=== PATIENT | female | born 1990 | race African-American/Black ===

== ENCOUNTER 2016-11-30 19:44 | Outpatient (CLI) | payer MEDICAID ==
[2016-11-30 20:19] LABS: APPEARANCE,URINE CLEAR; BILIRUBIN,URINE NEGATIVE (NEGATIVE); GLUCOSE, URINE NEGATIVE (NEGATIVE); KETONES,URINE NEGATIVE (NEGATIVE); LEUKOCYTE ESTERASE,URINE SMALL (NEGATIVE); NITRITE,URINE NEGATIVE (NEGATIVE); PROTEIN,URINE NEGATIVE (NEGATIVE); URINE SPECIFIC GRAVITY 1.013; UROBILINOGEN,URINE NEGATIVE mg/dL (<2.0)
[2016-11-30 20:33] LABS: URINE BARBITURATES SCREEN NEGATIVE; URINE METHADONE SCREEN NEGATIVE; URINE PHENCYCLIDINE SCREEN NEGATIVE
[2016-11-30 20:39] LABS: AMNISURE (ROM) NEGATIVE (NEGATIVE)
--- NOTE | 2016-11-30 21:13 | Non Stress Test Report ---
Non Stress Test Datetime Report Generated by CPN: 11/30/2016 21:13 DEMOGRAPHIC EGA NST: 33.6 INDICATION Indication for Study: Ordered by Provider Indication for Study (NST) Other: labor check URINE RESULTS Urine Protein, NST: Negative Urine Ketones - NST: Negative Urine Glucose - NST: Negative Urine Blood - NST: Negative MONITORING Monitor Explained: Monitor Explained; Test Explained; Patient Verbalized Understanding Time on Monitor: 11/30/2016 20:11 Time off Monitor: 11/30/2016 20:59 NST Duration: 48 NST INTERVENTIONS NST Interventions: PO Hydration Physician Notified NST: Dr. Neilsen BABY A: [id number] BABY A Movement : Present Contraction Frequency : irregular FHR Baseline : 135 Accelerations : 15X15 Decelerations : None Variability : Moderate 6-25bpm NST Review: Meets Criteria for Reactive NST NST Review and Verified By : Bessy Lopes RN NST Results: Reactive BABY B Movement: Present FHR Baseline: 145 Accelerations: 15X15 Decelerations: None Variability: Moderate 6-25bpm NST Review: Meets Criteria for Reactive NST NST Reviewed And Verified By: Bessy Lopes RN NST Results: Reactive NST REPORT Report Trigger: Send Report
--- NOTE | 2016-12-01 04:46 | L&D Admission Assessment ---
LD ADM ASMT Datetime Report Generated by CPN: 12/01/2016 04:45 PATIENT ASSESSMENT Assessment Type: Triage (11/30/2016 20:17:Kendra Hoover RN) PAIN Pain Scale: 3 (11/30/2016 20:17:Kendra Hoover RN) Pain Presence: Constant (11/30/2016 20:17:Kendra Hoover RN) Pain Type: Sharp (11/30/2016 20:17:Kendra Hoover RN) Pain Location: Abdomen; Perineum (Annotations: shooting pain in vagina) (11/30/2016 20:17:Kendra Hoover RN) Pain Related to Contraction: Unsure (11/30/2016 20:17:Kendra Hoover RN) CONTRACTIONS Frequency (min): x1 (11/30/2016 20:45:Kendra Hoover RN) Frequency (min): x1 (11/30/2016 20:30:Kendra Hoover RN) Frequency (min): constant (11/30/2016 20:17:Kendra Hoover RN) Duration (sec): 70 (11/30/2016 20:45:Kendra Hoover RN) Duration (sec): 90 (11/30/2016 20:30:Kendra Hoover RN) Quality: Mild (11/30/2016 20:45:Kendra Hoover RN) Quality: Mild (11/30/2016 20:30:Kendra Hoover RN) Pattern: Normal: <= 5 Contractions in 10 Minutes (11/30/2016 20:45:Kendra Hoover RN) Pattern: Normal: <= 5 Contractions in 10 Minutes (11/30/2016 20:30:Kendra Hoover RN) Resting Tone [place]: Relaxed (11/30/2016 20:45:Kendra Hoover RN) Resting Tone [place]: Relaxed (11/30/2016 20:30:Kendra Hoover RN) NEURO Level of Consciousness: Fully Conscious (11/30/2016 20:17:Kendra Hoover RN) DTR's/Clonus: DTRs 1+ (11/30/2016 20:17:Kendra Hoover RN) Headache: Denies (11/30/2016 20:17:Kendra Hoover RN) Dizziness: No (11/30/2016 20:17:Kendra Hoover RN) Blurred Vision: No (11/30/2016 20:17:Kendra Hoover RN) Extremity Numbness/Tingling : None (11/30/2016 20:17:Kendra Hoover RN) Extremity Movement: Full Range of Motion (11/30/2016 20:17:Kendra Hoover RN) CARDIOVASCULAR Heart Rhythm: Regular (11/30/2016 20:17:Kendra Hoover RN) Nailbeds: [place] (11/30/2016 20:17:Kendra Hoover RN) Capillary Refill: Less than 3 Seconds (11/30/2016 20:17:Kendra Hoover RN) Lower Extremities Edema: None (11/30/2016 20:17:Kendra Hoover RN) Lower Extremities Edema Degree: None (11/30/2016 20:17:Kendra Hoover RN) Upper Extremities Edema: None (11/30/2016 20:17:Kendra Hoover RN) Upper Extremities Edema Degree: None (11/30/2016 20:17:Kendra Hoover RN) Facial Edema: None (11/30/2016 20:17:Kendra Hoover RN) Hussain's Sign Left Leg: Negative (11/30/2016 20:17:Kendra Hoover RN) Hussain's Sign Right Leg: Negative (11/30/2016 20:17:Kendra Hoover RN) DVT RISK ASSESSMENT DVT Risk Age: Age less than 41 years (11/30/2016 20:17:Kendra Hoover RN) DVT Risk BMI: BMI<31 (11/30/2016 20:17:Kendra Hoover RN) DVT Risk Surgery: None Applicable (11/30/2016 20:17:Kendra Hoover RN) DVT Risk Other: None Applicable (11/30/2016 20:17:Kendra Hoover RN) DVT Risk Total: 0 (11/30/2016 20:17:QS system process) DVT Risk Text: Low Risk (<10%) No specific measures, early ambulation (11/30/2016 20:17:QS system process) RESPIRATORY Respiratory Effort: Unlabored (11/30/2016 20:17:Kendra Hoover RN) Breath Sounds, Left: Clear and Equal (11/30/2016 20:17:Kendra Chalman, RN) Breath Sounds, Right: Clear and Equal (11/30/2016 20:17:Kendra Hoover, RN) Cough Productivity: None (11/30/2016 20:17:Kendra Hoover, RN) GASTROINTESTINAL Nausea/Vomiting: Denies (11/30/2016 20:17:Kendra Hoover RN) RUQ Epigastric Pain: Denies (11/30/2016 20:17:Kendra Hoover RN) Bowel Patterns: Soft, Formed Stool (11/30/2016 20:17:Kendra Hoover RN) Hemorrhoids: None (11/30/2016 20:17:Kendra Hoover RN) Diet Type: Regular diet (11/30/2016 20:17:Kendra Hoover RN) Last Meal: 11/30/2016 19:00 (11/30/2016 20:17:Kendra Hoover RN) GENITOURINARY Bladder: Nondistended (11/30/2016 20:17:Kendra Hoover RN) Frequency of Urination: No (11/30/2016 20:17:Kendra Hoover RN) Urination Burning: No (11/30/2016 20:17:Kendra Hoover RN) CVA Tenderness: No (11/30/2016 20:17:Kendra Hoover RN) Vaginal Bleeding: None (11/30/2016 20:17:Kendra Hoover RN) Vaginal Discharge Amount: None (11/30/2016 20:17:Kendra Hoover RN) Vaginal Discharge Color: N/A (11/30/2016 20:17:Kendra Hoover RN) Vaginal Discharge Odor: Odorous (11/30/2016 20:17:Kendra Hoover RN) Vaginal Discharge Character: None (11/30/2016 20:17:Kendra Hoover RN) INTEGUMENTARY Skin Color: Normal for Race (11/30/2016 20:17:Kendra Hoover RN) Skin Temperature: Warm (11/30/2016 20:17:Kendra Hoover RN) Skin Moisture: Dry (11/30/2016 20:17:Kendra Hoover RN) ARTIS SKIN ASSESSMENT Artis Scale Sensory Perception: No Impairment- Responds to verbal commands. Has no sensory deficit which would limit ability to feel or voice pain or discomfort (11/30/2016 20:17:Kendra Hoover RN) Artis Scale Moisture: Rarely Moist- Skin is usually dry. Linen only requires changing at routine intervals (11/30/2016 20:17:Kendra Hoover RN) Artis Scale Activity: Walks Frequently- Walks outside the room at least twice a day and inside room at least every 2 hours during the day. (11/30/2016 20:17:Kendra Hoover RN) Artis Scale Mobility: No Limitations- Makes major and frequent changes in position without assistance (11/30/2016 20:17:Kendra Hoover RN) Artis Scale Nutrition: Excellent- Eats most of every meal. Never refuses a meal. Usually eats a total of 4 or more servings of meat and dairy products. Occasionally eats between meals. Does not require supplementation (11/30/2016 20:17:Kendra Hoover RN) Artis Scale Friction and Shear: No Apparent Problem- Moves in bed and in chair independently and has sufficient muscle strength to lift up completely during move. Maintains good position in bed or chair at all times (11/30/2016 20:17:Kendra Hoover RN) Artis Scale Total: 23 (11/30/2016 20:17:QS system process) Artis Scale Risk: No Risk of Pressure Ulcer Noted at this Time (11/30/2016 20:17:QS system process) SUPPORT Family Support: Significant Other supportive, at bedside frequently (11/30/2016 20:17:Kendra Hoover RN) Emotional State: Calm/Relaxed (11/30/2016 20:17:Kendra Hoover RN) SAFETY Call Choi Within Reach: Yes (11/30/2016 20:17:Kendra Hoover RN) Side Rails Up: Yes (11/30/2016 20:17:Kendra Hoover RN) Bed Wheels Locked: Yes (11/30/2016 20:17:Kendra Hoover RN) Arm Bands Present: Yes (11/30/2016 20:17:Kendra Hoover RN) Isolation: [place] (11/30/2016 20:17:Kendra Hoover RN) FALL SCREEN Fall Risk History of Falling: (0) No (11/30/2016 20:17:Kendra Hoover RN) Fall Risk Secondary Diagnosis: (0) No (11/30/2016 20:17:Kendra Hoover RN) Fall Risk Ambulatory Aid: (0) None/Bedrest/Wheelchair/Nurse Assist (11/30/2016 20:17:Kendra Hoover RN) Fall Risk IV Therapy: (0) No (11/30/2016 20:17:Kendra Hoover RN) Fall Risk Gait: (0) Normal/Bedrest/Immobile (11/30/2016 20:17:Kendra Hoover RN) Fall Risk Mental Status: (0) Oriented to Own Ability (11/30/2016 20:17:Kendra Hoover RN) Fall Risk Score: 0 (11/30/2016 20:17:QS system process) Fall Risk Score Definition: No Risk: No action required (11/30/2016 20:17:QS system process) RECENT TRAVEL/INFECTIOUS DISEASE Recent Exp Communicable Disease: No (11/30/2016 20:17:Kendra Hoover RN) Cough or Fever: No (11/30/2016 20:17:Kendra Hoover RN) Foreign Travel Past 10 Days: No (11/30/2016 20:17:Kendra Hoover RN) Open Wounds or Sores: No (11/30/2016 20:17:Kendra Hoover RN) Prior Antibiotic Resistance Tx: No (11/30/2016 20:17:Kendra Hoover RN) Cultures Obtained: Not Applicable (11/30/2016 20:17:Kendra Hoover RN) Isolation Initiated: No (11/30/2016 20:17:Kendra Hoover RN) Pt/Family Education: Not Applicable (11/30/2016 20:17:Kendra Hoover RN) BABY A FHR Baseline Rate (bpm) Baby A: 135 (11/30/2016 20:45:Kendra Hoover RN) FHR Baseline Rate (bpm) Baby A: 135 (11/30/2016 20:30:Kendra Hoover RN) Variability Baby A: Moderate 6-25 bpm (11/30/2016 20:45:Kendra Hoover RN) Variability Baby A: Moderate 6-25 bpm (11/30/2016 20:30:Kendra Hoover RN) Accelerations Baby A: 15X15 (11/30/2016 20:45:Kendra Hoover RN) Accelerations Baby A: 15X15 (11/30/2016 20:30:Kendra Hoover RN) Decelerations Baby A: None (11/30/2016 20:45:Kendra Hoover RN) Decelerations Baby A: None (11/30/2016 20:30:Kendra Chalman, RN) BABY B FHR Baseline Rate (bpm) Baby B: 145 (11/30/2016 20:45:Kendra Hoover RN) FHR Baseline Rate (bpm) Baby B: 145 (11/30/2016 20:30:Kendra Hoover RN) Variability Baby B: Moderate 6-25 bpm (11/30/2016 20:45:Kendra Hoover RN) Variability Baby B: Moderate 6-25 bpm (11/30/2016 20:30:Kendra Hoover RN) Accelerations Baby B: 15X15 (11/30/2016 20:45:Kendra Hoover RN) Accelerations Baby B: 15X15 (11/30/2016 20:30:Kendra Hoover RN) Decelerations Baby B: None (11/30/2016 20:45:Kendra Hoover RN) Decelerations Baby B: None (11/30/2016 20:30:Kendra Hoover RN)
--- NOTE | 2016-12-01 04:46 | L&D Current Admission ---
Current Admit Datetime Report Generated by CPN: 12/01/2016 04:45 ADMISSION INFORMATION Chief Complaint: Contractions (11/30/2016 20:17:MAE Hardwick
--- NOTE | 2016-12-01 04:46 | L&D General Admission ---
General Admit Datetime Report Generated by CPN: 12/01/2016 04:45 INFORMATION Para: 1 (11/30/2016 21:12:Kendra Hoover RN) Baby, Number in Womb: 2 (11/30/2016 21:12:Kendra Hoover RN)
--- NOTE | 2016-12-01 04:46 | Antepartum Discharge Summary ---
Antepartum DC Datetime Report Generated by CPN: 12/01/2016 04:45 DIET/ACTIVITY/RESTRICTIONS Diet: Regular (11/30/2016 21:12:Kendra Hoover RN) Activity: Normal Activity (11/30/2016 21:12:Kendra Hoover RN) Activity Restrictions: No Exercising; No Lifting; No Driving; Minimize Walking; Minimize Stair Climbing; No Sexual Activity; Nothing in Vagina - [place], Tampons, [place] (11/30/2016 21:12:Kendra Hoover RN) TEACHING/INSTRUCTIONS/REFERRALS Instructions Understood: Patient Verbalized Understanding; Support Person Verbalized Understanding (11/30/2016 21:12:Kendra Hoover RN) Referrals: None (11/30/2016 21:12:Kendra Hoover RN) DISCHARGE INFORMATION Discharged AMA: No (11/30/2016 21:12:Kendra Hoover RN) Discharge Date/Time: 11/30/2016 21:14 (11/30/2016 21:12:Kendra Hoover RN) Discharged To: Home (11/30/2016 21:12:Kendra Hoover RN) Discharge Provider Name: Neilsen (11/30/2016 21:12:Kendra Hoover RN) Accompanied By: (11/30/2016 21:12:Kendra Hoover RN) Discharge Method: Wheelchair (11/30/2016 21:12:Kendra Hoover RN) Condition: Stable (11/30/2016 21:12:Kendra Hoover RN) FOLLOW UP INFORMATION Follow Up With: [facility] (11/30/2016 21:12:Kendra Hoover RN) Follow Up On: As Scheduled (11/30/2016 21:12:Kendra Hoover RN) Comments: pt educated on kick counts and pre term labor precautions. pt instructed to return to hospital for SROM, decreased fm, bleeding like a period or regular contractions (11/30/2016 21:12:Kendra Hoover RN)
--- NOTE | 2016-12-01 04:46 | L&D Flow Sheet ---
LD Flowsheet Datetime Report Generated by CPN: 12/01/2016 04:45 Datetime: 11/30/2016 20:54 Vital Signs NBP Sys/Dorothea/Mean (mmHg): 123 (QS system process) : 77 (QS system process) : 95 (QS system process) Pulse: 102 (QS system process) Communication LaborFlag: Labor (QS system process) Datetime: 11/30/2016 20:45 Uterine Activity Monitor Mode: External; Palpation (Kendra Hoover, DAMIÁN) Frequency (min): x1 (Kendra Hoover, DAMIÁN) Quality: Mild (Kendra Hoover, DAMIÁN) Duration (sec): 70 (Kendra Hoover RN) Pattern: Normal: <= 5 Contractions in 10 Minutes (Kendra Hoover, RN) Resting Tone (Palpate): Relaxed (Kendra Hoover, DAMIÁN) Assessment A Monitor Mode: External US (Kendra Chalman, RN) FHR Baseline Rate : 135 (Kendra Chalman, RN) FHR Baseline Changes: No Baseline Change (Kendra Chalman, RN) Variability: Moderate 6-25 bpm (Kendra Chalman, RN) Accelerations: 15X15 (Kendra Chalman, RN) Decelerations: None (Kendra Chalman, RN) Assessment B Monitor Mode: External US (Kendra Chalman, RN) FHR Baseline Rate : 145 (Kendra Chalman, RN) FHR Baseline Changes: No Baseline Change (Kendra Chalman, RN) Variability: Moderate 6-25 bpm (Kendra Chalman, RN) Accelerations: 15X15 (Kendra Chalman, RN) Decelerations: None (Kendra Chalman, RN) Datetime: 11/30/2016 20:39 Vital Signs NBP Sys/Dorothea/Mean (mmHg): 128 (QS system process) : 81 (QS system process) : 100 (QS system process) Pulse: 108 (QS system process) Communication LaborFlag: Labor (QS system process) Datetime: 11/30/2016 20:30 Uterine Activity Monitor Mode: External; Palpation (Kendra Chalman, RN) Frequency (min): x1 (Kendra Chalman, RN) Quality: Mild (Kendra Chalman, RN) Duration (sec): 90 (Kendra Chalman, RN) Pattern: Normal: <= 5 Contractions in 10 Minutes (Kendra Chalman, RN) Resting Tone (Palpate): Relaxed (Kendra Chalman, RN) Assessment A Monitor Mode: External US (Kendra Chalman, RN) FHR Baseline Rate : 135 (Kendra Chalman, RN) FHR Baseline Changes: No Baseline Change (Kendra Chalman, RN) Variability: Moderate 6-25 bpm (Kendra Chalman, RN) Accelerations: 15X15 (Kendra Chalman, RN) Decelerations: None (Kendra Chalman, RN) Assessment B Monitor Mode: External US (Kendra Chalman, RN) FHR Baseline Rate : 145 (Kendra Chalman, RN) FHR Baseline Changes: No Baseline Change (Kendra Chalman, RN) Variability: Moderate 6-25 bpm (Kendra Chalman, RN) Accelerations: 15X15 (Kendra Chalman, RN) Decelerations: None (Kendra Chalman, RN) Datetime: 11/30/2016 20:27 Patient Care Patient Care Comments: report called to Dr. [place]. Provider aware of pt complaint, FHR and toco tracing, and BPs, per provider if u/a is normal and amnisure if negative pt ok to be d/c home (Kendra Kiko, DAMIÁN) Datetime: 11/30/2016 20:19 Vital Signs NBP Sys/Dorothea/Mean (mmHg): 130 (QS system process) : 81 (QS system process) : 100 (QS system process) Pulse: 96 (QS system process) Communication LaborFlag: Labor (QS system process) Datetime: 11/30/2016 20:17 Frequency (min): constant (Kendra Kiko, ) Pain Pain Scale: 3 (Kendra Hoover RN) Pain Presence: Constant (Kendra Hoover RN) Pain Type: Sharp (Kendra Hoover RN) Pain Location: Abdomen; Perineum (Annotations: shooting pain in vagina) (Kendra Hoover RN) Pain Relief Measures: Comfort Measures (Kendra Hoover RN) Pain Coping: Talking Through Contractions (Kendra Hoover RN) Vaginal Exam Vaginal Bleeding: None (Kendra Chalman, RN) Maternal Assessment Level of Consciousness: Fully Conscious (Kendra Chalman, RN) DTR's/Clonus: DTRs 1+ (Kendra Chalman, RN) Headache: Denies (Kendra Chalman, RN) Breath Sounds, Left: Clear and Equal (Kendra Chalman, RN) Breath Sounds, Right: Clear and Equal (Kendra Chalman, RN) Nausea/Vomiting: Denies (Kendra Chalman, RN) RUQ Epigastric Pain: Denies (Kendra Chalman, RN) Communication LaborFlag: Labor (QS system process) Datetime: 11/30/2016:09 Patient Care Patient Care Comments: amnisure collected (Kendra Hoover, DAMIÁN)
--- NOTE | 2016-12-01 04:46 | L&D Discharge Summary ---
OB Discharge Summary Datetime Report Generated by CPN: 12/01/2016 04:45 DISCHARGE DIAGNOSIS Diagnosis/Symptoms: False Labor Treatment/Procedures Other: Vistaril 50 mg Gestation: 33.6 Number of Babies in Womb: 2 Parity: 1 DIET/ACTIVITY/RESTRICTIONS Diet: Regular Diet Restrictions: wear abd binder Activity: Normal Activity Activity Restrictions: No Exercising; No Lifting; No Driving; Minimize Walking; Minimize Stair Climbing; No Sexual Activity; Nothing in Vagina - [place], Tampons, [place] TEACHING/INSTRUCTIONS/REFERRALS Instructions Given To: pt Instructions Understood: Patient Verbalized Understanding; Support Person Verbalized Understanding Referrals: None Educational Materials- Other: Kick Counts [place] and Dehydration DISCHARGE INFORMATION Discharged AMA: No Physician Notified of Disch AMA: Dr Rogers Discharge Date/Time: 11/30/2016 21:14 Discharged To: Home Discharge Provider Name: Shaniquailsen Accompanied By: Discharge Method: Wheelchair Condition: Stable FOLLOW UP INFORMATION Follow Up With: [facility] Follow Up On: As Scheduled Follow Up Phone Number: [facility] - Comments: pt educated on kick counts and pre term labor precautions. pt instructed to return to hospital for SROM, decreased fm, bleeding like a period or regular contractions
== END 2016-11-30 21:14 | disposition home or self-care (01) ==
LOC: LC 19:44
PROVIDERS: ATTEND Specialist
PROC: 4A1HXCZ Monitoring of Products of Conception, Cardiac Rate, External Approach (ICD-10-PCS; principal; 2016-11-30)
DX: O47.03 False labor before 37 completed weeks of gestation, third trimester (principal); Z3A.33 33 weeks gestation of pregnancy
CPT/HCPCS: 59025; 84112; 81001; G0479; 80307

== ENCOUNTER 2016-12-11 15:20 | Outpatient (CLI) | payer MEDICAID ==
--- NOTE | 2016-12-11 16:00 | L&D Flow Sheet ---
LD Flowsheet Datetime Report Generated by CPN: 12/11/2016 16:00 Datetime: 12/11/2016 15:51 Assessment A Monitor Interventions for FHR: Ultrasound Adjusted (Clara Vitrano, RN) Patient Care Patient Position/Activity: Right Lateral (Clara Vitrano, RN) Datetime: 12/11/2016 15:47 Patient Care Patient Position/Activity: Left Lateral (Clara Vitrano, RN) I/O Interventions: Clear Liquids Given (Clara Vitrano, RN) Datetime: 12/11/2016 15:41 Uterine Activity Frequency (min): Irregular (Clara Vitrano, RN) Pain Pain Scale: 2 (Clara Vitrano, RN) Pain Presence: Intermittent (Clara Vitrano, RN) Pain Type: Cramping (Clara Vitrano, RN) Pain Location: Abdomen (Clara Vitrano, RN) Pain Coping: Talking Through Contractions (Annotations: Pt resting in no apparent distress) (Clara Vitrano, RN) Vaginal Exam Membrane Status: Intact (Clara Vitrano, RN) Vaginal Bleeding: None (Clara Vitrano, RN) Maternal Assessment Level of Consciousness: Fully Conscious (Clara Vitrano, RN) DTR's/Clonus: DTRs 2+; No Clonus (Clara Vitrano, RN) Headache: Denies (Clara Vitrano, RN) Breath Sounds, Right: Clear and Equal (Clara Vitrano, RN) Nausea/Vomiting: Present (Annotations: Nausea, no vomiting) (Clara Vitrano, RN) RUQ Epigastric Pain: Denies (Clara Vitrano, RN) Communication LaborFlag: Labor (QS system process) Datetime: 12/11/2016 15:38 Patient Care Patient Position/Activity: Right Tilt; Semi-Fowlers (Clara Vitrano, RN) I/O Interventions: Clear Liquids Given (Clara Vitrano, RN) Teaching Instructional Method: Verbal; Patient Instructed; Family/Support Person Instructed; Verbalized Understanding (Clara Noni, RN) Plan of Care: Plan of Care Discussed (Clara DAMIÁN [place]) Unit Routine: [place] to Room; Call Choi; Bed; Unit Personnel; Monitoring; Safety/Fall Risk Prevention; Bathroom Privileges (Clara Vitrano, RN) Datetime: 12/11/2016 15:37 Vital Signs NBP Sys/Dorothea/Mean (mmHg): 130 (QS system process) : 74 (QS system process) : 94 (QS system process) Pulse: 99 (QS system process) Communication LaborFlag: Labor (QS system process)
[2016-12-11] MEDS ORDERED: ONDANSETRON HCL INJ/PF 4 MG/2 ML SDV ONE (16:06)
[2016-12-11] MEDS ORDERED: RINGERS SOLUTION,LACTATED 1,000 ML IV PRN (16:08)
[2016-12-11] MEDS ORDERED: ONDANSETRON HCL INJ/PF 4 MG/2 ML SDV IV ONE (16:08)
--- NOTE | 2016-12-11 16:48 | Non Stress Test Report ---
Non Stress Test Datetime Report Generated by CPN: 12/11/2016 16:47 DEMOGRAPHIC Test Number: 2 EGA NST: 36.3 INDICATION Indication for Study: Ordered by Provider MONITORING Monitor Explained: Monitor Explained; Test Explained; Patient Verbalized Understanding Time on Monitor: 12/11/2016 15:39 Time off Monitor: 12/11/2016 16:30 NST Duration: 51 NST INTERVENTIONS NST Interventions: IV Fluids; Reposition Patient Physician Notified NST: Dr. Marie BABY A: [id number] BABY A Movement : Present Contraction Frequency : Occasional irritability FHR Baseline : 140 Accelerations : 15X15 Decelerations : None Variability : Moderate 6-25bpm NST Review: Meets Criteria for Reactive NST NST Review and Verified By : Kevin Tabor RN NST Results: Reactive BABY B Movement: Present FHR Baseline: 135 Accelerations: 15X15 Decelerations: None Variability: Moderate 6-25bpm NST Review: Meets Criteria for Reactive NST NST Reviewed And Verified By: Kevin Tabor RN NST Results: Reactive NST REPORT Report Trigger: Send Report
--- NOTE | 2016-12-15 06:25 | L&D General Admission ---
General Admit Datetime Report Generated by CPN: 12/15/2016 06:00 INFORMATION Patient Age: 25 (09/09/2016 18:16:QS system process) EDC: 01/05/2017 00:00 (09/09/2016 18:17:Clara Cheney RN) : 4 (09/09/2016 18:17:TAIWO eLdbetter) Para: 1 (11/30/2016 21:12:Kendra Hoover RN) Term: 1 (09/09/2016 18:17:TAIWO Ledbetter) : 0 (09/09/2016 18:17:TAIWO Ledbetter) Spontaneous Abortions: 0 (09/09/2016 18:17:TAIWO Ledbetter) Induced Abortions: 2 (09/09/2016 18:17:TAIWO Ledbetter) Livin (09/09/2016 18:17:TAIWO Ledbetter) Cesareans: 0 (09/09/2016 18:17:TAIWO Ledbetter) VBACs: 0 (09/09/2016 18:17:TAIWO Ledbetter) Ectopic: 0 (09/09/2016 18:17:TAIWO Ledbetter) Multiple Births: 0 (09/09/2016 18:17:TAIWO Ledbetter) Baby, Number in Womb: 2 (11/30/2016 21:12:Kendra Hoover RN) CARE Primary Card Tape Converter Operator: [facility] (09/09/2016 18:17:Ann Pickens RN) Card Tape Converter Operator Other: Maternal (09/09/2016 18:17:Ann Pickens RN) Month of 1st Visit: May (09/09/2016 18:17:Ann Pickens RN) Adequate Care: Yes (09/09/2016 18:17:Ann Pickens RN) Height (in): 66 (12/11/2016 15:44:QS system process) ALLERGIES Medication Allergy: No (09/09/2016 18:17:Ann Pickens RN) Medication Allergies: No Known Allergies (12/11/2016) (12/11/2016 15:31:QS system process) Latex Allergy: No Latex Allergies (09/09/2016 18:17:Ann Pickens RN) COMMUNICATION Primary Language: Latvian (09/09/2016 18:17:Ann Pickens RN) Medical Tx Preferred Language: Latvian (09/09/2016 18:17:Ann Pickens RN) DEMOGRAPHICS Address: [address] [place] [address], [address] [address] (09/09/2016 18:16:QS system process) Zipcode: [id number] (09/09/2016 18:16:QS system process) Home (09/09/2016 18:16:QS system process) Work (09/09/2016 18:16:QS system process) SSN: [id number] (09/09/2016 18:16:QS system process) Next of Kin Name: NATHAN VELOZ (09/09/2016 18:16:QS system process) Next of Kin (09/09/2016 18:16:QS system process) Next of Kin Relationship: OR (12/11/2016 15:20:QS system process) Date of : 1990 (09/09/2016 18:16:QS system process) Marital Status: Single (09/09/2016 18:16:QS system process) Sex: Female (09/09/2016 18:16:QS system process) Race: (09/09/2016 18:16:QS system process) Ethnicity: Non- or (09/09/2016 18:16:QS system process) Sabianist: Gnosticist (09/09/2016 18:16:QS system process) DRUG AND ALCOHOL USE Alcohol: No (09/09/2016 18:17:Ann Pickens RN) Cigarettes: Never Smoker. [id number] (09/09/2016 18:17:Ann Pickens RN) Marijuana: No (09/09/2016 18:17:Ann Pickens RN) Cocaine: No (09/09/2016 18:17:Ann Pickens RN) Other Illicit Drugs: No (09/09/2016 18:17:Ann Pickens RN) VACCINE HISTORY Influenza Vaccine: Yes (09/09/2016 18:17:Ann Pickens RN) Influenza Date: 09/14 (09/09/2016 18:17:Ann Pickens RN) Senior Geologist: [facility] (09/09/2016 18:17:Ann Pickens RN) Circumcision: Yes (09/09/2016 18:17:Ann Pickens RN) Classes Attended: No (09/09/2016 18:17:Ann Pickens RN) Tubal Ligation: No (09/09/2016 18:17:Ann Pickens RN) Pain Management Plans: Epidural (09/09/2016 18:17:Ann Pickens RN) Plans for Labor and Delivery: None (09/09/2016 18:17:Ann Pickens RN) Support Person: Blayne (09/09/2016 18:17:Ann Pickens RN) Support Person Relationship: (09/09/2016 18:17:Ann Pickens RN) Cultural/Spritual Practice: No (09/09/2016 18:17:Ann Pickens RN) Spir/Cult Dietary Needs: No (09/09/2016 18:17:Ann Pickens RN) LIVING SITUATION/DISCHARGE PLAN Living Arrangements: Apartment (09/09/2016 18:17:Ann Pickens RN) Adequate Access to:: Electric; Heat; Refrigeration; Plumbing/Running water; Phone; Transportation (09/09/2016 18:17:Ann Pickens RN) WIC Program: Yes (09/09/2016 18:17:Ann Pickens RN) Discharge Mold Filling Operator Person: Blayne (09/09/2016 18:17:Ann Pickens RN) Person to Help after Discharge: Blayne (09/09/2016 18:17:Ann Pickens RN) Currently Using Commun Resources: Yes (09/09/2016 18:17:Ann Pickens RN) Specify Current Resource Used: WIC (09/09/2016 18:17:Ann Pickens RN) Outside Agency/Baked Goods Stock Clerk: No (09/09/2016 18:17:Ann Pickens RN) Car Seat for Discharge: Yes (09/09/2016 18:17:Ann Pickens RN) Adoption Requested: No (09/09/2016 18:17:Ann Pickens RN) Pt Contact w/ Post : N/A (09/09/2016 18:17:Ann Pickens RN) LABS Blood Type: B Positive (09/09/2016 18:17:Claudette Cedillo RN) Antibody Screen: Negative (09/09/2016 18:17:Claudette Cedillo RN) Rho(G) this : Not Applicable (09/09/2016 18:17:Claudette Cedillo RN) Group Beta Strep: Positive (09/09/2016 18:17:Clara Cheney RN) Gonorrhea: Negative (09/09/2016 18:17:Clara Cheney RN) Chlamydia: Negative (09/09/2016 18:17:Clara Cheney RN) RPR/VDRL: Nonreactive (09/09/2016 18:17:Claudette Cedillo RN) HIV Exposure Test: Negative (09/09/2016 18:17:Claudette Cedillo RN) Hepatitis B: Negative (09/09/2016 18:17:Claudette Cedillo RN) Rubella: Immune (09/09/2016 18:17:Claudette Cedillo RN) Varicella: Non Susceptible (09/09/2016 18:17:Claudette Cedillo RN) OB/PREVIOUS HISTORY Previous Procedures: Ultrasound (09/09/2016 18:17:Claudette Cedillo RN) Current Procedures: Ultrasound (09/09/2016 18:17:Claudette Cedillo RN) History of Previous : No (09/09/2016 18:17:Ann Pickens RN) History of Gestational Diabetes: No (09/09/2016 18:17:Ann Pickens RN) History of PIH: No (09/09/2016 18:17:Ann Pickens RN) History of Incompetent Cervix: No (09/09/2016 18:17:Ann Pickens RN) History of Placenta Previa/Abrup: No (09/09/2016 18:17:Ann Pickens RN) History of Macrosomia: No (09/09/2016 18:17:Ann Pickens RN) History of IUGR: No (09/09/2016 18:17:Ann Pickens RN) History of Hemorrhage: No (09/09/2016 18:17:Ann Pickens RN) History of Loss/Stillborn: No (09/09/2016 18:17:Ann Pickens RN) History of : No (09/09/2016 18:17:Ann Pickens RN) History of D (Rh) Sensitization: No (09/09/2016 18:17:Ann Pickens RN) History Recurrent Loss/Stillborn: No (09/09/2016 18:17:Ann Pickens RN) History Depression/PP Depression: No (09/09/2016 18:17:Ann Pickens RN) History of Uterine Anomaly/MICHELL: No (09/09/2016 18:17:Ann Pickens RN) History of Infertility: No (09/09/2016 18:17:Ann Pickens RN) History of ART Treatment: No (09/09/2016 18:17:Ann Pickens RN) History of MICHELL: No (09/09/2016 18:17:Ann Pickens RN) Comments Obstetrical History: G1 - 02/2010 EAB 5 week G2 - 05/2013 NVD 40 week baby boy - 6 lb 12 oz, preecclampsia G3 - 03/2015 EAB 6 week G4 - current , di/di twin boy _ girl GHTN (09/09/2016 18:17:Tiffany Lopes RN) MEDICAL HISTORY Med Hx Diabetes: No (09/09/2016 18:17:Ann Pickens RN) Med Hx Hypertension: No (09/09/2016 18:17:Ann Pickens RN) Med Hx Heart Disease: No (09/09/2016 18:17:Ann Pickens RN) Med Hx Autoimmune Disorder: No (09/09/2016 18:17:Ann Pickens RN) Med Hx Kidney Disease/UTI: No (09/09/2016 18:17:Ann Pickens RN) Med Hx Neurologic/Epilepsy: No (09/09/2016 18:17:Ann Pickens RN) Med Hx Psychiatric Disorders: No (09/09/2016 18:17:Ann Pickens RN) Med Hx Hepatitis/Liver Disease: No (09/09/2016 18:17:Ann Pickens RN) Med Hx Varicosities/Phlebitis: No (09/09/2016 18:17:Ann Pickens RN) Med Hx Thyroid Dysfunction: No (09/09/2016 18:17:Ann Pickens RN) Med Hx Trauma/Violence: No (09/09/2016 18:17:Ann Pickens RN) Med Hx Blood Transfusion: No (09/09/2016 18:17:Ann Pickens RN) Med Hx Pulmonary (Asthma,TB): Yes (09/09/2016 18:17:Claudette Cedillo RN) Med Hx Breast: No (09/09/2016 18:17:Ann Pickens RN) Med Hx LEARNING DISABILITIES TEACHER Surgery: No (09/09/2016 18:17:Ann Pickens RN) Med Hx Hospitalization/Surgery: No (09/09/2016 18:17:Ann Pickens RN) Med Hx Anesthetic Complications: No (09/09/2016 18:17:Ann Pickens RN) Med Hx Abnormal Pap Smear: No (09/09/2016 18:17:Ann Pickens RN) Other Medical Diseases: No (09/09/2016 18:17:Ann Pickens RN) Med Hx Significant Family Hx: No (09/09/2016 18:17:Ann Pickens RN) Details of Med/Surg Hx: asthma, anxiety with this (09/09/2016 18:17:Tiffany Lopes RN) INFECTIOUS HISTORY Inf Hx Gonorrhea: No (09/09/2016 18:17:Ann Pickens RN) Inf Hx Chlamydia: Yes (09/09/2016 18:17:Ann Pickens RN) Inf Hx Syphilis: No (09/09/2016 18:17:Ann Pickens RN) Inf Hx HIV/AIDS: No (09/09/2016 18:17:Ann Pickens RN) Inf Hx Human Papilloma Virus: No (09/09/2016 18:17:Ann Pickens RN) Inf Hx Pt/Partner Genital Herpes: No (09/09/2016 18:17:Ann Pickens RN) Inf Hx Tuberculosis/Exposure: No (09/09/2016 18:17:Ann Pickens RN) Inf Hx Hepatitis B,C: No (09/09/2016 18:17:Ann Pickens RN) Inf Hx Rash or Viral Illness: No (09/09/2016 18:17:Ann Pickens RN) Details of Infectious Hx: Chlamydia 2010 (09/09/2016 18:17:Ann Pickens RN) GENETIC HISTORY Gen Hx Age >=35 at LUIS ENRIQUE: No (09/09/2016 18:17:Ann Pickens RN) Gen Hx Thalassemia: No (09/09/2016 18:17:Ann Pickens RN) Gen Hx Congenital Heart Defect: No (09/09/2016 18:17:Ann Pickens RN) Gen Hx Neural Tube Defect: No (09/09/2016 18:17:Ann Pickens RN) Gen Hx Down's Syndrome: No (09/09/2016 18:17:Ann Pickens RN) Gen Hx Giacomo-Sachs: No (09/09/2016 18:17:Ann Pickens RN) Gen Hx Mónica: No (09/09/2016 18:17:Ann Pickens RN) Gen Hx Familial Dysautonomia: No (09/09/2016 18:17:Ann Pickens RN) Gen Hx Sickle Cell Disease/Trait: No (09/09/2016 18:17:Ann Pickens RN) Gen Hx Hemophilia/Blood Disorder: No (09/09/2016 18:17:Ann Pickens RN) Gen Hx Muscular Dystrophy: No (09/09/2016 18:17:Ann Pickens RN) Gen Hx Cystic Fibrosis: No (09/09/2016 18:17:Ann Pickens RN) Gen Hx Huntingtons Chorea: No (09/09/2016 18:17:Ann Pickens RN) Gen Hx Mental Retardation/Autism: No (09/09/2016 18:17:Ann Pickens RN) Gen Hx Tested for Fragile X: No (09/09/2016 18:17:Ann Pickens RN) Gen Hx Other Inher/Chromosomal: No (09/09/2016 18:17:Ann Pickens RN) Gen Hx Maternal Metabolic DO: No (09/09/2016 18:17:Ann Pickens RN) Gen Hx Pt Father or FOB Defect: No (09/09/2016 18:17:Ann Pickens RN) Gen Hx Other Genetic History: No (09/09/2016 18:17:Ann Pickens RN) Gen Hx Drugs/Meds since LMP: No (09/09/2016 18:17:Ann Pickens RN)
--- NOTE | 2016-12-15 06:25 | L&D Current Admission ---
Current Admit Datetime Report Generated by CPN: 12/15/2016 06:00 ADMISSION INFORMATION Chief Complaint: Uterine Cramping; Nausea; Other (12/11/2016 15:41:Clara DAMIÁN Cheney)
--- NOTE | 2016-12-16 08:00 | L&D Flow Sheet ---
LD Flowsheet Datetime Report Generated by CPN: 12/16/2016 08:00 Datetime: 12/16/2016 07:34 Pain Scale: 1 (Blanca Orozco RN) Pain Presence: Intermittent (Blanca Orozco RN) Pain Type: Cramping (Blanca Orozco RN) Pain Location: Abdomen (Blanca Orozco RN) Vaginal Bleeding: None (Blanca Orozco RN) Level of Consciousness: Fully Conscious (Blanca Orozco RN) DTR's/Clonus: DTRs 2+; No Clonus (Blanca Orozco RN) Headache: Denies (Blanca Orozco RN) Breath Sounds, Left: Clear and Equal (Blanca Orozco RN) Breath Sounds, Right: Clear and Equal (Blanca Orozco RN) Nausea/Vomiting: Denies (Blanca Orozco RN) RUQ Epigastric Pain: Denies (Blanca Orozco RN) Instructional Method: Verbal; Patient Instructed; Family/Support Person Instructed; Verbalized Understanding (Blanca Orozco RN) Plan of Care: Plan of Care Discussed; Vaginal Delivery; C/S Delivery; Labor; Induction (Blanca Orozco RN) Unit Routine: [place] to Room; Call Choi; Bed; Waiting Areas; Handwashing; Monitoring; IV Pumps; Bathroom Privileges (Blanca Orozco RN) LaborFlag: Labor (QS system process) Datetime: 12/16/2016 07:32 NBP Sys/Dorothea/Mean (mmHg): 134 (QS system process) : 83 (QS system process) : 104 (QS system process) Pulse: 107 (QS system process) LaborFlag: Labor (QS system process)
--- NOTE | 2016-12-16 10:06 | Antepartum Discharge Summary ---
Antepartum DC Datetime Report Generated by CPN: 12/16/2016 10:06 Diet: Regular (12/11/2016 16:47:Clara Cheney RN) Activity: Normal Activity (12/11/2016 16:47:Clara Cheney RN) Instructions Given To: Patient (12/11/2016 16:47:Clara Cheney RN) Instructions Understood: Patient Verbalized Understanding (12/11/2016 16:47:Clara Cheney RN) Referrals: None (12/11/2016 16:47:Clara Cheney RN) Educational Materials- Other: Pt declined (12/11/2016 16:47:Clara Cheney RN) Discharged AMA: No (12/11/2016 16:47:Clara Cheney RN) Discharge Date/Time: 12/11/2016 16:47 (12/11/2016 16:47:Clara Cheney RN) Discharged To: Home (12/11/2016 16:47:Clara Cheney RN) Discharge Provider Name: Dr. Marie (12/11/2016 16:47:Clara Cheney RN) Discharge Method: Ambulatory (12/11/2016 16:47:Clara Cheney RN) Condition: Stable (12/11/2016 16:47:Clara Cheney RN) Follow Up With: [facility] (12/11/2016 16:47:Clara Cheney RN) Follow Up On: Thursday12/15/16 (12/11/2016 16:47:Clara Cheney RN) Follow Up Phone Number: [facility] - (12/11/2016 16:47:Clara Cheney RN)
== END 2016-12-11 16:47 | disposition home or self-care (01) ==
LOC: LC 15:20
PROVIDERS: ATTEND Obstetrics & Gynecology
PROC: 4A1HXCZ Monitoring of Products of Conception, Cardiac Rate, External Approach (ICD-10-PCS; principal; 2016-12-11)
DX: Z34.93 Encounter for supervision of normal pregnancy, unspecified, third trimester (principal); Z3A.36 36 weeks gestation of pregnancy
CPT/HCPCS: 59025; J2405

== ENCOUNTER 2016-12-15 09:46 | Outpatient (CLI) | payer MEDICAID ==
[2016-12-15 09:07] LABS: APPEARANCE,URINE CLOUDY; BILIRUBIN,URINE NEGATIVE (NEGATIVE); GLUCOSE, URINE NEGATIVE (NEGATIVE); KETONES,URINE NEGATIVE (NEGATIVE); LEUKOCYTE ESTERASE,URINE MODERATE (NEGATIVE); NITRITE,URINE NEGATIVE (NEGATIVE); PROTEIN,URINE NEGATIVE (NEGATIVE); URINE SPECIFIC GRAVITY 1.015; UROBILINOGEN,URINE NEGATIVE mg/dL (<2.0)
[2016-12-15 09:25] LABS: ABSOLUTE LYMPHOCYTES (AUTO) 1.3 10^3/uL (0.5-4.7); ABSOLUTE MONOCYTES (AUTO) 0.6 10^3/uL (0.1-1.4); ABSOLUTE NEUT (AUTO) 6.3 10^3/uL (1.7-8.2); BASOPHILS % (AUTO) 0.2 % (0-2); EOSINOPHILS % (AUTO) 0.2 % (0-6); HEMATOCRIT 36.4 % (36.0-47.0); HEMOGLOBIN 11.5 g/dL (12.0-15.5); HGB HCT DIFFERENCE -1.9; LYMPHOCYTES % (AUTO) 15.8 % (13-45); MEAN CORPUSCULAR HEMOGLOBIN 28.1 pg (27.0-33.4); MEAN CORPUSCULAR HGB CONC 31.8 g/dL (32.0-36.0); MEAN CORPUSCULAR VOLUME 88 fl (80-97); MONOCYTES % (AUTO) 7.6 % (3-13); RED BLOOD COUNT 4.12 10^6/uL (3.72-5.28); RED CELL DISTRIBUTION WIDTH 13.1 % (11.5-14.0); SEGMENTED NEUTROPHILS % (AUTO) 76.2 % (42-78); WHITE BLOOD COUNT 8.3 10^3/uL (4.0-10.5)
[2016-12-15 09:37] LABS: URINE BARBITURATES SCREEN NEGATIVE; URINE METHADONE SCREEN NEGATIVE; URINE PHENCYCLIDINE SCREEN NEGATIVE
[2016-12-15 09:42] LABS: ALANINE AMINOTRANSFERASE 21 U/L (9-52); ALBUMIN 2.8 g/dL (3.5-5.0); ALKALINE PHOSPHATASE 136 U/L (38-126); ANION GAP 10 (5-19); ASPARTATE AMINO TRANSFERASE 20 U/L (14-36); BILIRUBIN,TOTAL 0.3 mg/dL (0.2-1.3); BLOOD UREA NITROGEN 4 mg/dL (7-20); CALCIUM 9.1 mg/dL (8.4-10.2); CARBON DIOXIDE 23 mmol/L (22-30); CHLORIDE 105 mmol/L (98-107); GLUCOSE 78 mg/dL (75-110); LDH 458 U/L (313-618); SODIUM 137.5 mmol/L (137-145); TOTAL PROTEIN 5.6 g/dL (6.3-8.2); URIC ACID 4.7 mg/dL (2.5-6.2)
[~2016-12-15 09:46] MED LIST: OXYTOCIN/NORMAL SALINE 0 UNIT/0 ML RTUINJ ONE; OXYTOCIN/NORMAL SALINE 1,000 ML IV PRN; PENICILLIN G POTASSIUM 5,000,000 UNIT in DEXTROSE 5%-WATER 100 ML IV ONE; PENICILLIN G-K 5 MILLION UNIT VIAL IV SCH; PENICILLIN G-K 5 MILLION UNIT VIAL ONE; RINGERS SOLUTION,LACTATED 1,000 ML IV PRN; RINGERS SOLUTION,LACTATED 300 ML IV ONE
--- NOTE | 2016-12-15 10:29 | Non Stress Test Report ---
Non Stress Test Datetime Report Generated by CPN: 12/15/2016 10:28 DEMOGRAPHIC EGA NST: 37.0 INDICATION Indication for Study: Other Indication for Study (NST) Other: IOL turned LC MONITORING Monitor Explained: Monitor Explained; Test Explained; Patient Verbalized Understanding Time on Monitor: 12/15/2016 09:30 Time off Monitor: 12/15/2016 09:59 NST Duration: 29 NST INTERVENTIONS NST Interventions: None Physician Notified NST: Dr. Marie BABY A Movement : Present Contraction Frequency : rare FHR Baseline : 130 Accelerations : 15X15 Decelerations : None Variability : Moderate 6-25bpm NST Review: Meets Criteria for Reactive NST NST Review and Verified By : S Domonique RN NST Results: Reactive BABY B Movement: Present FHR Baseline: 130 Accelerations: 15X15 Decelerations: None Variability: Moderate 6-25bpm NST Review: Meets Criteria for Reactive NST NST Reviewed And Verified By: S Domonique RN NST Results: Reactive NST REPORT Report Trigger: Send Report
[2016-12-15] MEDS ORDERED: PENICILLIN G POTASSIUM 2,500,000 UNIT in DEXTROSE 5%-WATER 50 ML IV SCH (12:20)
--- NOTE | 2016-12-16 10:07 | L&D Discharge Summary ---
OB Discharge Summary Datetime Report Generated by CPN: 12/16/2016 10:06 DISCHARGE DIAGNOSIS Diagnosis/Symptoms: Reassuring Surveillance - Annotate Details; Dehydration; Other Diagnoses/Symptoms Other: Di-Di Twins vertex-breech, rescheduled IOL for tomorrow 12/16/16 Treatment/Procedures Other: Vistaril 50 mg Gestation: 37.1 Number of Babies in Womb: 2 Parity: 1 DIET/ACTIVITY/RESTRICTIONS Diet: Regular Diet Restrictions: wear abd binder Activity: Normal Activity Activity Restrictions: No Exercising; No Lifting; No Driving; Minimize Walking; Minimize Stair Climbing; No Sexual Activity; Nothing in Vagina - [place], Tampons, Douche TEACHING/INSTRUCTIONS/REFERRALS Instructions Given To: patient Instructions Understood: Patient Verbalized Understanding Referrals: None Educational Materials- Other: none DISCHARGE INFORMATION Discharged AMA: No Physician Notified of Disch AMA: Dr Rogers Discharge Date/Time: 12/15/2016 10:11 Discharged To: Home Discharge Provider Name: Dr. Marie Accompanied By: FOB Discharge Method: Ambulatory Condition: Stable FOLLOW UP INFORMATION Follow Up With: [facility] Follow Up On: As Scheduled Follow Up Phone Number: [facility] - Comments: Reitterated Kick Counts that patient has received earlier in . Instructed patient to return to hospital for bleeding like a period, if her water breaks, or if she starts dai regularly. Instructed patient to call Labor and Delivery at 5:30 am tomorrow morning for her rescheduled induction.
--- NOTE | 2016-12-16 10:39 | L&D Discharge Summary ---
OB Discharge Summary Datetime Report Generated by CPN: 12/16/2016 10:39 DISCHARGE DIAGNOSIS Diagnosis/Symptoms: Reassuring Surveillance - Annotate Details; Dehydration; Other Diagnoses/Symptoms Other: Di-Di Twins vertex-breech, rescheduled IOL for tomorrow 12/16/16 Treatment/Procedures Other: Vistaril 50 mg Gestation: 37.1 Number of Babies in Womb: 2 Parity: 1 DIET/ACTIVITY/RESTRICTIONS Diet: Regular Diet Restrictions: wear abd binder Activity: Normal Activity Activity Restrictions: No Exercising; No Lifting; No Driving; Minimize Walking; Minimize Stair Climbing; No Sexual Activity; Nothing in Vagina - [place], Tampons, Douche TEACHING/INSTRUCTIONS/REFERRALS Instructions Given To: patient Instructions Understood: Patient Verbalized Understanding Referrals: None Educational Materials- Other: none DISCHARGE INFORMATION Discharged AMA: No Physician Notified of Disch AMA: Dr Rogers Discharge Date/Time: 12/15/2016 10:11 Discharged To: Home Discharge Provider Name: Dr. Marie Accompanied By: FOB Discharge Method: Ambulatory Condition: Stable FOLLOW UP INFORMATION Follow Up With: [facility] Follow Up On: As Scheduled Follow Up Phone Number: [facility] - Comments: Reitterated Kick Counts that patient has received earlier in . Instructed patient to return to hospital for bleeding like a period, if her water breaks, or if she starts dai regularly. Instructed patient to call Labor and Delivery at 5:30 am tomorrow morning for her rescheduled induction.
== END 2016-12-15 10:11 | disposition home or self-care (01) ==
LOC: LC 09:46 → EDSTATUS 09:46 → LC 10:11
PROVIDERS: ATTEND Obstetrics & Gynecology
PROC: 4A1HXCZ Monitoring of Products of Conception, Cardiac Rate, External Approach (ICD-10-PCS; principal; 2016-12-15)
DX: O30.043 Twin pregnancy, dichorionic/diamniotic, third trimester (principal); O32.1XX2 Maternal care for breech presentation, fetus 2; O13.3 Gestational [pregnancy-induced] hypertension without significant proteinuria, third trimester; O99.283 Endocrine, nutritional and metabolic diseases complicating pregnancy, third trimester; E86.0 Dehydration; Z3A.37 37 weeks gestation of pregnancy
CPT/HCPCS: 59025; 86900; 86901; 36415; 86850; 83615; 84550; 85025; 81005; 86592; 80053; 80307; 76815; J2540; J2590

== ENCOUNTER 2016-12-16 06:53 | Inpatient (IN) | payer MEDICAID ==
[2016-12-16 07:36] LABS: APPEARANCE,URINE SLIGHTLY-CLOUDY; BILIRUBIN,URINE NEGATIVE (NEGATIVE); GLUCOSE, URINE NEGATIVE (NEGATIVE); KETONES,URINE 20 mg/dL (NEGATIVE); LEUKOCYTE ESTERASE,URINE MODERATE (NEGATIVE); NITRITE,URINE NEGATIVE (NEGATIVE); PROTEIN,URINE NEGATIVE (NEGATIVE); URINE SPECIFIC GRAVITY 1.013; UROBILINOGEN,URINE NEGATIVE mg/dL (<2.0)
[2016-12-16 07:41] LABS: ABSOLUTE LYMPHOCYTES (AUTO) 1.7 10^3/uL (0.5-4.7); ABSOLUTE MONOCYTES (AUTO) 0.7 10^3/uL (0.1-1.4); ABSOLUTE NEUT (AUTO) 5.7 10^3/uL (1.7-8.2); BASOPHILS % (AUTO) 0.2 % (0-2); EOSINOPHILS % (AUTO) 0.6 % (0-6); HEMATOCRIT 37.9 % (36.0-47.0); HEMOGLOBIN 12.5 g/dL (12.0-15.5); HGB HCT DIFFERENCE -0.4; MEAN CORPUSCULAR HEMOGLOBIN 28.2 pg (27.0-33.4); MEAN CORPUSCULAR HGB CONC 32.8 g/dL (32.0-36.0); MEAN CORPUSCULAR VOLUME 86 fl (80-97); RED BLOOD COUNT 4.42 10^6/uL (3.72-5.28); RED CELL DISTRIBUTION WIDTH 12.8 % (11.5-14.0); SEGMENTED NEUTROPHILS % (AUTO) 69.2 % (42-78); WHITE BLOOD COUNT 8.2 10^3/uL (4.0-10.5)
[2016-12-16] MEDS ORDERED: OXYTOCIN/NORMAL SALINE 0 UNIT/0 ML RTUINJ ONE (07:55)
[2016-12-16] MEDS ORDERED: PENICILLIN G-K 5 MILLION UNIT VIAL ONE ×2 (07:55→11:57)
[2016-12-16] MEDS ORDERED: RINGERS SOLUTION,LACTATED 300 ML IV ONE (07:57)
[2016-12-16] MEDS ORDERED: OXYTOCIN/NORMAL SALINE 1,000 ML IV PRN ×3 (07:57→19:06)
[2016-12-16 08:08] LABS: URINE BARBITURATES SCREEN NEGATIVE; URINE METHADONE SCREEN NEGATIVE; URINE PHENCYCLIDINE SCREEN NEGATIVE
[2016-12-16] MEDS: RINGERS SOLUTION,LACTATED 1,000 ML IV PRN ×2 (08:16→12:56)
[2016-12-16 10:14] LABS: ALANINE AMINOTRANSFERASE 16 U/L (9-52); ALKALINE PHOSPHATASE 129 U/L (38-126); ANION GAP 8 (5-19); ASPARTATE AMINO TRANSFERASE 18 U/L (14-36); BILIRUBIN,TOTAL 0.3 mg/dL (0.2-1.3); BLOOD UREA NITROGEN 4 mg/dL (7-20); CALCIUM 8.8 mg/dL (8.4-10.2); CARBON DIOXIDE 24 mmol/L (22-30); CHLORIDE 105 mmol/L (98-107); CREATININE RESULT 0.57 mg/dL (0.52-1.25); LDH 459 U/L (313-618); SODIUM 137.3 mmol/L (137-145)
[2016-12-16 10:35] LABS: ALBUMIN 2.7 g/dL (3.5-5.0); GLUCOSE 79 mg/dL (75-110); TOTAL PROTEIN 5.5 g/dL (6.3-8.2); URIC ACID 4.6 mg/dL (2.5-6.2)
--- NOTE | 2016-12-16 10:41 | L&D Discharge Summary ---
OB Discharge Summary Datetime Report Generated by CPN: 12/16/2016 10:41 DISCHARGE DIAGNOSIS Diagnosis/Symptoms: Reassuring Surveillance - Annotate Details; Dehydration; Other Diagnoses/Symptoms Other: Di-Di Twins vertex-breech, rescheduled IOL for tomorrow 12/16/16 Treatment/Procedures Other: Vistaril 50 mg Gestation: 37.1 Number of Babies in Womb: 2 Parity: 1 DIET/ACTIVITY/RESTRICTIONS Diet: Regular Diet Restrictions: wear abd binder Activity: Normal Activity Activity Restrictions: No Exercising; No Lifting; No Driving; Minimize Walking; Minimize Stair Climbing; No Sexual Activity; Nothing in Vagina - [place], Tampons, Douche TEACHING/INSTRUCTIONS/REFERRALS Instructions Given To: patient Instructions Understood: Patient Verbalized Understanding Referrals: None Educational Materials- Other: none DISCHARGE INFORMATION Discharged AMA: No Physician Notified of Disch AMA: Dr Rogers Discharge Date/Time: 12/15/2016 10:11 Discharged To: Home Discharge Provider Name: Dr. Marie Accompanied By: FOB Discharge Method: Ambulatory Condition: Stable FOLLOW UP INFORMATION Follow Up With: [facility] Follow Up On: As Scheduled Follow Up Phone Number: [facility] - Comments: Reitterated Kick Counts that patient has received earlier in . Instructed patient to return to hospital for bleeding like a period, if her water breaks, or if she starts dai regularly. Instructed patient to call Labor and Delivery at 5:30 am tomorrow morning for her rescheduled induction.
--- NOTE | 2016-12-16 12:00 | L&D Flow Sheet ---
LD Flowsheet Datetime Report Generated by CPN: 12/16/2016 12:00 Datetime: 12/16/2016 11:33 NBP Sys/Dorothea/Mean (mmHg): 127 (QS system process) : 80 (QS system process) : 99 (QS system process) Pulse: 97 (QS system process) LaborFlag: Labor (QS system process) Datetime: 12/16/2016 11:02 NBP Sys/Dorothea/Mean (mmHg): 134 (QS system process) : 65 (QS system process) : 93 (QS system process) Pulse: 97 (QS system process) LaborFlag: Labor (QS system process) Datetime: 12/16/2016 11:01 Pitocin (milliunit): Pitocin Increased to (milliunits) @ 18 (Blanca Orozco RN) Datetime: 12/16/2016 11:00 Monitor Mode: External (Blanca Orozco RN) Frequency (min): 2-5 (Blanca Orozco RN) Quality: Mild (Blanca Orozco RN) Duration (sec): 50-90 (Blanca Orozco RN) Resting Tone (Palpate): Relaxed (Blanca Orozco RN) Monitor Mode: External US (Blanca Orozco RN) FHR Baseline Rate : 135 (Blanca Orozco RN) Variability: Moderate 6-25 bpm (Blanca Oorzco RN) Accelerations: 15X15 (Blanca Orozco RN) Decelerations: None (Blanca Orozco RN) Monitor Mode: External US (Blanca Orozco RN) FHR Baseline Rate : 140 (Blanca Orozco RN) Variability: Moderate 6-25 bpm (Blanca Orozco, RN) Accelerations: 15X15 (Blanca Orozco, RN) Decelerations: None (Blanca Orozco, RN) Datetime: 12/16/2016 10:45 Monitor Mode: External (Blanca Orozco RN) Frequency (min): 2-5 (Blanca Orozco RN) Quality: Mild (Blanca Orozco RN) Duration (sec): 70-90 (Blanca Orozco RN) Resting Tone (Palpate): Relaxed (Blanca Orozco RN) Monitor Mode: External US (Blanca Oroczo RN) FHR Baseline Rate : 135 (Blanca Orozco RN) Variability: Moderate 6-25 bpm (Blanca Orozco, RN) Accelerations: 10X10 (Blanca Orozco, RN) Decelerations: None (Blanca Orozco, RN) Monitor Mode: External US (Blanca Orozco RN) FHR Baseline Rate : 135 (Blanca Orozco, RN) Variability: Moderate 6-25 bpm (Blanca Orozco, RN) Accelerations: 10X10 (Blanca Orozco, RN) Decelerations: None (Blanca Orozco, RN) Pain Scale: 4 (Blanca Orozco RN) Pain Presence: Intermittent (Blanca Orozco RN) Pain Type: Contraction (Blanca Orozco RN) Pain Location: Abdomen (Blanca Orozco, RN) Pain Relief Measures: Comfort Measures (Blanca Orozco RN) Pain Coping: Talking Through Contractions (Blanca Orozco RN) Pitocin (milliunit): Pitocin Increased to (milliunits) @ 16 (Blanca Orozco RN) LaborFlag: Labor (QS system process) Datetime: 12/16/2016 10:32 NBP Sys/Dorothea/Mean (mmHg): 124 (QS system process) : 63 (QS system process) : 86 (QS system process) Pulse: 108 (QS system process) LaborFlag: Labor (QS system process) Datetime: 12/16/2016 10:30 Monitor Mode: External (Blanca Orozco RN) Frequency (min): 3-5 (Blanca Orozco RN) Quality: Mild (Blanca Orozco, RN) Duration (sec): 70-90 (Blanca Orozco RN) Resting Tone (Palpate): Relaxed (Blanca Orozco RN) Monitor Mode: External US (Blanca Orozco RN) FHR Baseline Rate : 125 (Blanca Orozco RN) Variability: Moderate 6-25 bpm (Blanca Orozco, RN) Accelerations: 15X15 (Blanca Orozco, RN) Decelerations: None (Blanca Orozco RN) Monitor Mode: External US (Blanca Orozco RN) FHR Baseline Rate : 135 (Blanca Orozco, RN) Variability: Moderate 6-25 bpm (Blanca Orozco, RN) Accelerations: 15X15 (Blanca Orozco, RN) Decelerations: None (Blanca Orozco, RN) Pitocin (milliunit): Pitocin Increased to (milliunits) @ 14 (Blanca Orozco, RN) Datetime: 12/16/2016 10:15 Monitor Mode: External (Blanca Orozco, RN) Frequency (min): 3-4 (Blanca Orozco, RN) Quality: Mild (Blanca Orozco, RN) Duration (sec): 60-90 (Blanca Orozco, RN) Resting Tone (Palpate): Relaxed (Blancakhushbu Orozco, RN) Monitor Mode: External US (Blancakhushbu Orozco, RN) FHR Baseline Rate : 125 (Blanca Orozco, RN) Variability: Moderate 6-25 bpm (Blanca Orozco, RN) Accelerations: 15X15 (Blanca Orozco, RN) Decelerations: None (Blanca Orozco, RN) Monitor Mode: External US (Blanca Orozco, RN) FHR Baseline Rate : 135 (Blanca Orozco, RN) Variability: Moderate 6-25 bpm (Blanca Orozco, RN) Accelerations: 15X15 (Blanca Orozco, RN) Decelerations: None (Blanca Orozco, RN) Pitocin (milliunit): Pitocin Increased to (milliunits) @ 12 (Blanca Orozco, RN) Datetime: 12/16/2016 10:00 Monitor Mode: External (Blanca Orozco, RN) Frequency (min): 3-5 (Blanca Orozco RN) Quality: Mild (Blanca Orozco, RN) Duration (sec): 70-90 (Blanca Orozco, RN) Duration Criteria: Less than Two 120 Second Contractions (Blanca Orozco, RN) Pattern: Normal: <= 5 Contractions in 10 Minutes (Blanca Orozco RN) Resting Tone (Palpate): Relaxed (Blanca Orozco, RN) Monitor Mode: External US (Blanca Orozco, RN) FHR Baseline Rate : 135 (Blanca Orozco, RN) Variability: Moderate 6-25 bpm (Blanca Orozco, RN) Accelerations: 15X15 (Blanca Orozco, RN) Decelerations: None (Blanca Orozco, RN) Monitor Mode: External US (Blanca Orozco, RN) FHR Baseline Rate : 140 (Blanca Orozco, RN) Variability: Moderate 6-25 bpm (Blanca Orozco, RN) Accelerations: 15X15 (Blanca Orozco, RN) Decelerations: None (Blanca Orozco, RN) Pitocin (milliunit): Pitocin Increased to (milliunits) @ 10 (Blanca Orozco, RN) Datetime: 12/16/2016 09:45 Monitor Mode: External (Blanca Orozco, RN) Frequency (min): 4-5 (Blanca Orozco, RN) Quality: Mild (Blanca Orozco, RN) Duration (sec): 60-90 (Blanca Orozco, RN) Resting Tone (Palpate): Relaxed (Blanca Orozco, RN) Monitor Mode: External US (Blanca Orozco, RN) FHR Baseline Rate : 135 (Blanca Orozco, RN) Variability: Moderate 6-25 bpm (Blanca Orozco, RN) Accelerations: 15X15 (Blanca Orozco, RN) Decelerations: None (Blanca Orozco, RN) Monitor Mode: External US (Blanca Orozco, RN) FHR Baseline Rate : 130 (Blanca Orozco, RN) Variability: Moderate 6-25 bpm (Blanca Orozco, RN) Accelerations: 15X15 (Blanca Orozco, RN) Decelerations: None (Blanca Orozco, RN) Pitocin (milliunit): Pitocin Remains (milliunits) @ 8 (Blanca Orozco, RN) Datetime: 12/16/2016 09:34 Monitor Interventions for FHR: Ultrasound Adjusted (Blanca Orozco, RN) Datetime: 12/16/2016 09:32 NBP Sys/Dorothea/Mean (mmHg): 141 (QS system process) : 78 (QS system process) : 100 (QS system process) Pulse: 105 (QS system process) LaborFlag: Labor (QS system process) Datetime: 12/16/2016 09:30 Monitor Mode: External (Blanca Orozco, RN) Frequency (min): 4-5 (Blanca Orozco, RN) Quality: Mild (Blanca Orozco, RN) Duration (sec): 60-200 (Blanca Orozco, RN) Duration Criteria: Less than Two 120 Second Contractions (Blanca Orozco, RN) Pattern: Normal: <= 5 Contractions in 10 Minutes (Blanca Orozco, RN) Resting Tone (Palpate): Relaxed (Blanca Orozco, RN) Monitor Mode: External US (Blanca Orozco, RN) FHR Baseline Rate : 135 (Blanca Orozco, RN) Variability: Moderate 6-25 bpm (Blanca Orozco, RN) Accelerations: 15X15 (Blanca Orozco, RN) Decelerations: None (Blanca Orozco, RN) Monitor Mode: External US (Blanca Orozco, RN) FHR Baseline Rate : 135 (Blanca Orozco, RN) Variability: Moderate 6-25 bpm (Blanca Orozco, RN) Accelerations: 15X15 (Blanca Orozco, RN) Decelerations: None (Blanca Orozco, RN) Pitocin (milliunit): Pitocin Increased to (milliunits) @ 8 (Blanca Orozco, RN) Datetime: 12/16/2016 09:16 Procedures: Labs Drawn (Blanca Orozco, RN) Datetime: 12/16/2016 09:15 Monitor Mode: External (Blanca Orozco RN) Frequency (min): 4-5 (Blanca Orozco RN) Quality: Mild (Blanca Orozco RN) Duration (sec): 70-90 (Blanca Orozco RN) Resting Tone (Palpate): Relaxed (Blanca Orozco RN) Monitor Mode: External US (Blanca Orozco RN) FHR Baseline Rate : 135 (Blanca Orozco RN) Variability: Moderate 6-25 bpm (Blanca Orozco, RN) Accelerations: 15X15 (Blanca Orozco, RN) Decelerations: None (Blanca Orozco, RN) Comments: UTD, tracing Baby A (Blanca Orozco RN) Pitocin (milliunit): Pitocin Increased to (milliunits) @ 6 (Blanca Orozco RN) Datetime: 12/16/2016 09:00 Monitor Mode: External (Blanca Orozco, RN) Frequency (min): x2 (Blanca Orozco, RN) Quality: Mild (Blanca Orozco, RN) Duration (sec): 60-70 (Blanca Orozco, RN) Resting Tone (Palpate): Relaxed (Blancakhushbu Orozco, RN) Monitor Mode: External US (Blanca Orozco, RN) FHR Baseline Rate : 120 (Blanca Orozco, RN) Variability: Moderate 6-25 bpm (Blanca Orozco, RN) Accelerations: 15X15 (Blanca Orozco, RN) Decelerations: None (Blanca Orozco, RN) Monitor Mode: External US (Blanca Orozco, RN) FHR Baseline Rate : 135 (Blanca Orozco, RN) Variability: Moderate 6-25 bpm (Blanca Orozco, RN) Accelerations: 15X15 (Blanca Orozco, RN) Decelerations: None (Blancakhushbu Orozco, RN) Pitocin (milliunit): Pitocin Remains (milliunits) @ 4 (Blancakhushbu Orozco, RN) Datetime: 12/16/2016 08:58 Patient Position/Activity: Left Lateral (Blanca Orozco, RN) Datetime: 12/16/2016 08:56 Monitor Interventions for UA: [place] Adjusted (Blanca Orozco, RN) Datetime: 12/16/2016 08:48 Monitor Interventions for FHR: Ultrasound Adjusted (Blanca Orozco, RN) Communication: RN at Bedside (Blanca Orozco, RN) Datetime: 12/16/2016 08:46 Monitor Interventions for UA: [place] Adjusted (Blanca Orozco, RN) Datetime: 12/16/2016 08:45 Monitor Mode: External; Palpation (Blanca Orozco, RN) Quality: Mild (Blanca Orozco RN) Resting Tone (Palpate): Relaxed (Blanca Orozco RN) Contraction Comments: contractions not tracing on monitor (Blanca Orozco RN) Monitor Mode: External US (Blanca Orozco RN) FHR Baseline Rate : 135 (Blanca Orozco RN) Variability: Moderate 6-25 bpm (Blanca Orozco RN) Accelerations: 15X15 (Blanca Orozco RN) Decelerations: None (Blanca Orozco RN) Pitocin (milliunit): Pitocin Increased to (milliunits) @ 4 (Blanca Orozco RN) Datetime: 12/16/2016 08:34 NBP Sys/Dorothea/Mean (mmHg): 142 (QS system process) : 93 (QS system process) : 113 (QS system process) Pulse: 108 (QS system process) LaborFlag: Labor (QS system process) Datetime: 12/16/2016 08:30 Monitor Mode: External (Blanca Orozco RN) Frequency (min): irreg (Blanca Orozco RN) Quality: Mild (Blanca Orozco RN) Resting Tone (Palpate): Relaxed (Blanca Orozco RN) Monitor Mode: External US (Blanca Orozco RN) FHR Baseline Rate : 120 (Blanca Orozco RN) Variability: Moderate 6-25 bpm (Blanca Orozco RN) Accelerations: 15X15 (Blanca Orozco RN) Decelerations: None (Blanca Orozco RN) Monitor Mode: External US (Blanca Orozco RN) FHR Baseline Rate : 140 (Blanca Orozco, RN) Variability: Moderate 6-25 bpm (Blanca Orozco RN) Decelerations: None (Blanca Orozco RN) Pitocin (milliunit): Pitocin Remains (milliunits) @ 2 (Blanca Orozco RN) Datetime: 12/16/2016 08:24 Monitor Interventions for FHR: Ultrasound Adjusted (Blanca Orozco RN) Datetime: 12/16/2016 08:15 Monitor Mode: External (Blanca Orozco RN) Frequency (min): 4-8 (Blanca Orozco RN) Quality: Mild (Blanca Orozco RN) Duration Criteria: Less than Two 120 Second Contractions (Blanca Orozco RN) Pattern: Normal: <= 5 Contractions in 10 Minutes (Blanca Orozco RN) Resting Tone (Palpate): Relaxed (Blanca Orozco RN) Monitor Mode: External US (Blanca Orozco RN) Monitor Interventions for FHR: Ultrasound Adjusted (Blanca Orozco RN) FHR Baseline Rate : 125 (Blanca Orozco RN) Variability: Moderate 6-25 bpm (Blanca Orozco RN) Accelerations: 15X15 (Blanca Orozco RN) Decelerations: None (Blanca Orozco RN) Comments: Baby B unable to determine at this time. FHTs noted in 130s (Blanca Orozco RN) Pitocin (milliunit): Pitocin Started (milliunits) @ 2; Pitocin 20 Units in 1000ml NS (Blanca Orozco RN) Datetime: 12/16/2016 08:09 Antibiotics: Penicillin IV (Units) @ [id number] (Blanca Orozco RN) Datetime: 12/16/2016 08:05 Dilatation (cm): 3.5 (Blanca Orozco RN) Effacement (%): 75 (Blanca Orozco RN) Station: -2 (Blanca Orozco RN) Exam by: Rajeev Orozco RN (Blanca Orozco RN) Datetime: 12/16/2016 08:02 NBP Sys/Dorothea/Mean (mmHg): 131 (QS system process) : 71 (QS system process) : 96 (QS system process) Pulse: 97 (QS system process) LaborFlag: Labor (QS system process) Datetime: 12/16/2016 08:00 Monitor Mode: External (Blanca Orozco RN) Frequency (min): 7-8 (Blanca Orozco RN) Quality: Mild (Blanca Orozco RN) Duration (sec): 60-90 (Blanca Orozco RN) Duration Criteria: Less than Two 120 Second Contractions (Blanca Orozco RN) Pattern: Normal: <= 5 Contractions in 10 Minutes (Blanca Orozco RN) Resting Tone (Palpate): Relaxed (Blanca Orozco RN) Monitor Mode: External US (Blanca Orozco RN) FHR Baseline Rate : 125 (Blanca Orozco RN) Variability: Moderate 6-25 bpm (Blanca Orozco, RN) Accelerations: 15X15 (Blanca Orozco, RN) Decelerations: None (Blanca Orozco, RN) Monitor Mode: External US (Blanca Orozco RN) FHR Baseline Rate : 135 (Blanca Orozco, RN) Variability: Moderate 6-25 bpm (Blanca Orozco, RN) Accelerations: 15X15 (Blanca Orozco, RN) Decelerations: None (Blanca Orozco, RN) Patient Care Comments: IV fluids reduced to 125ml/hr (Blanca Orozco, RN)
[2016-12-16] MEDS ORDERED: FENTANYL/BUPIVACAINE/NS/PF 200 MCG/100 ML RTUINJ EPI ONE (13:01)
[2016-12-16] MEDS ORDERED: EPHEDRINE SULFATE INJ 50 MG/1 ML AMPULE ONE (13:01)
[2016-12-16] MEDS ORDERED: BUPIVACAINE HCL 0.25 % INJ/PF (2.5 MG/1 ML) 30 ML VIAL ONE (13:02)
--- NOTE | 2016-12-16 14:34 | L&D Progress Notes ---
PROGRESS NOTES Datetime Report Generated by CPN: 12/16/2016 14:34 PROGRESS NOTE Impression: Reassuring Heart Rate Procedures: Artificial ROM; Sterile Vag Exam Plan: Continue Present Management; Induction Comment: SVE w AROM of membrane. Clear fluid noted. Epidural in place-patient comfortable. Will continue with IOL. VAGINAL EXAM Dilatation: 4 Dilatation: 4 Effacement: 80 Effacement: 75 Station: -1 Station: -2 MEMBRANES Membranes: Ruptured Membranes: Intact Amniotic Fluid Color: Clear FETUS A FHR - Baseline: 130 Monitoring: External US Decelerations: None : 37.1 Presentation: Vertex FETUS B FHR - Baseline: 130 Monitoring: External US Variability: Moderate 6-25bpm Decelerations: None Gestational Age by US: 37.1 Presentation: Breech Presentation: Breech SIGNATURE SIGNATURE: [id number] SIGNATURE: [id number] SIGNATURE: [id number] SIGNATURE: [id number] Assignment: Charlee Rogers MD Signature: with User ID: [email or web address] : with User ID: [email or web address] : I personally evaluated and examined the patient in conjunction with the MLP and agree with the assessment, treatment plan and disposition. : I personally evaluated and examined the patient in conjunction with the MLP and agree with the assessment, treatment plan and disposition.
--- NOTE | 2016-12-16 15:30 | L&D Progress Notes ---
PROGRESS NOTES Datetime Report Generated by CPN: 12/16/2016 15:30 PROGRESS NOTE Impression: Normal Progression of Labor Procedures: Sterile Vag Exam Plan: Continue Present Management; Induction Comment: SVE as patient feeling pressure with UCs. Both babies reassuring. Dr Rogers notifed of patient progress. VAGINAL EXAM Dilatation: 7 Effacement: 95 Station: 0 FETUS C SIGNATURE: [id number] Assignment: Charlee Rogers MD Signature: with User ID: [email or web address] : with User ID: [email or web address] : I personally evaluated and examined the patient in conjunction with the MLP and agree with the assessment, treatment plan and disposition.
[2016-12-16] MEDS ORDERED: MISOPROSTOL 0.2 MG TABLET ONE (15:38)
[2016-12-16] MEDS ORDERED: OXYTOCIN/NORMAL SALINE 20 UNIT/1,000 ML RTUINJ ONE (15:39)
[2016-12-16] MEDS ORDERED: LIDOCAINE 1% INJ-PF (10 MG/ML) 30 ML SDV ONE (15:39)
--- NOTE | 2016-12-16 16:01 | L&D Flow Sheet ---
LD Flowsheet Datetime Report Generated by CPN: 12/16/2016 16:00 Datetime: 12/16/2016 15:39 NBP Sys/Dorothea/Mean (mmHg): 106 (QS system process) : 59 (QS system process) : 79 (QS system process) Pulse: 89 (QS system process) LaborFlag: Labor (QS system process) Datetime: 12/16/2016 15:26 NBP Sys/Dorothea/Mean (mmHg): 99 (QS system process) : 54 (QS system process) : 67 (QS system process) Pulse: 113 (QS system process) LaborFlag: Labor (QS system process) Datetime: 12/16/2016 15:21 Dilatation (cm): 7.5 (Blanca Orozco RN) Effacement (%): 90 (Blanca Orozco RN) Station: 0 (Blanca Orozco RN) Exam by: Juanito Ortiz CNJeannine (Blanca Orozco RN) Datetime: 12/16/2016 15:15 Monitor Mode: External (Blanca Orozco RN) Frequency (min): 1-4 (Blanca Orozco RN) Quality: Mild/Moderate (Blanca Orozco RN) Duration (sec): 70-90 (Blanca Orozco RN) Resting Tone (Palpate): Relaxed (Blanca Orozco RN) Monitor Mode: External US (Blanca Orozco RN) FHR Baseline Rate : 135 (Blanca Orozco RN) Variability: Moderate 6-25 bpm (Blanca Orozco RN) Accelerations: None (Blanca Orozco RN) Decelerations: Early (Blanca Orozco RN) Monitor Mode: External US (Blanca Orozco, RN) FHR Baseline Rate : 140 (Blanca Orozco, RN) Variability: Moderate 6-25 bpm (Blanca Orozco, RN) Accelerations: 15X15 (Blanca Orozco, RN) Decelerations: None (Blanca Orozco, RN) Pitocin (milliunit): Pitocin Remains (milliunits) @ 20 (Blanca Orozco, RN) Datetime: 12/16/2016 15:12 NBP Sys/Dorothea/Mean (mmHg): 108 (QS system process) : 55 (QS system process) : 79 (QS system process) Pulse: 107 (QS system process) LaborFlag: Labor (QS system process) Datetime: 12/16/2016 15:03 Monitor Interventions for UA: [place] Adjusted (Blanca Orozco, RN) Datetime: 12/16/2016 15:00 Monitor Mode: External (Blanca Orozco, RN) Frequency (min): 1-4 (Blanca Orozco, RN) Quality: Mild/Moderate (Blanca Orozco, RN) Duration (sec): 60-90 (Blanca Orozoc, RN) Resting Tone (Palpate): Relaxed (Blanca Orozco, RN) Monitor Mode: External US (Blanca Orozco, RN) FHR Baseline Rate : 135 (Blanca Orozco, RN) Variability: Moderate 6-25 bpm (Blanca Orozco, RN) Accelerations: None (Blanca Orozco, RN) Decelerations: Early (Blanca Orozco, RN) Monitor Mode: External US (Blanca Orozco, RN) FHR Baseline Rate : 150 (Blanca Orozco, RN) Variability: Moderate 6-25 bpm (Blanca Orozco, RN) Accelerations: 15X15 (Blanca Orozco, RN) Decelerations: Variable (Blanca Orozco, RN) Pitocin (milliunit): Pitocin Remains (milliunits) @ 20 (Blanca Ernesto, RN) Datetime: 12/16/2016 14:56 Patient Position/Activity: Peanut Ball; Right Extreme (Blanca Orozco, RN) Datetime: 12/16/2016 14:45 Monitor Mode: External; Palpation (Blanca Orozco, RN) Frequency (min): 1-3 (Blanca Orozco, RN) Quality: Mild/Moderate (Blanca Orozco, RN) Duration (sec): 70-90 (Blanca Orozco, RN) Duration Criteria: Less than Two 120 Second Contractions (Blanca Orozco, RN) Pattern: Normal: <= 5 Contractions in 10 Minutes (Blanca Orozco, RN) Resting Tone (Palpate): Relaxed (Blanca Orozco, RN) Monitor Mode: External US (Blanca Orozco, RN) FHR Baseline Rate : 135 (Blanca Orozco, RN) Variability: Moderate 6-25 bpm (Blanca Orozco, RN) Accelerations: 15X15 (Blanca Orozco, RN) Decelerations: None (Blanca Orozco, RN) Monitor Mode: External US (Blanca Orozco, RN) FHR Baseline Rate : 140 (Blancakhushbu Orozco, RN) Variability: Moderate 6-25 bpm (Blanca Orozco, RN) Accelerations: 15X15 (Blancakhushbu Orozco, RN) Decelerations: Variable (Blanca Orozco, RN) Pitocin (milliunit): Pitocin Remains (milliunits) @ 20 (Blanca Orozco, RN) Datetime: 12/16/2016 14:40 NBP Sys/Dorothea/Mean (mmHg): 115 (QS system process) : 53 (QS system process) : 76 (QS system process) Pulse: 93 (QS system process) LaborFlag: Labor (QS system process) Datetime: 12/16/2016 14:30 Monitor Mode: External (Blancakhushbu Orozco, RN) Frequency (min): 2-3 (Blancakhushbu Orozco, RN) Quality: Mild/Moderate (Blanca Orzoco, RN) Duration (sec): 60-90 (Blanca Orozco, RN) Resting Tone (Palpate): Relaxed (Blanca Ernesto, RN) Monitor Mode: External US (Blanca Orozco, RN) FHR Baseline Rate : 135 (Blanca Orozco, RN) Variability: Moderate 6-25 bpm (Blanca Orozco, RN) Accelerations: 15X15 (Blanca Orozco, RN) Decelerations: None (Blanca Orozco, RN) Monitor Mode: External US (Blanca Orozco, RN) FHR Baseline Rate : 135 (Blanca Orozco, RN) Variability: Moderate 6-25 bpm (Blanca Orozco, RN) Accelerations: 15X15 (Blanca Orozco, RN) Decelerations: None (Blanca Orozco, RN) Datetime: 12/16/2016 14:26 Dilatation (cm): 4.0 (Blanca Orozco RN) Effacement (%): 80 (Blanca Orozco RN) Station: -1 (Blanca Orozco RN) Exam by: Juanito Ortiz CNM (Balnca Orozco RN) Membrane Status: Ruptured (Blanca Orozco RN) Membranes Rupture Method: Artificial (Blanca Orozco RN) Amniotic Fluid Color: Clear (Blanca Orozco RN) Amniotic Fluid Amount: Small (Blanca Orozco RN) Amniotic Fluid Odor: Normal (Blanca Orozco RN) Datetime: 12/16/2016 14:24 NBP Sys/Dorothea/Mean (mmHg): 130 (QS system process) : 63 (QS system process) : 90 (QS system process) Pulse: 99 (QS system process) LaborFlag: Labor (QS system process) Datetime: 12/16/2016 14:23 NBP Sys/Dorothea/Mean (mmHg): 126 (QS system process) : 58 (QS system process) : 83 (QS system process) Pulse: 104 (QS system process) I/O Interventions: Jaramillo Cath Inserted (Blanca Orozco, RN) LaborFlag: Labor (QS system process) Datetime: 12/16/2016 14:22 NBP Sys/Dorothea/Mean (mmHg): 132 (QS system process) : 61 (QS system process) : 88 (QS system process) Pulse: 112 (QS system process) LaborFlag: Labor (QS system process) Datetime: 12/16/2016 14:21 NBP Sys/Dorothea/Mean (mmHg): 133 (QS system process) : 59 (QS system process) : 85 (QS system process) Pulse: 100 (QS system process) LaborFlag: Labor (QS system process) Datetime: 12/16/2016 14:20 NBP Sys/Dorothea/Mean (mmHg): 119 (QS system process) : 56 (QS system process) : 81 (QS system process) Pulse: 88 (QS system process) LaborFlag: Labor (QS system process) Datetime: 12/16/2016 14:19 NBP Sys/Dorothea/Mean (mmHg): 114 (QS system process) : 56 (QS system process) : 77 (QS system process) Pulse: 99 (QS system process) LaborFlag: Labor (QS system process) Datetime: 12/16/2016 14:18 NBP Sys/Dorothea/Mean (mmHg): 114 (QS system process) : 57 (QS system process) : 82 (QS system process) Pulse: 100 (QS system process) LaborFlag: Labor (QS system process) Datetime: 12/16/2016 14:17 NBP Sys/Dorothea/Mean (mmHg): 123 (QS system process) : 58 (QS system process) : 84 (QS system process) Pulse: 99 (QS system process) LaborFlag: Labor (QS system process) Datetime: 12/16/2016 14:16 NBP Sys/Dorothea/Mean (mmHg): 133 (QS system process) : 65 (QS system process) : 93 (QS system process) Pulse: 100 (QS system process) LaborFlag: Labor (QS system process) Datetime: 12/16/2016 14:15 Comments: Pt sitting for epidural (Blanca Orozco, RN) Datetime: 12/16/2016 14:12 NBP Sys/Dorothea/Mean (mmHg): 141 (QS system process) : 89 (QS system process) : 106 (QS system process) Pulse: 99 (QS system process) SpO2 (%): 100 (QS system process) LaborFlag: Labor (QS system process) Datetime: 12/16/2016 14:11 NBP Sys/Dorothea/Mean (mmHg): 139 (QS system process) : 88 (QS system process) : 107 (QS system process) Pulse: 111 (QS system process) LaborFlag: Labor (QS system process) Datetime: 12/16/2016 14:09 NBP Sys/Dorothea/Mean (mmHg): 132 (QS system process) : 85 (QS system process) : 103 (QS system process) Pulse: 123 (QS system process) Epidural Procedure: Test Dose (Blanca Orozco RN) LaborFlag: Labor (QS system process) Datetime: 12/16/2016 14:07 Pulse: 104 (QS system process) SpO2 (%): 100 (QS system process) LaborFlag: Labor (QS system process) Datetime: 12/16/2016 14:02 NBP Sys/Dorothea/Mean (mmHg): 133 (QS system process) : 95 (QS system process) : 110 (QS system process) Pulse: 108 (QS system process) SpO2 (%): 100 (QS system process) LaborFlag: Labor (QS system process) Datetime: 12/16/2016 14:01 Anesthesia Comments: Dr. Chekan at bedside (Blanca Orozco, RN) Datetime: 12/16/2016 14:00 Comments: Pt sitting for epidural (Blanca Orozco, RN) Pitocin (milliunit): Pitocin Remains (milliunits) @ 20 (Blanca Orozco, RN) Datetime: 12/16/2016 13:57 Pulse: 97 (QS system process) SpO2 (%): 100 (QS system process) LaborFlag: Labor (QS system process) Datetime: 12/16/2016 13:56 Procedure Verify: Correct Patient Identity; Correct Side and Site are Marked; Accurate Procedure Consent Form; Agreement on Procedure to be Done; Correct Patient Position (Blanca Ernesto, RN) Epidural Positioning: Sitting (Blanca Orozco, RN) Datetime: 12/16/2016 13:49 NBP Sys/Dorothea/Mean (mmHg): 139 (QS system process) : 82 (QS system process) : 105 (QS system process) Pulse: 83 (QS system process) LaborFlag: Labor (QS system process) Datetime: 12/16/2016 13:47 Monitor Interventions for FHR: Ultrasound Adjusted (Ashlyn Torres RN) Comments: adjusting monitor to trace baby b (Ashlyn Torres RN) Communication: RN at Bedside; RN Reviewed Strip (Ashlyn Torres RN) Datetime: 12/16/2016 13:45 Monitor Mode: External; Palpation (Blanca Orozco RN) Frequency (min): 2-3 (Blanca Orozco RN) Quality: Mild/Moderate (Blanca Orozco RN) Duration (sec): 70-90 (Blanca Orozco RN) Resting Tone (Palpate): Relaxed (Blanca Orozco RN) Monitor Mode: External US (Blanca Orozco RN) FHR Baseline Rate : 135 (Blanca Orozco RN) Variability: Moderate 6-25 bpm (Blanca Orozco RN) Accelerations: 15X15 (Blanca Orozco RN) Decelerations: None (Blanca Orozco RN) Comments: UTD tracing baby A (Blanca Orozco RN) Pitocin (milliunit): Pitocin Remains (milliunits) @ 20 (Blanca Orozco RN) Datetime: 12/16/2016 13:30 Comments: UTD at this time due to pt position (Blanca Orozco RN) Pitocin (milliunit): Pitocin Remains (milliunits) @ 20 (Blanca Orozco RN) Datetime: 12/16/2016 13:16 I/O Interventions: Up to BR (Blanca Orozco RN) Datetime: 12/16/2016 13:15 Monitor Mode: External; Palpation (Blanca Orozco RN) Monitor Mode: External; Palpation (TAIWO Ledbetter) Frequency (min): 2-4 (Blanca Orozco RN) Frequency (min): 3-6 (TAIWO Ledbetter) Quality: Mild/Moderate (Blanca Orozco RN) Quality: Mild/Moderate (TAIWO Ledbetter) Duration (sec): 70-90 (Blanca Orozco RN) Duration (sec): 60-120 (TAIWO Ledbetter) Duration Criteria: Less than Two 120 Second Contractions (TAIWO Ledbetter) Pattern: Normal: <= 5 Contractions in 10 Minutes (Sheila Jaime, RNC) Resting Tone (Palpate): Relaxed (Blanca Orozco, RN) Resting Tone (Palpate): Relaxed (Sheila Jaime, RNC) Monitor Mode: External US (Blanca Orozco, RN) Monitor Mode: External US (Sheila Sandoval, RNC) FHR Baseline Rate : 125 (Blanca Orozco, RN) FHR Baseline Rate : 135 (Sheila Jaime, RNC) Variability: Moderate 6-25 bpm (Blanca Orozco, RN) Variability: Moderate 6-25 bpm (Sheila Jaime, RNC) Accelerations: 15X15 (Blanca Orozco, RN) Accelerations: 15X15 (Sheila Jaime, RNC) Decelerations: None (Blanca Orozco, RN) Decelerations: None (Sheila Jaime, RNC) Monitor Mode: External US (Blanca Orozco, RN) FHR Baseline Rate : 135 (Blanca Orozco, RN) FHR Baseline Rate : 130 (Sheila Jaime, RNC) Variability: Moderate 6-25 bpm (Blanca Orozco, RN) Variability: Moderate 6-25 bpm (Sheila Jaime, RNC) Accelerations: 15X15 (Blanca Orozco, RN) Accelerations: 15X15 (Sheila Jaime, RNC) Decelerations: None (Blanca Orozco, RN) Decelerations: None (Sheila Jaime, RNC) Datetime: 12/16/2016 13:07 Monitor Interventions for UA: [place] Adjusted (Blanca Orozco RN) Datetime: 12/16/2016 13:06 Monitor Interventions for FHR: Ultrasound Adjusted (Blancakhushbu Orozco, RN) Datetime: 12/16/2016 13:02 NBP Sys/Dorothea/Mean (mmHg): 123 (QS system process) : 67 (QS system process) : 89 (QS system process) Pulse: 100 (QS system process) LaborFlag: Labor (QS system process) Datetime: 12/16/2016 13:00 Monitor Mode: External; Palpation (TAIWO Ledbetter) Frequency (min): 5-7 (TAIWO Ledbetter) Quality: Mild/Moderate (TAIWO Ledbetter) Duration (sec): 60-90 (Sheila Jaime, RNC) Duration Criteria: Less than Two 120 Second Contractions (Sheila Jaime, RNC) Pattern: Normal: <= 5 Contractions in 10 Minutes (Sheila Jaime, RNC) Resting Tone (Palpate): Relaxed (Sheila Jaime, RNC) Monitor Mode: External US (Sheila Jaime, RNC) FHR Baseline Rate : 135 (Sheila Jaime, RNC) Variability: Moderate 6-25 bpm (Sheila Jaime, RNC) Accelerations: 15X15 (Sheila Jaime, RNC) Decelerations: None (Sheila Jaime, RNC) FHR Baseline Rate : 135 (Sheila Jaime, RNC) FHR Baseline Changes: No Baseline Change (Sheila Jaime, RNC) Variability: Moderate 6-25 bpm (Sheila Jaime, RNC) Accelerations: 15X15 (Sheila Jaime, RNC) Decelerations: None (Sheila Jaime, RNC) Datetime: 12/16/2016 12:56 IV/Blood Work: New IV Bag Hung (Blanca Orozco, RN) Datetime: 12/16/2016 12:48 NBP Sys/Dorothea/Mean (mmHg): 126 (QS system process) : 66 (QS system process) : 90 (QS system process) Pulse: 100 (QS system process) LaborFlag: Labor (QS system process) Datetime: 12/16/2016 12:45 Monitor Mode: External; Palpation (Sheila Jaime, RNC) Frequency (min): 2-4 (Sheila Jaime, RNC) Quality: Mild/Moderate (Sheila Jaime, RNC) Duration (sec): 60-90 (Sheila Jaime, RNC) Duration Criteria: Less than Two 120 Second Contractions (Sheila Jaime, RNC) Pattern: Normal: <= 5 Contractions in 10 Minutes (Sheila Jaime, RNC) Resting Tone (Palpate): Relaxed (Sheila Jaime, RNC) Monitor Mode: External US (Sheila Jaime, RNC) FHR Baseline Rate : 135 (Sheila Jaime, RNC) Variability: Moderate 6-25 bpm (Sheila Jaime, RNC) Accelerations: 15X15 (Sheila Jaime, RNC) Decelerations: None (Sheila Jaime, RNC) FHR Baseline Rate : 140 (Sheila Jaime, RNC) Variability: Moderate 6-25 bpm (Sheila Jaime, RNC) Accelerations: 15X15 (Sheila Jaime, RNC) Decelerations: None (Sheila Jaime, RNC) Datetime: 12/16/2016 12:33 Pain Coping: Requesting Pain Medication or Epidural (Blanca Orozco RN) IV/Blood Work: IV Bolus Started (Blanca Orozco RN) Procedure Verify: Correct Patient Identity; Correct Side and Site are Marked; Accurate Procedure Consent Form; Agreement on Procedure to be Done (Blanca Orozco RN) Datetime: 12/16/2016 12:32 NBP Sys/Dorothea/Mean (mmHg): 128 (QS system process) : 71 (QS system process) : 93 (QS system process) Pulse: 106 (QS system process) LaborFlag: Labor (QS system process) Datetime: 12/16/2016 12:30 Monitor Mode: External; Palpation (Sheila Jaime, RNC) Frequency (min): 2-5 (Sheila Jaime, RNC) Quality: Mild/Moderate (Sheila Jaime, RNC) Duration (sec): 60-120 (Sheila Jaime, RNC) Duration Criteria: Less than Two 120 Second Contractions (Sheila Jaime, RNC) Pattern: Normal: <= 5 Contractions in 10 Minutes (Sheila Jaime, RNC) Resting Tone (Palpate): Relaxed (Sheila Jaime, RNC) Monitor Mode: External US (Sheila Jaime, RNC) FHR Baseline Rate : 135 (Sheila Jaime, RNC) Variability: Moderate 6-25 bpm (Sheila Jaime, RNC) Accelerations: None (Sheila Jaime, RNC) Decelerations: None (Sheila Jaime, RNC) FHR Baseline Rate : 135 (Sheila Jaime, RNC) Variability: Moderate 6-25 bpm (Sheila Jaime, RNC) Accelerations: None (Sheila Jaime, RNC) Decelerations: None (Sheila Jaime, RNC) Datetime: 12/16/2016 12:17 NBP Sys/Dorothea/Mean (mmHg): 125 (QS system process) : 72 (QS system process) : 94 (QS system process) Pulse: 100 (QS system process) LaborFlag: Labor (QS system process) Datetime: 12/16/2016 12:15 Monitor Mode: External (Blanca Orozco, RN) Frequency (min): 2-4 (Blanca Orozco, RN) Quality: Mild/Moderate (Blanca Orozco, RN) Duration (sec): 70-90 (Blanca Orozco, RN) Duration Criteria: Less than Two 120 Second Contractions (Blanca Orozco, RN) Pattern: Normal: <= 5 Contractions in 10 Minutes (Blanca Orozco, RN) Resting Tone (Palpate): Relaxed (Blanca Orozco, RN) Monitor Mode: External US (Blanca Orozco, RN) FHR Baseline Rate : 125 (Blanca Orozco, RN) Variability: Moderate 6-25 bpm (Blanca Orozco, RN) Accelerations: 15X15 (Blanca Orozco, RN) Decelerations: None (Blanca Orozco, RN) Monitor Mode: External US (Blanca Orozco, RN) FHR Baseline Rate : 135 (Blanca Orozco, RN) Variability: Moderate 6-25 bpm (Blanca Orozco, RN) Accelerations: 15X15 (Blanca Orozco, RN) Decelerations: None (Blanca Orozco, RN) Datetime: 12/16/2016 12:04 Antibiotics: Penicillin IV (Units) @ 2.5 million (Blanca Orozco, RN) Datetime: 12/16/2016 12:03 NBP Sys/Dorothea/Mean (mmHg): 126 (QS system process) : 65 (QS system process) : 89 (QS system process) Pulse: 94 (QS system process) LaborFlag: Labor (QS system process) Datetime: 12/16/2016 12:00 Monitor Mode: External (Blanca Orozco RN) Frequency (min): 2-3 (Blanca Orozco RN) Quality: Mild/Moderate (Blanca Orozco RN) Duration (sec): 70-90 (Blanca Orozco RN) Resting Tone (Palpate): Relaxed (Blanca Orozco RN) Monitor Mode: External US (Blanca Orozco RN) FHR Baseline Rate : 135 (Blanca Orozco RN) Variability: Moderate 6-25 bpm (Blanca Orozco RN) Accelerations: 10X10 (Blanca Orozco RN) Decelerations: None (Blanca Orozco RN) Monitor Mode: External US (Blanca Orozco RN) FHR Baseline Rate : 140 (Blanca Orozco RN) Variability: Moderate 6-25 bpm (Blanca Orozco RN) Accelerations: 15X15 (Blanca Orozco, RN) Decelerations: None (Blanca Orozco RN) Pitocin (milliunit): Pitocin Remains (milliunits) @ 20 (Blanca Orozco RN)
[2016-12-16] MEDS ORDERED: IBUPROFEN 800 MG TABLET ONE (16:56)
--- NOTE | 2016-12-16 18:19 | Delivery Summary ---
Del Sum A-C Datetime Report Generated by CPN: 12/16/2016 18:18 ADMISSION DATA Chief Complaint: Scheduled Induction of Labor Indication for Induction: Other Indication for Induction Comment: Twin gestation Admission Impression: Term, Intrauterine Admit Provider Comments: Twin gestation Per MFM delivery planned for 37 wks-IOL Proven for 6lbs 12 oz Hx pre-eclampsia GHTN Positive GBS DELIVERY PERSONNEL Delivery Doctor:: Charlee Rogers MD Nurse Chief Estimator Certified:: Naya Vera CNM PI/SENIOR RESEARCH ASSOCIATE:: Tete Rai CRNA Labor and Delivery Nurse:: Balnca Orozco RNc consultant Nurse:: TAIWO Rosa Nurse Practitioner:: KRISTOPHER Moreland Nursery Nurse:: Erma Todd RN Nursery Nurse:: Charlee Dubon RN [facility] x3 Tax Attorney/FIRE AND EXPLOSION INVESTIGATOR: Migel Maciasison, ST Tax Attorney/FIRE AND EXPLOSION INVESTIGATOR: Triny Teixeira, ST MATERNAL INFORMATION Delivery Anesthesia: Epidural Medications After Delivery: Pitocin Bolus-Please Comment Meds After Delivery Comment: pitocin 20 units in 1000 ml nss open for bolus per gravity Estimated Blood Loss (ml): 350 Maternal Complications: Other Other Maternal Complications: twin gestation Provider Comments: over intact perineum. Twin A male vertex ap9/9. Twin B female footling breech after failed external version ap 9/9. placenta delivered intact di/di- cords marked. no lacerations LABOR SUMMARY EDC: 01/05/2017 00:00 No. Babies in Womb: 2 Attempted: No Labor Anesthesia: Epidural LABOR INFORMATION Reason for Induction: Gestational Hypertension; Other Reason for Induction- Other: twin gestation Onset of Labor: 12/16/2016 14:26 Complete Dilatation: 12/16/2016 15:50 Oxytocin: Induction Group B Beta Strep: Positive Antibiotics # of Doses: 2 Antibiotics Time of Last Dose: Name of Antibiotic Given: pcn Steroids Given: None Reason Steroids Not Administered: Not Applicable MEMBRANES Membranes Rupture Method: Artificial Rupture of Membranes: 12/16/2016 14:26 Length of Rupture (hr): 1.72 Amniotic Fluid Color: Clear Amniotic Fluid Amount: Small Amniotic Fluid Odor: Normal STAGES OF LABOR Stage 1 hr: 1 Stage 1 min: 24 Stage 2 hr: 0 Stage 2 min: 19 Stage 3 hr: 0 Stage 3 min: 15 Total Time in Labor hr: 1 Total Time in Labor min: 58 VAGINAL DELIVERY Episiotomy: None Laceration Extension: N/A Laceration Type: None Laceration Repair: Not Applicable Sponge Count Correct: N/A Sharps Count Correct: N/A CSECTION DELIVERY Primary Indication: N/A Secondary Indication: N/A CSection Incidence: N/A Labor: N/A Elective: N/A CSection Incision: N/A BABY A INFORMATION Infant Delivery Date/Time: 12/16/2016 16:09 Method of Delivery: Vaginal Born in Route : No : N/A Forceps: N/A Vacuum Extraction: N/A Shoulder Dystocia : No PRESENTATION/POSITION BABY A Presentation: Cephalic Cephalic Presentation: Vertex Vertex Position: Left Occipital Anterior Breech Presentation: N/A PLACENTA INFORMATION BABY A Placenta Delivery Time : 12/16/2016 16:24 Placenta Method of Delivery: Manual Removal Placenta Status: Delivered SCORES BABY A Heart Rate 1 min: >100 bpm Resp Effort 1 min: Good Cry Reflex Irritability 1 min: Cough or Sneeze or Pulls Away Muscle Tone 1 min: Active Motion Color 1 min: Body [place], Extremities Blue Resuscitation Effort 1 min: Tactile Stimulation SCORE 1 MIN: 9 Heart Rate 5 min: >100 bpm Resp Effort 5 min: Good Cry Reflex Irritability 5 min: Cough or Sneeze or Pulls Away Muscle Tone 5 min: Active Motion Color 5 min: Body [place], Extremities Blue Resuscitation Effort 5 min: N/A SCORE 5 MIN: 9 Resuscitation Effort 10 min: N/A INFANT INFORMATION BABY A Gestational Age at Delivery: 37.1 Gestational Status: Early Term- 37- 38.6 Weeks Outcome : Liveborn Infant Condition : Stable Infant Sex: Male IDENTIFICATION BABY A Verification Date/Time: 12/16/2016 16:15 ID Band Number: [id number] Mother's Name Verified: Yes Infant RN Verifying : Claudia Allen RNC Additional Verifying Personnel: A Orozco RN WEIGHT/LENGTH BABY A Infant Birthweight (gm): 2585 Infant Weight (lb): 5 Weight (oz): 11 Infant Length (in): 18.00 Length (cm): 45.72 CORD INFORMATION BABY A No. Cord Vessels: 3 Nuchal Cord : N/A Cord Blood Taken: Yes-For Storage (Mom's Blood type +) Suction: Mouth; Nose ASSESSMENT BABY A Complications: None Physical Findings at Delivery: [place] Spots Respirations: Nasal Flaring Skin to Skin: No Raw Shellfish Preparer/ALS Called : No Infant Care By: Radha todd RN Transferred To: [place] [facility] BABY B INFORMATION Delivery Date/Time: 12/16/2016 16:22 Method of Delivery : Vaginal Born in Route : No : N/A Forceps : N/A Vacuum Extraction: N/A Shoulder Dystocia : No SHOULDER DYSTOCIA BABY B Delivery Date/Time: 12/16/2016 16:22 PRESENTATION/POSITION BABY B Presentation : Breech Cephalic Position : N/A Breech Position: Double [place] ROM/PLACENTA INFO BABY B Rupture of Membranes: 12/16/2016 16:16 Length of Rupture (hr): 0.10 Placenta Delivery Time : 12/16/2016 16:24 Placenta Method of Delivery: Manual Removal Placental Status : Delivered SCORES BABY B Heart Rate 1 min: >100 bpm Resp Effort 1 min: Good Cry Reflex Irritability 1 min: Cough or Sneeze or Pulls Away Muscle Tone 1 min: Active Motion Color 1 min: Body [place], Extremities Blue Resuscitation Effort 1 min: Tactile Stimulation SCORE 1 MIN: 9 Heart Rate 5 min: >100 bpm Resp Effort 5 min: Good Cry Reflex Irritability 5 min: Cough or Sneeze or Pulls Away Muscle Tone 5 min: Active Motion Color 5 min: Body [place], Extremities Blue Resuscitation Effort 5 min: N/A SCORE 5 MIN: 9 INFORMATION BABY B Gestational Age at Delivery: 37.1 Gestational Status : Early Term- 37- 38.6 Weeks Infant Outcome : Liveborn Condition : Stable Sex : Female IDENTIFICATION BABY B Infant Verification Date/Time: 12/16/2016 16:25 ID Band Number : [id number] Mother's Name Verified: Yes Infant RN Verifying : Claudia Camp RNC WEIGHT/LENGTH BABY B Infant Birthweight (gm): 2400 Infant Weight (lb) : 5 Weight (oz): 5 Length (in): 17.50 Length (cm): 44.45 CORD INFORMATION BABY B No. Cord Vessels : 3 Nuchal Cord : N/A Cord Blood Taken : Yes-For Storage (Mom's Blood Type +) Suction : Mouth; Nose ASSESSMENT BABY B Infant Complications : None Infant Complications- Other: Breech Physical Findings at Delivery: Within Normal Limits Infant Respirations : Appears Normal Skin to Skin: No Raw Shellfish Preparer/ALS Called : No Infant Care By : Rajeev Dubon associate professor physician To: Nursery SIGNATURES Signature: with User ID: [email or web address] : I personally evaluated and examined the patient in conjunction with the MLP and agree with the assessment, treatment plan and disposition.
[2016-12-16] MEDS ORDERED: MEASLES,MUMPS&RUBELLA VACC/PF 0.5 ML VIAL SUBCUT PRN (19:06)
[2016-12-16] MEDS ORDERED: ACETAMINOPHEN WITH CODEINE #3 TABLET PO PRN (19:06)
[2016-12-16] MEDS ORDERED: BENZOCAINE/MENTHOL AEROSOL SPRAY 56 ML TOP PRN (19:06)
[2016-12-16] MEDS ORDERED: DIPH/PERTUSS(ACELL)/TETANUS VAC/PF 0.5 ML SYR (>=10YO) IM PRN (19:06)
[2016-12-16] MEDS ORDERED: DIBUCAINE 1% OINTMENT 28 GM TP PRN (19:06)
[2016-12-16] MEDS ORDERED: ZOLPIDEM TARTRATE 5 MG TABLET PO PRN (19:06)
--- NOTE | 2016-12-16 19:35 | Admission Physical ---
Datetime Report Generated by CPN: 12/16/2016 19:35 CURRENT ADMISSION Chief Complaint: Scheduled Induction of Labor Indication for Induction: Other Indication for Induction- Other: Twin gestation Admit Plan: Admit to Unit; Initiate Labor Induction Protocol ALLERGIES Medication Allergies: No Medication Allergies: No Known Allergies (12/16/2016) Latex: No Latex Allergies Food Allergies: NONE Environmental Allergies: NONE OBSTETRICAL HISTORY EDC: 01/05/2017 00:00 : 4 Para: 1 Term: 1 : 0 SAB: 0 IAB: 2 Ectopic: 0 Livin Cesareans: 0 VBACs: 0 Multiple Births: 0 Gestational Diabetes: No Rh Sensitization: No Incompetent Cervix: No MICHELL: No Infertility: No ART Treatment: No Uterine Anomaly: No IUGR: No Hx Previous C/S: No Macrosomia: No Hx Loss/Stillborn: No PIH: Yes Hx : No Placenta Previa/Abruption: No Depression/PP Depression: No PTL/PROM: No Post Hemorrhage: No Current Procedures: Ultrasound; NST Obstetrical History Comments: G1 - 02/2010 EAB 5 week G2 - 05/2013 NVD 40 week baby boy - 6 lb 12 oz, preecclampsia G3 - 03/2015 EAB 6 week G4 - current , di/di twin boy _ girl GHTN SEE RECORDS Alcohol: No Marijuana : No Cocaine: No Other Illicit Drugs: No Cigarettes: Never Smoker. [id number] MEDICAL HISTORY Diabetes: No Blood Transfusion: No Pulmonary Disease (Asthma, TB): Yes Breast Disease: No Hypertension: No Annual Giving Manager Surgery: No Heart Disease: No Hosp/Surgery: No Autoimmune Disorder: No Anesthetic Complications: No Kidney Disease: No Abnormal Pap Smear: No Neuro/Epilepsy: No Psychiatric Disorders: No Other Medical Diseases: No Hepatitis/Liver Disease: No Significant Family History: No Varicosities/Phlebitis: No Trauma/Violence : No Thyroid Dysfunction: No Medical History Comments: asthma, anxiety with this INFECTIOUS HISTORY Gonorrhea: No Genital Herpes: No Chlamydia: Yes Tuberculosis: No Syphilis: No Hepatitis: No HIV/AIDS Exposure: No Rash or Viral Illness: No HPV: No Infectious History Comments: Chlamydia 2011 PHYSICAL EXAM General: Normal HEENT: Normal Neurologic: Normal Thyroid: Deferred Heart: Normal Lungs: Normal Breast: Deferred Back: Normal Abdomen: Normal Genitourinary Exam: Normal Extremities: Normal DTRs: Normal Pelvic Type: Adequate Physical Exam Comments: Gravid Vital Signs: Reviewed; Within Normal Limits VAGINAL EXAM Dilatation: 7 Effacement: 95 Station: 0 MEMBRANES Membranes: Ruptured Amniotic Fluid Color: Clear FETUS A EGA: 37.1 Monitoring: External US FHR- Baseline: 125 Variability: Moderate 6-25bpm Accelerations: 15X15 Decelerations: None FHR Category: Category I Presentation: Vertex Admit Comment: Twin gestation Per MFM delivery planned for 37 wks-IOL Proven for 6lbs 12 oz Hx pre-eclampsia GHTN Positive GBS FETUS B Monitoring: External US Variability: Moderate 6-25bpm Accelerations: 15X15 FHR Category: Category I Presentation: Breech PLANS FOR LABOR AND DELIVERY Labor and Delivery: None Pain Management: Epidural Feeding Preference: Both Benefit of Breast Feed Discussed: Yes Circumcision: Yes INFORMED CONSENT Assignment: Charlee Rogers MD Signature: with User ID: Brendan : with User ID: Brendan : I personally evaluated and examined the patient in conjunction with the MLP and agree with the assessment, treatment plan and disposition.
--- NOTE | 2016-12-16 20:00 | L&D Flow Sheet ---
LD Flowsheet Datetime Report Generated by CPN: 12/16/2016 20:00 Datetime: 12/16/2016 18:45 Stage of : Recovery (Blanca Orozco RN) Datetime: 12/16/2016 18:35 Stage of : Recovery (Blanca Orozco RN) NBP Sys/Dorothea/Mean (mmHg): 136 (QS system process) : 64 (QS system process) : 92 (QS system process) Pulse: 95 (QS system process) Pain Assessment Comments: Pt sleeping (Blanca Orozco RN) Datetime: 12/16/2016 18:21 Stage of : Recovery (Blanca Orozco RN) NBP Sys/Dorothea/Mean (mmHg): 141 (QS system process) : 67 (QS system process) : 96 (QS system process) Pulse: 89 (QS system process) Datetime: 12/16/2016 18:05 Stage of : Recovery (Blanca Orozco RN) NBP Sys/Dorothea/Mean (mmHg): 134 (QS system process) : 84 (QS system process) : 103 (QS system process) Pulse: 92 (QS system process) Pain Scale: 2 (Blanca Orozco RN) Pain Presence: Intermittent (Blanca Orozco RN) Pain Type: Burning; Cramping; Pressure; Ache (Blanca Orozco RN) Pain Location: Perineum (Blanca Orozco RN) Datetime: 12/16/2016 17:50 Stage of : Recovery (Blanca Orozco RN) NBP Sys/Dorothea/Mean (mmHg): 130 (QS system process) : 68 (QS system process) : 95 (QS system process) Pulse: 90 (QS system process) Pain Scale: 2 (Blanca Orozco RN) Pain Presence: Intermittent (Blanca Orozco RN) Pain Type: Burning; Cramping; Pressure; Ache (Blanca Orozco RN) Pain Location: Perineum (Blanca Orozco RN) Datetime: 12/16/2016 17:35 Stage of : Recovery (Blanca Orozco RN) NBP Sys/Dorothea/Mean (mmHg): 129 (QS system process) : 75 (QS system process) : 96 (QS system process) Pulse: 93 (QS system process) Datetime: 12/16/2016 17:20 Stage of : Recovery (Blanca Orozco RN) NBP Sys/Dorothea/Mean (mmHg): 129 (QS system process) : 76 (QS system process) : 97 (QS system process) Pulse: 100 (QS system process) Datetime: 12/16/2016 17:05 Stage of : Recovery (Blanca Orozco RN) Datetime: 12/16/2016 17:03 Stage of : Recovery (Blanca Orozco RN) Pain Scale: 4 (Blanca Orozco RN) Pain Presence: Intermittent (Blanca Orozco RN) Pain Type: Burning; Cramping; Pressure; Ache (Blanca Orozco RN) Pain Location: Perineum (Blanca Orozco RN) Datetime: 12/16/2016 16:50 Stage of : Recovery (Blanca Orozco RN) NBP Sys/Dorothea/Mean (mmHg): 108 (QS system process) : 64 (QS system process) : 80 (QS system process) Pulse: 107 (QS system process) Respirations: 14 (Blanca Orozco RN) Temperature (F): 98.2 (Blanca Orozco RN) Temperature (C): 36.8 (QS system process) Pain Scale: 4 (Blanca Orozco RN) Pain Presence: Intermittent (Blanca Orozco RN) Pain Type: Burning; Cramping; Pressure; Ache (Blanca Orozco RN) Pain Location: Perineum (Blanca Orozco RN) Datetime: 12/16/2016 16:43 Communication Comments: Leaving OR to return to pt room via bed (Blanca Orozco RN) Datetime: 12/16/2016 16:25 Stage of : Recovery (Blanca Orozco, RN) Datetime: 12/16/2016 16:24 Stage 2 Comments: Placentas manually removed per A. Emmel CNM (Blanca Orozco, RN) Datetime: 12/16/2016 16:22 Stage 2 Comments: Baby B delivered. Baby girl. (Blanca Orozco, RN) Datetime: 12/16/2016 16:18 Comments: FHTs in 140s (Blanca Roozco, RN) Datetime: 12/16/2016 16:16 Communication Comments: Baby B SROM. Clear fluid (Blanca Ernesto, RN) Datetime: 12/16/2016 16:15 Comments: FHTs in 90s. (Blanca Orozco, RN) Communication Comments: Maternal HR noted 111 (Blanca Orozco, RN) Datetime: 12/16/2016 16:11 Stage 2 Comments: Dr. Rogers performing US at bedside and assessing presenting position (Blanca Orozco, RN) Datetime: 12/16/2016 16:10 Comments: Attempting to assess FHTs while provider is doing bedside US (Blanca Orozco, RN) Datetime: 12/16/2016 16:09 Stage 2 Comments: Delivery baby boy (Blanca Orozco, RN) Datetime: 12/16/2016 16:08 Pushing Progress: with Pushing; Pushing Effectively with Contractions (Blanca Orozco, RN) Datetime: 12/16/2016 16:07 Communication Comments: A. Chuy CNM at bedside (Blanca Orozco RN) Datetime: 12/16/2016 16:05 Monitor Mode: External (Blanca Orozco RN) Frequency (min): 2-2.5 (Blanca Orozco, RN) Quality: Moderate (Blanca Orozco, RN) Duration (sec): 70-90 (Blanca Orozco, RN) Duration Criteria: Less than Two 120 Second Contractions (Blanca Orozco, RN) Pattern: Normal: <= 5 Contractions in 10 Minutes (Blanca Orozco, RN) Resting Tone (Palpate): Relaxed (Blanca Orozco, RN) Monitor Mode: External US (Blanca Orozco, RN) FHR Baseline Rate : 130 (Blanca Orozco, RN) Variability: Moderate 6-25 bpm (Blanca Orozco, RN) Monitor Mode: External US (Blanca Orozco, RN) FHR Baseline Rate : 135 (Blanca Orozco, RN) Variability: Moderate 6-25 bpm (Blanca Orozco, RN) Accelerations: 15X15 (Blanca Orozco, RN) Decelerations: None (Blanca Orozco, RN) Datetime: 12/16/2016 16:04 Pushing: Urge to Push (Blanca Orozco, RN) Pushing Position: Pushing with Contractions (Blanca Orozco, RN) Pushing Progress: Descent with Pushing (Blanca Orozco, RN) Datetime: 12/16/2016 16:00 Monitor Mode: External; Palpation (Blanca Orozco RN) Frequency (min): 2-3 (Blanca Orozco RN) Quality: Moderate (Blanca Orozco RN) Duration (sec): 40-90 (Blanca Orozco RN) Duration Criteria: Less than Two 120 Second Contractions (Blanca Orozco RN) Pattern: Normal: <= 5 Contractions in 10 Minutes (Blanca Orozco RN) Resting Tone (Palpate): Relaxed (Blanca Orozco RN) Monitor Mode: External US (Blanca Orozco RN) FHR Baseline Rate : 145 (Blanca Orozco RN) Variability: Moderate 6-25 bpm (Blanca Orozco RN) Accelerations: None (Blanca Orozco RN) Decelerations: None (Blanca Orozco RN) Monitor Mode: External US (Blanca Orozco RN) FHR Baseline Rate : 150 (Blanca Orozco RN) Variability: Moderate 6-25 bpm (Blanca Orozco RN) Accelerations: None (Blanca Orozco RN) Decelerations: None (Blanca Orozco RN)
[2016-12-16] MEDS: DOCUSATE SODIUM 100 MG CAPSULE PO SCH (21:52)
[2016-12-16] MEDS: FERROUS SULFATE 325 MG TABLET PO SCH (21:53)
[2016-12-16] MEDS: IBUPROFEN 800 MG TABLET PO SCH (21:53)
[2016-12-17] MEDS: ACETAMINOPHEN WITH CODEINE #3 TABLET PO PRN ×2 (02:15→21:55)
--- NOTE | 2016-12-17 04:46 | L&D Current Admission ---
Current Admit Datetime Report Generated by N: 12/17/2016 04:45 ADMISSION INFORMATION Current Admit Date/Time: 12/16/2016 07:16 (12/16/2016 07:16:Blanca Orozco RN) Current Admit Date/Time: 12/15/2016 08:24 (12/15/2016 08:45:Nazia Rhoades RN) Current Admit Date/Time: 12/15/2016 08:29 (12/11/2016 15:41:Triny Fortune RN) Reason for Admission: Induction of Labor (12/16/2016 07:16:Blanca Orozco RN) Reason for Admission: Induction of Labor (12/15/2016 08:45:Nazia Rhoades RN) Reason for Admission: Induction of Labor (12/11/2016 15:41:Triny Fortune RN) Chief Complaint: Scheduled Induction of Labor (12/16/2016 07:34:Blanca Orozco RN) Chief Complaint: Scheduled Induction of Labor (12/16/2016 07:16:Blanca Orozco RN) Chief Complaint: Scheduled Induction of Labor (12/15/2016 08:45:Nazia Rhoades RN) Chief Complaint: Scheduled Induction of Labor (12/11/2016 15:41:Triny Fortune RN) Medications During : Folic Acid; Vitamin (12/16/2016 07:16:Blanca Orozco RN) Medications During : Vitamin (12/15/2016 08:45:Nazia Rhoades RN) Meds During -Oth: Magnesium, Calcium, DHA, Aspirin (12/16/2016 07:16:Blanca Orozco RN) EGA per Dates: 37.1 (12/16/2016 07:16:QS system process) EGA per Dates: 37.0 (12/15/2016 08:45:QS system process) EGA per Dates: 37.0 (12/11/2016 15:41:QS system process) Method of Arrival: Wheelchair (12/16/2016 07:16:Blanca Orozco RN) Method of Arrival: Ambulatory (12/11/2016 15:41:Triny Fortune RN) Admitted From: Home (12/16/2016 07:16:Blanca Orozco RN) Admitted From: Home (12/15/2016 08:45:Nazia Rhoades RN) Admitted From: Home (12/11/2016 15:41:Triny Fortune RN) Reason for Induction: Gestational Hypertension; Other (12/16/2016 07:16:Blanca Orozco RN) Reason for Induction: Gestational Hypertension (12/15/2016 08:45:Nazia Rhoades RN) Reason for Induction: Gestational Hypertension (12/11/2016 15:41:Triny Fortune RN) Reason for Induction- Other: Twins (12/16/2016 07:16:Blanca Orozco RN) Reason for Induction- Other: DI/DI TWINS (12/11/2016 15:41:Triny Fortune RN) Records Available: Yes (12/16/2016 07:16:Blnaca Orozco RN) Records Available: Yes (12/15/2016 08:45:Nazia Rhoades RN) Records Available: Yes (12/11/2016 15:41:Triny Fortune RN) General Admission Information: Reviewed (12/16/2016 07:16:Blanca Orozco RN) General Admission Information: Reviewed; Updated; Confirmed (12/15/2016 08:45:Nazia Rhoades RN) General Admission Information: Reviewed (12/11/2016 15:41:Triny Fortune RN) General Admission Reviewed By: Rajeev Orozco RN (12/16/2016 07:16:Blanca Orozco RN) General Admission Reviewed By: Bessy Rhoades RN (12/15/2016 08:45:Nazia Rhoades RN) BELONGINGS/ADVANCED DIRECTIVES Valuables/Personal Effects: None (12/16/2016 07:16:Blanca Orozco RN) Valuables/Personal Effects: Purse/Wallet; Cell Phone (12/15/2016 08:45:Nazia Rhoades RN) Other Belongings: see belongings consents (12/16/2016 07:16:Blanca Orozco RN) Other Belongings: SEE VALUABLES CONSENT (12/11/2016 15:41:Triny Fortune RN) Disposition of Belongings: Kept with Patient (12/15/2016 08:45:Nazia Rhoades RN) Disposition of Belongings: Kept with Patient (12/11/2016 15:41:Triny Fortune RN) Advance Direct for Healthcare: No, and Wants No Information (12/16/2016 07:16:Blanca Orozco RN) Advance Direct for Healthcare: No, and Wants No Information (12/15/2016 08:45:Nazia Rhoades RN) Durable Power of Painting Machine Operator: No (12/16/2016 07:16:Blanca Orozco RN) Durable Power of Painting Machine Operator: No (12/15/2016 08:45:Nazia Rhoades RN) Living Will: No (12/16/2016 07:16:Blanca Orozco RN) Living Will: No (12/15/2016 08:45:Nazia Rhoades RN) Organ Donor: No (12/16/2016 07:16:Blanca Orozco RN) Organ Donor: No (12/15/2016 08:45:Nazia Rhoades RN) Pt Rights Information Given: Yes (12/16/2016 07:16:Blanca Orozco RN) Pt Rights Information Given: Yes (12/15/2016 08:45:Nazia Rhoades RN) Pt Understands Pt Rights: Yes (12/16/2016 07:16:Blanca Orozco RN) Pt Understands Pt Rights: Yes (12/15/2016 08:45:Nazia Rhoades RN) LEARNING ASSESSMENT Knowledge Level: Understands L_D Process; Understands Care Activities; Had Pre-Hospital Education; Understands Diagnosis (12/16/2016 07:16:Blanca Orozco RN) Knowledge Level: Understands L_D Process (12/15/2016 08:45:Nazia Rhoades RN) Knowledge Level: Understands L_D Process; Understands Care Activities; Understands Diagnosis (12/11/2016 15:41:Triny Fortune RN) Barriers to Learning: None (12/16/2016 07:16:Blanca Orozco RN) Barriers to Learning: None (12/15/2016 08:45:Nazia Rhoades RN) Barriers to Learning: None (12/11/2016 15:41:Triny Fortune RN) Learning Readiness: Motivated (12/16/2016 07:16:Blanca Orozco RN) Learning Readiness: Motivated (12/15/2016 08:45:Nazia Rhoades RN) Learning Readiness: Motivated (12/11/2016 15:41:Triny Fortune RN) Learns Best By: Demonstration (12/16/2016 07:16:Blanca Orozco RN) Learns Best By: 1 to 1 Instruction (12/15/2016 08:45:Nazia Rhoades RN) Learns Best By: 1 to 1 Instruction; Reading; Videos; Demonstration (12/11/2016 15:41:Triny Fortune RN) Learning Needs: Labor and Delivery Process; Pain Management; Symptoms to Report; Treatment Plan; Medication; Diagnosis; Nutrition; Equipment; Infant Care; Community Resources (12/16/2016 07:16:Blanca Orozco RN) Learning Needs: Labor and Delivery Process; Pain Management; Treatment Plan; Equipment; Care (12/15/2016 08:45:Nazia Rhoades RN) Learning Needs: Labor and Delivery Process; Pain Management; Symptoms to Report; Treatment Plan; Medication; Diagnosis; Nutrition; Equipment; Care; Community Resources (12/11/2016 15:41:Triny Fortune RN) DOMESTIC VIOLANCE SCREENING Dom Viol Threatened/Hurt: No (12/16/2016 07:16:Blanca Orozco RN) Dom Viol Threatened/Hurt: No (12/15/2016 08:45:Nazia Rhoades RN) Hx of Abuse/Neglect past 2yrs: No (12/16/2016 07:16:Blanca Orozco RN) Hx of Abuse/Neglect past 2yrs: No (12/15/2016 08:45:Nazia Rhoades RN) Feel Unsafe Going Home: No (12/16/2016 07:16:Blanca Orozco RN) Feel Unsafe Going Home: No (12/15/2016 08:45:Nazia Rhoades RN) Addt'l Observ Indicating Abuse: No (12/16/2016 07:16:Blanca Orozco RN) Addt'l Observ Indicating Abuse: No (12/15/2016 08:45:Nazia Rhoades RN) Reason Unable to Complete Screen: N/A, Screen Completed (12/16/2016 07:16:Blanca Orozco RN) Reason Unable to Complete Screen: N/A, Screen Completed (12/15/2016 08:45:Nazia Rhoades RN) Considered Personal Harm/Suicide: No (12/16/2016 07:16:Blanca Orozco RN) Considered Personal Harm/Suicide: No (12/15/2016 08:45:Nazia Rhoades RN) NUTRITIONAL/FUNCTIONAL SCREENING Problem with Appetite >5 Days: No (12/16/2016 07:16:Blanca Orozco RN) Problem with Appetite >5 Days: No (12/15/2016 08:45:Nazia Rhoades RN) Chew/Swallow Difficulties: No (12/16/2016 07:16:Blanca Orozco RN) Chew/Swallow Difficulties: No (12/15/2016 08:45:Nazia Rhoades RN) Inappropriate Wt Gain/Loss: No (12/16/2016 07:16:Blanca Orozco RN) Inappropriate Wt Gain/Loss: No (12/15/2016 08:45:Nazia Rhoades RN) Presence Skin Breakdown/Ulcer: No (12/16/2016 07:16:Blanca Orozco RN) Presence Skin Breakdown/Ulcer: No (12/15/2016 08:45:Nazia Rhoades RN) Special Diet: No (12/16/2016 07:16:Blanca Orozco RN) Special Diet: No (12/15/2016 08:45:Nazia Rhoades RN) Pt Requests Certified Pediatric Nurse Practitioner Visit: No (12/16/2016 07:16:Blanca Orozco RN) Pt Requests Certified Pediatric Nurse Practitioner Visit: No (12/15/2016 08:45:Nazia Rhoades RN) Hx of Any of the Following?: N/A (12/16/2016 07:16:Blanca Orozco RN) Hx of Any of the Following?: N/A (12/15/2016 08:45:Nazia Rhoades RN) New Diagnosis of: N/A (12/16/2016 07:16:Blanca Orozco RN) New Diagnosis of: N/A (12/15/2016 08:45:Nazia Rhoades RN) Requires Assist w/Ambulation: No (12/16/2016 07:16:Blanca Orozco RN) Requires Assist w/Ambulation: No (12/15/2016 08:45:Nazia Rhoades RN) Uses Assist Device to Ambulate: No (12/16/2016 07:16:Blanac Orozco RN) Uses Assist Device to Ambulate: No (12/15/2016 08:45:Nazia Rhoades RN) Pt Requires Help w/ADL's: No (12/16/2016 07:16:Blanca Orozco RN) Pt Requires Help w/ADL's: No (12/15/2016 08:45:Nazia Rhoades RN)
--- NOTE | 2016-12-17 04:46 | L&D Admission Assessment ---
LD ADM ASMT Datetime Report Generated by CPN: 12/17/2016 04:45 Assessment Type: Admission Assessment (12/16/2016 07:34:Blanca Orozco RN) Assessment Type: Admission Assessment (12/15/2016 08:45:Nazia Rhoades RN) Weight (lb): 222 (12/16/2016 19:33:QS system process) Weight (lb): 222 (12/16/2016 11:00:QS system process) Weight (lb): 222 (12/16/2016 08:11:QS system process) Weight (lb): 222 (12/16/2016 07:04:QS system process) Weight (lb): 233 (12/15/2016 09:13:QS system process) Weight (kg): 100.9 (12/16/2016 19:33:QS system process) Weight (kg): 100.9 (12/16/2016 11:00:QS system process) Weight (kg): 100.9 (12/16/2016 08:11:QS system process) Weight (kg): 100.9 (12/16/2016 07:04:QS system process) Weight (kg): 105.9 (12/15/2016 09:13:QS system process) BMI: 35.8 (12/16/2016 19:33:QS system process) BMI: 35.8 (12/16/2016 11:00:QS system process) BMI: 35.8 (12/16/2016 08:11:QS system process) BMI: 38.1 (12/16/2016 07:04:QS system process) BMI: 37.6 (12/15/2016 09:13:QS system process) Pain Scale: 2 (12/16/2016 18:05:Blanca Orozco RN) Pain Scale: 2 (12/16/2016 17:50:Blanca Orozco RN) Pain Scale: 4 (12/16/2016 17:03:Blanca Orozco RN) Pain Scale: 4 (12/16/2016 16:50:Blanca Orozco RN) Pain Scale: 4 (12/16/2016 10:45:Blanca Orozco RN) Pain Scale: 1 (12/16/2016 07:34:Blanca Orozco RN) Pain Scale: 0 (12/15/2016 08:45:Nazia Rhoades RN) Pain Presence: Intermittent (12/16/2016 18:05:Blanca Orozco RN) Pain Presence: Intermittent (12/16/2016 17:50:Blanca Orozco RN) Pain Presence: Intermittent (12/16/2016 17:03:Blanca Orozco RN) Pain Presence: Intermittent (12/16/2016 16:50:Blanca Orozco RN) Pain Presence: Intermittent (12/16/2016 10:45:Blanca Orozco RN) Pain Presence: Intermittent (12/16/2016 07:34:Blanca Orozco RN) Pain Presence: None/Denies (12/15/2016 08:45:Nazia Rhoades RN) Pain Type: Burning; Cramping; Pressure; Ache (12/16/2016 18:05:Blanca Orozco RN) Pain Type: Burning; Cramping; Pressure; Ache (12/16/2016 17:50:Blanca Orozco RN) Pain Type: Burning; Cramping; Pressure; Ache (12/16/2016 17:03:Blanca Orozco RN) Pain Type: Burning; Cramping; Pressure; Ache (12/16/2016 16:50:Blanca Orozco RN) Pain Type: Contraction (12/16/2016 10:45:Blanca Orozco RN) Pain Type: Cramping (12/16/2016 07:34:Blanca Orozco RN) Pain Location: Perineum (12/16/2016 18:05:Blanca Orozco RN) Pain Location: Perineum (12/16/2016 17:50:Blanca Orozco RN) Pain Location: Perineum (12/16/2016 17:03:Blanca Orozco RN) Pain Location: Perineum (12/16/2016 16:50:Blanca Orozco RN) Pain Location: Abdomen (12/16/2016 10:45:Blanca Orozco RN) Pain Location: Abdomen (12/16/2016 07:34:Blanca Orozco RN) Pain Comments: Pt sleeping (12/16/2016 18:35:Blanca Orozco RN) Frequency (min): 2-2.5 (12/16/2016 16:05:Blanca Orozco RN) Frequency (min): 2-3 (12/16/2016 16:00:Blanca Orozco RN) Frequency (min): 2-4 (12/16/2016 15:44:Blanca Orozco RN) Frequency (min): 2-4 (12/16/2016 15:30:Blanca Orozco RN) Frequency (min): 1-4 (12/16/2016 15:15:Blanca Orozco RN) Frequency (min): 1-4 (12/16/2016 15:00:Blanca Orozco RN) Frequency (min): 1-3 (12/16/2016 14:45:Blanca Orozco RN) Frequency (min): 2-3 (12/16/2016 14:30:Blanca Orozco RN) Frequency (min): 2-3 (12/16/2016 13:45:Blanca Orozco RN) Frequency (min): 2-4 (12/16/2016 13:15:Blanca Orozco RN) Frequency (min): 3-6 (12/16/2016 13:15:TAIWO Ledbetter) Frequency (min): 5-7 (12/16/2016 13:00:TAIWO Ledbetter) Frequency (min): 2-4 (12/16/2016 12:45:TAIWO Ledbetter) Frequency (min): 2-5 (12/16/2016 12:30:TAIWO Ledbetter) Frequency (min): 2-4 (12/16/2016 12:15:Blanca Orozco RN) Frequency (min): 2-3 (12/16/2016 12:00:Blanca Orozco RN) Frequency (min): 2-3 (12/16/2016 11:45:Blanca Orozco RN) Frequency (min): 2-3 (12/16/2016 11:30:Blanca Orozco RN) Frequency (min): 2-4 (12/16/2016 11:15:Blanca Orozco RN) Frequency (min): 2-5 (12/16/2016 11:00:Blanca Orozco RN) Frequency (min): 2-5 (12/16/2016 10:45:Blanca Orozco RN) Frequency (min): 3-5 (12/16/2016 10:30:Blanca Orozco RN) Frequency (min): 3-4 (12/16/2016 10:15:Blanca Orozco RN) Frequency (min): 3-5 (12/16/2016 10:00:Blanca Orozco RN) Frequency (min): 4-5 (12/16/2016 09:45:Blanca Orozco RN) Frequency (min): 4-5 (12/16/2016 09:30:Blanca Orozco RN) Frequency (min): 4-5 (12/16/2016 09:15:Blanca Orozco RN) Frequency (min): x2 (12/16/2016 09:00:Blanca Orozco RN) Frequency (min): irreg (12/16/2016 08:30:Blanca Orozco RN) Frequency (min): 4-8 (12/16/2016 08:15:Blanca Orozco RN) Frequency (min): 7-8 (12/16/2016 08:00:Blanca Orozco RN) Frequency (min): 7-8 (12/16/2016 07:45:Blanca Orozco RN) Frequency (min): rare (12/15/2016 09:59:Nazia Rhoades RN) Frequency (min): x1 (12/15/2016 08:54:Nazia Rhoades RN) Duration (sec): 70-90 (12/16/2016 16:05:Blanca Orozco RN) Duration (sec): 40-90 (12/16/2016 16:00:Blanca Orozco RN) Duration (sec): 50-70 (12/16/2016 15:44:Blanca Orozco RN) Duration (sec): 50-90 (12/16/2016 15:30:Blanca Orozco RN) Duration (sec): 70-90 (12/16/2016 15:15:Blanca Orozco RN) Duration (sec): 60-90 (12/16/2016 15:00:Blanca Orozco RN) Duration (sec): 70-90 (12/16/2016 14:45:Blanca Orozco RN) Duration (sec): 60-90 (12/16/2016 14:30:Blanca Orozco RN) Duration (sec): 70-90 (12/16/2016 13:45:Blanca Orozco RN) Duration (sec): 70-90 (12/16/2016 13:15:Blanca Orozco RN) Duration (sec): 60-120 (12/16/2016 13:15:TAIWO Ledbetter) Duration (sec): 60-90 (12/16/2016 13:00:TAIWO Ledbetter) Duration (sec): 60-90 (12/16/2016 12:45:TAIWO Ledbetter) Duration (sec): 60-120 (12/16/2016 12:30:TAIWO Ledbetter) Duration (sec): 70-90 (12/16/2016 12:15:Blanca Orozco RN) Duration (sec): 70-90 (12/16/2016 12:00:Blanca Orozco RN) Duration (sec): 70-90 (12/16/2016 11:45:Blanca Orozco RN) Duration (sec): 60-90 (12/16/2016 11:30:Blanca Orozco RN) Duration (sec): 60-100 (12/16/2016 11:15:Blanca Orozco RN) Duration (sec): 50-90 (12/16/2016 11:00:Blanca Orozco RN) Duration (sec): 70-90 (12/16/2016 10:45:Blanca Orozco RN) Duration (sec): 70-90 (12/16/2016 10:30:Blanca Orozco RN) Duration (sec): 60-90 (12/16/2016 10:15:Blanca Orozco RN) Duration (sec): 70-90 (12/16/2016 10:00:Blanca Orozco RN) Duration (sec): 60-90 (12/16/2016 09:45:Blanca Orozco RN) Duration (sec): 60-200 (12/16/2016 09:30:Blanca Orozco RN) Duration (sec): 70-90 (12/16/2016 09:15:Blanca Orozco RN) Duration (sec): 60-70 (12/16/2016 09:00:Blanca Orozco RN) Duration (sec): 60-90 (12/16/2016 08:00:Blanca Orozco RN) Duration (sec): 60-90 (12/16/2016 07:45:Blanca Orozco RN) Duration (sec): 90 (12/15/2016 09:59:Nazia Rhoades RN) Duration (sec): 120 (12/15/2016 08:54:Nazia Rhoades RN) Quality: Moderate (12/16/2016 16:05:Blanca Orozco RN) Quality: Moderate (12/16/2016 16:00:Blanca Orozco RN) Quality: Moderate (12/16/2016 15:44:Blanca Orozco RN) Quality: Moderate (12/16/2016 15:30:Blanca Orozco RN) Quality: Mild/Moderate (12/16/2016 15:15:Blanca Orozco RN) Quality: Mild/Moderate (12/16/2016 15:00:Blanca Orozco RN) Quality: Mild/Moderate (12/16/2016 14:45:Blanca Orozco RN) Quality: Mild/Moderate (12/16/2016 14:30:Blanca Orozco RN) Quality: Mild/Moderate (12/16/2016 13:45:Blanca Orozco RN) Quality: Mild/Moderate (12/16/2016 13:15:Blanca Orozco RN) Quality: Mild/Moderate (12/16/2016 13:15:TAIWO Ledbetter) Quality: Mild/Moderate (12/16/2016 13:00:TAIWO Ledbetter) Quality: Mild/Moderate (12/16/2016 12:45:TAIWO Ledbetter) Quality: Mild/Moderate (12/16/2016 12:30:TAIWO Ledbetter) Quality: Mild/Moderate (12/16/2016 12:15:Blanca Orozco RN) Quality: Mild/Moderate (12/16/2016 12:00:Blanca Orozco RN) Quality: Mild/Moderate (12/16/2016 11:45:Blanca Orozco RN) Quality: Mild/Moderate (12/16/2016 11:30:Blanca Orozco RN) Quality: Mild/Moderate (12/16/2016 11:15:Blanca Orozco RN) Quality: Mild (12/16/2016 11:00:Blanca Orozco RN) Quality: Mild (12/16/2016 10:45:Blanca Orozco RN) Quality: Mild (12/16/2016 10:30:Blanca Orozco RN) Quality: Mild (12/16/2016 10:15:Blanca Orozco RN) Quality: Mild (12/16/2016 10:00:Blanca Orozco RN) Quality: Mild (12/16/2016 09:45:Blanca Orozco RN) Quality: Mild (12/16/2016 09:30:Blanca Orozco RN) Quality: Mild (12/16/2016 09:15:Blanca Orozco RN) Quality: Mild (12/16/2016 09:00:Blanca Orozco RN) Quality: Mild (12/16/2016 08:45:Blanca Orozco RN) Quality: Mild (12/16/2016 08:30:Blanca Orozco RN) Quality: Mild (12/16/2016 08:15:Blanca Orzoco RN) Quality: Mild (12/16/2016 08:00:Blanca Orozco RN) Quality: Mild (12/16/2016 07:45:Blanca Orozco RN) Quality: Mild (12/15/2016 09:59:Nazia Rhoades RN) Quality: Mild (12/15/2016 08:54:Nazia Rhoades RN) Pattern: Normal: <= 5 Contractions in 10 Minutes (12/16/2016 16:05:Blanca Orozco RN) Pattern: Normal: <= 5 Contractions in 10 Minutes (12/16/2016 16:00:Blanca Orozco RN) Pattern: Normal: <= 5 Contractions in 10 Minutes (12/16/2016 15:44:Blanca Orozco RN) Pattern: Normal: <= 5 Contractions in 10 Minutes (12/16/2016 14:45:Blanca Orozco RN) Pattern: Normal: <= 5 Contractions in 10 Minutes (12/16/2016 13:15:TAIWO Ledbetter) Pattern: Normal: <= 5 Contractions in 10 Minutes (12/16/2016 13:00:TAIWO Ledbetter) Pattern: Normal: <= 5 Contractions in 10 Minutes (12/16/2016 12:45:TAIWO Ledbetter) Pattern: Normal: <= 5 Contractions in 10 Minutes (12/16/2016 12:30:TAIWO Ledbetter) Pattern: Normal: <= 5 Contractions in 10 Minutes (12/16/2016 12:15:Blanca Orozco RN) Pattern: Normal: <= 5 Contractions in 10 Minutes (12/16/2016 11:45:Blanca Orozco RN) Pattern: Normal: <= 5 Contractions in 10 Minutes (12/16/2016 10:00:Blanca Orozco RN) Pattern: Normal: <= 5 Contractions in 10 Minutes (12/16/2016 09:30:Blanca Orozco RN) Pattern: Normal: <= 5 Contractions in 10 Minutes (12/16/2016 08:15:Blanca Orozco RN) Pattern: Normal: <= 5 Contractions in 10 Minutes (12/16/2016 08:00:Blanca Orozco RN) Pattern: Normal: <= 5 Contractions in 10 Minutes (12/16/2016 07:45:Blanca Orozco RN) Resting Tone Obion: Relaxed (12/16/2016 16:05:Blanca Orozco RN) Resting Tone Obion: Relaxed (12/16/2016 16:00:Blanca Orozco RN) Resting Tone Obion: Relaxed (12/16/2016 15:44:Blanca Orozco RN) Resting Tone Obion: Relaxed (12/16/2016 15:30:Blanca Orozco RN) Resting Tone Obion: Relaxed (12/16/2016 15:15:Blanca Orozco RN) Resting Tone Obion: Relaxed (12/16/2016 15:00:Blanca Orozco RN) Resting Tone Obion: Relaxed (12/16/2016 14:45:Blanca Orozco RN) Resting Tone Obion: Relaxed (12/16/2016 14:30:Blanca Orozco RN) Resting Tone Obion: Relaxed (12/16/2016 13:45:Blanca Orozco RN) Resting Tone Obion: Relaxed (12/16/2016 13:15:Blanca Orozco RN) Resting Tone Obion: Relaxed (12/16/2016 13:15:TAIWO Ledbetter) Resting Tone Obion: Relaxed (12/16/2016 13:00:TAIWO Ledbetter) Resting Tone Obion: Relaxed (12/16/2016 12:45:TAIWO Ledbetter) Resting Tone Obion: Relaxed (12/16/2016 12:30:TAIWO Ledbetter) Resting Tone Obion: Relaxed (12/16/2016 12:15:Blanca Orozco RN) Resting Tone Obion: Relaxed (12/16/2016 12:00:Blanca Orozco RN) Resting Tone Obion: Relaxed (12/16/2016 11:45:Blanca Orozco RN) Resting Tone Obion: Relaxed (12/16/2016 11:30:Blanca Orozco RN) Resting Tone Obion: Relaxed (12/16/2016 11:15:Blanca Orozco RN) Resting Tone Obion: Relaxed (12/16/2016 11:00:Blanca Orozco RN) Resting Tone Obion: Relaxed (12/16/2016 10:45:Blanca Orozco RN) Resting Tone Obion: Relaxed (12/16/2016 10:30:Blanca Orozco RN) Resting Tone Obion: Relaxed (12/16/2016 10:15:Blanca Orozco RN) Resting Tone Obion: Relaxed (12/16/2016 10:00:Blanca Orozco RN) Resting Tone Obion: Relaxed (12/16/2016 09:45:Blanca Orozco RN) Resting Tone Obion: Relaxed (12/16/2016 09:30:Blanca Orozco RN) Resting Tone Obion: Relaxed (12/16/2016 09:15:Blanca Orozco RN) Resting Tone Obion: Relaxed (12/16/2016 09:00:Blanca Orozco RN) Resting Tone Obion: Relaxed (12/16/2016 08:45:Blanca Orozco RN) Resting Tone Obion: Relaxed (12/16/2016 08:30:Blanca Orozco RN) Resting Tone Obion: Relaxed (12/16/2016 08:15:Blanca Orozco RN) Resting Tone Obion: Relaxed (12/16/2016 08:00:Blanca Orozco RN) Resting Tone Obion: Relaxed (12/16/2016 07:45:Blanca Orozco RN) Resting Tone Obion: Relaxed (12/15/2016 09:59:Nazia Rhoades RN) Resting Tone Obion: Relaxed (12/15/2016 08:54:Nazia Rhoades RN) Contraction Comments: contractions not tracing on monitor (12/16/2016 08:45:Blanca Orozco RN) Dilatation (cm): 10.0 (12/16/2016 15:50:Blanca Orozco RN) Dilatation (cm): 7.5 (12/16/2016 15:21:Blanca Orozco RN) Dilatation (cm): 4.0 (12/16/2016 14:26:Blanca Orozco RN) Dilatation (cm): 3.5 (12/16/2016 08:05:Blanca Orozco RN) Effacement (%): 100 (12/16/2016 15:50:Blanca Orozco RN) Effacement (%): 90 (12/16/2016 15:21:Blanca Orozco RN) Effacement (%): 80 (12/16/2016 14:26:Blanca Orozco RN) Effacement (%): 75 (12/16/2016 08:05:Blanca Orozco RN) Station: 3 (12/16/2016 15:50:Blanca Orozco RN) Station: 0 (12/16/2016 15:21:Blanca Orozco RN) Station: -1 (12/16/2016 14:26:Blanca Orozco RN) Station: -2 (12/16/2016 08:05:Blanca Orozco RN) Membranes Status: Ruptured (12/16/2016 14:26:Blanca Orozco RN) Membranes Status: Intact (12/15/2016 08:45:Nazia Rhoades RN) ROM Method: Artificial (12/16/2016 14:26:Blanca Orozco RN) Amniotic Fluid Color: Clear (12/16/2016 14:26:Blanca Orozco RN) Amniotic Fluid Amount: Small (12/16/2016 14:26:Blanca Orozco RN) Amniotic Fluid Odor: Normal (12/16/2016 14:26:Blanca Orozco RN) Level of Consciousness: Fully Conscious (12/16/2016 07:34:Blanca Orozco RN) Level of Consciousness: Fully Conscious (12/15/2016 08:45:Nazia Rhoades RN) DTR's/Clonus: DTRs 2+; No Clonus (12/16/2016 07:34:Blanca Orozco RN) DTR's/Clonus: DTRs 2+; No Clonus (12/15/2016 08:45:Nazia Rhoades RN) Headache: Denies (12/16/2016 07:34:Blanca Orozco RN) Headache: Denies (12/15/2016 08:45:Nazia Rhoades RN) Dizziness: No (12/16/2016 07:34:Blanca Orozco RN) Dizziness: No (12/15/2016 08:45:Nazia Rhoades RN) Blurred Vision: No (12/16/2016 07:34:Blanca Orozco RN) Blurred Vision: No (12/15/2016 08:45:Nazia Rhoades RN) Extremity Numbness/Tingling : None (12/16/2016 07:34:Blanca Orozco RN) Extremity Numbness/Tingling : None (12/15/2016 08:45:Nazia Rhoades RN) Extremity Movement: Full Range of Motion (12/16/2016 07:34:Blanca Orozco RN) Extremity Movement: Full Range of Motion (12/15/2016 08:45:Nazia Rhoades RN) Heart Rhythm: Regular (12/15/2016 08:45:Nazia Rhoades RN) Nailbeds: Linneus (12/16/2016 07:34:Blanca Orozco RN) Nailbeds: Linneus (12/15/2016 08:45:Nazia Rhoades RN) Capillary Refill: Less than 3 Seconds (12/16/2016 07:34:Blanca Orozco RN) Capillary Refill: Less than 3 Seconds (12/15/2016 08:45:Nazia Rhoades RN) Lower Extremities Edema: None (12/15/2016 08:45:Nazia Rhoades RN) Lower Extremities Edema Degree: None (12/15/2016 08:45:Nazia Rhoades RN) Upper Extremities Edema: None (12/15/2016 08:45:Nazia Rhoades RN) Upper Extremities Edema Degree: None (12/15/2016 08:45:Nazia Rhoades RN) Facial Edema: None (12/16/2016 07:34:Blanca Orozco RN) Facial Edema: None (12/15/2016 08:45:Nazia Rhoades RN) Hussain's Sign Left Leg: Negative (12/15/2016 08:45:Nazia Rhoades RN) Hussain's Sign Right Leg: Negative (12/15/2016 08:45:Nazia Rhoades RN) Respiratory Effort: Unlabored; Regular Rhythm; Equal Expansion (12/16/2016 07:34:Blanca Orozco RN) Respiratory Effort: Unlabored; Regular Rhythm; Equal Expansion (12/15/2016 08:45:Nazia Rhoades RN) Breath Sounds, Left: Clear and Equal (12/16/2016 07:34:Blanca Orozco RN) Breath Sounds, Left: Clear and Equal (12/15/2016 08:45:Nazia Rhoades RN) Breath Sounds, Right: Clear and Equal (12/16/2016 07:34:Blanca Orozco RN) Breath Sounds, Right: Clear and Equal (12/15/2016 08:45:Nazia Rhoades RN) Cough Productivity: None (12/16/2016 07:34:Blanca Orozco RN) Cough Productivity: None (12/15/2016 08:45:Nazia Rhoades RN) Nausea/Vomiting: Denies (12/16/2016 07:34:Blanca Orozco RN) Nausea/Vomiting: Denies (12/15/2016 08:45:Nazia Rhoades RN) Bowel Sounds: Normoactive; All Quadrants (12/16/2016 07:34:Blanca Orozco RN) Bowel Sounds: Normoactive; All Quadrants (12/15/2016 08:45:Nazia Rhoades RN) RUQ Epigastric Pain: Denies (12/16/2016 07:34:Blanca Orozco RN) RUQ Epigastric Pain: Denies (12/15/2016 08:45:Nazia Rhoades RN) Diet Type: Regular diet (12/15/2016 08:45:Nazia Rhoades RN) Last Meal: 12/14/2016 18:30 (12/15/2016 08:45:Nazia Rhoades RN) Bladder: Nondistended (12/16/2016 07:34:Blanca Orozco RN) Bladder: Nondistended (12/15/2016 08:45:Nazia Rhoades RN) Frequency of Urination: No (12/16/2016 07:34:Blanca Orozco RN) Frequency of Urination: No (12/15/2016 08:45:Nazia Rhoades RN) Urination Burning: No (12/16/2016 07:34:Blanca Orozco RN) Urination Burning: No (12/15/2016 08:45:Nazia Rhoades RN) CVA Tenderness: No (12/16/2016 07:34:Blanca Orozco RN) CVA Tenderness: No (12/15/2016 08:45:Nazia Rhoades RN) Vaginal Bleeding: None (12/16/2016 07:34:Blanca Orozco RN) Vaginal Bleeding: None (12/15/2016 08:45:Nazia Rhoades RN) Vaginal Discharge Amount: None (12/15/2016 08:45:Nazia Rhoades RN) Vaginal Discharge Color: N/A (12/16/2016 07:34:Blanca Orozco RN) Vaginal Discharge Color: N/A (12/15/2016 08:45:Nazia Rhoades RN) Skin Color: Normal for Race (12/16/2016 07:34:Blanca Orozco RN) Skin Color: Normal for Race (12/15/2016 08:45:Nazia Rhoades RN) Skin Temperature: Warm (12/16/2016 07:34:Blanca Orozco RN) Skin Temperature: Warm (12/15/2016 08:45:Nazia Rhoades RN) Skin Moisture: Dry (12/16/2016 07:34:Blanca Orozco RN) Skin Moisture: Dry (12/15/2016 08:45:Nazia Rhoades RN) Ministerio Scale Sensory Perception: No Impairment- Responds to verbal commands. Has no sensory deficit which would limit ability to feel or voice pain or discomfort (12/16/2016 07:34:Blanca Orozco RN) Ministerio Scale Sensory Perception: No Impairment- Responds to verbal commands. Has no sensory deficit which would limit ability to feel or voice pain or discomfort (12/15/2016 08:45:Nazia Rhoades RN) Ministerio Scale Moisture: Rarely Moist- Skin is usually dry. Linen only requires changing at routine intervals (12/16/2016 07:34:Blanca Orozco RN) Ministerio Scale Moisture: Rarely Moist- Skin is usually dry. Linen only requires changing at routine intervals (12/15/2016 08:45:Nazia Rhoades RN) Ministerio Scale Activity: Walks Frequently- Walks outside the room at least twice a day and inside room at least every 2 hours during the day. (12/16/2016 07:34:Blanca Orozco RN) Ministerio Scale Activity: Walks Frequently- Walks outside the room at least twice a day and inside room at least every 2 hours during the day. (12/15/2016 08:45:Nazia Rhoades RN) Ministerio Scale Mobility: No Limitations- Makes major and frequent changes in position without assistance (12/16/2016 07:34:Blanca Orozco RN) Ministerio Scale Mobility: No Limitations- Makes major and frequent changes in position without assistance (12/15/2016 08:45:Nazia Rhoades RN) Ministerio Scale Nutrition: Excellent- Eats most of every meal. Never refuses a meal. Usually eats a total of 4 or more servings of meat and dairy products. Occasionally eats between meals. Does not require supplementation (12/16/2016 07:34:Blanca Orozco RN) Ministerio Scale Nutrition: Excellent- Eats most of every meal. Never refuses a meal. Usually eats a total of 4 or more servings of meat and dairy products. Occasionally eats between meals. Does not require supplementation (12/15/2016 08:45:Nazia Rhoades RN) Ministerio Scale Friction and Shear: No Apparent Problem- Moves in bed and in chair independently and has sufficient muscle strength to lift up completely during move. Maintains good position in bed or chair at all times (12/16/2016 07:34:Blanca Orozco RN) Ministerio Scale Friction and Shear: No Apparent Problem- Moves in bed and in chair independently and has sufficient muscle strength to lift up completely during move. Maintains good position in bed or chair at all times (12/15/2016 08:45:Nazia Rhoades RN) Ministerio Scale Total: 23 (12/16/2016 07:34:QS system process) Ministerio Scale Total: 23 (12/15/2016 08:45:QS system process) Ministerio Scale Risk: No Risk of Pressure Ulcer Noted at this Time (12/16/2016 07:34:QS system process) Ministerio Scale Risk: No Risk of Pressure Ulcer Noted at this Time (12/15/2016 08:45:QS system process) Family Support: Significant Other supportive, at bedside frequently (12/16/2016 07:34:Blanca Orozco RN) Family Support: Significant Other supportive, at bedside frequently (12/15/2016 08:45:Nazia Rhoades RN) Emotional State: Calm/Relaxed (12/16/2016 07:34:Blanca Orozco RN) Emotional State: Calm/Relaxed (12/15/2016 08:45:Nazia Rhoades RN) Call Choi Within Reach: Yes (12/16/2016 07:34:Blanca Orozco RN) Call Choi Within Reach: Yes (12/15/2016 08:45:Nazia Rhoades RN) Side Rails Up: Yes (12/16/2016 07:34:Blacna Orozco RN) Side Rails Up: Yes (12/15/2016 08:45:Nazia Rhoades RN) Bed Wheels Locked: Yes (12/16/2016 07:34:Blanca Orozco RN) Bed Wheels Locked: Yes (12/15/2016 08:45:Nazia Rhoades RN) Arm Bands Present: Yes (12/16/2016 07:34:Blanca Orozco RN) Arm Bands Present: Yes (12/15/2016 08:45:Nazia Rhoades RN) Fall Risk History of Falling: (0) No (12/16/2016 07:34:Blanca Orozco RN) Fall Risk History of Falling: (0) No (12/15/2016 08:45:Nazia Rhoades RN) Fall Risk Secondary Diagnosis: (0) No (12/16/2016 07:34:Blanca Orozco RN) Fall Risk Secondary Diagnosis: (0) No (12/15/2016 08:45:Nazia Rhoades RN) Fall Risk Ambulatory Aid: (0) None/Bedrest/Wheelchair/Nurse Assist (12/16/2016 07:34:Blanca Orozco RN) Fall Risk Ambulatory Aid: (0) None/Bedrest/Wheelchair/Nurse Assist (12/15/2016 08:45:Nazia Rhoades RN) Fall Risk IV Therapy: (0) No (12/16/2016 07:34:Blanca Orozco RN) Fall Risk IV Therapy: (0) No (12/15/2016 08:45:Nazia Rhoades RN) Fall Risk Gait: (0) Normal/Bedrest/Immobile (12/16/2016 07:34:Blanca Orozco RN) Fall Risk Gait: (0) Normal/Bedrest/Immobile (12/15/2016 08:45:Nazia Rhoades RN) Fall Risk Mental Status: (0) Oriented to Own Ability (12/16/2016 07:34:Blanca Orozco RN) Fall Risk Mental Status: (0) Oriented to Own Ability (12/15/2016 08:45:Nazia Rhoades RN) Fall Risk Score: 0 (12/16/2016 07:34:QS system process) Fall Risk Score: 0 (12/15/2016 08:45:QS system process) Fall Risk Score Definition: No Risk: No action required (12/16/2016 07:34:QS system process) Fall Risk Score Definition: No Risk: No action required (12/15/2016 08:45:QS system process) FHR Baseline Rate (bpm) Baby A: 130 (12/16/2016 16:05:Blanca Orozco RN) FHR Baseline Rate (bpm) Baby A: 145 (12/16/2016 16:00:Blanca Oroczo RN) FHR Baseline Rate (bpm) Baby A: 135 (12/16/2016 15:44:Blanca Orozco RN) FHR Baseline Rate (bpm) Baby A: 125 (12/16/2016 15:30:Blanca Orozco RN) FHR Baseline Rate (bpm) Baby A: 135 (12/16/2016 15:15:Blanca Orozco RN) FHR Baseline Rate (bpm) Baby A: 135 (12/16/2016 15:00:Blanca Orozco RN) FHR Baseline Rate (bpm) Baby A: 135 (12/16/2016 14:45:Blanca Orozco RN) FHR Baseline Rate (bpm) Baby A: 135 (12/16/2016 14:30:Blanca Orozco RN) FHR Baseline Rate (bpm) Baby A: 135 (12/16/2016 13:45:Blanca Orozco RN) FHR Baseline Rate (bpm) Baby A: 125 (12/16/2016 13:15:Blanca Orozco RN) FHR Baseline Rate (bpm) Baby A: 135 (12/16/2016 13:15:TAIWO Ledbetter) FHR Baseline Rate (bpm) Baby A: 135 (12/16/2016 13:00:TAIWO Ledbetter) FHR Baseline Rate (bpm) Baby A: 135 (12/16/2016 12:45:TAIWO Ledbetter) FHR Baseline Rate (bpm) Baby A: 135 (12/16/2016 12:30:TAIWO Ledbetter) FHR Baseline Rate (bpm) Baby A: 125 (12/16/2016 12:15:Blanca Orozco RN) FHR Baseline Rate (bpm) Baby A: 135 (12/16/2016 12:00:Blanca Orozco RN) FHR Baseline Rate (bpm) Baby A: 135 (12/16/2016 11:45:Blanca Orozco RN) FHR Baseline Rate (bpm) Baby A: 140 (12/16/2016 11:30:Blanca Orozco RN) FHR Baseline Rate (bpm) Baby A: 125 (12/16/2016 11:15:Blanca Orozco RN) FHR Baseline Rate (bpm) Baby A: 135 (12/16/2016 11:00:Blanca Orozco RN) FHR Baseline Rate (bpm) Baby A: 135 (12/16/2016 10:45:Blanca Orozco RN) FHR Baseline Rate (bpm) Baby A: 125 (12/16/2016 10:30:Blanca Orozco RN) FHR Baseline Rate (bpm) Baby A: 125 (12/16/2016 10:15:Blanca Orozco RN) FHR Baseline Rate (bpm) Baby A: 135 (12/16/2016 10:00:Blanca Orozco RN) FHR Baseline Rate (bpm) Baby A: 135 (12/16/2016 09:45:Blanca Orozco RN) FHR Baseline Rate (bpm) Baby A: 135 (12/16/2016 09:30:Blanca Orozco RN) FHR Baseline Rate (bpm) Baby A: 135 (12/16/2016 09:15:Blanca Orozco RN) FHR Baseline Rate (bpm) Baby A: 120 (12/16/2016 09:00:Blanca Orozco RN) FHR Baseline Rate (bpm) Baby A: 135 (12/16/2016 08:45:Blanca Orozco RN) FHR Baseline Rate (bpm) Baby A: 120 (12/16/2016 08:30:Blanca Orozco RN) FHR Baseline Rate (bpm) Baby A: 125 (12/16/2016 08:15:Blanca Orozco RN) FHR Baseline Rate (bpm) Baby A: 125 (12/16/2016 08:00:Blanca Orozco RN) FHR Baseline Rate (bpm) Baby A: 135 (12/16/2016 07:45:Blanca Orozco RN) FHR Baseline Rate (bpm) Baby A: 130 (12/15/2016 09:59:Nazia Rhoades RN) FHR Baseline Rate (bpm) Baby A: 135 (12/15/2016 08:54:Nazia Rhoades RN) Variability Baby A: Moderate 6-25 bpm (12/16/2016 16:05:Blanca Orozco RN) Variability Baby A: Moderate 6-25 bpm (12/16/2016 16:00:Blanca Orozco RN) Variability Baby A: Moderate 6-25 bpm (12/16/2016 15:44:Blanca Orozco RN) Variability Baby A: Moderate 6-25 bpm (12/16/2016 15:30:Blanca Orozco RN) Variability Baby A: Moderate 6-25 bpm (12/16/2016 15:15:Blanca Orozco RN) Variability Baby A: Moderate 6-25 bpm (12/16/2016 15:00:Blanca Orozco RN) Variability Baby A: Moderate 6-25 bpm (12/16/2016 14:45:Blanca Orozco RN) Variability Baby A: Moderate 6-25 bpm (12/16/2016 14:30:Blanca Orozco RN) Variability Baby A: Moderate 6-25 bpm (12/16/2016 13:45:Blanca Orozco RN) Variability Baby A: Moderate 6-25 bpm (12/16/2016 13:15:Blanca Orozco RN) Variability Baby A: Moderate 6-25 bpm (12/16/2016 13:15:TAIWO Ledbetter) Variability Baby A: Moderate 6-25 bpm (12/16/2016 13:00:TAIWO Ledbetter) Variability Baby A: Moderate 6-25 bpm (12/16/2016 12:45:TAIWO Ledbetter) Variability Baby A: Moderate 6-25 bpm (12/16/2016 12:30:TAIWO Ledbetter) Variability Baby A: Moderate 6-25 bpm (12/16/2016 12:15:Blanca Orozco RN) Variability Baby A: Moderate 6-25 bpm (12/16/2016 12:00:Blanca Orozco RN) Variability Baby A: Moderate 6-25 bpm (12/16/2016 11:45:Blanca Orozco RN) Variability Baby A: Moderate 6-25 bpm (12/16/2016 11:30:Blanca Orozco RN) Variability Baby A: Moderate 6-25 bpm (12/16/2016 11:15:Blanca Orozco RN) Variability Baby A: Moderate 6-25 bpm (12/16/2016 11:00:Blanca Orozco RN) Variability Baby A: Moderate 6-25 bpm (12/16/2016 10:45:Blanca Orozco RN) Variability Baby A: Moderate 6-25 bpm (12/16/2016 10:30:Blanca Orozco RN) Variability Baby A: Moderate 6-25 bpm (12/16/2016 10:15:Blanca Orozco RN) Variability Baby A: Moderate 6-25 bpm (12/16/2016 10:00:Blanca Orozco RN) Variability Baby A: Moderate 6-25 bpm (12/16/2016 09:45:Blanca Orozco RN) Variability Baby A: Moderate 6-25 bpm (12/16/2016 09:30:Blanca Orozco RN) Variability Baby A: Moderate 6-25 bpm (12/16/2016 09:15:Blanca Orozco RN) Variability Baby A: Moderate 6-25 bpm (12/16/2016 09:00:Blanca Orozco RN) Variability Baby A: Moderate 6-25 bpm (12/16/2016 08:45:Blanca Orozco RN) Variability Baby A: Moderate 6-25 bpm (12/16/2016 08:30:Blanca Orozco RN) Variability Baby A: Moderate 6-25 bpm (12/16/2016 08:15:Blanca Orozco RN) Variability Baby A: Moderate 6-25 bpm (12/16/2016 08:00:Blanca Orozco RN) Variability Baby A: Moderate 6-25 bpm (12/16/2016 07:45:Blanca Orozco RN) Variability Baby A: Moderate 6-25 bpm (12/15/2016 09:59:Nazia Rhoades RN) Variability Baby A: Moderate 6-25 bpm (12/15/2016 08:54:Nazia Rhoades RN) Accelerations Baby A: None (12/16/2016 16:00:Blanca Orozco RN) Accelerations Baby A: 15X15 (12/16/2016 15:44:Blanca Orozco RN) Accelerations Baby A: 15X15 (12/16/2016 15:30:Blanca Orozco RN) Accelerations Baby A: None (12/16/2016 15:15:Blanca Orozco RN) Accelerations Baby A: None (12/16/2016 15:00:Blanca Orozco RN) Accelerations Baby A: 15X15 (12/16/2016 14:45:Blanca Orozco RN) Accelerations Baby A: 15X15 (12/16/2016 14:30:Blanca Orozco RN) Accelerations Baby A: 15X15 (12/16/2016 13:45:Blanca Orzoco RN) Accelerations Baby A: 15X15 (12/16/2016 13:15:Blanca Orozco RN) Accelerations Baby A: 15X15 (12/16/2016 13:15:TAIWO Ledbetter) Accelerations Baby A: 15X15 (12/16/2016 13:00:TAIWO Ledbetter) Accelerations Baby A: 15X15 (12/16/2016 12:45:TAIWO Ledbetter) Accelerations Baby A: None (12/16/2016 12:30:TAIWO Ledbetter) Accelerations Baby A: 15X15 (12/16/2016 12:15:Blanca Orozco RN) Accelerations Baby A: 10X10 (12/16/2016 12:00:Blanca Orozco RN) Accelerations Baby A: 15X15 (12/16/2016 11:45:Blanca Orozco RN) Accelerations Baby A: 15X15 (12/16/2016 11:30:Blanca Orozco RN) Accelerations Baby A: 15X15 (12/16/2016 11:15:Blanca Orozco RN) Accelerations Baby A: 15X15 (12/16/2016 11:00:Blanca Orozco RN) Accelerations Baby A: 10X10 (12/16/2016 10:45:Blanca Orozco RN) Accelerations Baby A: 15X15 (12/16/2016 10:30:Blanca Orozco RN) Accelerations Baby A: 15X15 (12/16/2016 10:15:Blanca Orozco RN) Accelerations Baby A: 15X15 (12/16/2016 10:00:Blanca Orozco RN) Accelerations Baby A: 15X15 (12/16/2016 09:45:Blanca Orozco RN) Accelerations Baby A: 15X15 (12/16/2016 09:30:Blanca Orozco RN) Accelerations Baby A: 15X15 (12/16/2016 09:15:Blanca Orozco RN) Accelerations Baby A: 15X15 (12/16/2016 09:00:Blanca Orozco RN) Accelerations Baby A: 15X15 (12/16/2016 08:45:Blanca Orozco RN) Accelerations Baby A: 15X15 (12/16/2016 08:30:Blanca Orozco RN) Accelerations Baby A: 15X15 (12/16/2016 08:15:Blanca Orozco RN) Accelerations Baby A: 15X15 (12/16/2016 08:00:Blanca Orozco RN) Accelerations Baby A: 15X15 (12/16/2016 07:45:Blanca Orozco RN) Accelerations Baby A: 15X15 (12/15/2016 09:59:Nazia Rhoades RN) Accelerations Baby A: 15X15 (12/15/2016 08:54:Nazia Rhoades RN) Decelerations Baby A: None (12/16/2016 16:00:Blanca Orozco RN) Decelerations Baby A: Variable (12/16/2016 15:44:Blanca Orozco RN) Decelerations Baby A: None (12/16/2016 15:30:Blanca Orozco RN) Decelerations Baby A: Early (12/16/2016 15:15:Blanca Orozco RN) Decelerations Baby A: Early (12/16/2016 15:00:Blanca Orozco RN) Decelerations Baby A: None (12/16/2016 14:45:Blanca Orozco RN) Decelerations Baby A: None (12/16/2016 14:30:Blanca Orozco RN) Decelerations Baby A: None (12/16/2016 13:45:Blanca Orozco RN) Decelerations Baby A: None (12/16/2016 13:15:Blanca Orozco RN) Decelerations Baby A: None (12/16/2016 13:15:TAIWO Ledbetter) Decelerations Baby A: None (12/16/2016 13:00:TAIWO Ledbetter) Decelerations Baby A: None (12/16/2016 12:45:TAIWO Ledbetter) Decelerations Baby A: None (12/16/2016 12:30:TAIWO Ledbetter) Decelerations Baby A: None (12/16/2016 12:15:Blanca Orozco RN) Decelerations Baby A: None (12/16/2016 12:00:Blanca Orozco RN) Decelerations Baby A: None (12/16/2016 11:45:Blanca Orozco RN) Decelerations Baby A: None (12/16/2016 11:30:Blanca Orozco RN) Decelerations Baby A: None (12/16/2016 11:15:Blanca Orozco RN) Decelerations Baby A: None (12/16/2016 11:00:Blanca Orozco RN) Decelerations Baby A: None (12/16/2016 10:45:Blanca Orozco RN) Decelerations Baby A: None (12/16/2016 10:30:Blanca Orozco RN) Decelerations Baby A: None (12/16/2016 10:15:Blanca Orozco RN) Decelerations Baby A: None (12/16/2016 10:00:Blanca Orozco RN) Decelerations Baby A: None (12/16/2016 09:45:Blanca Orozco RN) Decelerations Baby A: None (12/16/2016 09:30:Blanca Orozco RN) Decelerations Baby A: None (12/16/2016 09:15:Blanca Orozco RN) Decelerations Baby A: None (12/16/2016 09:00:Blanca Orozco RN) Decelerations Baby A: None (12/16/2016 08:45:Blanca Orozco RN) Decelerations Baby A: None (12/16/2016 08:30:Blanca Orozco RN) Decelerations Baby A: None (12/16/2016 08:15:Blanca Orozco RN) Decelerations Baby A: None (12/16/2016 08:00:Blanca Orozco RN) Decelerations Baby A: None (12/16/2016 07:45:Blanca Orozco RN) Decelerations Baby A: None (12/15/2016 09:59:Nazia Rhoades RN) FHR Baseline Rate (bpm) Baby B: 135 (12/16/2016 16:05:Blanca Orozco RN) FHR Baseline Rate (bpm) Baby B: 150 (12/16/2016 16:00:Blanca Orozco RN) FHR Baseline Rate (bpm) Baby B: 135 (12/16/2016 15:44:Blanca Orozco RN) FHR Baseline Rate (bpm) Baby B: 135 (12/16/2016 15:30:Blanca Orozco RN) FHR Baseline Rate (bpm) Baby B: 140 (12/16/2016 15:15:Blanca Orozco RN) FHR Baseline Rate (bpm) Baby B: 150 (12/16/2016 15:00:Blanca Orozco RN) FHR Baseline Rate (bpm) Baby B: 140 (12/16/2016 14:45:Blanca Orozco RN) FHR Baseline Rate (bpm) Baby B: 135 (12/16/2016 14:30:Blanca Orozco RN) FHR Baseline Rate (bpm) Baby B: 135 (12/16/2016 13:15:Blanca Orozco RN) FHR Baseline Rate (bpm) Baby B: 130 (12/16/2016 13:15:TAIWO Ledbetter) FHR Baseline Rate (bpm) Baby B: 135 (12/16/2016 13:00:TAIWO Ledbetter) FHR Baseline Rate (bpm) Baby B: 140 (12/16/2016 12:45:TAIWO Ledbetter) FHR Baseline Rate (bpm) Baby B: 135 (12/16/2016 12:30:TAIWO Ledbetter) FHR Baseline Rate (bpm) Baby B: 135 (12/16/2016 12:15:Blanca Orozco RN) FHR Baseline Rate (bpm) Baby B: 140 (12/16/2016 12:00:Blanca Orozco RN) FHR Baseline Rate (bpm) Baby B: 140 (12/16/2016 11:15:Blanca Orozco RN) FHR Baseline Rate (bpm) Baby B: 140 (12/16/2016 11:00:Blanca Orozco RN) FHR Baseline Rate (bpm) Baby B: 135 (12/16/2016 10:45:Blanca Orozco RN) FHR Baseline Rate (bpm) Baby B: 135 (12/16/2016 10:30:Blanca Orozco RN) FHR Baseline Rate (bpm) Baby B: 135 (12/16/2016 10:15:Blanca Orozco RN) FHR Baseline Rate (bpm) Baby B: 140 (12/16/2016 10:00:Blanca Orozco RN) FHR Baseline Rate (bpm) Baby B: 130 (12/16/2016 09:45:Blanca Orozco RN) FHR Baseline Rate (bpm) Baby B: 135 (12/16/2016 09:30:Blanca Orozco RN) FHR Baseline Rate (bpm) Baby B: 135 (12/16/2016 09:00:Blanca Orozco RN) FHR Baseline Rate (bpm) Baby B: 140 (12/16/2016 08:30:Blanca Orozco RN) FHR Baseline Rate (bpm) Baby B: 135 (12/16/2016 08:00:Blanca Orozco RN) FHR Baseline Rate (bpm) Baby B: 135 (12/16/2016 07:45:Blanca Orozco RN) FHR Baseline Rate (bpm) Baby B: 130 (12/15/2016 09:59:Nazia Rhoades RN) FHR Baseline Rate (bpm) Baby B: 140 (12/15/2016 08:54:Nazia Rhoades RN) Variability Baby B: Moderate 6-25 bpm (12/16/2016 16:05:Blanca Orozco RN) Variability Baby B: Moderate 6-25 bpm (12/16/2016 16:00:Blanca Orozco RN) Variability Baby B: Moderate 6-25 bpm (12/16/2016 15:44:Blanca Orozco RN) Variability Baby B: Moderate 6-25 bpm (12/16/2016 15:30:Blanca Orozco RN) Variability Baby B: Moderate 6-25 bpm (12/16/2016 15:15:Blanca Orozco RN) Variability Baby B: Moderate 6-25 bpm (12/16/2016 15:00:Blanca Orozco RN) Variability Baby B: Moderate 6-25 bpm (12/16/2016 14:45:Blanca Orozco RN) Variability Baby B: Moderate 6-25 bpm (12/16/2016 14:30:Blanca Orozco RN) Variability Baby B: Moderate 6-25 bpm (12/16/2016 13:15:Blanca Orozco RN) Variability Baby B: Moderate 6-25 bpm (12/16/2016 13:15:TAIWO Ledbetter) Variability Baby B: Moderate 6-25 bpm (12/16/2016 13:00:TAIWO Ledbetter) Variability Baby B: Moderate 6-25 bpm (12/16/2016 12:45:TAIWO Ledbetter) Variability Baby B: Moderate 6-25 bpm (12/16/2016 12:30:TAIWO Ledbetter) Variability Baby B: Moderate 6-25 bpm (12/16/2016 12:15:Blanca Orozco RN) Variability Baby B: Moderate 6-25 bpm (12/16/2016 12:00:Blanca Orozco RN) Variability Baby B: Moderate 6-25 bpm (12/16/2016 11:15:Blanca Orozco RN) Variability Baby B: Moderate 6-25 bpm (12/16/2016 11:00:Blanca Orozco RN) Variability Baby B: Moderate 6-25 bpm (12/16/2016 10:45:Blanca Orozco RN) Variability Baby B: Moderate 6-25 bpm (12/16/2016 10:30:Blanca Orozco RN) Variability Baby B: Moderate 6-25 bpm (12/16/2016 10:15:Blanca Orozco RN) Variability Baby B: Moderate 6-25 bpm (12/16/2016 10:00:Blanca Orozco RN) Variability Baby B: Moderate 6-25 bpm (12/16/2016 09:45:Blanca Orozco RN) Variability Baby B: Moderate 6-25 bpm (12/16/2016 09:30:Blanca Orozco RN) Variability Baby B: Moderate 6-25 bpm (12/16/2016 09:00:Blanca Orozco RN) Variability Baby B: Moderate 6-25 bpm (12/16/2016 08:30:Blanca Orozco RN) Variability Baby B: Moderate 6-25 bpm (12/16/2016 08:00:Blanca Orozco RN) Variability Baby B: Moderate 6-25 bpm (12/16/2016 07:45:Blanca Orozco RN) Variability Baby B: Moderate 6-25 bpm (12/15/2016 09:59:Nazia Rhoades RN) Variability Baby B: Moderate 6-25 bpm (12/15/2016 08:54:Nazia Rhoades RN) Accelerations Baby B: 15X15 (12/16/2016 16:05:Blanca Orozco RN) Accelerations Baby B: None (12/16/2016 16:00:Blanca Orozco RN) Accelerations Baby B: 15X15 (12/16/2016 15:44:Blanca Orozco RN) Accelerations Baby B: 15X15 (12/16/2016 15:30:Blanca Orozco RN) Accelerations Baby B: 15X15 (12/16/2016 15:15:Blanca Orozco RN) Accelerations Baby B: 15X15 (12/16/2016 15:00:Blanca Orozco RN) Accelerations Baby B: 15X15 (12/16/2016 14:45:Blanca Orozco RN) Accelerations Baby B: 15X15 (12/16/2016 14:30:Blanca Orozco RN) Accelerations Baby B: 15X15 (12/16/2016 13:15:Blanca Orozco RN) Accelerations Baby B: 15X15 (12/16/2016 13:15:TAIWO Ledbetter) Accelerations Baby B: 15X15 (12/16/2016 13:00:TAIWO Ledbetter) Accelerations Baby B: 15X15 (12/16/2016 12:45:TAIWO Ledbetter) Accelerations Baby B: None (12/16/2016 12:30:TAIWO Ledbetter) Accelerations Baby B: 15X15 (12/16/2016 12:15:Blanca Orozco RN) Accelerations Baby B: 15X15 (12/16/2016 12:00:Blanca Orozco RN) Accelerations Baby B: 15X15 (12/16/2016 11:15:Blanca Orozco RN) Accelerations Baby B: 15X15 (12/16/2016 11:00:Blanca Orozco RN) Accelerations Baby B: 10X10 (12/16/2016 10:45:Blanca Orozco RN) Accelerations Baby B: 15X15 (12/16/2016 10:30:Blanca Orozco RN) Accelerations Baby B: 15X15 (12/16/2016 10:15:Blanca Orozco RN) Accelerations Baby B: 15X15 (12/16/2016 10:00:Blanca Orozco RN) Accelerations Baby B: 15X15 (12/16/2016 09:45:Blanca Orozco RN) Accelerations Baby B: 15X15 (12/16/2016 09:30:Blanca Orozco RN) Accelerations Baby B: 15X15 (12/16/2016 09:00:Blanca Orozco RN) Accelerations Baby B: 15X15 (12/16/2016 08:00:Blanca Orozco RN) Accelerations Baby B: 15X15 (12/16/2016 07:45:Blanca Orozco RN) Accelerations Baby B: 15X15 (12/15/2016 09:59:Nazia Rhoades RN) Accelerations Baby B: 15X15 (12/15/2016 08:54:Nazia Rhoades RN) Decelerations Baby B: None (12/16/2016 16:05:Blanca Orozco RN) Decelerations Baby B: None (12/16/2016 16:00:Blanca Orozco RN) Decelerations Baby B: None (12/16/2016 15:44:Blanca Orozco RN) Decelerations Baby B: None (12/16/2016 15:30:Blanca Orozco RN) Decelerations Baby B: None (12/16/2016 15:15:Blanca Orozco RN) Decelerations Baby B: Variable (12/16/2016 15:00:Blanca Orozco RN) Decelerations Baby B: Variable (12/16/2016 14:45:Blanca Orozco RN) Decelerations Baby B: None (12/16/2016 14:30:Blanca Orozco RN) Decelerations Baby B: None (12/16/2016 13:15:Blanca Orozco RN) Decelerations Baby B: None (12/16/2016 13:15:TAIWO Ledbetter) Decelerations Baby B: None (12/16/2016 13:00:TAIWO Ledbetter) Decelerations Baby B: None (12/16/2016 12:45:TAIWO Ledbetter) Decelerations Baby B: None (12/16/2016 12:30:TAIWO Ledbetter) Decelerations Baby B: None (12/16/2016 12:15:Blanca Orozco RN) Decelerations Baby B: None (12/16/2016 12:00:Blanca Orozco RN) Decelerations Baby B: None (12/16/2016 11:15:Blanca Orozco RN) Decelerations Baby B: None (12/16/2016 11:00:Blanca Orozco RN) Decelerations Baby B: None (12/16/2016 10:45:Blanca Orozco RN) Decelerations Baby B: None (12/16/2016 10:30:Blanca Orozco RN) Decelerations Baby B: None (12/16/2016 10:15:Blanca Orozco RN) Decelerations Baby B: None (12/16/2016 10:00:Blanca Orozoc RN) Decelerations Baby B: None (12/16/2016 09:45:Blanca Orozco RN) Decelerations Baby B: None (12/16/2016 09:30:Blanca Orozco RN) Decelerations Baby B: None (12/16/2016 09:00:Blanca Orozco RN) Decelerations Baby B: None (12/16/2016 08:30:Blanca Orozco RN) Decelerations Baby B: None (12/16/2016 08:00:Blanca Orozco RN) Decelerations Baby B: None (12/16/2016 07:45:Blanca Orozco RN) Decelerations Baby B: None (12/15/2016 09:59:Nazia Rhoades RN) Assessment Flag: Admission Assessment (12/16/2016 07:34:QS system process) Assessment Flag: Admission Assessment (12/15/2016 08:45:QS system process)
--- NOTE | 2016-12-17 04:46 | L&D General Admission ---
General Admit Datetime Report Generated by CPN: 12/17/2016 04:45 INFORMATION Para: 1 (12/15/2016 10:28:Nazia Urszulalatt, RN) Baby, Number in Womb: 2 (12/15/2016 10:28:Nazia Seamanlatt, RN) CARE Height (in): 66 (12/16/2016 19:33:QS system process) Height (in): 66 (12/16/2016 11:00:QS system process) Height (in): 66 (12/16/2016 08:11:QS system process) Height (in): 66 (12/16/2016 07:04:QS system process) Height (in): 64 (12/15/2016 09:47:QS system process) Height (in): 64 (12/15/2016 09:46:QS system process) Height (in): 64 (12/15/2016 09:13:QS system process) Height (in): 66 (12/11/2016 15:44:QS system process) Height (in): 66 (12/11/2016 15:31:QS system process) ALLERGIES Medication Allergies: No Known Allergies (12/16/2016) (12/16/2016 07:03:QS system process) Medication Allergies: No Known Allergies (12/11/2016) (12/11/2016 15:31:QS system process) DEMOGRAPHICS Next of Kin Relationship: OR (12/11/2016 15:20:QS system process) LABS Hemoglobin: 12.5 (12/16/2016 07:20:QS system process) Hemoglobin: 11.5 L (12/15/2016 08:50:QS system process) Hematocrit: 37.9 (12/16/2016 07:20:QS system process) Hematocrit: 36.4 (12/15/2016 08:50:QS system process) MCV: 86 (12/16/2016 07:20:QS system process) MCV: 88 (12/15/2016 08:50:QS system process)
--- NOTE | 2016-12-17 04:46 | L&D Flow Sheet ---
LD Flowsheet Datetime Report Generated by CPN: 12/17/2016 04:45 Datetime: 12/16/2016 18:45 Stage of : Recovery (Blanca Orozco RN) Datetime: 12/16/2016 18:35 Stage of : Recovery (Blanca Orozco RN) NBP Sys/Dorothea/Mean (mmHg): 136 (QS system process) : 64 (QS system process) : 92 (QS system process) Pulse: 95 (QS system process) Pain Assessment Comments: Pt sleeping (Blanca Orozco RN) Datetime: 12/16/2016 18:21 Stage of : Recovery (Blanca Orozco RN) NBP Sys/Dorothea/Mean (mmHg): 141 (QS system process) : 67 (QS system process) : 96 (QS system process) Pulse: 89 (QS system process) Datetime: 12/16/2016 18:05 Stage of : Recovery (Blanca Orozco RN) NBP Sys/Dorothea/Mean (mmHg): 134 (QS system process) : 84 (QS system process) : 103 (QS system process) Pulse: 92 (QS system process) Pain Scale: 2 (Blanca Orozco RN) Pain Presence: Intermittent (Blanca Orozco RN) Pain Type: Burning; Cramping; Pressure; Ache (Blanca Orozco RN) Pain Location: Perineum (Blanca Orozco RN) Datetime: 12/16/2016 17:50 Stage of : Recovery (Blanca Orozco RN) NBP Sys/Dorothea/Mean (mmHg): 130 (QS system process) : 68 (QS system process) : 95 (QS system process) Pulse: 90 (QS system process) Pain Scale: 2 (Blanca Orozco RN) Pain Presence: Intermittent (Blanca Orozco RN) Pain Type: Burning; Cramping; Pressure; Ache (Blanca Orozco RN) Pain Location: Perineum (Blanca Orozco RN) Datetime: 12/16/2016 17:35 Stage of : Recovery (Blanca Orozco RN) NBP Sys/Dorothea/Mean (mmHg): 129 (QS system process) : 75 (QS system process) : 96 (QS system process) Pulse: 93 (QS system process) Datetime: 12/16/2016 17:20 Stage of : Recovery (Blanca Orozco RN) NBP Sys/Dorothea/Mean (mmHg): 129 (QS system process) : 76 (QS system process) : 97 (QS system process) Pulse: 100 (QS system process) Datetime: 12/16/2016 17:05 Stage of : Recovery (Blanca Orozco RN) Datetime: 12/16/2016 17:03 Stage of : Recovery (Blanca Orozco RN) Pain Scale: 4 (Blanca Orozco RN) Pain Presence: Intermittent (Blanca Orozco RN) Pain Type: Burning; Cramping; Pressure; Ache (Blanca Orozco RN) Pain Location: Perineum (Blanca Orozco RN) Datetime: 12/16/2016 16:50 Stage of : Recovery (Blanca Orozco RN) NBP Sys/Dorothea/Mean (mmHg): 108 (QS system process) : 64 (QS system process) : 80 (QS system process) Pulse: 107 (QS system process) Respirations: 14 (Blanca Orozco RN) Temperature (F): 98.2 (Blanca Orozco RN) Temperature (C): 36.8 (QS system process) Pain Scale: 4 (Blanca Orozco RN) Pain Presence: Intermittent (Blanca Orozco RN) Pain Type: Burning; Cramping; Pressure; Ache (Blanca Orozco, RN) Pain Location: Perineum (Blanca Orozco RN)
--- NOTE | 2016-12-17 04:46 | L&D Discharge Summary ---
OB Discharge Summary Datetime Report Generated by CPN: 12/17/2016 04:45 DISCHARGE DIAGNOSIS Diagnosis/Symptoms: Reassuring Surveillance - Annotate Details; Dehydration; Other Diagnoses/Symptoms Other: Di-Di Twins vertex-breech, rescheduled IOL for tomorrow 12/16/16 Treatment/Procedures Other: Vistaril 50 mg Gestation: 37.1 Number of Babies in Womb: 2 Parity: 1 DIET/ACTIVITY/RESTRICTIONS Diet: Regular Diet Restrictions: wear abd binder Activity: Normal Activity Activity Restrictions: No Exercising; No Lifting; No Driving; Minimize Walking; Minimize Stair Climbing; No Sexual Activity; Nothing in Vagina - [employer], [employer], [place] TEACHING/INSTRUCTIONS/REFERRALS Instructions Given To: patient Instructions Understood: Patient Verbalized Understanding Referrals: None Educational Materials- Other: none DISCHARGE INFORMATION Discharged AMA: No Physician Notified of Disch AMA: Dr Rogers Discharge Date/Time: 12/15/2016 10:11 Discharged To: Home Discharge Provider Name: Dr. Marie Accompanied By: FOB Discharge Method: Ambulatory Condition: Stable FOLLOW UP INFORMATION Follow Up With: [facility] Follow Up On: As Scheduled Follow Up Phone Number: [facility] - Comments: Reitterated Kick Counts that patient has received earlier in . Instructed patient to return to hospital for bleeding like a period, if her water breaks, or if she starts dai regularly. Instructed patient to call Labor and Delivery at 5:30 am tomorrow morning for her rescheduled induction.
--- NOTE | 2016-12-17 04:46 | Antepartum Discharge Summary ---
Antepartum DC Datetime Report Generated by CPN: 12/17/2016 04:45 Diet: Regular (12/15/2016 10:28:Nazia Rhoades RN) Activity: Normal Activity (12/15/2016 10:28:Nazia Rhoades RN) Instructions Given To: patient (12/15/2016 10:28:Nazia Rhoades RN) Instructions Understood: Patient Verbalized Understanding (12/15/2016 10:28:Nazia Rhoades RN) Referrals: None (12/15/2016 10:28:Nazia Rhoades RN) Educational Materials- Other: none (12/15/2016 10:28:Nazia Rhoades RN) Discharged AMA: No (12/15/2016 10:28:Nazia Rhoades RN) Discharge Date/Time: 12/15/2016 10:11 (12/15/2016 10:28:Nazia Rhoades RN) Discharged To: Home (12/15/2016 10:28:Nazia Rhoades RN) Discharge Provider Name: Dr. Marie (12/15/2016 10:28:Nazia Rhoades RN) Accompanied By: HUGO (12/15/2016 10:28:Nazia Rhoades RN) Discharge Method: Ambulatory (12/15/2016 10:28:Nazia Rhoades RN) Condition: Stable (12/15/2016 10:28:Nazia Rhoades RN) Follow Up With: [facility] (12/15/2016 10:28:Nazia Rhoades RN) Follow Up On: As Scheduled (12/15/2016 10:28:Nazia Rhoades RN) Follow Up Phone Number: [facility] - (12/15/2016 10:28:Nazia Rhoades RN) Comments: Reitterated Kick Counts that patient has received earlier in . Instructed patient to return to hospital for bleeding like a period, if her water breaks, or if she starts adi regularly. Instructed patient to call Labor and Delivery at 5:30 am tomorrow morning for her rescheduled induction. (12/15/2016 10:28:Nazia Rhoades RN)
[2016-12-17] MEDS: IBUPROFEN 800 MG TABLET PO SCH ×3 (06:21→21:55)
--- NOTE | 2016-12-17 06:26 | L&D General Admission ---
General Admit Datetime Report Generated by CPN: 12/17/2016 06:00 INFORMATION Patient Age: 25 (09/09/2016 18:16:QS system process) EDC: 01/05/2017 00:00 (09/09/2016 18:17:Clara Cheney RN) : 4 (09/09/2016 18:17:TAIWO Ledbetter) Para: 1 (12/15/2016 10:28:Nazia Rhoades RN) Term: 1 (09/09/2016 18:17:TAIWO Ledbetter) : 0 (09/09/2016 18:17:TAIWO Ledbetter) Spontaneous Abortions: 0 (09/09/2016 18:17:TAIWO Ledbetter) Induced Abortions: 2 (09/09/2016 18:17:TAIWO Ledbetter) Livin (09/09/2016 18:17:TAIWO Ledbetter) Cesareans: 0 (09/09/2016 18:17:TAIWO Ledbetter) VBACs: 0 (09/09/2016 18:17:TAIWO Ledbetter) Ectopic: 0 (09/09/2016 18:17:TAIWO Ledbetter) Multiple Births: 0 (09/09/2016 18:17:TAIWO Ledbetter) Baby, Number in Womb: 2 (12/15/2016 10:28:Nazia Rhoades RN) CARE Primary Hvac Sheet Metal Installer: [facility] (09/09/2016 18:17:Ann Pickens RN) Hvac Sheet Metal Installer Other: Maternal (09/09/2016 18:17:Ann Pickens RN) Month of 1st Visit: May (09/09/2016 18:17:Ann Pickens RN) Adequate Care: Yes (09/09/2016 18:17:Ann Pickens RN) Height (in): 66 (12/16/2016 19:33:QS system process) ALLERGIES Medication Allergy: No (09/09/2016 18:17:Ann Pickens RN) Medication Allergies: No Known Allergies (12/16/2016) (12/16/2016 07:03:QS system process) Latex Allergy: No Latex Allergies (09/09/2016 18:17:Ann Pickens RN) Food Allergies: NONE (09/09/2016 18:17:Triny Fortune RN) Environmental Allergies: NONE (09/09/2016 18:17:Triny Fortune RN) COMMUNICATION Primary Language: Slovenian (09/09/2016 18:17:Ann Pickens RN) Medical Tx Preferred Language: Slovenian (09/09/2016 18:17:Ann Pickens RN) Communication Barrier(s): None (09/09/2016 18:17:Triny Fortune RN) DEMOGRAPHICS Address: [address] [place] [address] [address] (09/09/2016 18:16:QS system process) Zipcode: [phone] (09/09/2016 18:16:QS system process) Home (09/09/2016 18:16:QS system process) Work (09/09/2016 18:16:QS system process) SSN: [id number] (09/09/2016 18:16:QS system process) Next of Kin Name: NATHAN VELOZ (09/09/2016 18:16:QS system process) Next of Kin (09/09/2016 18:16:QS system process) Next of Kin Relationship: OR (12/11/2016 15:20:QS system process) Date of : 1990 (09/09/2016 18:16:QS system process) Marital Status: Single (09/09/2016 18:16:QS system process) Sex: Female (09/09/2016 18:16:QS system process) Race: (09/09/2016 18:16:QS system process) Ethnicity: Non- or (09/09/2016 18:16:QS system process) Baptism: Sabianism (09/09/2016 18:16:QS system process) DRUG AND ALCOHOL USE Alcohol: No (09/09/2016 18:17:Ann Pickens RN) Cigarettes: Never Smoker. [id number] (09/09/2016 18:17:Ann Pickens RN) Marijuana: No (09/09/2016 18:17:Ann Pickens RN) Cocaine: No (09/09/2016 18:17:Ann Pickens RN) Other Illicit Drugs: No (09/09/2016 18:17:Ann Pickens RN) VACCINE HISTORY Influenza Vaccine: Yes (09/09/2016 18:17:Ann Pickens RN) Influenza Date: 09/14 (09/09/2016 18:17:Ann Pickens RN) Pneumococcal Vaccine: No (09/09/2016 18:17:Triny Fortune RN) Tetanus Vaccine: Yes (09/09/2016 18:17:Blanca Orozco RN) Tdap Vaccine: Yes (09/09/2016 18:17:Blanca Orozco RN) Hepatitis B Vaccine: Yes (09/09/2016 18:17:Blanca Orozco RN) Nurse Rn Bsn: [facility] (09/09/2016 18:17:Ann Pickens RN) Feeding Preference: Both (09/09/2016 18:17:Blanca Orozco RN) Benefit of Breast Feed Discussed: Yes (09/09/2016 18:17:Triny Fortune RN) Circumcision: Yes (09/09/2016 18:17:Ann Pickens RN) Classes Attended: No (09/09/2016 18:17:Ann Pickens RN) Tubal Ligation: No (09/09/2016 18:17:Ann Pickens RN) Consent: N/A (09/09/2016 18:17:Triny Fortune RN) Consent Signed: N/A (09/09/2016 18:17:Triny Fortune RN) Pain Management Plans: Epidural (09/09/2016 18:17:Ann Pickens RN) Plans for Labor and Delivery: None (09/09/2016 18:17:Ann Pickens RN) Support Person: Blayne (09/09/2016 18:17:Ann Pickens RN) Support Person Relationship: (09/09/2016 18:17:Ann Pickens RN) Cultural/Spritual Practice: No (09/09/2016 18:17:Ann Pickens RN) Spir/Cult Dietary Needs: No (09/09/2016 18:17:Ann Pickens RN) LIVING SITUATION/DISCHARGE PLAN Living Arrangements: Apartment (09/09/2016 18:17:Ann Pickens RN) Adequate Access to:: Electric; Heat; Refrigeration; Plumbing/Running water; Phone; Transportation (09/09/2016 18:17:Ann Pickens RN) WIC Program: Yes (09/09/2016 18:17:Ann Pickens RN) Discharge Acoustical Tile Carpenters Supervisor Person: Blayne (09/09/2016 18:17:Ann Pickens RN) Person to Help after Discharge: Blayne (09/09/2016 18:17:Ann Pickens RN) Currently Using Commun Resources: Yes (09/09/2016 18:17:Ann Pickens RN) Specify Current Resource Used: WIC (09/09/2016 18:17:Ann Pickens RN) Outside Agency/Cad Librarian: No (09/09/2016 18:17:Ann Pickens RN) Car Seat for Discharge: Yes (09/09/2016 18:17:Ann Pickens RN) Adoption Requested: No (09/09/2016 18:17:Ann Pickens RN) Pt Contact w/infant Post : N/A (09/09/2016 18:17:Ann Pickens RN) LABS Blood Type: B Positive (09/09/2016 18:17:Claudette Cedillo RN) Antibody Screen: Negative (09/09/2016 18:17:Claudette Cedillo RN) Rho(G) this : Not Applicable (09/09/2016 18:17:Claudette Cedillo RN) Hemoglobin: 12.5 (12/16/2016 07:20:QS system process) Hematocrit: 37.9 (12/16/2016 07:20:QS system process) MCV: 86 (12/16/2016 07:20:QS system process) Group Beta Strep: Positive (09/09/2016 18:17:Clara Cheney RN) Gonorrhea: Negative (09/09/2016 18:17:Clara Cheney RN) Chlamydia: Negative (09/09/2016 18:17:Clara Cheney RN) RPR/VDRL: Nonreactive (09/09/2016 18:17:Claudette Cedillo RN) HIV Exposure Test: Negative (09/09/2016 18:17:Claudette Cedillo RN) Hepatitis B: Negative (09/09/2016 18:17:Claudette Cedillo RN) Rubella: Immune (09/09/2016 18:17:Claudette Cedillo RN) Varicella: Non Susceptible (09/09/2016 18:17:Claudette Cedillo RN) OB/PREVIOUS HISTORY Previous Procedures: Ultrasound (09/09/2016 18:17:Claudette Cedillo RN) Current Procedures: Ultrasound; NST (09/09/2016 18:17:Triny Fortune RN) History of Previous : No (09/09/2016 18:17:Ann Pickens RN) History of Gestational Diabetes: No (09/09/2016 18:17:Ann Pickens RN) History of PIH: Yes (09/09/2016 18:17:Blanca Orozco RN) History of Incompetent Cervix: No (09/09/2016 18:17:Ann Pickens RN) History of Placenta Previa/Abrup: No (09/09/2016 18:17:Ann Pickens RN) History of Macrosomia: No (09/09/2016 18:17:Ann Pickens RN) History of IUGR: No (09/09/2016 18:17:Ann Pickens RN) History of Hemorrhage: No (09/09/2016 18:17:Ann Pickens RN) History of Loss/Stillborn: No (09/09/2016 18:17:Ann Pickens RN) History of : No (09/09/2016 18:17:Ann Pickens RN) History of D (Rh) Sensitization: No (09/09/2016 18:17:Ann Pickens RN) History Recurrent Loss/Stillborn: No (09/09/2016 18:17:Ann Pickens RN) History Depression/PP Depression: No (09/09/2016 18:17:Ann Pickens RN) History of Uterine Anomaly/MICHELL: No (09/09/2016 18:17:Ann Pickens RN) History of Infertility: No (09/09/2016 18:17:Ann Pickens RN) History of ART Treatment: No (09/09/2016 18:17:Ann Pickens RN) History of MICHELL: No (09/09/2016 18:17:Ann Pickens RN) Comments Obstetrical History: G1 - 02/2010 EAB 5 week G2 - 05/2013 NVD 40 week baby boy - 6 lb 12 oz, preecclampsia G3 - 03/2015 EAB 6 week G4 - current , di/di twin boy _ girl GHTN (09/09/2016 18:17:Tiffany Lopes RN) MEDICAL HISTORY Med Hx Diabetes: No (09/09/2016 18:17:Ann Pickens RN) Med Hx Hypertension: No (09/09/2016 18:17:Ann Pickens RN) Med Hx Heart Disease: No (09/09/2016 18:17:Ann Pickens RN) Med Hx Autoimmune Disorder: No (09/09/2016 18:17:Ann Pickens RN) Med Hx Kidney Disease/UTI: No (09/09/2016 18:17:Ann Pickens RN) Med Hx Neurologic/Epilepsy: No (09/09/2016 18:17:Ann Pickens RN) Med Hx Psychiatric Disorders: No (09/09/2016 18:17:Ann Pickens RN) Med Hx Hepatitis/Liver Disease: No (09/09/2016 18:17:Ann Pickens RN) Med Hx Varicosities/Phlebitis: No (09/09/2016 18:17:Ann Pickens RN) Med Hx Thyroid Dysfunction: No (09/09/2016 18:17:Ann Pickens RN) Med Hx Trauma/Violence: No (09/09/2016 18:17:Ann Pickens RN) Med Hx Blood Transfusion: No (09/09/2016 18:17:Ann Pickens RN) Med Hx Pulmonary (Asthma,TB): Yes (09/09/2016 18:17:Claudette Cedillo RN) Med Hx Breast: No (09/09/2016 18:17:Ann Pickens RN) Med Hx SHOW CARD WRITER Surgery: No (09/09/2016 18:17:Ann Pickens RN) Med Hx Hospitalization/Surgery: No (09/09/2016 18:17:Ann Pickens RN) Med Hx Anesthetic Complications: No (09/09/2016 18:17:Ann Pickens RN) Med Hx Abnormal Pap Smear: No (09/09/2016 18:17:Ann Pickens RN) Other Medical Diseases: No (09/09/2016 18:17:Ann Pickesn RN) Med Hx Significant Family Hx: No (09/09/2016 18:17:Ann Pickens RN) Details of Med/Surg Hx: asthma, anxiety with this (09/09/2016 18:17:Tiffany Lopes RN) INFECTIOUS HISTORY Inf Hx Gonorrhea: No (09/09/2016 18:17:Ann Pickens RN) Inf Hx Chlamydia: Yes (09/09/2016 18:17:Ann Pickens RN) Inf Hx Syphilis: No (09/09/2016 18:17:Ann Pickens RN) Inf Hx HIV/AIDS: No (09/09/2016 18:17:Ann Pickens RN) Inf Hx Human Papilloma Virus: No (09/09/2016 18:17:Ann Pickens RN) Inf Hx Pt/Partner Genital Herpes: No (09/09/2016 18:17:Ann Pickens RN) Inf Hx Tuberculosis/Exposure: No (09/09/2016 18:17:Ann Pickens RN) Inf Hx Hepatitis B,C: No (09/09/2016 18:17:Ann Pickens RN) Inf Hx Rash or Viral Illness: No (09/09/2016 18:17:Ann Pickens RN) Details of Infectious Hx: Chlamydia 2010 (09/09/2016 18:17:Ann Pickens RN) GENETIC HISTORY Gen Hx Age >=35 at LUIS ENRIQUE: No (09/09/2016 18:17:Ann Pickens RN) Gen Hx Thalassemia: No (09/09/2016 18:17:Ann Pickens RN) Gen Hx Congenital Heart Defect: No (09/09/2016 18:17:Ann Pickens RN) Gen Hx Neural Tube Defect: No (09/09/2016 18:17:Ann Pickens RN) Gen Hx Down's Syndrome: No (09/09/2016 18:17:Ann Pickens RN) Gen Hx Giacomo-Sachs: No (09/09/2016 18:17:Ann Pickens RN) Gen Hx Mónica: No (09/09/2016 18:17:Ann Pickens RN) Gen Hx Familial Dysautonomia: No (09/09/2016 18:17:Ann Pickens RN) Gen Hx Sickle Cell Disease/Trait: No (09/09/2016 18:17:Ann Pickens RN) Gen Hx Hemophilia/Blood Disorder: No (09/09/2016 18:17:Ann Pickens RN) Gen Hx Muscular Dystrophy: No (09/09/2016 18:17:Ann Pickens RN) Gen Hx Cystic Fibrosis: No (09/09/2016 18:17:Ann Pickens RN) Gen Hx Huntingtons Chorea: No (09/09/2016 18:17:Ann Pickens RN) Gen Hx Mental Retardation/Autism: No (09/09/2016 18:17:Ann Pickens RN) Gen Hx Tested for Fragile X: No (09/09/2016 18:17:Ann Pickens RN) Gen Hx Other Inher/Chromosomal: No (09/09/2016 18:17:Ann Pickens RN) Gen Hx Maternal Metabolic DO: No (09/09/2016 18:17:Ann Pickens RN) Gen Hx Pt Father or FOB Defect: No (09/09/2016 18:17:Ann Pickens RN) Gen Hx Other Genetic History: No (09/09/2016 18:17:Ann Pickens RN) Gen Hx Drugs/Meds since LMP: No (09/09/2016 18:17:Ann Pickens RN)
[2016-12-17 09:00] LABS: HEMATOCRIT 35.8 % (36.0-47.0); HEMOGLOBIN 11.9 g/dL (12.0-15.5); HGB HCT DIFFERENCE -0.1; MEAN CORPUSCULAR HEMOGLOBIN 28.5 pg (27.0-33.4); MEAN CORPUSCULAR HGB CONC 33.2 g/dL (32.0-36.0); MEAN CORPUSCULAR VOLUME 86 fl (80-97); RED BLOOD COUNT 4.17 10^6/uL (3.72-5.28); RED CELL DISTRIBUTION WIDTH 12.7 % (11.5-14.0); WHITE BLOOD COUNT 8.7 10^3/uL (4.0-10.5)
[2016-12-17] MEDS: SENNOSIDES/DOCUSATE 8.6-50 MG 1 EACH TABLET PO SCH (10:02)
[2016-12-17] MEDS: FERROUS SULFATE 325 MG TABLET PO SCH ×2 (10:02→22:18)
[2016-12-17] MEDS: PRENATAL VITAMIN W-O CA NO5/FE FUMARATE/FA CAPSULE PO SCH (10:03)
[2016-12-17] MEDS: DOCUSATE SODIUM 100 MG CAPSULE PO SCH ×2 (10:03→22:18)
[2016-12-18] MEDS: IBUPROFEN 800 MG TABLET PO SCH ×2 (05:55→13:30)
--- NOTE | 2016-12-18 06:06 | L&D General Admission ---
General Admit Datetime Report Generated by CPN: 12/18/2016 06:00 INFORMATION Patient Age: 25 (09/09/2016 18:16:QS system process) EDC: 01/05/2017 00:00 (09/09/2016 18:17:Clara Cheney RN) : 4 (09/09/2016 18:17:TAIWO Ledbetter) Para: 1 (12/15/2016 10:28:Nazia Rhoades RN) Term: 1 (09/09/2016 18:17:TAIWO Ledbetter) : 0 (09/09/2016 18:17:TAIWO Ledbetter) Spontaneous Abortions: 0 (09/09/2016 18:17:TAIWO Ledbetter) Induced Abortions: 2 (09/09/2016 18:17:TAIWO Ledbetter) Livin (09/09/2016 18:17:TAIWO Ledbetter) Cesareans: 0 (09/09/2016 18:17:TAIWO Ledbetter) VBACs: 0 (09/09/2016 18:17:TAIWO Ledbetter) Ectopic: 0 (09/09/2016 18:17:TAIWO Ledbetter) Multiple Births: 0 (09/09/2016 18:17:TAIWO Ledbetter) Baby, Number in Womb: 2 (12/15/2016 10:28:Nazia Rhoades RN) CARE Primary Oxyacetylene Burner: [facility] (09/09/2016 18:17:Ann Pickens RN) Oxyacetylene Burner Other: Maternal (09/09/2016 18:17:Ann Pickens RN) Month of 1st Visit: May (09/09/2016 18:17:Ann Pickens RN) Adequate Care: Yes (09/09/2016 18:17:Ann Pickens RN) Height (in): 66 (12/16/2016 19:33:QS system process) ALLERGIES Medication Allergy: No (09/09/2016 18:17:Ann Pickens RN) Medication Allergies: No Known Allergies (12/16/2016) (12/16/2016 07:03:QS system process) Latex Allergy: No Latex Allergies (09/09/2016 18:17:Ann Pickens RN) Food Allergies: NONE (09/09/2016 18:17:Triny Fortune RN) Environmental Allergies: NONE (09/09/2016 18:17:Triny Fortune RN) COMMUNICATION Primary Language: French (09/09/2016 18:17:Ann Pickens RN) Medical Tx Preferred Language: French (09/09/2016 18:17:Ann Pickens RN) Communication Barrier(s): None (09/09/2016 18:17:Triny Fortune RN) DEMOGRAPHICS Address: [address] [place] [address] [address] (09/09/2016 18:16:QS system process) Zipcode: [phone] (09/09/2016 18:16:QS system process) Home (09/09/2016 18:16:QS system process) Work (09/09/2016 18:16:QS system process) SSN: [id number] (09/09/2016 18:16:QS system process) Next of Kin Name: NATHAN VELOZ (09/09/2016 18:16:QS system process) Next of Kin (09/09/2016 18:16:QS system process) Next of Kin Relationship: OR (12/11/2016 15:20:QS system process) Date of : 1990 (09/09/2016 18:16:QS system process) Marital Status: Single (09/09/2016 18:16:QS system process) Sex: Female (09/09/2016 18:16:QS system process) Race: (09/09/2016 18:16:QS system process) Ethnicity: Non- or (09/09/2016 18:16:QS system process) Congregational: Faith (09/09/2016 18:16:QS system process) DRUG AND ALCOHOL USE Alcohol: No (09/09/2016 18:17:Ann Pickens RN) Cigarettes: Never Smoker. [id number] (09/09/2016 18:17:Ann Pickens RN) Marijuana: No (09/09/2016 18:17:Ann Pickens RN) Cocaine: No (09/09/2016 18:17:Ann Pickens RN) Other Illicit Drugs: No (09/09/2016 18:17:Ann Pickens RN) VACCINE HISTORY Influenza Vaccine: Yes (09/09/2016 18:17:Ann Pickens RN) Influenza Date: 09/14 (09/09/2016 18:17:Ann Pickens RN) Pneumococcal Vaccine: No (09/09/2016 18:17:Triny Fortune RN) Tetanus Vaccine: Yes (09/09/2016 18:17:Blanca Orozco RN) Tdap Vaccine: Yes (09/09/2016 18:17:Blanca Orozco RN) Hepatitis B Vaccine: Yes (09/09/2016 18:17:Blanca Orozco RN) Textile Examiner: [facility] (09/09/2016 18:17:Ann Pickens RN) Feeding Preference: Both (09/09/2016 18:17:Blanca Orozco RN) Benefit of Breast Feed Discussed: Yes (09/09/2016 18:17:Triny Fortune RN) Circumcision: Yes (09/09/2016 18:17:Ann Pickens RN) Classes Attended: No (09/09/2016 18:17:Ann Pickens RN) Tubal Ligation: No (09/09/2016 18:17:Ann Pickens RN) Consent: N/A (09/09/2016 18:17:Triny Fortune RN) Consent Signed: N/A (09/09/2016 18:17:Triny Fortune RN) Pain Management Plans: Epidural (09/09/2016 18:17:Ann Pickens RN) Plans for Labor and Delivery: None (09/09/2016 18:17:Ann Pickens RN) Support Person: Blayne (09/09/2016 18:17:Ann Pickens RN) Support Person Relationship: (09/09/2016 18:17:Ann Pickens RN) Cultural/Spritual Practice: No (09/09/2016 18:17:Ann Pickens RN) Spir/Cult Dietary Needs: No (09/09/2016 18:17:Ann Pickens RN) LIVING SITUATION/DISCHARGE PLAN Living Arrangements: Apartment (09/09/2016 18:17:Ann Pickens RN) Adequate Access to:: Electric; Heat; Refrigeration; Plumbing/Running water; Phone; Transportation (09/09/2016 18:17:Ann Pickens RN) WIC Program: Yes (09/09/2016 18:17:Ann Pickens RN) Discharge Nephrology Nurse Person: Blayne (09/09/2016 18:17:Ann Pickens RN) Person to Help after Discharge: Blayne (09/09/2016 18:17:Ann Pickens RN) Currently Using Commun Resources: Yes (09/09/2016 18:17:Ann Pickens RN) Specify Current Resource Used: WIC (09/09/2016 18:17:Ann Pickens RN) Outside Agency/Statistical Modeler: No (09/09/2016 18:17:Ann Pickens RN) Car Seat for Discharge: Yes (09/09/2016 18:17:Ann Pickens RN) Adoption Requested: No (09/09/2016 18:17:Ann Pickens RN) Pt Contact w/infant Post : N/A (09/09/2016 18:17:Ann Pickens RN) LABS Blood Type: B Positive (09/09/2016 18:17:Claudette Cedillo RN) Antibody Screen: Negative (09/09/2016 18:17:Claudette Cedillo RN) Rho(G) this : Not Applicable (09/09/2016 18:17:Claudette Cedillo RN) Hemoglobin: 11.9 L (12/17/2016 08:10:QS system process) Hematocrit: 35.8 L (12/17/2016 08:10:QS system process) MCV: 86 (12/17/2016 08:10:QS system process) Group Beta Strep: Positive (09/09/2016 18:17:Clara Cheney RN) Gonorrhea: Negative (09/09/2016 18:17:Clara Cheney RN) Chlamydia: Negative (09/09/2016 18:17:Clara Cheney RN) RPR/VDRL: Nonreactive (09/09/2016 18:17:Claudette Cedillo RN) HIV Exposure Test: Negative (09/09/2016 18:17:Claudette Cedillo RN) Hepatitis B: Negative (09/09/2016 18:17:Claudette Cedillo RN) Rubella: Immune (09/09/2016 18:17:Claudette Cedillo RN) Varicella: Non Susceptible (09/09/2016 18:17:Claudette Cedillo RN) OB/PREVIOUS HISTORY Previous Procedures: Ultrasound (09/09/2016 18:17:Claudette Cedillo RN) Current Procedures: Ultrasound; NST (09/09/2016 18:17:Triny Fortune RN) History of Previous : No (09/09/2016 18:17:Ann Pickens RN) History of Gestational Diabetes: No (09/09/2016 18:17:Ann Pickens RN) History of PIH: Yes (09/09/2016 18:17:Blanca Orozco RN) History of Incompetent Cervix: No (09/09/2016 18:17:Ann Pickens RN) History of Placenta Previa/Abrup: No (09/09/2016 18:17:Ann Pickens RN) History of Macrosomia: No (09/09/2016 18:17:Ann Pickens RN) History of IUGR: No (09/09/2016 18:17:Ann Pickens RN) History of Hemorrhage: No (09/09/2016 18:17:Ann Pickens RN) History of Loss/Stillborn: No (09/09/2016 18:17:Ann Pickens RN) History of : No (09/09/2016 18:17:Ann Pickens RN) History of D (Rh) Sensitization: No (09/09/2016 18:17:Ann Pickens RN) History Recurrent Loss/Stillborn: No (09/09/2016 18:17:Ann Pickens RN) History Depression/PP Depression: No (09/09/2016 18:17:Ann Pickens RN) History of Uterine Anomaly/MICHELL: No (09/09/2016 18:17:Ann Pickens RN) History of Infertility: No (09/09/2016 18:17:Ann Pickens RN) History of ART Treatment: No (09/09/2016 18:17:Ann Pickens RN) History of MICHELL: No (09/09/2016 18:17:Ann Pickens RN) Comments Obstetrical History: G1 - 02/2010 EAB 5 week G2 - 05/2013 NVD 40 week baby boy - 6 lb 12 oz, preecclampsia G3 - 03/2015 EAB 6 week G4 - current , di/di twin boy _ girl GHTN (09/09/2016 18:17:Tiffany Lopes RN) MEDICAL HISTORY Med Hx Diabetes: No (09/09/2016 18:17:Ann Pickens RN) Med Hx Hypertension: No (09/09/2016 18:17:Ann Pickens RN) Med Hx Heart Disease: No (09/09/2016 18:17:Ann Pickens RN) Med Hx Autoimmune Disorder: No (09/09/2016 18:17:Ann Pickens RN) Med Hx Kidney Disease/UTI: No (09/09/2016 18:17:Ann Pickens RN) Med Hx Neurologic/Epilepsy: No (09/09/2016 18:17:Ann Pickens RN) Med Hx Psychiatric Disorders: No (09/09/2016 18:17:Ann Pickens RN) Med Hx Hepatitis/Liver Disease: No (09/09/2016 18:17:Ann Pickens RN) Med Hx Varicosities/Phlebitis: No (09/09/2016 18:17:Ann Pickens RN) Med Hx Thyroid Dysfunction: No (09/09/2016 18:17:Ann Pickens RN) Med Hx Trauma/Violence: No (09/09/2016 18:17:Ann Pickens RN) Med Hx Blood Transfusion: No (09/09/2016 18:17:Ann Pickens RN) Med Hx Pulmonary (Asthma,TB): Yes (09/09/2016 18:17:Claudette Cedillo RN) Med Hx Breast: No (09/09/2016 18:17:Ann Pickens RN) Med Hx ASSOCIATE FINANCIAL REPRESENTATIVE Surgery: No (09/09/2016 18:17:Ann Pickens RN) Med Hx Hospitalization/Surgery: No (09/09/2016 18:17:Ann Pickens RN) Med Hx Anesthetic Complications: No (09/09/2016 18:17:Ann Pickens RN) Med Hx Abnormal Pap Smear: No (09/09/2016 18:17:Ann Pickens RN) Other Medical Diseases: No (09/09/2016 18:17:Ann Pickens RN) Med Hx Significant Family Hx: No (09/09/2016 18:17:Ann Pickens RN) Details of Med/Surg Hx: asthma, anxiety with this (09/09/2016 18:17:Tiffany Lopes RN) INFECTIOUS HISTORY Inf Hx Gonorrhea: No (09/09/2016 18:17:Ann Pickens RN) Inf Hx Chlamydia: Yes (09/09/2016 18:17:Ann Pickens RN) Inf Hx Syphilis: No (09/09/2016 18:17:Ann Pickens RN) Inf Hx HIV/AIDS: No (09/09/2016 18:17:Ann Pickens RN) Inf Hx Human Papilloma Virus: No (09/09/2016 18:17:Ann Pickens RN) Inf Hx Pt/Partner Genital Herpes: No (09/09/2016 18:17:Ann Pickens RN) Inf Hx Tuberculosis/Exposure: No (09/09/2016 18:17:Ann Pickens RN) Inf Hx Hepatitis B,C: No (09/09/2016 18:17:Ann Pickens RN) Inf Hx Rash or Viral Illness: No (09/09/2016 18:17:Ann Pickens RN) Details of Infectious Hx: Chlamydia 2010 (09/09/2016 18:17:Ann Pickens RN) GENETIC HISTORY Gen Hx Age >=35 at LUIS ENRIQUE: No (09/09/2016 18:17:Ann Pickens RN) Gen Hx Thalassemia: No (09/09/2016 18:17:Ann Pickens RN) Gen Hx Congenital Heart Defect: No (09/09/2016 18:17:Ann Pickens RN) Gen Hx Neural Tube Defect: No (09/09/2016 18:17:Ann Pickens RN) Gen Hx Down's Syndrome: No (09/09/2016 18:17:Ann Pickens RN) Gen Hx Giacomo-Sachs: No (09/09/2016 18:17:Ann Pickens RN) Gen Hx Mónica: No (09/09/2016 18:17:Ann Pickens RN) Gen Hx Familial Dysautonomia: No (09/09/2016 18:17:Ann Pickens RN) Gen Hx Sickle Cell Disease/Trait: No (09/09/2016 18:17:Ann Pickens RN) Gen Hx Hemophilia/Blood Disorder: No (09/09/2016 18:17:Ann Pickens RN) Gen Hx Muscular Dystrophy: No (09/09/2016 18:17:Ann Pickens RN) Gen Hx Cystic Fibrosis: No (09/09/2016 18:17:Ann Pickens RN) Gen Hx Hunting[place] Chorea: No (09/09/2016 18:17:Ann Pickens RN) Gen Hx Mental Retardation/Autism: No (09/09/2016 18:17:Ann Pickens RN) Gen Hx Tested for Fragile X: No (09/09/2016 18:17:Ann Pickens RN) Gen Hx Other Inher/Chromosomal: No (09/09/2016 18:17:Ann Pickens RN) Gen Hx Maternal Metabolic DO: No (09/09/2016 18:17:Ann Pickens RN) Gen Hx Pt Father or FOB Defect: No (09/09/2016 18:17:Ann Pickens RN) Gen Hx Other Genetic History: No (09/09/2016 18:17:Ann Pickens RN) Gen Hx Drugs/Meds since LMP: No (09/09/2016 18:17:Ann Pickens RN)
[2016-12-18 08:57] VITALS: BP 141/89
[2016-12-18] MEDS: FERROUS SULFATE 325 MG TABLET PO SCH (09:50)
[2016-12-18] MEDS: PRENATAL VITAMIN W-O CA NO5/FE FUMARATE/FA CAPSULE PO SCH (09:50)
[2016-12-18] MEDS: SENNOSIDES/DOCUSATE 8.6-50 MG 1 EACH TABLET PO SCH (09:50)
[2016-12-18] MEDS: DOCUSATE SODIUM 100 MG CAPSULE PO SCH (09:50)
--- NOTE | 2016-12-18 09:52 | PDOC PROGRESS REPORT ---
Subjective-OB Subjective: Post Delivery Day: 26 year old. Denies any needs at this time OOB in room, , increased lochia with , VS stable, diet taken well, hsb at BS, hsb hold ing baby, voiding, ready to go home Physical Exam (OB) Vital Signs: Temp Pulse Resp BP Pulse Ox 97.6 F 81 16 122/58 L 100 12/18/16 08:27 12/18/16 08:27 12/18/16 08:27 12/18/16 08:27 12/18/16 08:27 Intake & Output 12/17/16 12/18/16 12/19/16 06:59 06:59 06:59 Weight 100.5 kg - PIH/Pre-Eclampsia DTR's: 3 + Clonus: Negative Headache: Absent Epigastric Pain: No Visual Changes: No - Lochia Lochia Amount: Scant < 10 ml Lochia Color: Rubra/Red - Abdomen Description: Tender Hernia Present: No Fundal Description: Firm, Midline Fundal Height: u/u - u/2 Objective-Diagnostic Laboratory: 12/17/16 08:10 12/16/16 09:20
--- NOTE | 2016-12-18 10:00 | PDOC DISCHARGE SUMMARY ---
Discharge Summary-OB Discharge Date: 12/18/16 - Final Diagnosis (1) Normal vaginal delivery Is this a current diagnosis for this admission?: Yes (2) Twin gestation in first trimester Is this a current diagnosis for this admission?: Yes - Discharge Medication Home Medications: Folic Acid 1 cap PO DAILY 09/09/16 Prenat Vit Comb.10/Iron/FA/Dha [Vitafol-Ob+Dha Combo Pack] 1 cap PO DAILY Gestational Age: 37.1 Reason(s) for Admission: Medical Complications, Group B Strep Positive, Twins Procedures: NST, Ultrasound Intrapartum Procedure(s): Spontaneous Vaginal Delivery - Data Baby 1 Male at 1 minute: 9 at 5 minutes: 9 Weight: 2.58 kg Home with Mother: Yes Complications: No Baby 1 Female at 1 minute: 9 at 5 minutes: 9 Weight: 2.41 kg Home with Mother: Yes Complications: No - Diagnosis Test Laboratory: Temp Pulse Resp BP Pulse Ox 97.6 F 81 16 122/58 L 100 12/18/16 08:27 12/18/16 08:27 12/18/16 08:27 12/18/16 08:27 12/18/16 08:27 12/16/16 12/16/16 12/17/16 07:02 07:20 08:10 RBC 4.42 4.17 Hgb 12.5 11.9 L Hct 37.9 35.8 L Urine Opiates Screen NEGATIVE - Discharge information/Instructions Discharge Activity: Activity As Tolerated, Pelvic Rest, No tub bath Discharge Diet: As Tolerated, Regular Disposition: HOME, SELF-CARE Follow up with: [facility] in: 1, Weeks - return to office 1 week to check BP
--- NOTE | 2016-12-19 06:05 | L&D General Admission ---
General Admit Datetime Report Generated by CPN: 12/19/2016 06:00 INFORMATION Patient Age: 25 (09/09/2016 18:16:QS system process) EDC: 01/05/2017 00:00 (09/09/2016 18:17:Clara Cheney RN) : 4 (09/09/2016 18:17:TAIWO Ledbetter) Para: 1 (12/15/2016 10:28:Nazia Rhoades RN) Term: 1 (09/09/2016 18:17:TAIWO Ledbetter) : 0 (09/09/2016 18:17:TAIWO Ledbetter) Spontaneous Abortions: 0 (09/09/2016 18:17:TAIWO Ledbetter) Induced Abortions: 2 (09/09/2016 18:17:TAIWO Ledbetter) Livin (09/09/2016 18:17:TAIWO Ledbetter) Cesareans: 0 (09/09/2016 18:17:TAIWO Ledbetter) VBACs: 0 (09/09/2016 18:17:TAIWO Ledbetter) Ectopic: 0 (09/09/2016 18:17:TAIWO Ledbetter) Multiple Births: 0 (09/09/2016 18:17:TAIWO Ledbetter) Baby, Number in Womb: 2 (12/15/2016 10:28:Nazia Rhoades RN) CARE Primary Aitchbone Breaker: [facility] (09/09/2016 18:17:Ann Pickens RN) Aitchbone Breaker Other: Maternal (09/09/2016 18:17:Ann Pickens RN) Month of 1st Visit: May (09/09/2016 18:17:Ann Pickens RN) Adequate Care: Yes (09/09/2016 18:17:Ann Pickens RN) Height (in): 66 (12/18/2016 10:00:QS system process) ALLERGIES Medication Allergy: No (09/09/2016 18:17:Ann Pickens RN) Medication Allergies: No Known Allergies (12/16/2016) (12/16/2016 07:03:QS system process) Latex Allergy: No Latex Allergies (09/09/2016 18:17:Ann Pickens RN) Food Allergies: NONE (09/09/2016 18:17:Triny Fortune RN) Environmental Allergies: NONE (09/09/2016 18:17:Triny Fortune RN) COMMUNICATION Primary Language: Moroccan (09/09/2016 18:17:Ann Pickens RN) Medical Tx Preferred Language: Moroccan (09/09/2016 18:17:Ann Pickens RN) Communication Barrier(s): None (09/09/2016 18:17:Triny Fortune RN) DEMOGRAPHICS Address: [address] [place] [address] [address] (09/09/2016 18:16:QS system process) Zipcode: [phone] (09/09/2016 18:16:QS system process) Home (09/09/2016 18:16:QS system process) Work (09/09/2016 18:16:QS system process) SSN: [id number] (09/09/2016 18:16:QS system process) Next of Kin Name: NATHAN VELOZ (09/09/2016 18:16:QS system process) Next of Kin (09/09/2016 18:16:QS system process) Next of Kin Relationship: OR (12/11/2016 15:20:QS system process) Date of : 1990 (09/09/2016 18:16:QS system process) Marital Status: Single (09/09/2016 18:16:QS system process) Sex: Female (09/09/2016 18:16:QS system process) Race: (09/09/2016 18:16:QS system process) Ethnicity: Non- or (09/09/2016 18:16:QS system process) Gnosticism: Pentecostal (09/09/2016 18:16:QS system process) DRUG AND ALCOHOL USE Alcohol: No (09/09/2016 18:17:Ann Pickens RN) Cigarettes: Never Smoker. [id number] (09/09/2016 18:17:Ann Pickens RN) Marijuana: No (09/09/2016 18:17:Ann Pickens RN) Cocaine: No (09/09/2016 18:17:Ann Pickens RN) Other Illicit Drugs: No (09/09/2016 18:17:Ann Pickens RN) VACCINE HISTORY Influenza Vaccine: Yes (09/09/2016 18:17:Ann Pickens RN) Influenza Date: 09/14 (09/09/2016 18:17:Ann Pickens RN) Pneumococcal Vaccine: No (09/09/2016 18:17:Triny Fortune RN) Tetanus Vaccine: Yes (09/09/2016 18:17:Blanca Orozco RN) Tdap Vaccine: Yes (09/09/2016 18:17:Blanca Orozco RN) Hepatitis B Vaccine: Yes (09/09/2016 18:17:Blanca Orozco RN) Car Cleaner: [facility] (09/09/2016 18:17:Ann Pickens RN) Feeding Preference: Both (09/09/2016 18:17:Blanca rOozco RN) Benefit of Breast Feed Discussed: Yes (09/09/2016 18:17:Triny Fortune RN) Circumcision: Yes (09/09/2016 18:17:Ann Pickens RN) Classes Attended: No (09/09/2016 18:17:Ann Pickens RN) Tubal Ligation: No (09/09/2016 18:17:Ann Pickens RN) Consent: N/A (09/09/2016 18:17:Triny Fortune RN) Consent Signed: N/A (09/09/2016 18:17:Triny Fortune RN) Pain Management Plans: Epidural (09/09/2016 18:17:Ann Pickens RN) Plans for Labor and Delivery: None (09/09/2016 18:17:Ann Pickens RN) Support Person: Blayne (09/09/2016 18:17:Ann Pickens RN) Support Person Relationship: (09/09/2016 18:17:Ann Pickens RN) Cultural/Spritual Practice: No (09/09/2016 18:17:Ann Pickens RN) Spir/Cult Dietary Needs: No (09/09/2016 18:17:Ann Pickens RN) LIVING SITUATION/DISCHARGE PLAN Living Arrangements: Apartment (09/09/2016 18:17:Ann Pickens RN) Adequate Access to:: Electric; Heat; Refrigeration; Plumbing/Running water; Phone; Transportation (09/09/2016 18:17:Ann Pickens RN) WIC Program: Yes (09/09/2016 18:17:Ann Pickens RN) 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 Person: Blayne (09/09/2016 18:17:Ann Pickens RN) Person to Help after Discharge: Blayne (09/09/2016 18:17:Ann Pickens RN) Currently Using Commun Resources: Yes (09/09/2016 18:17:Ann Pickens RN) Specify Current Resource Used: WIC (09/09/2016 18:17:Ann Pickens RN) Outside Agency/Aids Counselor: No (09/09/2016 18:17:Ann Pickens RN) Car Seat for Discharge: Yes (09/09/2016 18:17:Ann Pickens RN) Adoption Requested: No (09/09/2016 18:17:Ann Pickens RN) Pt Contact w/infant Post : N/A (09/09/2016 18:17:Ann Pickens RN) LABS Blood Type: B Positive (09/09/2016 18:17:Claudette Cedillo RN) Antibody Screen: Negative (09/09/2016 18:17:Claudette Cedillo RN) Rho(G) this : Not Applicable (09/09/2016 18:17:Claudette Cedillo RN) Hemoglobin: 11.9 L (12/17/2016 08:10:QS system process) Hematocrit: 35.8 L (12/17/2016 08:10:QS system process) MCV: 86 (12/17/2016 08:10:QS system process) Group Beta Strep: Positive (09/09/2016 18:17:Clara Cheney RN) Gonorrhea: Negative (09/09/2016 18:17:Clara Cheney RN) Chlamydia: Negative (09/09/2016 18:17:Clara Cheney RN) RPR/VDRL: Nonreactive (09/09/2016 18:17:Claudette Cedillo RN) HIV Exposure Test: Negative (09/09/2016 18:17:Claudette Cedillo RN) Hepatitis B: Negative (09/09/2016 18:17:Claudette Cedillo RN) Rubella: Immune (09/09/2016 18:17:Claudette Cedillo RN) Varicella: Non Susceptible (09/09/2016 18:17:Claudette Cedillo RN) OB/PREVIOUS HISTORY Previous Procedures: Ultrasound (09/09/2016 18:17:Claudette Cedillo RN) Current Procedures: Ultrasound; NST (09/09/2016 18:17:Triny Fortune RN) History of Previous : No (09/09/2016 18:17:Ann Pickens RN) History of Gestational Diabetes: No (09/09/2016 18:17:Ann Pickens RN) History of PIH: Yes (09/09/2016 18:17:Blanca Orozco RN) History of Incompetent Cervix: No (09/09/2016 18:17:Ann Pickens RN) History of Placenta Previa/Abrup: No (09/09/2016 18:17:Ann Pickens RN) History of Macrosomia: No (09/09/2016 18:17:Ann Pickens RN) History of IUGR: No (09/09/2016 18:17:Ann Pickens RN) History of Hemorrhage: No (09/09/2016 18:17:Ann Pickens RN) History of Loss/Stillborn: No (09/09/2016 18:17:Ann Pickens RN) History of : No (09/09/2016 18:17:Ann Pickens RN) History of D (Rh) Sensitization: No (09/09/2016 18:17:Ann Pickens RN) History Recurrent Loss/Stillborn: No (09/09/2016 18:17:Ann Pickens RN) History Depression/PP Depression: No (09/09/2016 18:17:Ann Pickens RN) History of Uterine Anomaly/MICHELL: No (09/09/2016 18:17:Ann Pickens RN) History of Infertility: No (09/09/2016 18:17:Ann Pickens RN) History of ART Treatment: No (09/09/2016 18:17:Ann Pickens RN) History of MICHELL: No (09/09/2016 18:17:Ann Pickens RN) Comments Obstetrical History: G1 - 02/2010 EAB 5 week G2 - 05/2013 NVD 40 week baby boy - 6 lb 12 oz, preecclampsia G3 - 03/2015 EAB 6 week G4 - current , di/di twin boy _ girl GHTN (09/09/2016 18:17:Tiffany Lopes RN) MEDICAL HISTORY Med Hx Diabetes: No (09/09/2016 18:17:Ann Pickens RN) Med Hx Hypertension: No (09/09/2016 18:17:Ann Pickens RN) Med Hx Heart Disease: No (09/09/2016 18:17:Ann Pickens RN) Med Hx Autoimmune Disorder: No (09/09/2016 18:17:Ann Pickens RN) Med Hx Kidney Disease/UTI: No (09/09/2016 18:17:Ann Pickens RN) Med Hx Neurologic/Epilepsy: No (09/09/2016 18:17:Ann Pickens RN) Med Hx Psychiatric Disorders: No (09/09/2016 18:17:Ann Pickens RN) Med Hx Hepatitis/Liver Disease: No (09/09/2016 18:17:Ann Pickens RN) Med Hx Varicosities/Phlebitis: No (09/09/2016 18:17:Ann Pickens RN) Med Hx Thyroid Dysfunction: No (09/09/2016 18:17:Ann Pickens RN) Med Hx Trauma/Violence: No (09/09/2016 18:17:Ann Pickens RN) Med Hx Blood Transfusion: No (09/09/2016 18:17:Ann Pickens RN) Med Hx Pulmonary (Asthma,TB): Yes (09/09/2016 18:17:Claudette Cedillo RN) Med Hx Breast: No (09/09/2016 18:17:Ann Pickens RN) 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 Surgery: No (09/09/2016 18:17:Ann Pickens RN) Med Hx Hospitalization/Surgery: No (09/09/2016 18:17:Ann Pickens RN) Med Hx Anesthetic Complications: No (09/09/2016 18:17:Ann Pickens RN) Med Hx Abnormal Pap Smear: No (09/09/2016 18:17:Ann Pickens RN) Other Medical Diseases: No (09/09/2016 18:17:Ann Pickens RN) Med Hx Significant Family Hx: No (09/09/2016 18:17:Ann Pickens RN) Details of Med/Surg Hx: asthma, anxiety with this (09/09/2016 18:17:Tiffany Lopes RN) INFECTIOUS HISTORY Inf Hx Gonorrhea: No (09/09/2016 18:17:Ann Pickens RN) Inf Hx Chlamydia: Yes (09/09/2016 18:17:Ann Pickens RN) Inf Hx Syphilis: No (09/09/2016 18:17:Ann Pickens RN) Inf Hx HIV/AIDS: No (09/09/2016 18:17:Ann Pickens RN) Inf Hx Human Papilloma Virus: No (09/09/2016 18:17:Ann Pickens RN) Inf Hx Pt/Partner Genital Herpes: No (09/09/2016 18:17:Ann Pickens RN) Inf Hx Tuberculosis/Exposure: No (09/09/2016 18:17:Ann Pickens RN) Inf Hx Hepatitis B,C: No (09/09/2016 18:17:Ann Pickens RN) Inf Hx Rash or Viral Illness: No (09/09/2016 18:17:Ann Pickens RN) Details of Infectious Hx: Chlamydia 2010 (09/09/2016 18:17:Ann Pickens RN) GENETIC HISTORY Gen Hx Age >=35 at LUIS ENRIQUE: No (09/09/2016 18:17:Ann Pickens RN) Gen Hx Thalassemia: No (09/09/2016 18:17:Ann Pickens RN) Gen Hx Congenital Heart Defect: No (09/09/2016 18:17:Ann Pickens RN) Gen Hx Neural Tube Defect: No (09/09/2016 18:17:Ann Pickens RN) Gen Hx Down's Syndrome: No (09/09/2016 18:17:Ann Pickens RN) Gen Hx Giacomo-Sachs: No (09/09/2016 18:17:Ann Pickens RN) Gen Hx Mónica: No (09/09/2016 18:17:Ann Pickens RN) Gen Hx Familial Dysautonomia: No (09/09/2016 18:17:Ann Pickens RN) Gen Hx Sickle Cell Disease/Trait: No (09/09/2016 18:17:Ann Pickens RN) Gen Hx Hemophilia/Blood Disorder: No (09/09/2016 18:17:Ann Pickens RN) Gen Hx Muscular Dystrophy: No (09/09/2016 18:17:Ann Pickens RN) Gen Hx Cystic Fibrosis: No (09/09/2016 18:17:Ann Pickens RN) Gen Hx Huntingtons Chorea: No (09/09/2016 18:17:Ann Pickens RN) Gen Hx Mental Retardation/Autism: No (09/09/2016 18:17:Ann Pickens RN) Gen Hx Tested for Fragile X: No (09/09/2016 18:17:Ann Pickens RN) Gen Hx Other Inher/Chromosomal: No (09/09/2016 18:17:Ann Pickens RN) Gen Hx Maternal Metabolic DO: No (09/09/2016 18:17:Ann Pickens RN) Gen Hx Pt Father or FOB Defect: No (09/09/2016 18:17:Ann Pickens RN) Gen Hx Other Genetic History: No (09/09/2016 18:17:Ann Pickens RN) Gen Hx Drugs/Meds since LMP: No (09/09/2016 18:17:Ann Pickens RN)
--- NOTE | 2016-12-20 06:06 | L&D General Admission ---
General Admit Datetime Report Generated by CPN: 12/20/2016 06:00 INFORMATION Patient Age: 25 (09/09/2016 18:16:QS system process) EDC: 01/05/2017 00:00 (09/09/2016 18:17:Clara Cheney RN) : 4 (09/09/2016 18:17:TAIWO Ledbetter) Para: 1 (12/15/2016 10:28:Nazia Rhoades RN) Term: 1 (09/09/2016 18:17:TAIWO Ledbetter) : 0 (09/09/2016 18:17:TAIWO Ledbetter) Spontaneous Abortions: 0 (09/09/2016 18:17:TAIWO Ledbetter) Induced Abortions: 2 (09/09/2016 18:17:TAIWO Ledbetter) Livin (09/09/2016 18:17:TAIWO Ledbetter) Cesareans: 0 (09/09/2016 18:17:TAIWO Ledbetter) VBACs: 0 (09/09/2016 18:17:TAIWO Ledbetter) Ectopic: 0 (09/09/2016 18:17:TAIWO Ledbetter) Multiple Births: 0 (09/09/2016 18:17:TAIWO Ledbetter) Baby, Number in Womb: 2 (12/15/2016 10:28:Nazia Rhoades RN) CARE Primary Commercial Credit Specialist: [facility] (09/09/2016 18:17:Ann Pickens RN) Commercial Credit Specialist Other: Maternal (09/09/2016 18:17:Ann Pickens RN) Month of 1st Visit: May (09/09/2016 18:17:Ann Pickens RN) Adequate Care: Yes (09/09/2016 18:17:Ann Pickens RN) Height (in): 66 (12/18/2016 10:00:QS system process) ALLERGIES Medication Allergy: No (09/09/2016 18:17:Ann Pickens RN) Medication Allergies: No Known Allergies (12/16/2016) (12/16/2016 07:03:QS system process) Latex Allergy: No Latex Allergies (09/09/2016 18:17:Ann Pickens RN) Food Allergies: NONE (09/09/2016 18:17:Triny Fortune RN) Environmental Allergies: NONE (09/09/2016 18:17:Triny Fortune RN) COMMUNICATION Primary Language: South Korean (09/09/2016 18:17:Ann Pickens RN) Medical Tx Preferred Language: South Korean (09/09/2016 18:17:Ann Pickens RN) Communication Barrier(s): None (09/09/2016 18:17:Triny Fortune RN) DEMOGRAPHICS Address: [address] [place] [address] [address] (09/09/2016 18:16:QS system process) Zipcode: [phone] (09/09/2016 18:16:QS system process) Home (09/09/2016 18:16:QS system process) Work (09/09/2016 18:16:QS system process) SSN: [id number] (09/09/2016 18:16:QS system process) Next of Kin Name: NATHAN VELOZ (09/09/2016 18:16:QS system process) Next of Kin (09/09/2016 18:16:QS system process) Next of Kin Relationship: OR (12/11/2016 15:20:QS system process) Date of : 1990 (09/09/2016 18:16:QS system process) Marital Status: Single (09/09/2016 18:16:QS system process) Sex: Female (09/09/2016 18:16:QS system process) Race: (09/09/2016 18:16:QS system process) Ethnicity: Non- or (09/09/2016 18:16:QS system process) Mormonism: Yazidism (09/09/2016 18:16:QS system process) DRUG AND ALCOHOL USE Alcohol: No (09/09/2016 18:17:Ann Pickens RN) Cigarettes: Never Smoker. [id number] (09/09/2016 18:17:Ann Pickens RN) Marijuana: No (09/09/2016 18:17:Ann Pickens RN) Cocaine: No (09/09/2016 18:17:Ann Pickens RN) Other Illicit Drugs: No (09/09/2016 18:17:Ann Pickens RN) VACCINE HISTORY Influenza Vaccine: Yes (09/09/2016 18:17:Ann Pickens RN) Influenza Date: 09/14 (09/09/2016 18:17:Ann Pickens RN) Pneumococcal Vaccine: No (09/09/2016 18:17:Triny Fortune RN) Tetanus Vaccine: Yes (09/09/2016 18:17:Blanca Orozco RN) Tdap Vaccine: Yes (09/09/2016 18:17:Blanca Orozco RN) Hepatitis B Vaccine: Yes (09/09/2016 18:17:Blanca Orozco RN) Software Engineer Kernel: [facility] (09/09/2016 18:17:Ann Pickens RN) Feeding Preference: Both (09/09/2016 18:17:Blanca Orozco RN) Benefit of Breast Feed Discussed: Yes (09/09/2016 18:17:Triny Fortune RN) Circumcision: Yes (09/09/2016 18:17:Ann Pickens RN) Classes Attended: No (09/09/2016 18:17:Ann Pickens RN) Tubal Ligation: No (09/09/2016 18:17:Ann Pickens RN) Consent: N/A (09/09/2016 18:17:Triny Fortune RN) Consent Signed: N/A (09/09/2016 18:17:Triny Fortune RN) Pain Management Plans: Epidural (09/09/2016 18:17:Ann Pickens RN) Plans for Labor and Delivery: None (09/09/2016 18:17:Ann Pickens RN) Support Person: Blayne (09/09/2016 18:17:Ann Pickens RN) Support Person Relationship: (09/09/2016 18:17:Ann Pickens RN) Cultural/Spritual Practice: No (09/09/2016 18:17:Ann Picekns RN) Spir/Cult Dietary Needs: No (09/09/2016 18:17:Ann Pickens RN) LIVING SITUATION/DISCHARGE PLAN Living Arrangements: Apartment (09/09/2016 18:17:Ann Pickens RN) Adequate Access to:: Electric; Heat; Refrigeration; Plumbing/Running water; Phone; Transportation (09/09/2016 18:17:Ann Pickens RN) WIC Program: Yes (09/09/2016 18:17:Ann Pickens RN) Discharge Online Editor Person: Blayne (09/09/2016 18:17:Ann Pickens RN) Person to Help after Discharge: Blayne (09/09/2016 18:17:Ann Pickens RN) Currently Using Commun Resources: Yes (09/09/2016 18:17:Ann Pickens RN) Specify Current Resource Used: WIC (09/09/2016 18:17:Ann Pickens RN) Outside Agency/Licensed Marriage And Family Therapist: No (09/09/2016 18:17:Ann Pickens RN) Car Seat for Discharge: Yes (09/09/2016 18:17:Ann Pickens RN) Adoption Requested: No (09/09/2016 18:17:Ann Pickens RN) Pt Contact w/infant Post : N/A (09/09/2016 18:17:Ann Pickens RN) LABS Blood Type: B Positive (09/09/2016 18:17:Claudette Cedillo RN) Antibody Screen: Negative (09/09/2016 18:17:Claudette Cedillo RN) Rho(G) this : Not Applicable (09/09/2016 18:17:Claudette Cedillo RN) Hemoglobin: 11.9 L (12/17/2016 08:10:QS system process) Hematocrit: 35.8 L (12/17/2016 08:10:QS system process) MCV: 86 (12/17/2016 08:10:QS system process) Group Beta Strep: Positive (09/09/2016 18:17:Clara Cheney RN) Gonorrhea: Negative (09/09/2016 18:17:Clara Cheney RN) Chlamydia: Negative (09/09/2016 18:17:Clara Cheney RN) RPR/VDRL: Nonreactive (09/09/2016 18:17:Claudette Cedillo RN) HIV Exposure Test: Negative (09/09/2016 18:17:Claudette Cedillo RN) Hepatitis B: Negative (09/09/2016 18:17:Claudette Cedillo RN) Rubella: Immune (09/09/2016 18:17:Claudette Cedillo RN) Varicella: Non Susceptible (09/09/2016 18:17:Claudette Cedillo RN) OB/PREVIOUS HISTORY Previous Procedures: Ultrasound (09/09/2016 18:17:Claudette Cedillo RN) Current Procedures: Ultrasound; NST (09/09/2016 18:17:Triny Fortune RN) History of Previous : No (09/09/2016 18:17:Ann Pickens RN) History of Gestational Diabetes: No (09/09/2016 18:17:Ann Pickens RN) History of PIH: Yes (09/09/2016 18:17:Blanca Orozco RN) History of Incompetent Cervix: No (09/09/2016 18:17:Ann Pickens RN) History of Placenta Previa/Abrup: No (09/09/2016 18:17:Ann Pickens RN) History of Macrosomia: No (09/09/2016 18:17:Ann Pickens RN) History of IUGR: No (09/09/2016 18:17:Ann Pickens RN) History of Hemorrhage: No (09/09/2016 18:17:Ann Pickens RN) History of Loss/Stillborn: No (09/09/2016 18:17:Ann Pickens RN) History of : No (09/09/2016 18:17:Ann Pickens RN) History of D (Rh) Sensitization: No (09/09/2016 18:17:Ann Pikcens RN) History Recurrent Loss/Stillborn: No (09/09/2016 18:17:Ann Pickens RN) History Depression/PP Depression: No (09/09/2016 18:17:Ann Pickens RN) History of Uterine Anomaly/MICHELL: No (09/09/2016 18:17:Ann Pickens RN) History of Infertility: No (09/09/2016 18:17:Ann Pickens RN) History of ART Treatment: No (09/09/2016 18:17:Ann Pickens RN) History of MICHELL: No (09/09/2016 18:17:Ann Pickens RN) Comments Obstetrical History: G1 - 02/2010 EAB 5 week G2 - 05/2013 NVD 40 week baby boy - 6 lb 12 oz, preecclampsia G3 - 03/2015 EAB 6 week G4 - current , di/di twin boy _ girl GHTN (09/09/2016 18:17:Tiffany Lopes RN) MEDICAL HISTORY Med Hx Diabetes: No (09/09/2016 18:17:Ann Pickens RN) Med Hx Hypertension: No (09/09/2016 18:17:Ann Pickens RN) Med Hx Heart Disease: No (09/09/2016 18:17:Ann Pickens RN) Med Hx Autoimmune Disorder: No (09/09/2016 18:17:Ann Pickens RN) Med Hx Kidney Disease/UTI: No (09/09/2016 18:17:Ann Pickens RN) Med Hx Neurologic/Epilepsy: No (09/09/2016 18:17:Ann Pickens RN) Med Hx Psychiatric Disorders: No (09/09/2016 18:17:Ann Pickens RN) Med Hx Hepatitis/Liver Disease: No (09/09/2016 18:17:Ann Pickens RN) Med Hx Varicosities/Phlebitis: No (09/09/2016 18:17:Ann Pickens RN) Med Hx Thyroid Dysfunction: No (09/09/2016 18:17:Ann Pickens RN) Med Hx Trauma/Violence: No (09/09/2016 18:17:Ann Pickens RN) Med Hx Blood Transfusion: No (09/09/2016 18:17:Ann Pickens RN) Med Hx Pulmonary (Asthma,TB): Yes (09/09/2016 18:17:Claudette Cedillo RN) Med Hx Breast: No (09/09/2016 18:17:Ann Pickens RN) 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 Surgery: No (09/09/2016 18:17:Ann Pickens RN) Med Hx Hospitalization/Surgery: No (09/09/2016 18:17:Ann Pickens RN) Med Hx Anesthetic Complications: No (09/09/2016 18:17:Ann Pickens RN) Med Hx Abnormal Pap Smear: No (09/09/2016 18:17:Ann Pickens RN) Other Medical Diseases: No (09/09/2016 18:17:Ann Pickens RN) Med Hx Significant Family Hx: No (09/09/2016 18:17:Ann Pickens RN) Details of Med/Surg Hx: asthma, anxiety with this (09/09/2016 18:17:Tiffany Lopes RN) INFECTIOUS HISTORY Inf Hx Gonorrhea: No (09/09/2016 18:17:Ann Pickens RN) Inf Hx Chlamydia: Yes (09/09/2016 18:17:Ann Pickens RN) Inf Hx Syphilis: No (09/09/2016 18:17:Ann Pickens RN) Inf Hx HIV/AIDS: No (09/09/2016 18:17:Ann Pickens RN) Inf Hx Human Papilloma Virus: No (09/09/2016 18:17:Ann Pickens RN) Inf Hx Pt/Partner Genital Herpes: No (09/09/2016 18:17:Ann Pickens RN) Inf Hx Tuberculosis/Exposure: No (09/09/2016 18:17:Ann Pickens RN) Inf Hx Hepatitis B,C: No (09/09/2016 18:17:Ann Pickens RN) Inf Hx Rash or Viral Illness: No (09/09/2016 18:17:Ann Pickens RN) Details of Infectious Hx: Chlamydia 2010 (09/09/2016 18:17:Ann Pickens RN) GENETIC HISTORY Gen Hx Age >=35 at LUIS ENRIQUE: No (09/09/2016 18:17:Ann Pickens RN) Gen Hx Thalassemia: No (09/09/2016 18:17:Ann Pickens RN) Gen Hx Congenital Heart Defect: No (09/09/2016 18:17:Ann Pickens RN) Gen Hx Neural Tube Defect: No (09/09/2016 18:17:Ann Pickens RN) Gen Hx Down's Syndrome: No (09/09/2016 18:17:Ann Pickens RN) Gen Hx Giacomo-Sachs: No (09/09/2016 18:17:Ann Pickens RN) Gen Hx Mónica: No (09/09/2016 18:17:Ann Pickens RN) Gen Hx Familial Dysautonomia: No (09/09/2016 18:17:Ann Pickens RN) Gen Hx Sickle Cell Disease/Trait: No (09/09/2016 18:17:Ann Pickens RN) Gen Hx Hemophilia/Blood Disorder: No (09/09/2016 18:17:Ann Pickens RN) Gen Hx Muscular Dystrophy: No (09/09/2016 18:17:Ann Pickens RN) Gen Hx Cystic Fibrosis: No (09/09/2016 18:17:Ann Pickens RN) Gen Hx Huntingtons Chorea: No (09/09/2016 18:17:Ann Pickens RN) Gen Hx Mental Retardation/Autism: No (09/09/2016 18:17:Ann Pickens RN) Gen Hx Tested for Fragile X: No (09/09/2016 18:17:Ann Pickens RN) Gen Hx Other Inher/Chromosomal: No (09/09/2016 18:17:Ann Pickens RN) Gen Hx Maternal Metabolic DO: No (09/09/2016 18:17:Ann Pickens RN) Gen Hx Pt Father or FOB Defect: No (09/09/2016 18:17:Ann Pickens RN) Gen Hx Other Genetic History: No (09/09/2016 18:17:Ann Pickens RN) Gen Hx Drugs/Meds since LMP: No (09/09/2016 18:17:Ann Pickens RN)
--- NOTE | 2016-12-20 06:06 | L&D Current Admission ---
Current Admit Datetime Report Generated by CPN: 12/20/2016 06:00 ADMISSION INFORMATION Current Admit Date/Time: 12/16/2016 07:16 (12/16/2016 07:16:Blanca Orozco RN) Reason for Admission: Induction of Labor (12/16/2016 07:16:Blanca Orozco RN) Chief Complaint: Scheduled Induction of Labor (12/16/2016 07:34:Blanca Orozco RN) Medications During : Folic Acid; Vitamin (12/16/2016 07:16:Blanca Orozco RN) Meds During -Oth: Magnesium, Calcium, DHA, Aspirin (12/16/2016 07:16:Blanca Orozco RN) EGA per Dates: 37.1 (12/16/2016 07:16:QS system process) Method of Arrival: Wheelchair (12/16/2016 07:16:Blanca Orozco RN) Admitted From: Home (12/16/2016 07:16:Blanca Orozco RN) Reason for Induction: Gestational Hypertension; Other (12/16/2016 07:16:Blanca Orozco, RN) Reason for Induction- Other: Twins (12/16/2016 07:16:Blanca Orozco RN) Records Available: Yes (12/16/2016 07:16:Blanca Orozco RN) General Admission Information: Reviewed (12/16/2016 07:16:Blanca Orozco RN) General Admission Reviewed By: Rajeev Orozco RN (12/16/2016 07:16:Blanca Orozco RN) BELONGINGS/ADVANCED DIRECTIVES Valuables/Personal Effects: None (12/16/2016 07:16:Blanca Orozco RN) Other Belongings: see belongings consents (12/16/2016 07:16:Blanca Orozco RN) Disposition of Belongings: Kept with Patient (12/15/2016 08:45:Nazia Rhoades RN) Advance Direct for Healthcare: No, and Wants No Information (12/16/2016 07:16:Blanca Orozco RN) Durable Power of Plant Technical Specialist: No (12/16/2016 07:16:Blanca Orozco RN) Living Will: No (12/16/2016 07:16:Blanca Orozco RN) Organ Donor: No (12/16/2016 07:16:Blanca Orozco RN) Pt Rights Information Given: Yes (12/16/2016 07:16:Blanca Orozco RN) Pt Understands Pt Rights: Yes (12/16/2016 07:16:Blanca Orozco RN) LEARNING ASSESSMENT Knowledge Level: Understands L_D Process; Understands Care Activities; Had Pre-Hospital Education; Understands Diagnosis (12/16/2016 07:16:Blanca Orozco RN) Barriers to Learning: None (12/16/2016 07:16:Blanca Orozco RN) Learning Readiness: Motivated (12/16/2016 07:16:Blanca Orozco RN) Learns Best By: Demonstration (12/16/2016 07:16:Blanca Orozco RN) Learning Needs: Labor and Delivery Process; Pain Management; Symptoms to Report; Treatment Plan; Medication; Diagnosis; Nutrition; Equipment; Infant Care; Community Resources (12/16/2016 07:16:Blanca Orozco RN) DOMESTIC VIOLANCE SCREENING Dom Viol Threatened/Hurt: No (12/16/2016 07:16:Blanca Orozco RN) Hx of Abuse/Neglect past 2yrs: No (12/16/2016 07:16:Blanca Orozco RN) Feel Unsafe Going Home: No (12/16/2016 07:16:Blanca Orozco RN) Addt'l Observ Indicating Abuse: No (12/16/2016 07:16:Blanca Orozco RN) Reason Unable to Complete Screen: N/A, Screen Completed (12/16/2016 07:16:Blanca Orozco RN) Considered Personal Harm/Suicide: No (12/16/2016 07:16:Blanca Orozco RN) NUTRITIONAL/FUNCTIONAL SCREENING Problem with Appetite >5 Days: No (12/16/2016 07:16:Blanca Orozco RN) Chew/Swallow Difficulties: No (12/16/2016 07:16:Blanca Orozco RN) Inappropriate Wt Gain/Loss: No (12/16/2016 07:16:Blanca Orozco RN) Presence Skin Breakdown/Ulcer: No (12/16/2016 07:16:Blanca Orozco RN) Special Diet: No (12/16/2016 07:16:Blanca Orozco RN) Pt Requests Field Property Loss Specialist Visit: No (12/16/2016 07:16:Blanca Orozco RN) Hx of Any of the Following?: N/A (12/16/2016 07:16:Blanca Orozco RN) New Diagnosis of: N/A (12/16/2016 07:16:Blanca Orozco RN) Requires Assist w/Ambulation: No (12/16/2016 07:16:Blanca Orozco RN) Uses Assist Device to Ambulate: No (12/16/2016 07:16:Blanca Orozco RN) Pt Requires Help w/ADL's: No (12/16/2016 07:16:Blanca Orozco RN)
--- NOTE | 2016-12-21 06:05 | L&D General Admission ---
General Admit Datetime Report Generated by CPN: 12/21/2016 06:00 INFORMATION Patient Age: 25 (09/09/2016 18:16:QS system process) EDC: 01/05/2017 00:00 (09/09/2016 18:17:Clara Cheney RN) : 4 (09/09/2016 18:17:TAIWO Ledbetter) Para: 1 (12/15/2016 10:28:Nazia Rhoades RN) Term: 1 (09/09/2016 18:17:TAIWO Ledbetter) : 0 (09/09/2016 18:17:TAIWO Ledbetter) Spontaneous Abortions: 0 (09/09/2016 18:17:TAIWO Ledbetter) Induced Abortions: 2 (09/09/2016 18:17:TAIWO Ledbetter) Livin (09/09/2016 18:17:TAIWO Ledbetter) Cesareans: 0 (09/09/2016 18:17:TAIWO Ledbetter) VBACs: 0 (09/09/2016 18:17:TAIWO Ledbetter) Ectopic: 0 (09/09/2016 18:17:TAIWO Ledbetter) Multiple Births: 0 (09/09/2016 18:17:TAIWO Ledbetter) Baby, Number in Womb: 2 (12/15/2016 10:28:Nazia Rhoades RN) CARE Primary Language Pathologist: [facility] (09/09/2016 18:17:Ann Pickens RN) Language Pathologist Other: Maternal (09/09/2016 18:17:Ann Pickens RN) Month of 1st Visit: May (09/09/2016 18:17:Ann Pickens RN) Adequate Care: Yes (09/09/2016 18:17:Ann Pickens RN) Height (in): 66 (12/18/2016 10:00:QS system process) ALLERGIES Medication Allergy: No (09/09/2016 18:17:Ann Pickens RN) Medication Allergies: No Known Allergies (12/16/2016) (12/16/2016 07:03:QS system process) Latex Allergy: No Latex Allergies (09/09/2016 18:17:Ann iPckens RN) Food Allergies: NONE (09/09/2016 18:17:Triny Fortune RN) Environmental Allergies: NONE (09/09/2016 18:17:Triny Fortune RN) COMMUNICATION Primary Language: American (09/09/2016 18:17:Ann Pickens RN) Medical Tx Preferred Language: American (09/09/2016 18:17:Ann Pickens RN) Communication Barrier(s): None (09/09/2016 18:17:Triny Fortune RN) DEMOGRAPHICS Address: [address] [place] [address] [id number] (09/09/2016 18:16:QS system process) Zipcode: [id number] (09/09/2016 18:16:QS system process) Home (09/09/2016 18:16:QS system process) Work (09/09/2016 18:16:QS system process) SSN: [id number] (09/09/2016 18:16:QS system process) Next of Kin Name: NATHAN VELOZ (09/09/2016 18:16:QS system process) Next of Kin (09/09/2016 18:16:QS system process) Next of Kin Relationship: OR (12/11/2016 15:20:QS system process) Date of : 1990 (09/09/2016 18:16:QS system process) Marital Status: Single (09/09/2016 18:16:QS system process) Sex: Female (09/09/2016 18:16:QS system process) Race: (09/09/2016 18:16:QS system process) Ethnicity: Non- or (09/09/2016 18:16:QS system process) Latter Day: Anabaptism (09/09/2016 18:16:QS system process) DRUG AND ALCOHOL USE Alcohol: No (09/09/2016 18:17:Ann Pickens RN) Cigarettes: Never Smoker. [id number] (09/09/2016 18:17:Ann Pickens RN) Marijuana: No (09/09/2016 18:17:Ann Pickens RN) Cocaine: No (09/09/2016 18:17:Ann Pickens RN) Other Illicit Drugs: No (09/09/2016 18:17:Ann Pickens RN) VACCINE HISTORY Influenza Vaccine: Yes (09/09/2016 18:17:Ann Pickens RN) Influenza Date: 09/14 (09/09/2016 18:17:Ann Pickens RN) Pneumococcal Vaccine: No (09/09/2016 18:17:Triny Fortune RN) Tetanus Vaccine: Yes (09/09/2016 18:17:Blanca Orozco RN) Tdap Vaccine: Yes (09/09/2016 18:17:Blanca Orozco RN) Hepatitis B Vaccine: Yes (09/09/2016 18:17:Blanca Orozco RN) Biology Laboratory Assistant: [facility] (09/09/2016 18:17:Ann Pickens RN) Feeding Preference: Both (09/09/2016 18:17:Blanca Orozco RN) Benefit of Breast Feed Discussed: Yes (09/09/2016 18:17:Triny Fortune RN) Circumcision: Yes (09/09/2016 18:17:nAn Pickens RN) Classes Attended: No (09/09/2016 18:17:Ann Pickens RN) Tubal Ligation: No (09/09/2016 18:17:Ann Pickens RN) Consent: N/A (09/09/2016 18:17:Triny Fortune RN) Consent Signed: N/A (09/09/2016 18:17:Triny Fortune RN) Pain Management Plans: Epidural (09/09/2016 18:17:Ann Pickens RN) Plans for Labor and Delivery: None (09/09/2016 18:17:Ann Pickens RN) Support Person: Blayne (09/09/2016 18:17:Ann Pickens RN) Support Person Relationship: (09/09/2016 18:17:Ann Pickens RN) Cultural/Spritual Practice: No (09/09/2016 18:17:Ann Pickens RN) Spir/Cult Dietary Needs: No (09/09/2016 18:17:Ann Pickens RN) LIVING SITUATION/DISCHARGE PLAN Living Arrangements: Apartment (09/09/2016 18:17:Ann Pickens RN) Adequate Access to:: Electric; Heat; Refrigeration; Plumbing/Running water; Phone; Transportation (09/09/2016 18:17:Ann Pickens RN) WIC Program: Yes (09/09/2016 18:17:Ann Pickens RN) Discharge Juice Tester Person: Blayne (09/09/2016 18:17:Ann Pickens RN) Person to Help after Discharge: Blayne (09/09/2016 18:17:Ann Pickens RN) Currently Using Commun Resources: Yes (09/09/2016 18:17:Ann Pickens RN) Specify Current Resource Used: WIC (09/09/2016 18:17:Ann Pickens RN) Outside Agency/Brown Stock Washer: No (09/09/2016 18:17:Ann Pickens RN) Car Seat for Discharge: Yes (09/09/2016 18:17:Ann Pickens RN) Adoption Requested: No (09/09/2016 18:17:Ann Pickens RN) Pt Contact w/infant Post : N/A (09/09/2016 18:17:Ann Pickens RN) LABS Blood Type: B Positive (09/09/2016 18:17:Claudette Cedillo RN) Antibody Screen: Negative (09/09/2016 18:17:Claudette Cedillo RN) Rho(G) this : Not Applicable (09/09/2016 18:17:Claudette Cedillo RN) Hemoglobin: 11.9 L (12/17/2016 08:10:QS system process) Hematocrit: 35.8 L (12/17/2016 08:10:QS system process) MCV: 86 (12/17/2016 08:10:QS system process) Group Beta Strep: Positive (09/09/2016 18:17:Clara Cheney RN) Gonorrhea: Negative (09/09/2016 18:17:Clara Cheney RN) Chlamydia: Negative (09/09/2016 18:17:Clara Cheney RN) RPR/VDRL: Nonreactive (09/09/2016 18:17:Claudette Cedillo RN) HIV Exposure Test: Negative (09/09/2016 18:17:Claudette Cedillo RN) Hepatitis B: Negative (09/09/2016 18:17:Claudette Cedillo RN) Rubella: Immune (09/09/2016 18:17:Claudette Cedillo RN) Varicella: Non Susceptible (09/09/2016 18:17:Claudette Cedillo RN) OB/PREVIOUS HISTORY Previous Procedures: Ultrasound (09/09/2016 18:17:Claudette Cedillo RN) Current Procedures: Ultrasound; NST (09/09/2016 18:17:Triny Fortune RN) History of Previous : No (09/09/2016 18:17:Ann Pickens RN) History of Gestational Diabetes: No (09/09/2016 18:17:Ann Pickens RN) History of PIH: Yes (09/09/2016 18:17:Blanca Orozco RN) History of Incompetent Cervix: No (09/09/2016 18:17:Ann Pickens RN) History of Placenta Previa/Abrup: No (09/09/2016 18:17:Ann Pickens RN) History of Macrosomia: No (09/09/2016 18:17:Ann Pickens RN) History of IUGR: No (09/09/2016 18:17:Ann Pickens RN) History of Hemorrhage: No (09/09/2016 18:17:Ann Pickens RN) History of Loss/Stillborn: No (09/09/2016 18:17:Ann Pickens RN) History of : No (09/09/2016 18:17:Ann Pickens RN) History of D (Rh) Sensitization: No (09/09/2016 18:17:Ann Pickens RN) History Recurrent Loss/Stillborn: No (09/09/2016 18:17:Ann Pickens RN) History Depression/PP Depression: No (09/09/2016 18:17:Ann Pickens RN) History of Uterine Anomaly/MICHELL: No (09/09/2016 18:17:Ann Pickens RN) History of Infertility: No (09/09/2016 18:17:Ann Pickens RN) History of ART Treatment: No (09/09/2016 18:17:Ann Pickens RN) History of MICHELL: No (09/09/2016 18:17:Ann Pickens RN) Comments Obstetrical History: G1 - 02/2010 EAB 5 week G2 - 05/2013 NVD 40 week baby boy - 6 lb 12 oz, preecclampsia G3 - 03/2015 EAB 6 week G4 - current , di/di twin boy _ girl GHTN (09/09/2016 18:17:Tiffany Lopes RN) MEDICAL HISTORY Med Hx Diabetes: No (09/09/2016 18:17:Ann Pickens RN) Med Hx Hypertension: No (09/09/2016 18:17:Ann Pickens RN) Med Hx Heart Disease: No (09/09/2016 18:17:Ann Pickens RN) Med Hx Autoimmune Disorder: No (09/09/2016 18:17:Ann Pickens RN) Med Hx Kidney Disease/UTI: No (09/09/2016 18:17:Ann Pickens RN) Med Hx Neurologic/Epilepsy: No (09/09/2016 18:17:Ann Pickens RN) Med Hx Psychiatric Disorders: No (09/09/2016 18:17:Ann Pickens RN) Med Hx Hepatitis/Liver Disease: No (09/09/2016 18:17:Ann Pickens RN) Med Hx Varicosities/Phlebitis: No (09/09/2016 18:17:Ann Pickens RN) Med Hx Thyroid Dysfunction: No (09/09/2016 18:17:Ann Pickens RN) Med Hx Trauma/Violence: No (09/09/2016 18:17:Ann Pickens RN) Med Hx Blood Transfusion: No (09/09/2016 18:17:Ann Pickens RN) Med Hx Pulmonary (Asthma,TB): Yes (09/09/2016 18:17:Claudette Cedillo RN) Med Hx Breast: No (09/09/2016 18:17:Ann Pickens RN) Med Hx CRIMINAL PSYCHOLOGIST Surgery: No (09/09/2016 18:17:Ann Pickens RN) Med Hx Hospitalization/Surgery: No (09/09/2016 18:17:Ann Pickens RN) Med Hx Anesthetic Complications: No (09/09/2016 18:17:Ann Pickens RN) Med Hx Abnormal Pap Smear: No (09/09/2016 18:17:Ann Pickens RN) Other Medical Diseases: No (09/09/2016 18:17:Ann Pickens RN) Med Hx Significant Family Hx: No (09/09/2016 18:17:Ann Pickens RN) Details of Med/Surg Hx: asthma, anxiety with this (09/09/2016 18:17:Tiffany Lopes RN) INFECTIOUS HISTORY Inf Hx Gonorrhea: No (09/09/2016 18:17:Ann Pickens RN) Inf Hx Chlamydia: Yes (09/09/2016 18:17:Ann Pickens RN) Inf Hx Syphilis: No (09/09/2016 18:17:Ann Pickens RN) Inf Hx HIV/AIDS: No (09/09/2016 18:17:Ann Pickens RN) Inf Hx Human Papilloma Virus: No (09/09/2016 18:17:Ann Pickens RN) Inf Hx Pt/Partner Genital Herpes: No (09/09/2016 18:17:Ann Pickens RN) Inf Hx Tuberculosis/Exposure: No (09/09/2016 18:17:Ann Pickens RN) Inf Hx Hepatitis B,C: No (09/09/2016 18:17:Ann Pickens RN) Inf Hx Rash or Viral Illness: No (09/09/2016 18:17:Ann Pickens RN) Details of Infectious Hx: Chlamydia 2010 (09/09/2016 18:17:Ann Pickens RN) GENETIC HISTORY Gen Hx Age >=35 at [facility]: No (09/09/2016 18:17:Ann Pickens RN) Gen Hx Thalassemia: No (09/09/2016 18:17:Ann Pickens RN) Gen Hx Congenital Heart Defect: No (09/09/2016 18:17:Ann Pickens RN) Gen Hx Neural Tube Defect: No (09/09/2016 18:17:Ann Pickens RN) Gen Hx Down's Syndrome: No (09/09/2016 18:17:Ann Pickens RN) Gen Hx Giacomo-Sachs: No (09/09/2016 18:17:Ann Pickens RN) Gen Hx Mónica: No (09/09/2016 18:17:Ann Pickens RN) Gen Hx Familial Dysautonomia: No (09/09/2016 18:17:Ann Pickens RN) Gen Hx Sickle Cell Disease/Trait: No (09/09/2016 18:17:Ann Pickens RN) Gen Hx Hemophilia/Blood Disorder: No (09/09/2016 18:17:Ann Pickens RN) Gen Hx Muscular Dystrophy: No (09/09/2016 18:17:Ann Pickens RN) Gen Hx Cystic Fibrosis: No (09/09/2016 18:17:Ann Pickens RN) Gen Hx Huntingtons Chorea: No (09/09/2016 18:17:Ann Pickens RN) Gen Hx Mental Retardation/Autism: No (09/09/2016 18:17:Ann Pickens RN) Gen Hx Tested for Fragile X: No (09/09/2016 18:17:Ann Pickens RN) Gen Hx Other Inher/Chromosomal: No (09/09/2016 18:17:Ann Pickens RN) Gen Hx Maternal Metabolic DO: No (09/09/2016 18:17:Ann Pickens RN) Gen Hx Pt Father or FOB Defect: No (09/09/2016 18:17:Ann Pickens RN) Gen Hx Other Genetic History: No (09/09/2016 18:17:Ann Pickens RN) Gen Hx Drugs/Meds since LMP: No (09/09/2016 18:17:Ann Pickens RN)
--- NOTE | 2016-12-22 06:04 | L&D General Admission ---
General Admit Datetime Report Generated by CPN: 12/22/2016 06:00 INFORMATION Patient Age: 25 (09/09/2016 18:16:QS system process) EDC: 01/05/2017 00:00 (09/09/2016 18:17:Clara Cheney RN) : 4 (09/09/2016 18:17:TAIWO Ledbetter) Para: 1 (12/15/2016 10:28:Nazia Rhoades RN) Term: 1 (09/09/2016 18:17:TAIWO Ledbetter) : 0 (09/09/2016 18:17:TAIWO Ledbetter) Spontaneous Abortions: 0 (09/09/2016 18:17:TAIWO Ledbetter) Induced Abortions: 2 (09/09/2016 18:17:TAIWO Ledbetter) Livin (09/09/2016 18:17:TAIWO Ledbetter) Cesareans: 0 (09/09/2016 18:17:TAIWO Ledbetter) VBACs: 0 (09/09/2016 18:17:TAIWO Ledbetter) Ectopic: 0 (09/09/2016 18:17:TAIWO Ledbetter) Multiple Births: 0 (09/09/2016 18:17:TAIWO Ledbetter) Baby, Number in Womb: 2 (12/15/2016 10:28:Nazia Rhoades RN) CARE Primary Research Administrator: [facility] (09/09/2016 18:17:Ann Pickens RN) Research Administrator Other: Maternal (09/09/2016 18:17:Ann Pickens RN) Month of 1st Visit: May (09/09/2016 18:17:Ann Pickens RN) Adequate Care: Yes (09/09/2016 18:17:Ann Pickens RN) Height (in): 66 (12/18/2016 10:00:QS system process) ALLERGIES Medication Allergy: No (09/09/2016 18:17:Ann Pickens RN) Medication Allergies: No Known Allergies (12/16/2016) (12/16/2016 07:03:QS system process) Latex Allergy: No Latex Allergies (09/09/2016 18:17:Ann Pickens RN) Food Allergies: NONE (09/09/2016 18:17:Triny Fortune RN) Environmental Allergies: NONE (09/09/2016 18:17:Triny Fortune RN) COMMUNICATION Primary Language: Georgian (09/09/2016 18:17:Ann Pickens RN) Medical Tx Preferred Language: Georgian (09/09/2016 18:17:Ann Pickens RN) Communication Barrier(s): None (09/09/2016 18:17:Triny Fortune RN) DEMOGRAPHICS Address: [address] [place] [address] [address] (09/09/2016 18:16:QS system process) Zipcode: [phone] (09/09/2016 18:16:QS system process) Home (09/09/2016 18:16:QS system process) Work (09/09/2016 18:16:QS system process) SSN: [id number] (09/09/2016 18:16:QS system process) Next of Kin Name: NATHAN VELOZ (09/09/2016 18:16:QS system process) Next of Kin (09/09/2016 18:16:QS system process) Next of Kin Relationship: OR (12/11/2016 15:20:QS system process) Date of : 1990 (09/09/2016 18:16:QS system process) Marital Status: Single (09/09/2016 18:16:QS system process) Sex: Female (09/09/2016 18:16:QS system process) Race: (09/09/2016 18:16:QS system process) Ethnicity: Non- or (09/09/2016 18:16:QS system process) Pentecostalism: Anglican (09/09/2016 18:16:QS system process) DRUG AND ALCOHOL USE Alcohol: No (09/09/2016 18:17:Ann Pickens RN) Cigarettes: Never Smoker. [id number] (09/09/2016 18:17:Ann Pickens RN) Marijuana: No (09/09/2016 18:17:Ann Pickens RN) Cocaine: No (09/09/2016 18:17:Ann Pickens RN) Other Illicit Drugs: No (09/09/2016 18:17:Ann Pickens RN) VACCINE HISTORY Influenza Vaccine: Yes (09/09/2016 18:17:Ann Pickens RN) Influenza Date: 09/14 (09/09/2016 18:17:Ann Pickens RN) Pneumococcal Vaccine: No (09/09/2016 18:17:Triny Fortune RN) Tetanus Vaccine: Yes (09/09/2016 18:17:Blanca Orozco RN) Tdap Vaccine: Yes (09/09/2016 18:17:Blanca Orozco RN) Hepatitis B Vaccine: Yes (09/09/2016 18:17:Blanca Orozco RN) Ring Spinner: [facility] (09/09/2016 18:17:Ann Pickens RN) Feeding Preference: Both (09/09/2016 18:17:Blanca Orozco RN) Benefit of Breast Feed Discussed: Yes (09/09/2016 18:17:Triny Fortune RN) Circumcision: Yes (09/09/2016 18:17:Ann Pickens RN) Classes Attended: No (09/09/2016 18:17:Ann Pickens RN) Tubal Ligation: No (09/09/2016 18:17:Ann Pickens RN) Consent: N/A (09/09/2016 18:17:Triny Fortune RN) Consent Signed: N/A (09/09/2016 18:17:Triny Fortune RN) Pain Management Plans: Epidural (09/09/2016 18:17:Ann Pickens RN) Plans for Labor and Delivery: None (09/09/2016 18:17:Ann Pickens RN) Support Person: Blayne (09/09/2016 18:17:Ann Pickens RN) Support Person Relationship: (09/09/2016 18:17:Ann Pickens RN) Cultural/Spritual Practice: No (09/09/2016 18:17:Ann Pickens RN) Spir/Cult Dietary Needs: No (09/09/2016 18:17:Ann Pickens RN) LIVING SITUATION/DISCHARGE PLAN Living Arrangements: Apartment (09/09/2016 18:17:Ann Pickens RN) Adequate Access to:: Electric; Heat; Refrigeration; Plumbing/Running water; Phone; Transportation (09/09/2016 18:17:Ann Pickens RN) WIC Program: Yes (09/09/2016 18:17:Ann Pickens RN) Discharge University Relations Recruiter Person: Blayne (09/09/2016 18:17:Ann Pickens RN) Person to Help after Discharge: Blayen (09/09/2016 18:17:Ann Pickens RN) Currently Using Commun Resources: Yes (09/09/2016 18:17:Ann Pickens RN) Specify Current Resource Used: WIC (09/09/2016 18:17:Ann Pickens RN) Outside Agency/Bias Binding Cutter: No (09/09/2016 18:17:Ann Pickens RN) Car Seat for Discharge: Yes (09/09/2016 18:17:Ann Pickens RN) Adoption Requested: No (09/09/2016 18:17:Ann Pickens RN) Pt Contact w/infant Post : N/A (09/09/2016 18:17:Ann Pickens RN) LABS Blood Type: B Positive (09/09/2016 18:17:Claudette Cedillo RN) Antibody Screen: Negative (09/09/2016 18:17:Claudette Cedillo RN) Rho(G) this : Not Applicable (09/09/2016 18:17:Claudette Cedillo RN) Hemoglobin: 11.9 L (12/17/2016 08:10:QS system process) Hematocrit: 35.8 L (12/17/2016 08:10:QS system process) MCV: 86 (12/17/2016 08:10:QS system process) Group Beta Strep: Positive (09/09/2016 18:17:Clara Cheney RN) Gonorrhea: Negative (09/09/2016 18:17:Clara Cheney RN) Chlamydia: Negative (09/09/2016 18:17:Clara Cheney RN) RPR/VDRL: Nonreactive (09/09/2016 18:17:Claudette Cedillo RN) HIV Exposure Test: Negative (09/09/2016 18:17:Claudette Cedillo RN) Hepatitis B: Negative (09/09/2016 18:17:Claudette Cedillo RN) Rubella: Immune (09/09/2016 18:17:Claudette Cedillo RN) Varicella: Non Susceptible (09/09/2016 18:17:Claudette Cedillo RN) OB/PREVIOUS HISTORY Previous Procedures: Ultrasound (09/09/2016 18:17:Claudette Cedillo RN) Current Procedures: Ultrasound; NST (09/09/2016 18:17:Triny Fortune RN) History of Previous : No (09/09/2016 18:17:Ann Pickens RN) History of Gestational Diabetes: No (09/09/2016 18:17:Ann Pickens RN) History of PIH: Yes (09/09/2016 18:17:Blanca Orozco RN) History of Incompetent Cervix: No (09/09/2016 18:17:Ann Pickens RN) History of Placenta Previa/Abrup: No (09/09/2016 18:17:Ann Pickens RN) History of Macrosomia: No (09/09/2016 18:17:Ann Pickens RN) History of IUGR: No (09/09/2016 18:17:Ann Pickens RN) History of Hemorrhage: No (09/09/2016 18:17:Ann Pickens RN) History of Loss/Stillborn: No (09/09/2016 18:17:Ann Pickens RN) History of : No (09/09/2016 18:17:Ann Pickens RN) History of D (Rh) Sensitization: No (09/09/2016 18:17:Ann Pickens RN) History Recurrent Loss/Stillborn: No (09/09/2016 18:17:Ann Pickens RN) History Depression/PP Depression: No (09/09/2016 18:17:Ann Pickens RN) History of Uterine Anomaly/MICHELL: No (09/09/2016 18:17:Ann Pickens RN) History of Infertility: No (09/09/2016 18:17:Ann Pickens RN) History of ART Treatment: No (09/09/2016 18:17:Ann Pickens RN) History of MICHELL: No (09/09/2016 18:17:Ann Pickens RN) Comments Obstetrical History: G1 - 02/2010 EAB 5 week G2 - 05/2013 NVD 40 week baby boy - 6 lb 12 oz, preecclampsia G3 - 03/2015 EAB 6 week G4 - current , di/di twin boy _ girl GHTN (09/09/2016 18:17:Tiffany Lopes RN) MEDICAL HISTORY Med Hx Diabetes: No (09/09/2016 18:17:Ann Pickens RN) Med Hx Hypertension: No (09/09/2016 18:17:Ann Pickens RN) Med Hx Heart Disease: No (09/09/2016 18:17:Ann Pickens RN) Med Hx Autoimmune Disorder: No (09/09/2016 18:17:Ann Pickens RN) Med Hx Kidney Disease/UTI: No (09/09/2016 18:17:Ann Pickens RN) Med Hx Neurologic/Epilepsy: No (09/09/2016 18:17:Ann Pickens RN) Med Hx Psychiatric Disorders: No (09/09/2016 18:17:Ann Pickens RN) Med Hx Hepatitis/Liver Disease: No (09/09/2016 18:17:Ann Pickens RN) Med Hx Varicosities/Phlebitis: No (09/09/2016 18:17:Ann Pickens RN) Med Hx Thyroid Dysfunction: No (09/09/2016 18:17:Ann Pickens RN) Med Hx Trauma/Violence: No (09/09/2016 18:17:Ann Pickens RN) Med Hx Blood Transfusion: No (09/09/2016 18:17:Ann Pickens RN) Med Hx Pulmonary (Asthma,TB): Yes (09/09/2016 18:17:Claudette Cedillo RN) Med Hx Breast: No (09/09/2016 18:17:Ann Pickens RN) Med Hx JAILER CHIEF Surgery: No (09/09/2016 18:17:Ann Pickens RN) Med Hx Hospitalization/Surgery: No (09/09/2016 18:17:Ann Pickens RN) Med Hx Anesthetic Complications: No (09/09/2016 18:17:Ann Pickens RN) Med Hx Abnormal Pap Smear: No (09/09/2016 18:17:Ann Pickens RN) Other Medical Diseases: No (09/09/2016 18:17:Ann Pickens RN) Med Hx Significant Family Hx: No (09/09/2016 18:17:Ann Pickens RN) Details of Med/Surg Hx: asthma, anxiety with this (09/09/2016 18:17:Tiffany Lopes RN) INFECTIOUS HISTORY Inf Hx Gonorrhea: No (09/09/2016 18:17:Ann Pickens RN) Inf Hx Chlamydia: Yes (09/09/2016 18:17:Ann Pickens RN) Inf Hx Syphilis: No (09/09/2016 18:17:Ann Pickens RN) Inf Hx HIV/AIDS: No (09/09/2016 18:17:Ann Pickens RN) Inf Hx Human Papilloma Virus: No (09/09/2016 18:17:Ann Pickens RN) Inf Hx Pt/Partner Genital Herpes: No (09/09/2016 18:17:Ann Pickens RN) Inf Hx Tuberculosis/Exposure: No (09/09/2016 18:17:Ann Pickens RN) Inf Hx Hepatitis B,C: No (09/09/2016 18:17:Ann Pickens RN) Inf Hx Rash or Viral Illness: No (09/09/2016 18:17:Ann Pickens RN) Details of Infectious Hx: Chlamydia 2010 (09/09/2016 18:17:Ann Pickens RN) GENETIC HISTORY Gen Hx Age >=35 at LUIS ENRIQUE: No (09/09/2016 18:17:Ann Pickens RN) Gen Hx Thalassemia: No (09/09/2016 18:17:Ann Pickens RN) Gen Hx Congenital Heart Defect: No (09/09/2016 18:17:Ann Pickens RN) Gen Hx Neural Tube Defect: No (09/09/2016 18:17:Ann Pickens RN) Gen Hx Down's Syndrome: No (09/09/2016 18:17:Ann Pickens RN) Gen Hx Giacomo-Sachs: No (09/09/2016 18:17:Ann Pickens RN) Gen Hx Mónica: No (09/09/2016 18:17:Ann Pickens RN) Gen Hx Familial Dysautonomia: No (09/09/2016 18:17:Ann Pickens RN) Gen Hx Sickle Cell Disease/Trait: No (09/09/2016 18:17:Ann Pickens RN) Gen Hx Hemophilia/Blood Disorder: No (09/09/2016 18:17:Ann Pickens RN) Gen Hx Muscular Dystrophy: No (09/09/2016 18:17:Ann Pickens RN) Gen Hx Cystic Fibrosis: No (09/09/2016 18:17:Ann Pickens RN) Gen Hx Huntingtons Chorea: No (09/09/2016 18:17:Ann Pickens RN) Gen Hx Mental Retardation/Autism: No (09/09/2016 18:17:Ann Pickens RN) Gen Hx Tested for Fragile X: No (09/09/2016 18:17:Ann Pickens RN) Gen Hx Other Inher/Chromosomal: No (09/09/2016 18:17:Ann Pickens RN) Gen Hx Maternal Metabolic DO: No (09/09/2016 18:17:Ann Pickens RN) Gen Hx Pt Father or FOB Defect: No (09/09/2016 18:17:Ann Pickens RN) Gen Hx Other Genetic History: No (09/09/2016 18:17:Ann Pickens RN) Gen Hx Drugs/Meds since LMP: No (09/09/2016 18:17:Ann Pickens RN)
--- NOTE | 2016-12-23 06:05 | L&D General Admission ---
General Admit Datetime Report Generated by CPN: 12/23/2016 06:00 INFORMATION Patient Age: 25 (09/09/2016 18:16:QS system process) EDC: 01/05/2017 00:00 (09/09/2016 18:17:Clara Cheney RN) : 4 (09/09/2016 18:17:TAIWO Ledbetter) Para: 1 (12/15/2016 10:28:Nazia Rhoades RN) Term: 1 (09/09/2016 18:17:TAIWO Ledbetter) : 0 (09/09/2016 18:17:TAIWO Ledbetter) Spontaneous Abortions: 0 (09/09/2016 18:17:TAIWO Ledbetter) Induced Abortions: 2 (09/09/2016 18:17:TAIWO Ledbetter) Livin (09/09/2016 18:17:TAIWO Ledbetter) Cesareans: 0 (09/09/2016 18:17:TAIWO Ledbetter) VBACs: 0 (09/09/2016 18:17:TAIWO Ledbetter) Ectopic: 0 (09/09/2016 18:17:TAIWO Ledbetter) Multiple Births: 0 (09/09/2016 18:17:TAIWO Ledbetter) Baby, Number in Womb: 2 (12/15/2016 10:28:Nazia Rhoades RN) CARE Primary It Manager: [facility] (09/09/2016 18:17:Ann Pickens RN) It Manager Other: Maternal (09/09/2016 18:17:Ann Pickens RN) Month of 1st Visit: May (09/09/2016 18:17:Ann Pickens RN) Adequate Care: Yes (09/09/2016 18:17:Ann Pickens RN) Height (in): 66 (12/18/2016 10:00:QS system process) ALLERGIES Medication Allergy: No (09/09/2016 18:17:Ann Pickens RN) Medication Allergies: No Known Allergies (12/16/2016) (12/16/2016 07:03:QS system process) Latex Allergy: No Latex Allergies (09/09/2016 18:17:Ann Pickens RN) Food Allergies: NONE (09/09/2016 18:17:Triny Fortune RN) Environmental Allergies: NONE (09/09/2016 18:17:Triny Fortune RN) COMMUNICATION Primary Language: Kyrgyz (09/09/2016 18:17:Ann Pickens RN) Medical Tx Preferred Language: Kyrgyz (09/09/2016 18:17:Ann Pickens RN) Communication Barrier(s): None (09/09/2016 18:17:Triny Fortune RN) DEMOGRAPHICS Address: [address] [place] [address] [address] (09/09/2016 18:16:QS system process) Zipcode: [phone] (09/09/2016 18:16:QS system process) Home (09/09/2016 18:16:QS system process) Work (09/09/2016 18:16:QS system process) SSN: [id number] (09/09/2016 18:16:QS system process) Next of Kin Name: NATHAN VELOZ (09/09/2016 18:16:QS system process) Next of Kin (09/09/2016 18:16:QS system process) Next of Kin Relationship: OR (12/11/2016 15:20:QS system process) Date of : 1990 (09/09/2016 18:16:QS system process) Marital Status: Single (09/09/2016 18:16:QS system process) Sex: Female (09/09/2016 18:16:QS system process) Race: (09/09/2016 18:16:QS system process) Ethnicity: Non- or (09/09/2016 18:16:QS system process) Yarsani: Faith (09/09/2016 18:16:QS system process) DRUG AND ALCOHOL USE Alcohol: No (09/09/2016 18:17:Ann Pickens RN) Cigarettes: Never Smoker. [id number] (09/09/2016 18:17:Ann Pickens RN) Marijuana: No (09/09/2016 18:17:Ann Pickens RN) Cocaine: No (09/09/2016 18:17:Ann Pickens RN) Other Illicit Drugs: No (09/09/2016 18:17:Ann Pickens RN) VACCINE HISTORY Influenza Vaccine: Yes (09/09/2016 18:17:Ann Pickens RN) Influenza Date: 09/14 (09/09/2016 18:17:Ann Pickens RN) Pneumococcal Vaccine: No (09/09/2016 18:17:Triny Fortune RN) Tetanus Vaccine: Yes (09/09/2016 18:17:Blanca Orozco RN) Tdap Vaccine: Yes (09/09/2016 18:17:Blanca Orozco RN) Hepatitis B Vaccine: Yes (09/09/2016 18:17:Blanca Orozco RN) School Adjustment Counselor: [facility] (09/09/2016 18:17:Ann Pickens RN) Feeding Preference: Both (09/09/2016 18:17:Blanca Orozco RN) Benefit of Breast Feed Discussed: Yes (09/09/2016 18:17:Triny Fortune RN) Circumcision: Yes (09/09/2016 18:17:Ann Pickens RN) Classes Attended: No (09/09/2016 18:17:Ann Pickens RN) Tubal Ligation: No (09/09/2016 18:17:Ann Pickens RN) Consent: N/A (09/09/2016 18:17:Triny Fortune RN) Consent Signed: N/A (09/09/2016 18:17:Triny Fortune RN) Pain Management Plans: Epidural (09/09/2016 18:17:Ann Pickens RN) Plans for Labor and Delivery: None (09/09/2016 18:17:Ann Pickens RN) Support Person: Blayne (09/09/2016 18:17:Ann Pickens RN) Support Person Relationship: (09/09/2016 18:17:Ann Pickens RN) Cultural/Spritual Practice: No (09/09/2016 18:17:Ann Pickens RN) Spir/Cult Dietary Needs: No (09/09/2016 18:17:Ann Pickens RN) LIVING SITUATION/DISCHARGE PLAN Living Arrangements: Apartment (09/09/2016 18:17:Ann Pickens RN) Adequate Access to:: Electric; Heat; Refrigeration; Plumbing/Running water; Phone; Transportation (09/09/2016 18:17:Ann Pickens RN) WIC Program: Yes (09/09/2016 18:17:Ann Pickens RN) Discharge Sports Lawyer Person: Blayne (09/09/2016 18:17:Ann Pickens RN) Person to Help after Discharge: Blayne (09/09/2016 18:17:Ann Pickens RN) Currently Using Commun Resources: Yes (09/09/2016 18:17:Ann Pickens RN) Specify Current Resource Used: WIC (09/09/2016 18:17:Ann Pickens RN) Outside Agency/Honing Job Setter: No (09/09/2016 18:17:Ann Pickens RN) Car Seat for Discharge: Yes (09/09/2016 18:17:Ann Pickens RN) Adoption Requested: No (09/09/2016 18:17:Ann Pickens RN) Pt Contact w/infant Post : N/A (09/09/2016 18:17:Ann Pickens RN) LABS Blood Type: B Positive (09/09/2016 18:17:Claudette Cedillo RN) Antibody Screen: Negative (09/09/2016 18:17:Claudette Cedillo RN) Rho(G) this : Not Applicable (09/09/2016 18:17:Claudette Cedillo RN) Hemoglobin: 11.9 L (12/17/2016 08:10:QS system process) Hematocrit: 35.8 L (12/17/2016 08:10:QS system process) MCV: 86 (12/17/2016 08:10:QS system process) Group Beta Strep: Positive (09/09/2016 18:17:Clara Cheney RN) Gonorrhea: Negative (09/09/2016 18:17:Clara Cheney RN) Chlamydia: Negative (09/09/2016 18:17:Clara Cheney RN) RPR/VDRL: Nonreactive (09/09/2016 18:17:Claudette Cedillo RN) HIV Exposure Test: Negative (09/09/2016 18:17:Claudette Cedillo RN) Hepatitis B: Negative (09/09/2016 18:17:Claudette Cedillo RN) Rubella: Immune (09/09/2016 18:17:Claudette Cedillo RN) Varicella: Non Susceptible (09/09/2016 18:17:Claudette Cedillo RN) OB/PREVIOUS HISTORY Previous Procedures: Ultrasound (09/09/2016 18:17:Claudette Cedillo RN) Current Procedures: Ultrasound; NST (09/09/2016 18:17:Triny Fortune RN) History of Previous : No (09/09/2016 18:17:Ann Pickens RN) History of Gestational Diabetes: No (09/09/2016 18:17:Ann Pickens RN) History of PIH: Yes (09/09/2016 18:17:Blanca Orozco RN) History of Incompetent Cervix: No (09/09/2016 18:17:Ann Pickens RN) History of Placenta Previa/Abrup: No (09/09/2016 18:17:Ann Pickens RN) History of Macrosomia: No (09/09/2016 18:17:Ann Pickens RN) History of IUGR: No (09/09/2016 18:17:Ann Pickens RN) History of Hemorrhage: No (09/09/2016 18:17:Ann Pickens RN) History of Loss/Stillborn: No (09/09/2016 18:17:Ann Pickens RN) History of : No (09/09/2016 18:17:Ann Pickens RN) History of D (Rh) Sensitization: No (09/09/2016 18:17:Ann Pickens RN) History Recurrent Loss/Stillborn: No (09/09/2016 18:17:Ann Pickens RN) History Depression/PP Depression: No (09/09/2016 18:17:Ann Pickens RN) History of Uterine Anomaly/MICHELL: No (09/09/2016 18:17:Ann Pickens RN) History of Infertility: No (09/09/2016 18:17:Ann Pickens RN) History of ART Treatment: No (09/09/2016 18:17:Ann Pickens RN) History of MICHELL: No (09/09/2016 18:17:Ann Pickens RN) Comments Obstetrical History: G1 - 02/2010 EAB 5 week G2 - 05/2013 NVD 40 week baby boy - 6 lb 12 oz, preecclampsia G3 - 03/2015 EAB 6 week G4 - current , di/di twin boy _ girl GHTN (09/09/2016 18:17:Tiffany Lopes RN) MEDICAL HISTORY Med Hx Diabetes: No (09/09/2016 18:17:Ann Pickens RN) Med Hx Hypertension: No (09/09/2016 18:17:Ann Pickens RN) Med Hx Heart Disease: No (09/09/2016 18:17:Ann Pickens RN) Med Hx Autoimmune Disorder: No (09/09/2016 18:17:Ann Pickens RN) Med Hx Kidney Disease/UTI: No (09/09/2016 18:17:Ann Pickens RN) Med Hx Neurologic/Epilepsy: No (09/09/2016 18:17:Ann Pickens RN) Med Hx Psychiatric Disorders: No (09/09/2016 18:17:Ann Pickens RN) Med Hx Hepatitis/Liver Disease: No (09/09/2016 18:17:Ann Pickens RN) Med Hx Varicosities/Phlebitis: No (09/09/2016 18:17:Ann Pickens RN) Med Hx Thyroid Dysfunction: No (09/09/2016 18:17:Ann Pickens RN) Med Hx Trauma/Violence: No (09/09/2016 18:17:Ann Pickens RN) Med Hx Blood Transfusion: No (09/09/2016 18:17:Ann Pickens RN) Med Hx Pulmonary (Asthma,TB): Yes (09/09/2016 18:17:Claudette Cedillo RN) Med Hx Breast: No (09/09/2016 18:17:Ann Pickens RN) Med Hx THERMODYNAMICS PROFESSOR Surgery: No (09/09/2016 18:17:Ann Pickens RN) Med Hx Hospitalization/Surgery: No (09/09/2016 18:17:Ann Pickens RN) Med Hx Anesthetic Complications: No (09/09/2016 18:17:Ann Pickens RN) Med Hx Abnormal Pap Smear: No (09/09/2016 18:17:Ann Pickens RN) Other Medical Diseases: No (09/09/2016 18:17:Ann Pickens RN) Med Hx Significant Family Hx: No (09/09/2016 18:17:Ann Pickens RN) Details of Med/Surg Hx: asthma, anxiety with this (09/09/2016 18:17:Tiffany Lopes RN) INFECTIOUS HISTORY Inf Hx Gonorrhea: No (09/09/2016 18:17:Ann Pickens RN) Inf Hx Chlamydia: Yes (09/09/2016 18:17:Ann Pickens RN) Inf Hx Syphilis: No (09/09/2016 18:17:Ann Pickens RN) Inf Hx HIV/AIDS: No (09/09/2016 18:17:Ann Pickens RN) Inf Hx Human Papilloma Virus: No (09/09/2016 18:17:Ann Pickens RN) Inf Hx Pt/Partner Genital Herpes: No (09/09/2016 18:17:Ann Pickens RN) Inf Hx Tuberculosis/Exposure: No (09/09/2016 18:17:Ann Pickens RN) Inf Hx Hepatitis B,C: No (09/09/2016 18:17:Ann Pickens RN) Inf Hx Rash or Viral Illness: No (09/09/2016 18:17:Ann Pickens RN) Details of Infectious Hx: Chlamydia 2010 (09/09/2016 18:17:Ann Pickens RN) GENETIC HISTORY Gen Hx Age >=35 at LUIS ENRIQUE: No (09/09/2016 18:17:Ann Pickens RN) Gen Hx Thalassemia: No (09/09/2016 18:17:Ann Pickens RN) Gen Hx Congenital Heart Defect: No (09/09/2016 18:17:Ann Pickens RN) Gen Hx Neural Tube Defect: No (09/09/2016 18:17:Ann Pickens RN) Gen Hx Down's Syndrome: No (09/09/2016 18:17:Ann Pickens RN) Gen Hx Giacomo-Sachs: No (09/09/2016 18:17:Ann Pickens RN) Gen Hx Mónica: No (09/09/2016 18:17:Ann Pickens RN) Gen Hx Familial Dysautonomia: No (09/09/2016 18:17:Ann Pickens RN) Gen Hx Sickle Cell Disease/Trait: No (09/09/2016 18:17:Ann Pickens RN) Gen Hx Hemophilia/Blood Disorder: No (09/09/2016 18:17:Ann Pickens RN) Gen Hx Muscular Dystrophy: No (09/09/2016 18:17:Ann Pickens RN) Gen Hx Cystic Fibrosis: No (09/09/2016 18:17:Ann Pickens RN) Gen Hx Huntingtons Chorea: No (09/09/2016 18:17:Ann Pickens RN) Gen Hx Mental Retardation/Autism: No (09/09/2016 18:17:Ann Pickens RN) Gen Hx Tested for Fragile X: No (09/09/2016 18:17:Ann Pickens RN) Gen Hx Other Inher/Chromosomal: No (09/09/2016 18:17:Ann Pickens RN) Gen Hx Maternal Metabolic DO: No (09/09/2016 18:17:Ann Pickens RN) Gen Hx Pt Father or FOB Defect: No (09/09/2016 18:17:Ann Pickens RN) Gen Hx Other Genetic History: No (09/09/2016 18:17:Ann Pickens RN) Gen Hx Drugs/Meds since LMP: No (09/09/2016 18:17:Ann Pickens RN)
--- NOTE | 2016-12-23 18:06 | L&D General Admission ---
General Admit Datetime Report Generated by CPN: 12/23/2016 18:00 INFORMATION Patient Age: 25 (09/09/2016 18:16:QS system process) EDC: 01/05/2017 00:00 (09/09/2016 18:17:Clara Cheney RN) : 4 (09/09/2016 18:17:TAIWO Ledbetter) Para: 1 (12/15/2016 10:28:Nazia Rhoades RN) Term: 1 (09/09/2016 18:17:TAIWO Ledbetter) : 0 (09/09/2016 18:17:TAIWO Ledbetter) Spontaneous Abortions: 0 (09/09/2016 18:17:TAIWO Ledbetter) Induced Abortions: 2 (09/09/2016 18:17:TAIWO Ledbetter) Livin (09/09/2016 18:17:TAIWO Ledbetter) Cesareans: 0 (09/09/2016 18:17:TAIWO Ledbetter) VBACs: 0 (09/09/2016 18:17:TAIWO Ledbetter) Ectopic: 0 (09/09/2016 18:17:TAIWO Ledbetter) Multiple Births: 0 (09/09/2016 18:17:TAIWO Ledbetter) Baby, Number in Womb: 2 (12/15/2016 10:28:Nazia Rhoades RN) CARE [facility] Lasting Machine [facility] (09/09/2016 18:17:Ann Pickens RN) Lasting Machine Operator Bed Other: Maternal (09/09/2016 18:17:Ann Pickens RN) Month of 1st Visit: May (09/09/2016 18:17:Ann Pickens RN) Adequate Care: Yes (09/09/2016 18:17:Ann Pickens RN) Height (in): 66 (12/18/2016 10:00:QS system process) ALLERGIES Medication Allergy: No (09/09/2016 18:17:Ann Pickens RN) Medication Allergies: No Known Allergies (12/16/2016) (12/16/2016 07:03:QS system process) Latex Allergy: No Latex Allergies (09/09/2016 18:17:Ann Pickens RN) Food Allergies: NONE (09/09/2016 18:17:Triny Fortune RN) Environmental Allergies: NONE (09/09/2016 18:17:Triny Fortune RN) COMMUNICATION Primary Language: Lebanese (09/09/2016 18:17:Ann Pickens RN) Medical Tx Preferred Language: Lebanese (09/09/2016 18:17:Ann Pickens RN) Communication Barrier(s): None (09/09/2016 18:17:Triny Fortune RN) DEMOGRAPHICS Address: [address] [place] [address] [address] (09/09/2016 18:16:QS system process) Zipcode: [id number] (09/09/2016 18:16:QS system process) Home (09/09/2016 18:16:QS system process) Work (09/09/2016 18:16:QS system process) SSN: [id number] (09/09/2016 18:16:QS system process) Next of Kin Name: NATHAN VELOZ (09/09/2016 18:16:QS system process) Next of Kin (09/09/2016 18:16:QS system process) Next of Kin Relationship: OR (12/11/2016 15:20:QS system process) Date of : 1990 (09/09/2016 18:16:QS system process) Marital Status: Single (09/09/2016 18:16:QS system process) Sex: Female (09/09/2016 18:16:QS system process) Race: (09/09/2016 18:16:QS system process) Ethnicity: Non- or (09/09/2016 18:16:QS system process) Jewish: Mormonism (09/09/2016 18:16:QS system process) DRUG AND ALCOHOL USE Alcohol: No (09/09/2016 18:17:Ann Pickens RN) Cigarettes: Never Smoker. [id number] (09/09/2016 18:17:Ann Pickens RN) Marijuana: No (09/09/2016 18:17:Ann Pickens RN) Cocaine: No (09/09/2016 18:17:Ann Pickens RN) Other Illicit Drugs: No (09/09/2016 18:17:Ann Pickens RN) VACCINE HISTORY Influenza Vaccine: Yes (09/09/2016 18:17:Ann Pickens RN) Influenza Date: 09/14 (09/09/2016 18:17:Ann Pickens RN) Pneumococcal Vaccine: No (09/09/2016 18:17:Triny Fortune RN) Tetanus Vaccine: Yes (09/09/2016 18:17:Blanca Orozco RN) Tdap Vaccine: Yes (09/09/2016 18:17:Blanca Orozco RN) Hepatitis B Vaccine: Yes (09/09/2016 18:17:Blanca Orozco RN) Vat Packer: [facility] (09/09/2016 18:17:Ann Pickens RN) Feeding Preference: Both (09/09/2016 18:17:Blanca Orozco RN) Benefit of Breast Feed Discussed: Yes (09/09/2016 18:17:Triny Fortune RN) Circumcision: Yes (09/09/2016 18:17:Ann Pickens RN) Classes Attended: No (09/09/2016 18:17:Ann Pickens RN) Tubal Ligation: No (09/09/2016 18:17:Ann Pickens RN) Consent: N/A (09/09/2016 18:17:Triny Fortune RN) Consent Signed: N/A (09/09/2016 18:17:Triny Fortune RN) Pain Management Plans: Epidural (09/09/2016 18:17:Ann Pickens RN) Plans for Labor and Delivery: None (09/09/2016 18:17:Ann Pickens RN) Support Person: Blayne (09/09/2016 18:17:Ann Pickens RN) Support Person Relationship: (09/09/2016 18:17:Ann Pickens RN) Cultural/Spritual Practice: No (09/09/2016 18:17:Ann Pickens RN) Spir/Cult Dietary Needs: No (09/09/2016 18:17:Ann Pickens RN) LIVING SITUATION/DISCHARGE PLAN Living Arrangements: Apartment (09/09/2016 18:17:Ann Pickens RN) Adequate Access to:: Electric; Heat; Refrigeration; Plumbing/Running water; Phone; Transportation (09/09/2016 18:17:Ann Pickens RN) WIC Program: Yes (09/09/2016 18:17:Ann Pickens RN) Discharge As400 Programmer Person: Blayne (09/09/2016 18:17:Ann Pickens RN) Person to Help after Discharge: Blayne (09/09/2016 18:17:Ann Pickens RN) Currently Using Commun Resources: Yes (09/09/2016 18:17:Ann Pickens RN) Specify Current Resource Used: WIC (09/09/2016 18:17:Ann Pickens RN) Outside Agency/Die Sinking Machine Operator: No (09/09/2016 18:17:Ann Pickens RN) Car Seat for Discharge: Yes (09/09/2016 18:17:Ann Pickens RN) Adoption Requested: No (09/09/2016 18:17:Ann Pickens RN) Pt Contact w/infant Post : N/A (09/09/2016 18:17:Ann Pickens RN) LABS Blood Type: B Positive (09/09/2016 18:17:Claudette Cedillo RN) Antibody Screen: Negative (09/09/2016 18:17:Claudette Cedillo RN) Rho(G) this : Not Applicable (09/09/2016 18:17:Claudette Cedillo RN) Hemoglobin: 11.9 L (12/17/2016 08:10:QS system process) Hematocrit: 35.8 L (12/17/2016 08:10:QS system process) MCV: 86 (12/17/2016 08:10:QS system process) Group Beta Strep: Positive (09/09/2016 18:17:Clara Cheney RN) Gonorrhea: Negative (09/09/2016 18:17:Clara Cheney RN) Chlamydia: Negative (09/09/2016 18:17:Clara Cheney RN) RPR/VDRL: Nonreactive (09/09/2016 18:17:Claudette Cedillo RN) HIV Exposure Test: Negative (09/09/2016 18:17:Claudette Cedillo RN) Hepatitis B: Negative (09/09/2016 18:17:Claudette Cedillo RN) Rubella: Immune (09/09/2016 18:17:Claudette Cedillo RN) Varicella: Non Susceptible (09/09/2016 18:17:Claudette Cedillo RN) OB/PREVIOUS HISTORY Previous Procedures: Ultrasound (09/09/2016 18:17:Claudette Cedillo RN) Current Procedures: Ultrasound; NST (09/09/2016 18:17:Triny Fortune RN) History of Previous : No (09/09/2016 18:17:Ann Pickens RN) History of Gestational Diabetes: No (09/09/2016 18:17:Ann Pickens RN) History of PIH: Yes (09/09/2016 18:17:Blanca Orozco RN) History of Incompetent Cervix: No (09/09/2016 18:17:Ann Pickens RN) History of Placenta Previa/Abrup: No (09/09/2016 18:17:Ann Pickens RN) History of Macrosomia: No (09/09/2016 18:17:Ann Pickens RN) History of IUGR: No (09/09/2016 18:17:Ann Pickens RN) History of Hemorrhage: No (09/09/2016 18:17:Ann Pickens RN) History of Loss/Stillborn: No (09/09/2016 18:17:Ann Pickens RN) History of : No (09/09/2016 18:17:Ann Pickens RN) History of D (Rh) Sensitization: No (09/09/2016 18:17:Ann Pickens RN) History Recurrent Loss/Stillborn: No (09/09/2016 18:17:Ann Pickens RN) History Depression/PP Depression: No (09/09/2016 18:17:Ann Pickens RN) History of Uterine Anomaly/MICHELL: No (09/09/2016 18:17:Ann Pickens RN) History of Infertility: No (09/09/2016 18:17:Ann Pickens RN) History of ART Treatment: No (09/09/2016 18:17:Ann Pickens RN) History of MICHELL: No (09/09/2016 18:17:Ann Pickens RN) Comments Obstetrical History: G1 - 02/2010 EAB 5 week G2 - 05/2013 NVD 40 week baby boy - 6 lb 12 oz, preecclampsia G3 - 03/2015 EAB 6 week G4 - current , di/di twin boy _ girl GHTN (09/09/2016 18:17:Tiffany Lopes RN) MEDICAL HISTORY Med Hx Diabetes: No (09/09/2016 18:17:Ann Pickens RN) Med Hx Hypertension: No (09/09/2016 18:17:Ann Pickens RN) Med Hx Heart Disease: No (09/09/2016 18:17:Ann Pickens RN) Med Hx Autoimmune Disorder: No (09/09/2016 18:17:Ann Pickens RN) Med Hx Kidney Disease/UTI: No (09/09/2016 18:17:Ann Pickens RN) Med Hx Neurologic/Epilepsy: No (09/09/2016 18:17:Ann Pickens RN) Med Hx Psychiatric Disorders: No (09/09/2016 18:17:Ann Pickens RN) Med Hx Hepatitis/Liver Disease: No (09/09/2016 18:17:Ann Pickens RN) Med Hx Varicosities/Phlebitis: No (09/09/2016 18:17:Ann Pickens RN) Med Hx Thyroid Dysfunction: No (09/09/2016 18:17:Ann Pickens RN) Med Hx Trauma/Violence: No (09/09/2016 18:17:Ann Pickens RN) Med Hx Blood Transfusion: No (09/09/2016 18:17:Ann Pickens RN) Med Hx Pulmonary (Asthma,TB): Yes (09/09/2016 18:17:Claudette Cedillo RN) Med Hx Breast: No (09/09/2016 18:17:Ann Pickens RN) Med Hx DESIGN PAINTER Surgery: No (09/09/2016 18:17:Ann Pickens RN) Med Hx Hospitalization/Surgery: No (09/09/2016 18:17:Ann Pickens RN) Med Hx Anesthetic Complications: No (09/09/2016 18:17:Ann Pickens RN) Med Hx Abnormal Pap Smear: No (09/09/2016 18:17:Ann Pickens RN) Other Medical Diseases: No (09/09/2016 18:17:Ann Pickens RN) Med Hx Significant Family Hx: No (09/09/2016 18:17:Ann Pickens RN) Details of Med/Surg Hx: asthma, anxiety with this (09/09/2016 18:17:Tiffany Lopes RN) INFECTIOUS HISTORY Inf Hx Gonorrhea: No (09/09/2016 18:17:Ann Pickens RN) Inf Hx Chlamydia: Yes (09/09/2016 18:17:Ann Pickens RN) Inf Hx Syphilis: No (09/09/2016 18:17:Ann Pickens RN) Inf Hx HIV/AIDS: No (09/09/2016 18:17:Ann Pickens RN) Inf Hx Human Papilloma Virus: No (09/09/2016 18:17:Ann Pickens RN) Inf Hx Pt/Partner Genital Herpes: No (09/09/2016 18:17:Ann Pickens RN) Inf Hx Tuberculosis/Exposure: No (09/09/2016 18:17:Ann Pickens RN) Inf Hx Hepatitis B,C: No (09/09/2016 18:17:Ann Pickens RN) Inf Hx Rash or Viral Illness: No (09/09/2016 18:17:Ann Pickens RN) Details of Infectious Hx: Chlamydia 2010 (09/09/2016 18:17:Ann Pickens RN) GENETIC HISTORY Gen Hx Age >=35 at [facility]: No (09/09/2016 18:17:Ann Pickens RN) Gen Hx Thalassemia: No (09/09/2016 18:17:Ann Pickens RN) Gen Hx Congenital Heart Defect: No (09/09/2016 18:17:Ann Pickens RN) Gen Hx Neural Tube Defect: No (09/09/2016 18:17:Ann Pickens RN) Gen Hx Down's Syndrome: No (09/09/2016 18:17:Ann Pickens RN) Gen Hx Giacomo-Sachs: No (09/09/2016 18:17:Ann Pickens RN) Gen Hx Mónica: No (09/09/2016 18:17:Ann Pickens RN) Gen Hx Familial Dysautonomia: No (09/09/2016 18:17:Ann Pickens RN) Gen Hx Sickle Cell Disease/Trait: No (09/09/2016 18:17:Ann Pickens RN) Gen Hx Hemophilia/Blood Disorder: No (09/09/2016 18:17:Ann Pickens RN) Gen Hx Muscular Dystrophy: No (09/09/2016 18:17:Ann Pickens RN) Gen Hx Cystic Fibrosis: No (09/09/2016 18:17:Ann Pickens RN) Gen Hx Huntingtons Chorea: No (09/09/2016 18:17:Ann Pickens RN) Gen Hx Mental Retardation/Autism: No (09/09/2016 18:17:Ann Pickens RN) Gen Hx Tested for Fragile X: No (09/09/2016 18:17:Ann Pickens RN) Gen Hx Other Inher/Chromosomal: No (09/09/2016 18:17:Ann Pickens RN) Gen Hx Maternal Metabolic DO: No (09/09/2016 18:17:Ann Pickens RN) Gen Hx Pt Father or FOB Defect: No (09/09/2016 18:17:Ann Pickens RN) Gen Hx Other Genetic History: No (09/09/2016 18:17:Ann Pickens RN) Gen Hx Drugs/Meds since LMP: No (09/09/2016 18:17:Ann Pickens RN)
--- NOTE | 2016-12-23 18:06 | L&D Current Admission ---
Current Admit Datetime Report Generated by CPN: 12/23/2016 18:00 ADMISSION INFORMATION Current Admit Date/Time: 12/16/2016 07:16 (12/16/2016 07:16:Blanca Orozco RN) Reason for Admission: Induction of Labor (12/16/2016 07:16:Blanca Orozco RN) Chief Complaint: Scheduled Induction of Labor (12/16/2016 07:34:Blanca Orozco RN) Medications During : Folic Acid; Vitamin (12/16/2016 07:16:Blanca Orozco RN) Meds During -Oth: Magnesium, Calcium, DHA, Aspirin (12/16/2016 07:16:Blanca Orozco RN) EGA per Dates: 37.1 (12/16/2016 07:16:QS system process) Method of Arrival: Wheelchair (12/16/2016 07:16:Blanca Orozco RN) Admitted From: Home (12/16/2016 07:16:Blanca Orozco RN) Reason for Induction: Gestational Hypertension; Other (12/16/2016 07:16:Blanca Orozco, RN) Reason for Induction- Other: Twins (12/16/2016 07:16:Blanca Orozco RN) Records Available: Yes (12/16/2016 07:16:Blanca Orozco RN) General Admission Information: Reviewed (12/16/2016 07:16:Blanca Orozco RN) General Admission Reviewed By: Rajeev Orozco RN (12/16/2016 07:16:Blanca Orozco RN) BELONGINGS/ADVANCED DIRECTIVES Valuables/Personal Effects: None (12/16/2016 07:16:Blanca Orozco RN) Other Belongings: see belongings consents (12/16/2016 07:16:Blanca Orozco RN) Disposition of Belongings: Kept with Patient (12/15/2016 08:45:Nazia Rhoades RN) Advance Direct for Healthcare: No, and Wants No Information (12/16/2016 07:16:Blanca Orozco RN) Durable Power of [place] Council Member: No (12/16/2016 07:16:Blanca Orozco RN) Living Will: No (12/16/2016 07:16:Blanca Orozco RN) Organ Donor: No (12/16/2016 07:16:Blanca Orozco RN) Pt Rights Information Given: Yes (12/16/2016 07:16:Blanca Orozco RN) Pt Understands Pt Rights: Yes (12/16/2016 07:16:Blanca Orozco RN) LEARNING ASSESSMENT Knowledge Level: Understands L_D Process; Understands Care Activities; Had Pre-Hospital Education; Understands Diagnosis (12/16/2016 07:16:Blanca Orozco RN) Barriers to Learning: None (12/16/2016 07:16:Blanca Orozco RN) Learning Readiness: Motivated (12/16/2016 07:16:Blanca Orozco RN) Learns Best By: Demonstration (12/16/2016 07:16:Blanca Orozco RN) Learning Needs: Labor and Delivery Process; Pain Management; Symptoms to Report; Treatment Plan; Medication; Diagnosis; Nutrition; Equipment; Infant Care; Community Resources (12/16/2016 07:16:Blanca Orozco RN) DOMESTIC VIOLANCE SCREENING Dom Viol Threatened/Hurt: No (12/16/2016 07:16:lBanca Orozco RN) Hx of Abuse/Neglect past 2yrs: No (12/16/2016 07:16:Blanca Orozco RN) Feel Unsafe Going Home: No (12/16/2016 07:16:Blanca Orozco RN) Addt'l Observ Indicating Abuse: No (12/16/2016 07:16:Blanca Orozco RN) Reason Unable to Complete Screen: N/A, Screen Completed (12/16/2016 07:16:Blanca Orozco RN) Considered Personal Harm/Suicide: No (12/16/2016 07:16:Blanca Orozco RN) NUTRITIONAL/FUNCTIONAL SCREENING Problem with Appetite >5 Days: No (12/16/2016 07:16:Blanca Orozco RN) Chew/Swallow Difficulties: No (12/16/2016 07:16:Blanca Orozco RN) Inappropriate Wt Gain/Loss: No (12/16/2016 07:16:Blanca Orozco RN) Presence Skin Breakdown/Ulcer: No (12/16/2016 07:16:Blanca Orozco RN) Special Diet: No (12/16/2016 07:16:Blanca Orozco RN) Pt Requests Projection Welding Machine Operator Visit: No (12/16/2016 07:16:Blanca Orozco RN) Hx of Any of the Following?: N/A (12/16/2016 07:16:Blanca Orozco RN) New Diagnosis of: N/A (12/16/2016 07:16:Blanca Orozco RN) Requires Assist w/Ambulation: No (12/16/2016 07:16:Blanca Orozco RN) Uses Assist Device to Ambulate: No (12/16/2016 07:16:Blanca Orozco RN) Pt Requires Help w/ADL's: No (12/16/2016 07:16:Blanca Orozco RN)
--- NOTE | 2016-12-24 06:07 | L&D General Admission ---
General Admit Datetime Report Generated by CPN: 12/24/2016 06:00 INFORMATION Patient Age: 25 (09/09/2016 18:16:QS system process) EDC: 01/05/2017 00:00 (09/09/2016 18:17:Clara Cheney RN) : 4 (09/09/2016 18:17:TAIWO Ledbetter) Para: 1 (12/15/2016 10:28:Nazia Rhoades RN) Term: 1 (09/09/2016 18:17:TAIWO Ledbetter) : 0 (09/09/2016 18:17:TAIWO Ledbetter) Spontaneous Abortions: 0 (09/09/2016 18:17:TAIWO Ledbetter) Induced Abortions: 2 (09/09/2016 18:17:TAIWO Ledbetter) Livin (09/09/2016 18:17:TAIWO Ledbetter) Cesareans: 0 (09/09/2016 18:17:TAIWO Ledbetter) VBACs: 0 (09/09/2016 18:17:TAIWO Ledbetter) Ectopic: 0 (09/09/2016 18:17:TAIWO Ledbetter) Multiple Births: 0 (09/09/2016 18:17:TAIWO Ledbetter) Baby, Number in Womb: 2 (12/15/2016 10:28:Nazia Rhoades RN) CARE Primary Telex Operator: [facility] (09/09/2016 18:17:Ann Pickens RN) Telex Operator Other: Maternal (09/09/2016 18:17:Ann Pickens RN) Month of 1st Visit: May (09/09/2016 18:17:Ann Pickens RN) Adequate Care: Yes (09/09/2016 18:17:Ann Pickens RN) Height (in): 66 (12/18/2016 10:00:QS system process) ALLERGIES Medication Allergy: No (09/09/2016 18:17:Ann Pickens RN) Medication Allergies: No Known Allergies (12/16/2016) (12/16/2016 07:03:QS system process) Latex Allergy: No Latex Allergies (09/09/2016 18:17:Ann Pickens RN) Food Allergies: NONE (09/09/2016 18:17:Triny Fortune RN) Environmental Allergies: NONE (09/09/2016 18:17:Triny Fortune RN) COMMUNICATION Primary Language: Ethiopian (09/09/2016 18:17:Ann Pickens RN) Medical Tx Preferred Language: Ethiopian (09/09/2016 18:17:Ann Pickens RN) Communication Barrier(s): None (09/09/2016 18:17:Triny Fortune RN) DEMOGRAPHICS Address: [address] [place] [address] [address] (09/09/2016 18:16:QS system process) Zipcode: [id number] (09/09/2016 18:16:QS system process) Home (09/09/2016 18:16:QS system process) Work (09/09/2016 18:16:QS system process) SSN: [id number] (09/09/2016 18:16:QS system process) Next of Kin Name: NATHAN VELOZ (09/09/2016 18:16:QS system process) Next of Kin (09/09/2016 18:16:QS system process) Next of Kin Relationship: OR (12/11/2016 15:20:QS system process) Date of : 1990 (09/09/2016 18:16:QS system process) Marital Status: Single (09/09/2016 18:16:QS system process) Sex: Female (09/09/2016 18:16:QS system process) Race: (09/09/2016 18:16:QS system process) Ethnicity: Non- or (09/09/2016 18:16:QS system process) Jainism: Judaism (09/09/2016 18:16:QS system process) DRUG AND ALCOHOL USE Alcohol: No (09/09/2016 18:17:Ann Pickens RN) Cigarettes: Never Smoker. [id number] (09/09/2016 18:17:Ann Pickens RN) Marijuana: No (09/09/2016 18:17:nAn Pickens RN) Cocaine: No (09/09/2016 18:17:Ann Pickens RN) Other Illicit Drugs: No (09/09/2016 18:17:Ann Pickens RN) VACCINE HISTORY Influenza Vaccine: Yes (09/09/2016 18:17:Ann Pickens RN) Influenza Date: 09/14 (09/09/2016 18:17:Ann Pickens RN) Pneumococcal Vaccine: No (09/09/2016 18:17:Triny Fortune RN) Tetanus Vaccine: Yes (09/09/2016 18:17:Blanca Orozco RN) Tdap Vaccine: Yes (09/09/2016 18:17:Blanca Orozco RN) Hepatitis B Vaccine: Yes (09/09/2016 18:17:Blanca Orozco RN) Bioinformaticist: [facility] (09/09/2016 18:17:Ann Pickens RN) Feeding Preference: Both (09/09/2016 18:17:Blanca Orozco RN) Benefit of Breast Feed Discussed: Yes (09/09/2016 18:17:Triny Fortune RN) Circumcision: Yes (09/09/2016 18:17:Ann Pickens RN) Classes Attended: No (09/09/2016 18:17:Ann Pickens RN) Tubal Ligation: No (09/09/2016 18:17:Ann Pickens RN) Consent: N/A (09/09/2016 18:17:Triny Fortune RN) Consent Signed: N/A (09/09/2016 18:17:Triny Fortune RN) Pain Management Plans: Epidural (09/09/2016 18:17:Ann Pickens RN) Plans for Labor and Delivery: None (09/09/2016 18:17:Ann Pickens RN) Support Person: Blayne (09/09/2016 18:17:Ann Pickens RN) Support Person Relationship: (09/09/2016 18:17:Ann Pickens RN) Cultural/Spritual Practice: No (09/09/2016 18:17:Ann Pickens RN) Spir/Cult Dietary Needs: No (09/09/2016 18:17:Ann Pickens RN) LIVING SITUATION/DISCHARGE PLAN Living Arrangements: Apartment (09/09/2016 18:17:Ann Pickens RN) Adequate Access to:: Electric; Heat; Refrigeration; Plumbing/Running water; Phone; Transportation (09/09/2016 18:17:Ann Pickens RN) WIC Program: Yes (09/09/2016 18:17:Ann Pickens RN) Discharge Dragger Out Person: Blayne (09/09/2016 18:17:Ann Pickens RN) Person to Help after Discharge: Blayne (09/09/2016 18:17:Ann Pickens RN) Currently Using Commun Resources: Yes (09/09/2016 18:17:Ann Pickens RN) Specify Current Resource Used: WIC (09/09/2016 18:17:Ann Pickens RN) Outside Agency/Display Carver: No (09/09/2016 18:17:Ann Pickens RN) Car Seat for Discharge: Yes (09/09/2016 18:17:Ann Pickens RN) Adoption Requested: No (09/09/2016 18:17:Ann Pickens RN) Pt Contact w/infant Post : N/A (09/09/2016 18:17:Ann Pickens RN) LABS Blood Type: B Positive (09/09/2016 18:17:Claudette Cedillo RN) Antibody Screen: Negative (09/09/2016 18:17:Claudette Cedillo RN) Rho(G) this : Not Applicable (09/09/2016 18:17:Claudette Cedillo RN) Hemoglobin: 11.9 L (12/17/2016 08:10:QS system process) Hematocrit: 35.8 L (12/17/2016 08:10:QS system process) MCV: 86 (12/17/2016 08:10:QS system process) Group Beta Strep: Positive (09/09/2016 18:17:Clara Cheney RN) Gonorrhea: Negative (09/09/2016 18:17:Clara Cheney RN) Chlamydia: Negative (09/09/2016 18:17:Clara Cheney RN) RPR/VDRL: Nonreactive (09/09/2016 18:17:Claudette Cedillo RN) HIV Exposure Test: Negative (09/09/2016 18:17:Claudette Cedillo RN) Hepatitis B: Negative (09/09/2016 18:17:Claudette Cedillo RN) Rubella: Immune (09/09/2016 18:17:Claudette Cedillo RN) Varicella: Non Susceptible (09/09/2016 18:17:Claudette Cedillo RN) OB/PREVIOUS HISTORY Previous Procedures: Ultrasound (09/09/2016 18:17:Claudette Cedillo RN) Current Procedures: Ultrasound; NST (09/09/2016 18:17:Triny Fortune RN) History of Previous : No (09/09/2016 18:17:Ann Pickens RN) History of Gestational Diabetes: No (09/09/2016 18:17:Ann Pickens RN) History of PIH: Yes (09/09/2016 18:17:Blanca Orozco RN) History of Incompetent Cervix: No (09/09/2016 18:17:Ann Pickens RN) History of Placenta Previa/Abrup: No (09/09/2016 18:17:Ann Pickens RN) History of Macrosomia: No (09/09/2016 18:17:Ann Pickens RN) History of IUGR: No (09/09/2016 18:17:Ann Pickens RN) History of Hemorrhage: No (09/09/2016 18:17:Ann Pickens RN) History of Loss/Stillborn: No (09/09/2016 18:17:Ann Pickens RN) History of : No (09/09/2016 18:17:Ann Pickens RN) History of D (Rh) Sensitization: No (09/09/2016 18:17:Ann Pickens RN) History Recurrent Loss/Stillborn: No (09/09/2016 18:17:Ann Pickens RN) History Depression/PP Depression: No (09/09/2016 18:17:Ann Pickens RN) History of Uterine Anomaly/MICHELL: No (09/09/2016 18:17:Ann Pickens RN) History of Infertility: No (09/09/2016 18:17:Ann Pickens RN) History of ART Treatment: No (09/09/2016 18:17:Ann Pickens RN) History of MICHELL: No (09/09/2016 18:17:Ann Pickens RN) Comments Obstetrical History: G1 - 02/2010 EAB 5 week G2 - 05/2013 NVD 40 week baby boy - 6 lb 12 oz, preecclampsia G3 - 03/2015 EAB 6 week G4 - current , di/di twin boy _ girl GHTN (09/09/2016 18:17:Tiffany Lopes RN) MEDICAL HISTORY Med Hx Diabetes: No (09/09/2016 18:17:Ann Pickens RN) Med Hx Hypertension: No (09/09/2016 18:17:Ann Pickens RN) Med Hx Heart Disease: No (09/09/2016 18:17:Ann Pickens RN) Med Hx Autoimmune Disorder: No (09/09/2016 18:17:Ann Pickens RN) Med Hx Kidney Disease/UTI: No (09/09/2016 18:17:Ann Pickens RN) Med Hx Neurologic/Epilepsy: No (09/09/2016 18:17:Ann Pickens RN) Med Hx Psychiatric Disorders: No (09/09/2016 18:17:Ann Pickens RN) Med Hx Hepatitis/Liver Disease: No (09/09/2016 18:17:Ann Pickens RN) Med Hx Varicosities/Phlebitis: No (09/09/2016 18:17:Ann Pickens RN) Med Hx Thyroid Dysfunction: No (09/09/2016 18:17:Ann Pickens RN) Med Hx Trauma/Violence: No (09/09/2016 18:17:Ann Pickens RN) Med Hx Blood Transfusion: No (09/09/2016 18:17:Ann Pickens RN) Med Hx Pulmonary (Asthma,TB): Yes (09/09/2016 18:17:Claudette Cedillo RN) Med Hx Breast: No (09/09/2016 18:17:Ann Pickens RN) Med Hx YOUTH CARE SPECIALIST Surgery: No (09/09/2016 18:17:Ann Pickens RN) Med Hx Hospitalization/Surgery: No (09/09/2016 18:17:Ann Pickens RN) Med Hx Anesthetic Complications: No (09/09/2016 18:17:Ann Pickens RN) Med Hx Abnormal Pap Smear: No (09/09/2016 18:17:Ann Pickens RN) Other Medical Diseases: No (09/09/2016 18:17:Ann Pickens RN) Med Hx Significant Family Hx: No (09/09/2016 18:17:Ann Pickens RN) Details of Med/Surg Hx: asthma, anxiety with this (09/09/2016 18:17:Tiffany Lopes RN) INFECTIOUS HISTORY Inf Hx Gonorrhea: No (09/09/2016 18:17:Ann Pickens RN) Inf Hx Chlamydia: Yes (09/09/2016 18:17:Ann Pickens RN) Inf Hx Syphilis: No (09/09/2016 18:17:Ann Pickens RN) Inf Hx HIV/AIDS: No (09/09/2016 18:17:Ann Pickens RN) Inf Hx Human Papilloma Virus: No (09/09/2016 18:17:Ann iPckens RN) Inf Hx Pt/Partner Genital Herpes: No (09/09/2016 18:17:Ann Pickens RN) Inf Hx Tuberculosis/Exposure: No (09/09/2016 18:17:Ann Pickens RN) Inf Hx Hepatitis B,C: No (09/09/2016 18:17:Ann Pickens RN) Inf Hx Rash or Viral Illness: No (09/09/2016 18:17:Ann Pickens RN) Details of Infectious Hx: Chlamydia 2010 (09/09/2016 18:17:Ann Pickens RN) GENETIC HISTORY Gen Hx Age >=35 at LUIS ENRIQUE: No (09/09/2016 18:17:Ann Pickens RN) Gen Hx Thalassemia: No (09/09/2016 18:17:Ann Pickens RN) Gen Hx Congenital Heart Defect: No (09/09/2016 18:17:Ann Pickens RN) Gen Hx Neural Tube Defect: No (09/09/2016 18:17:Ann Pickens RN) Gen Hx Down's Syndrome: No (09/09/2016 18:17:Ann Pickens RN) Gen Hx Giacomo-Sachs: No (09/09/2016 18:17:Ann Pickens RN) Gen Hx Mónica: No (09/09/2016 18:17:Ann Pickens RN) Gen Hx Familial Dysautonomia: No (09/09/2016 18:17:Ann Pickens RN) Gen Hx Sickle Cell Disease/Trait: No (09/09/2016 18:17:Ann Pickens RN) Gen Hx Hemophilia/Blood Disorder: No (09/09/2016 18:17:Ann Pickens RN) Gen Hx Muscular Dystrophy: No (09/09/2016 18:17:Ann Pickens RN) Gen Hx Cystic Fibrosis: No (09/09/2016 18:17:Ann Pickens RN) Gen Hx Huntingtons Chorea: No (09/09/2016 18:17:Ann Pickens RN) Gen Hx Mental Retardation/Autism: No (09/09/2016 18:17:Ann Pickens RN) Gen Hx Tested for Fragile X: No (09/09/2016 18:17:Ann Pickens RN) Gen Hx Other Inher/Chromosomal: No (09/09/2016 18:17:Ann Pickens RN) Gen Hx Maternal Metabolic DO: No (09/09/2016 18:17:Ann Pickens RN) Gen Hx Pt Father or FOB Defect: No (09/09/2016 18:17:Ann Pickens RN) Gen Hx Other Genetic History: No (09/09/2016 18:17:Ann Pickens RN) Gen Hx Drugs/Meds since LMP: No (09/09/2016 18:17:Ann Pickens RN)
--- NOTE | 2016-12-24 06:07 | L&D Current Admission ---
Current Admit Datetime Report Generated by CPN: 12/24/2016 06:00 ADMISSION INFORMATION Current Admit Date/Time: 12/16/2016 07:16 (12/16/2016 07:16:Blanca Orozco RN) Reason for Admission: Induction of Labor (12/16/2016 07:16:Blanca Orozco RN) Chief Complaint: Scheduled Induction of Labor (12/16/2016 07:34:Blanca Orozco RN) Medications During : Folic Acid; Vitamin (12/16/2016 07:16:Blanca Orozco RN) Meds During -Oth: Magnesium, Calcium, DHA, Aspirin (12/16/2016 07:16:Blanca Orozco RN) EGA per Dates: 37.1 (12/16/2016 07:16:QS system process) Method of Arrival: Wheelchair (12/16/2016 07:16:Blanca Orozco RN) Admitted From: Home (12/16/2016 07:16:Blanca Orozco RN) Reason for Induction: Gestational Hypertension; Other (12/16/2016 07:16:Blanca Orozco, RN) Reason for Induction- Other: Twins (12/16/2016 07:16:Blanca Orozco RN) Records Available: Yes (12/16/2016 07:16:Blanca Orozco RN) General Admission Information: Reviewed (12/16/2016 07:16:Blanca Orozco RN) General Admission Reviewed By: Rajeev Orozco RN (12/16/2016 07:16:Blanca Orozco RN) BELONGINGS/ADVANCED DIRECTIVES Valuables/Personal Effects: None (12/16/2016 07:16:Blanca Orozco RN) Other Belongings: see belongings consents (12/16/2016 07:16:Blanca Orozco RN) Disposition of Belongings: Kept with Patient (12/15/2016 08:45:Nazia Rhoades RN) Advance Direct for Healthcare: No, and Wants No Information (12/16/2016 07:16:Blanca Orozco RN) Durable Power of Booster Assembler: No (12/16/2016 07:16:Blanca Orozco RN) Living Will: No (12/16/2016 07:16:Blanca Orozco RN) Organ Donor: No (12/16/2016 07:16:Blanca Orozco RN) Pt Rights Information Given: Yes (12/16/2016 07:16:Blanca Orozco RN) Pt Understands Pt Rights: Yes (12/16/2016 07:16:Blanca Orozco RN) LEARNING ASSESSMENT Knowledge Level: Understands L_D Process; Understands Care Activities; Had Pre-Hospital Education; Understands Diagnosis (12/16/2016 07:16:Blanca Orozco RN) Barriers to Learning: None (12/16/2016 07:16:Blanca Orozco RN) Learning Readiness: Motivated (12/16/2016 07:16:Blanac Orozco RN) Learns Best By: Demonstration (12/16/2016 07:16:Blanca Orozco RN) Learning Needs: Labor and Delivery Process; Pain Management; Symptoms to Report; Treatment Plan; Medication; Diagnosis; Nutrition; Equipment; Infant Care; Community Resources (12/16/2016 07:16:Blanca Orozco RN) DOMESTIC VIOLANCE SCREENING Dom Viol Threatened/Hurt: No (12/16/2016 07:16:Blanca Orozco RN) Hx of Abuse/Neglect past 2yrs: No (12/16/2016 07:16:Blanca Orozco RN) Feel Unsafe Going Home: No (12/16/2016 07:16:Blanca Orozco RN) Addt'l Observ Indicating Abuse: No (12/16/2016 07:16:Blanca Orozco RN) Reason Unable to Complete Screen: N/A, Screen Completed (12/16/2016 07:16:Blanca Orozco RN) Considered Personal Harm/Suicide: No (12/16/2016 07:16:Blanca Orozco RN) NUTRITIONAL/FUNCTIONAL SCREENING Problem with Appetite >5 Days: No (12/16/2016 07:16:Blanca Orozco RN) Chew/Swallow Difficulties: No (12/16/2016 07:16:Blanca Orozco RN) Inappropriate Wt Gain/Loss: No (12/16/2016 07:16:Blanca Orozco RN) Presence Skin Breakdown/Ulcer: No (12/16/2016 07:16:Blanca Orozco RN) Special Diet: No (12/16/2016 07:16:Blanca Orozco RN) Pt Requests Chemical Equipment Sales Engineer Visit: No (12/16/2016 07:16:Blanca Orozco RN) Hx of Any of the Following?: N/A (12/16/2016 07:16:Blanca Orozco RN) New Diagnosis of: N/A (12/16/2016 07:16:Blanca Orozco RN) Requires Assist w/Ambulation: No (12/16/2016 07:16:Blanca Orozco RN) Uses Assist Device to Ambulate: No (12/16/2016 07:16:Blanca Orozco RN) Pt Requires Help w/ADL's: No (12/16/2016 07:16:Blanca Orozco RN)
== END 2016-12-18 17:48 | disposition home or self-care (01) | DRG 775 ==
LOC: LR 06:53 → 2S 19:33
PROVIDERS: ADMIT Obstetrics & Gynecology; ATTEND Obstetrics & Gynecology
PROC: 10E0XZZ Delivery of Products of Conception, External Approach (ICD-10-PCS; principal; 2016-12-16)
PROC: 4A1HXCZ Monitoring of Products of Conception, Cardiac Rate, External Approach (ICD-10-PCS; 2016-12-16)
PROC: 3E033VJ Introduction of Other Hormone into Peripheral Vein, Percutaneous Approach (ICD-10-PCS; 2016-12-16)
DX: O32.8XX2 Maternal care for other malpresentation of fetus, fetus 2 (principal); O30.043 Twin pregnancy, dichorionic/diamniotic, third trimester; O99.824 Streptococcus B carrier state complicating childbirth; O99.344 Other mental disorders complicating childbirth; O13.4 Gestational [pregnancy-induced] hypertension without significant proteinuria, complicating childbirth; O99.52 Diseases of the respiratory system complicating childbirth; F41.9 Anxiety disorder, unspecified; J45.909 Unspecified asthma, uncomplicated; Z3A.37 37 weeks gestation of pregnancy; Z37.2 Twins, both liveborn
CPT/HCPCS: 36415; 80053; 80307; 81005; 83615; 84550; 85025; 85027; 86592; 86850; 86900; 86901; 88307; 94760; J2540; J2590; J3490

== ENCOUNTER 2016-12-30 18:21 | Emergency (ER) | payer MEDICAID ==
--- NOTE | 2016-12-30 18:56 | ER Document Report ---
ED Medical Screen (RME) - General Stated Complaint: VAGINAL BLEEDING Time seen by provider: 18:53 Mode of Arrival: Ambulatory Information source: Patient TRAVEL OUTSIDE OF THE [place] IN LAST 30 DAYS: No - HPI Patient complains to provider of: VAGINAL BLEEDING Onset: This morning Onset/Duration: Sudden, Intermittent Context: TWIN VAGINAL DELIVERY TWO WEEKS AGO, BLEEDING HAD STOPPED, SUDDEN ONSET OF HEAVY BLEEDING THIS AM WITH CLOTS. Quality of pain: Cramping Severity: Moderate Pain Level: 4 Associated Symptoms: Abdominal pain, Dysuria. denies: Fever Exacerbated by: Denies Relieved by: Denies Similar symptoms previously: No Recently seen / treated by doctor: No - [facility] - Related Data Smoking: Non-smoker Frequency of alcohol use: None Drug Abuse: None Pertinent History: TWINS BORN AT 37 WEEKS, NO COMPLICATIONS FOR THEM OR MOTHER TWO WEEKS AGO. Allergies/Adverse Reactions: No Known Allergies Allergy (Verified 12/16/16 07:03) Past Medical History Pulmonary Medical History: Reports: Hx Asthma Renal/ Medical History: Reports: Hx Ovarian Cysts Past Surgical History: Reports: Hx Tonsillectomy - Immunizations Hx Diphtheria, Pertussis, Tetanus Vaccination: No Physical Exam - Vital signs Vitals: Temp Pulse Resp BP Pulse Ox 98.3 F 98 16 138/86 H 99 12/30/16 18:26 12/30/16 18:26 12/30/16 18:26 12/30/16 18:26 12/30/16 18:26 Course - Vital Signs Vital signs: Temp Pulse Resp BP Pulse Ox 98.3 F 98 16 138/86 H 99 12/30/16 18:26 12/30/16 18:26 12/30/16 18:26 12/30/16 18:26 12/30/16 18:26
[2016-12-30 19:20] LABS: ABSOLUTE BASOPHILS # (AUTO) 0.1 10^3/uL (0.0-0.2); ABSOLUTE LYMPHOCYTES (AUTO) 2.4 10^3/uL (0.5-4.7); ABSOLUTE MONOCYTES (AUTO) 0.4 10^3/uL (0.1-1.4); ABSOLUTE NEUT (AUTO) 2.7 10^3/uL (1.7-8.2); EOSINOPHILS % (AUTO) 0.7 % (0-6); HEMOGLOBIN 14.4 g/dL (12.0-15.5); HGB HCT DIFFERENCE -0.8; LYMPHOCYTES % (AUTO) 42.4 % (13-45); MEAN CORPUSCULAR HEMOGLOBIN 28.1 pg (27.0-33.4); MEAN CORPUSCULAR HGB CONC 32.8 g/dL (32.0-36.0); MEAN CORPUSCULAR VOLUME 86 fl (80-97); MONOCYTES % (AUTO) 6.7 % (3-13); RED BLOOD COUNT 5.12 10^6/uL (3.72-5.28); RED CELL DISTRIBUTION WIDTH 13.1 % (11.5-14.0); SEGMENTED NEUTROPHILS % (AUTO) 49.2 % (42-78); WHITE BLOOD COUNT 5.6 10^3/uL (4.0-10.5)
[2016-12-30 19:31] LABS: ALANINE AMINOTRANSFERASE 26 U/L (9-52); ALBUMIN 4.1 g/dL (3.5-5.0); ALKALINE PHOSPHATASE 116 U/L (38-126); ANION GAP 12 (5-19); ASPARTATE AMINO TRANSFERASE 22 U/L (14-36); BILIRUBIN,TOTAL 0.5 mg/dL (0.2-1.3); BLOOD UREA NITROGEN 10 mg/dL (7-20); CALCIUM 9.4 mg/dL (8.4-10.2); CARBON DIOXIDE 27 mmol/L (22-30); CHLORIDE 103 mmol/L (98-107); GLUCOSE 75 mg/dL (75-110); POTASSIUM 4.5 mmol/L (3.6-5.0); SODIUM 141.6 mmol/L (137-145); TOTAL PROTEIN 7.2 g/dL (6.3-8.2)
--- NOTE | 2016-12-30 20:28 | ER Document Report ---
ED GI/ - General Chief Complaint: Vaginal Bleeding Stated Complaint: VAGINAL BLEEDING Time seen by provider: 20:20 Mode of Arrival: Ambulatory Notes: Patient is a 26-year-old female that comes emergency department for chief complaint of heavy vaginal bleeding that started this morning, patient states she awoke and noticed she was bleeding heavily, she states last night for sleep she had sexual intercourse, patient is 2 weeks status post vaginal delivery of twins at 37 weeks. She denies any complications with the delivery, she states that she had stopped bleeding 2 days ago. Patient also states that she has pain with urination. Patient denies fever or chills, nausea or vomiting. Patient denies any daily medications or any other medical history other than a previous normal delivery. TRAVEL OUTSIDE OF THE [place] IN LAST 30 DAYS: No - Related Data Allergies/Adverse Reactions: No Known Allergies Allergy (Verified 12/30/16 18:53) Past Medical History - General Information source: Patient - Social History Smoking Status: Never Smoker Chew tobacco use (# tins/day): No Frequency of alcohol use: None Drug Abuse: None Lives with: Family Family History: Reviewed & Not Pertinent, Arthritis, CAD, DM, Hyperlipidemia, Hypertension, Malignancy Patient has suicidal ideation: No Patient has homicidal ideation: No Pulmonary Medical History: Reports: Hx Asthma Renal/ Medical History: Reports: Hx Ovarian Cysts. Denies: Hx Peritoneal Dialysis Past Surgical History: Reports: Hx Tonsillectomy - Immunizations Hx Diphtheria, Pertussis, Tetanus Vaccination: No Review of Systems - Review of Systems Constitutional: No symptoms reported EENT: No symptoms reported Cardiovascular: No symptoms reported Respiratory: No symptoms reported Gastrointestinal: See HPI Genitourinary: See HPI Female Genitourinary: See HPI Musculoskeletal: No symptoms reported Skin: No symptoms reported Hematologic/Lymphatic: No symptoms reported Neurological/Psychological: No symptoms reported Physical Exam - Vital signs Vitals: Temp Pulse Resp BP Pulse Ox 98.3 F 98 16 138/86 H 99 12/30/16 18:26 12/30/16 18:26 12/30/16 18:26 12/30/16 18:26 12/30/16 18:26 Interpretation: Normal - General General appearance: Appears well, Alert In distress: None - HEENT Head: Normocephalic, Atraumatic Eyes: Normal Conjunctiva: Normal Extraocular movements intact: Yes Eyelashes: Normal Pupils: PERRL Sinus: Normal Nasal: Normal Mouth/Lips: Normal Mucous membranes: Normal Pharynx: Normal Neck: Normal - Respiratory Respiratory status: No respiratory distress Chest status: Nontender Breath sounds: Normal. No: Decreased air movement, Wheezing Chest palpation: Normal - Cardiovascular Rhythm: Regular. No: Tachycardia Heart sounds: Normal auscultation, S1 appreciated, S2 appreciated Murmur: No - Abdominal Inspection: Normal Distension: No distension Bowel sounds: Normal Tenderness: Tender - Minimal Gen. lower abdominal tenderness, no guarding, no significant tenderness Organomegaly: No organomegaly - Genitourinary Speculum exam: Cervix closed. No: Vaginal discharge Vaginal bleeding: Mild - Very slight vaginal bleeding, no lacerations or open wounds, no other abnormality - Back Back: Normal, Nontender. No: Tender - Extremities General upper extremity: Normal inspection, Nontender, Normal strength, Normal temperature General lower extremity: Normal inspection, Nontender, Normal strength, Normal temperature - Neurological Neuro grossly intact: Yes Cognition: Normal Orientation: AAOx4 [place] Coma Scale Eye Opening: Spontaneous [place] Coma Scale Verbal: Oriented [place] Coma Scale Motor: Obeys Commands [place] Coma Scale Total: 15 Speech: Normal Motor strength normal: LUE, RUE, LLE, RLE Sensory: Normal - Psychological Associated symptoms: Normal affect, Normal mood - Skin Skin Temperature: Warm Skin Moisture: Dry Skin Color: Normal Course - Re-evaluation Re-evalutation: Patient with minimal vaginal bleeding on examination, no evidence of any wounds on examination. No significant tenderness to the abdomen. Urine is unremarkable. Labs are unremarkable. Ultrasound showing areas of flow, questionable retained products. No other abnormalities noted. Discussed with Dr. Zurita per [facility] guidelines. Called and spoke with OBGYN acquisitions logistics analyst Dr. Recinos (part of group that delivered patient's twins ), she recommends outpatient follow-up closely with them in the office and to avoid sexual intercourse. Patient states she has an appointment in 1.5 days. Patient is afebrile, soft abdomen, no concerning bleeding on exam, no anemia, no tachycardia or hypotension. Discussed return precautions with patient. Patient states understanding and agreement. - Vital Signs Vital signs: Temp Pulse Resp BP Pulse Ox 98.1 F 76 16 130/78 H 99 12/30/16 23:23 12/30/16 23:23 12/30/16 23:23 12/30/16 23:23 12/30/16 23:23 - Laboratory Result Diagrams: 12/30/16 19:00 12/30/16 19:00 Laboratory results interpreted by me: 12/30/16 21:01 Urine Ascorbic Acid 40 H Discharge - Discharge Clinical Impression: Lower abdominal pain, Vaginal bleeding Condition: Stable Disposition: HOME, SELF-CARE Additional Instructions: Examination shows no concerning abnormalities, incidentally the ultrasound shows possible retained products of conception. Follow up on with RAIL TRANSIT OPERATOR as planned in the office. Do not have any sexual intercourse until cleared to do so by RAIL TRANSIT OPERATOR. Please return to the emergency department for any concerning or worsening symptoms including fever, severe pain, very heavy bleeding, dizziness, etc. Forms: Elevated Blood Pressure
[2016-12-30 21:13] LABS: APPEARANCE,URINE CLEAR; BILIRUBIN,URINE NEGATIVE (NEGATIVE); GLUCOSE, URINE NEGATIVE (NEGATIVE); KETONES,URINE NEGATIVE (NEGATIVE); LEUKOCYTE ESTERASE,URINE NEGATIVE (NEGATIVE); NITRITE,URINE NEGATIVE (NEGATIVE); PROTEIN,URINE NEGATIVE (NEGATIVE); URINE SPECIFIC GRAVITY 1.013; UROBILINOGEN,URINE NEGATIVE mg/dL (<2.0)
[2016-12-30 23:27] VITALS: BP 130/78
== END 2016-12-30 23:27 | disposition home or self-care (01) ==
LOC: ER 18:21
DX: O72.2 Delayed and secondary postpartum hemorrhage (principal); O90.89 Other complications of the puerperium, not elsewhere classified; R10.30 Lower abdominal pain, unspecified; R30.0 Dysuria; O99.53 Diseases of the respiratory system complicating the puerperium; J45.909 Unspecified asthma, uncomplicated; Z87.42 Personal history of other diseases of the female genital tract
CPT/HCPCS: 36415; 76856; 80053; 81001; 85025; 99284

== ENCOUNTER → 2017-05-12 | Outpatient (CLI) | payer OTHER, MEDICAID ==
--- NOTE | 2017-05-12 15:34 | RADIOLOGY REPORT (SQ) ---
EXAM DESCRIPTION: LUMBAR SPINE COMPLETE COMPLETED DATE/TIME: 05/12/2017 3:16 pm REASON FOR STUDY: ACUTE MIDLINE LOW BACK PAIN WITH LEFT SIDED SCIATICA M54.42 LUMBAGO WITH SCIATICA , LEFT SIDE COMPARISON: None. NUMBER OF VIEWS: Five views including obliques. TECHNIQUE: AP, lateral, oblique, and sacral radiographic images acquired of the lumbar spine. LIMITATIONS: None. FINDINGS: MINERALIZATION: Normal. SEGMENTATION: Normal. No transitional anatomy. ALIGNMENT: Normal. VERTEBRAE: Maintained height. No fracture or worrisome bone lesion. DISCS: Preserved height. No significant osteophytes or end plate irregularity. POSTERIOR ELEMENTS: Pedicles and facets are intact. No pars defect or posterior arch defects. HARDWARE: None in the spine. PARASPINAL SOFT TISSUES: Normal. PELVIS: Intact as visualized. No fractures or worrisome bone lesions. SI joints intact. OTHER: No other significant finding. IMPRESSION: NORMAL 5 VIEW LUMBAR SPINE. TECHNICAL DOCUMENTATION: JOB ID: [id number] [employer]- All Rights Reserved
== END ==
LOC: OD 14:57
PROVIDERS: ATTEND Nurse Practitioner Acute Care
DX: M54.42 Lumbago with sciatica, left side (principal)
CPT/HCPCS: 72110

== ENCOUNTER 2019-08-02 12:28 | Emergency (ER) | payer OTHER, MEDICAID ==
[2019-08-02] MEDS ORDERED: ERYTHROMYCIN 0.5% OPH OINTMENT 3.5 GM TUBE OD ONE (13:27)
--- NOTE | 2019-08-02 13:30 | ER Document Report ---
HPI - HPI Patient complains to provider of: right eye irritation, sore throat Time Seen by Provider: 08/02/19 13:02 Onset: Other Onset/Duration: Persistent Quality of pain: Achy Severity: Severe Pain Level: 4 Context: This 28-year-old female presents emergency department with right eye irritation reports she woke up and she had matting to the eye and had to use a cloth to get it cleaned since Thursday. 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 Reports redness to her eyes does not wear contacts. Also complains of a sore throat and is congestion. Denies fever vomiting diarrhea. Reports it hurts to swallow. Patient is eating a BLT. 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 Denies: Hx Peritoneal Dialysis Past Surgical History: Reports: Hx Tonsillectomy - Immunizations Hx Diphtheria, Pertussis, Tetanus Vaccination: No Vertical Provider Document - CONSTITUTIONAL Agree With Documented VS: Yes Exam Limitations: No Limitations General Appearance: WD/WN, No Apparent Distress - INFECTION CONTROL TRAVEL OUTSIDE OF THE [place] IN LAST 30 DAYS: No - HEENT HEENT: Atraumatic, Conjuctival Injection, Normocephalic, PERRLA, Pharyngeal Erythema. negative: Pharyngeal Exudate, Tympanic Membrane Red, Tympanic Membr ane Bulging - NECK Neck: Normal Inspection, Supple. negative: Lymphadenopathy-Left, Lymphadenopathy-Right - RESPIRATORY Respiratory: Breath Sounds Normal, No Respiratory Distress - CARDIOVASCULAR Cardiovascular: Regular Rate - GI/ABDOMEN Gastrointestinal: Abdomen Soft, Abdomen Non-Tender - MUSCULOSKELETAL/EXTREMETIES Musculoskeletal/Extremeties: TEREZA DURON - NEURO Level of Consciousness: Awake, Alert, Appropriate Motor/Sensory: No Motor Deficit - DERM Integumentary: Warm, Dry Course - Re-evaluation Re-evalutation: 08/02/19 15:19 28-year-old female presents with right eye irritation sore throat. Strep test was negative. Was treated with erythromycin for bacterial conjunctivitis instructed on the importance of good handwashing. Was also instructed to throat culture pending. She verbalized understanding to all instructions. Dictation of this chart was performed using voice recognition software; therefore, there may be some unintended grammatical errors. - Vital Signs Vital signs: Temp Pulse Resp BP Pulse Ox 98.3 F 88 18 139/80 H 100 08/02/19 12:32 08/02/19 12:32 08/02/19 12:32 08/02/19 12:32 08/02/19 12:32 Discharge - Discharge Clinical Impression: Irritation of right eye, Bacterial conjunctivitis of right eye, Sore throat Condition: Stable Disposition: HOME, SELF-CARE Instructions: Antibiotic Therapy ([facility]), Conjunctivitis ([facility]), Sore Throat ([facility]) Additional Instructions: *You have been evaluated for a sore throat, bacterial conjunctivitis *Apply medication as prescribed 1/2 inch ribbon to the bottom lid of your right eye twice a day for five days. *Your strep test was negative. A throat culture is pending. This culture will result within the next 3 days. If you need antibiotics we will contact you and call them in. *Monitor your temperature, take Tylenol as indicated *Warm salt water gargles and throat lozenges for comfort *Change toothbrush after two days of antibiotics *Do not let anyone drink/eat after you *Good hand washing *Follow-up with a primary care provider within one week for recheck *Return to ED for worsening condition change, needs Monitor your blood pressure. Your blood pressure was elevated today. This may be because you were anxious, in pain or because you need medication. It is important to follow up with your primary care provider for full evaluation. Forms: Elevated Blood Pressure Referrals: MARIA ESTHER MARCUS PA-C [Primary Care Provider] - Follow up in 1 week
[2019-08-02 14:14] VITALS: BP 136/70
== END 2019-08-02 14:14 | disposition home or self-care (01) ==
LOC: ER 12:28
DX: H10.89 Other conjunctivitis (principal); J02.9 Acute pharyngitis, unspecified
CPT/HCPCS: 99282; 87070; 87880; J3490

== ENCOUNTER 2019-10-31 16:41 | Emergency (ER) | payer OTHER, MEDICAID ==
--- NOTE | 2019-10-31 17:37 | ER Document Report ---
ED Medical Screen (RME) - General Chief Complaint: Abdominal Pain Stated Complaint: ABDOMINAL PAIN Time Seen by Provider: 10/31/19 17:27 Primary Care Provider: MARIA ESTHER MARCUS PA-C [Primary Care Provider] - Follow up as needed Notes: Patient is a 28-year-old female who presents to the emergency department with a chief complaint of pelvic pain. Patient reports she is having lower abdominal cramping that started 4 days ago. Patient reports her last menstrual cycle was October 22 and that she is sexually active without control. Patient reports she is concerned for sexually transmitted diseases and would like to be prophylactically treated for gonorrhea and chlamydia. Patient reports vaginal discharge that is white in color and some vaginal itching. Patient reports urinary frequency as well. Patient denies fever. Patient reports he is also had some epigastric discomfort in her abdomen. Patient denies nausea, vomiting or diarrhea. Patient denies acid reflux. TRAVEL OUTSIDE OF THE [place] IN LAST 30 DAYS: No - Related Data Allergies/Adverse Reactions: No Known Allergies Allergy (Verified 08/02/19 12:29) Home Medications: Zoloft Past Medical History Pulmonary Medical History: Reports: Hx Asthma Renal/ Medical History: Reports: Hx Ovarian Cysts. Denies: Hx Peritoneal Dialysis Past Surgical History: Reports: Hx Tonsillectomy - Immunizations Hx Diphtheria, Pertussis, Tetanus Vaccination: No Physical Exam - Vital signs Vitals: Temp Pulse Resp BP Pulse Ox 98.4 F 67 16 138/85 H 100 10/31/19 16:53 10/31/19 16:53 10/31/19 16:53 10/31/19 16:53 10/31/19 16:53 - Abdominal Inspection: Normal Distension: No distension Bowel sounds: Normal Tenderness: Nontender Organomegaly: No organomegaly Course - Re-evaluation Re-evalutation: 10/31/19 17:37 I have greeted and performed a rapid initial assessment of this patient. A comprehensive ED assessment and evaluation of the patient, analysis of test results and completion of the medical decision making process will be conducted by additional ED providers. - Vital Signs Vital signs: Temp Pulse Resp BP Pulse Ox 98.4 F 67 16 138/85 H 100 10/31/19 16:53 10/31/19 16:53 10/31/19 16:53 10/31/19 16:53 10/31/19 16:53 Doctor's Discharge - Discharge Referrals: MARIA ESTHER MARCUS PA-C [Primary Care Provider] - Follow up as needed
[2019-10-31 18:24] LABS: ABSOLUTE LYMPHOCYTES (AUTO) 2.4 10^3/uL (0.5-4.7); ABSOLUTE MONOCYTES (AUTO) 0.3 10^3/uL (0.1-1.4); ABSOLUTE NEUT (AUTO) 2.9 10^3/uL (1.7-8.2); BASOPHILS % (AUTO) 0.7 % (0-2); EOSINOPHILS % (AUTO) 0.5 % (0-6); HEMATOCRIT 38.7 % (36.0-47.0); HEMOGLOBIN 12.7 g/dL (12.0-15.5); MEAN CORPUSCULAR HGB CONC 32.8 g/dL (32.0-36.0); MEAN CORPUSCULAR VOLUME 83 fl (80-97); MONOCYTES % (AUTO) 4.8 % (3-13); PLATELET COUNT 292 10^3/uL (150-450); RED BLOOD COUNT 4.69 10^6/uL (3.72-5.28); TOTAL CELLS COUNTED % (AUTO) 100 %; WHITE BLOOD COUNT 5.6 10^3/uL (4.0-10.5)
[2019-10-31 18:29] LABS: APPEARANCE,URINE SLIGHTLY-CLOUDY; BILIRUBIN,URINE NEGATIVE (NEGATIVE); COLOR,URINE YELLOW; GLUCOSE, URINE NEGATIVE (NEGATIVE); KETONES,URINE NEGATIVE (NEGATIVE); LEUKOCYTE ESTERASE,URINE NEGATIVE (NEGATIVE); NITRITE,URINE NEGATIVE (NEGATIVE); PROTEIN,URINE NEGATIVE (NEGATIVE); URINE SPECIFIC GRAVITY 1.019; UROBILINOGEN,URINE NEGATIVE mg/dL (<2.0)
--- NOTE | 2019-10-31 18:32 | ER Document Report ---
ED GI/ - General Chief Complaint: Abdominal Pain Stated Complaint: ABDOMINAL PAIN Time Seen by Provider: 10/31/19 17:27 Primary Care Provider: MARIA ESTHER MARCUS PA-C [Primary Care Provider] - Follow up in 1 week Notes: Patient is a 28-year-old female who presents to the emergency department with a chief complaint of pelvic pain. Patient states that it started 4 days ago. Denies any fever, body aches, chills, or any other symptoms. She is having normal bowel movements. She also has complaints of vaginal itching, irritation, dysuria. Patient has history of ovarian cysts in the past. TRAVEL OUTSIDE OF THE [place] IN LAST 30 DAYS: No - Related Data Allergies/Adverse Reactions: No Known Allergies Allergy (Verified 08/02/19 12:29) Home Medications: Zoloft Past Medical History - Social History Smoking Status: Never Smoker Family History: Reviewed & Not Pertinent, Arthritis, CAD, DM, Hyperlipidemia, Hypertension, Malignancy Patient has suicidal ideation: No Patient has homicidal ideation: No Pulmonary Medical History: Reports: Hx Asthma Renal/ Medical History: Reports: Hx Ovarian Cysts. Denies: Hx Peritoneal Dialysis Past Surgical History: Reports: Hx Tonsillectomy - Immunizations Hx Diphtheria, Pertussis, Tetanus Vaccination: No Review of Systems - Review of Systems Notes: REVIEW OF SYSTEMS: CONSTITUTIONAL : Denies recent illness. Denies recent unintentional weight loss. Denies fever, chills, or sweats. EENT: Denies eye, ear, throat, or mouth pain, discharge, or symptoms. Denies nasal or sinus congestion. CARDIOVASCULAR: Denies chest pain. RESPIRATORY: Denies shortness of breath, cough, congestion, difficulty breathing, or wheezing. GASTROINTESTINAL: See HPI. GENITOURINARY: Denies difficulty urinating, burning, blood in urine, urgency or frequency. FEMALE GENITOURINARY: See HPI. MUSCULOSKELETAL: Denies neck and back pain. Denies joint pain or swelling. SKIN: Denies rash, itchiness, or lesions HEMATOLOGIC : Denies easy bruising or bleeding. LYMPHATIC: Denies swollen, painful, enlarged glands. NEUROLOGICAL: Denies no numbness or tingling denies weakness. Denies headache. Denies altered mental status. Denies alteration in speech. PSYCHIATRIC: Denies stress, anxiety, alteration in sleep patterns, or depression. All other systems reviewed and negative. Physical Exam - Vital signs Vitals: Temp Pulse Resp BP Pulse Ox 98.4 F 67 16 138/85 H 100 10/31/19 16:53 10/31/19 16:53 10/31/19 16:53 10/31/19 16:53 10/31/19 16:53 - Notes Notes: PHYSICAL EXAMINATION: GENERAL: Appears well, healthy, well-nourished, no acute distress. HEAD: Normocephalic, atraumatic. EYES: PERRL, conjunctiva normal, all extraocular movements intact, sclera nonicteric ENT: Moist mucous membranes. NECK: Supple, no noticeable swelling, redness, rash. Normal range of motion. LUNGS: Equal breath sounds bilaterally and clear to auscultation. No wheezes rales or rhonchi. CARDIOVASCULAR: S1-S2, regular rate, regular rhythm. Radial pulses 2+, normal. ABDOMEN: Normoactive bowel sounds. Soft, tender right lower pelvic area, no guarding, no rebound tenderness, and no masses palpated. EXTREMITIES: Normal strength and range of motion, no pitting or edema. No cyanosis. NEUROLOGICAL: Moves all extremities upon command. Strength 5/5 in all extremities. PSYCH: Normal mood, normal affect. SKIN: Warm, dry. No rash, lesions, ulcerations noted. Normal skin turgor. 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 Right adnexal tenderness noted. Course - Re-evaluation Re-evalutation: 10/31/19 19:26 Cervical motion tenderness and right adnexal tenderness noted on patient's pelvic exam. ADRIANO Hong was at bedside for exam. Will await wet mount results. Hematology is unremarkable. Chemistries are unremarkable. Urinalysis is normal with no leukocytosis noted. 10/31/19 19:44 Patient's wet mount has 3+ epithelial and 3+ bacteria. No yeast or trichomonas noted. Patient is opting to be empirically treated for gonorrhea and chlamydia. They will be done here in the emergency department. Transvaginal ultrasound was normal, with normal flow to ovaries. I have a very low suspicion for appendicitis. She will be treated for pelvic inflammatory disease. follow-up precautions were given. Verbal discharge instructions were given to the patient. They verbalized understanding. They are stable for discharge. - Vital Signs Vital signs: Temp Pulse Resp BP Pulse Ox 97.8 F 89 16 144/82 H 100 10/31/19 19:59 10/31/19 19:59 10/31/19 19:59 10/31/19 19:59 10/31/19 19:59 - Laboratory Result Diagrams: 10/31/19 17:56 10/31/19 17:56 Discharge - Discharge Clinical Impression: Pelvic inflammatory disease, Bacterial vaginosis Condition: Stable Disposition: HOME, SELF-CARE Additional Instructions: Your are being treated for pelvic inflammatory disease. You are being started on 2 different antibiotics and you need to take these until you finish them. Please return if you have worsening pain, persistent vomiting, spike a fever greater than 101F, or have any other symptoms that are concerning to you. 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 You were also treated for gonorrhea and chlamydia here in the emergency department. You will be called if your labs are positive. Prescriptions: Doxycycline Hyclate 100 mg PO BID #28 capsule Metronidazole [Flagyl 500 mg Tablet] 500 mg PO Q6H #28 tablet Forms: Return to Work Referrals: MARIA ESTHER MARCUS PA-C [Primary Care Provider] - Follow up in 1 week
[2019-10-31 18:42] LABS: ALBUMIN 4.4 g/dL (3.5-5.0); ALKALINE PHOSPHATASE 70 U/L (38-126); ANION GAP 10 (5-19); ASPARTATE AMINO TRANSFERASE 24 U/L (14-36); BILIRUBIN,DIRECT 0.1 mg/dL (0.0-0.4); BILIRUBIN,TOTAL 0.3 mg/dL (0.2-1.3); BLOOD UREA NITROGEN 10 mg/dL (7-20); CALCIUM 9.8 mg/dL (8.4-10.2); CARBON DIOXIDE 28 mmol/L (22-30); CHLORIDE 100 mmol/L (98-107); GLUCOSE 94 mg/dL (75-110); POTASSIUM 3.9 mmol/L (3.6-5.0); TOTAL PROTEIN 8.1 g/dL (6.3-8.2)
--- NOTE | 2019-10-31 19:09 | RADIOLOGY REPORT (SQ) ---
EXAM DESCRIPTION: U/S NON OB PEL TV W/DOPPLER COMPLETED DATE/TIME: 10/31/2019 6:57 pm REASON FOR STUDY: pelvic pain; vaginal discharge LMP 10/22/2019 COMPARISON: 12/30/2016 TECHNIQUE: Dynamic and static grayscale images acquired of the pelvis via transvaginal approach and recorded on PACS. Additional selected color Doppler and spectral images recorded. LIMITATIONS: None. FINDINGS: UTERUS: Contour normal. No mass. ENDOMETRIAL STRIPE: No focal or generalized thickening. No masses. CERVIX: No nabothian cysts. RIGHT OVARY AND DOPPLER: Normal size. No worrisome masses. Normal arterial vascular flow without evid ence for torsion. LEFT OVARY AND DOPPLER: Normal size. No worrisome masses. Normal arterial vascular flow without evide nce for torsion. FREE FLUID: None noted. OTHER: No other significant finding. MEASUREMENTS: UTERUS: 8.9 x 5.7 x 4.2 cm. ENDOMETRIAL STRIPE: 8 mm. RIGHT OVARY: 1.9 x 2.2 x 3.2 cm. LEFT OVARY: 1.7 x 1.8 x 2.7 cm. IMPRESSION: NORMAL TRANSVAGINAL PELVIC ULTRASOUND. TECHNICAL DOCUMENTATION: JOB ID: [id number] [employer]- All Rights Reserved Rev-04/16 Reading location - IP/workstation name: [email or web address]
[2019-10-31 19:29] LABS: BACTERIA (WET MOUNT) 3+ BACTERIA SEEN; EPITHELIALS (WET MOUNT) 3+ EPITHELIALS SEEN; T.VAGINALIS (WET MOUNT) NO TRICHOMONAS SEEN; WBCS (WET MOUNT) NO WBCS SEEN; YEAST (WET MOUNT) NO YEAST SEEN
[2019-10-31] MEDS ORDERED: AZITHROMYCIN 250 MG TABLET PO ONE (19:45)
[2019-10-31] MEDS ORDERED: LIDOCAINE 1% INJ-PF (10 MG/ML) 30 ML SDV INJ ONE (19:45)
[2019-10-31] MEDS ORDERED: CEFTRIAXONE INJ 250 MG VIAL IM ONE (19:45)
[2019-10-31 20:06] VITALS: BP 144/82
[2019-10-31 21:50] LABS: CHLAM PCR NOT DETECTED (NOT DETECT)
== END 2019-10-31 20:16 | disposition home or self-care (01) ==
LOC: ER 16:41
DX: N73.9 Female pelvic inflammatory disease, unspecified (principal); N76.0 Acute vaginitis; B96.89 Other specified bacterial agents as the cause of diseases classified elsewhere; R10.9 Unspecified abdominal pain; R10.2 Pelvic and perineal pain; J45.909 Unspecified asthma, uncomplicated
CPT/HCPCS: 99284; 96372; 36415; 87210; 83690; 85025; 81025; 80053; 81001; 87491; 87591; 76830; 93976; J3490; J0696

== ENCOUNTER 2019-11-25 16:45 | Emergency (ER) | payer OTHER, MEDICAID ==
[2019-11-25 17:36] VITALS: BP 141/68
[2019-11-25] MEDS ORDERED: GUAIFENESIN 600 MG TABLET.SA PO ONE (17:36)
[2019-11-25] MEDS ORDERED: PSEUDOEPHEDRINE HCL 30 MG TABLET PO ONE (17:36)
[2019-11-25] MEDS ORDERED: IBUPROFEN 600 MG TABLET PO ONE (17:36)
[2019-11-25] MEDS ORDERED: LORATADINE 10 MG TABLET PO ONE (17:36)
--- NOTE | 2019-11-25 17:40 | ER Document Report ---
ED Respiratory Problem - General Chief Complaint: Cough Stated Complaint: COUGH,BODY ACHES Time Seen by Provider: 11/25/19 17:33 Primary Care Provider: MARIA ESTHER MARCUS PA-C [Primary Care Provider] - Follow up as needed Mode of Arrival: Ambulatory Information source: Patient Notes: 29-year-old female presented ED for cough cold congestion hot and cold flashes and fatigue off and on for the last 2 to 3 weeks. Patient is afebrile alert and oriented respirations regular nonlabored speaking full sentences from the acute distress at this time. She is nontoxic in appearance. She will be treated with ibuprofen, Claritin, Sudafed, Mucinex in the emergency room and discharged home with instructions for these medications for cough and cold symptoms. Patient states her last menstrual period was last week. TRAVEL OUTSIDE OF THE [place] IN LAST 30 DAYS: No - HPI Patient complains to provider of: Cough Initiating Event: URI Quality of pain: No pain Severity: None Pain Level: Denies Cough: Nonproductive Sputum amount: None Associated symptoms: Congestion, Cough, PND, Runny nose, Sinus pain/pressure Similar symptoms previously: Yes Recently seen / treated by doctor: No - Related Data Allergies/Adverse Reactions: No Known Allergies Allergy (Verified 08/02/19 12:29) Past Medical History - General Information source: Patient - Social History Smoking Status: Never Smoker Cigarette use (# per day): No Chew tobacco use (# tins/day): No Smoking Education Provided: No Frequency of alcohol use: None Lives with: Family Family History: Reviewed & Not Pertinent, Arthritis, CAD, DM, Hyperlipidemia, Hypertension, Malignancy Patient has suicidal ideation: No Patient has homicidal ideation: No - Past Medical History Cardiac Medical History: Reports: None Pulmonary Medical History: Reports: Hx Asthma EENT Medical History: Reports: None Neurological Medical History: Reports: None Endocrine Medical History: Reports: None Renal/ Medical History: Reports: Hx Ovarian Cysts Malignancy Medical History: Reports: None GI Medical History: Reports: None Musculoskeletal Medical History: Reports None Skin Medical History: Reports None Psychiatric Medical History: Reports: None Traumatic Medical History: Reports: None Infectious Medical History: Reports: None Past Surgical History: Reports: Hx Tonsillectomy - Immunizations Immunizations up to date: Yes Hx Diphtheria, Pertussis, Tetanus Vaccination: Yes Review of Systems - Review of Systems Constitutional: No symptoms reported EENT: No symptoms reported, Nose discharge, Sinus discharge, Throat pain Cardiovascular: No symptoms reported Respiratory: Cough Gastrointestinal: No symptoms reported Genitourinary: No symptoms reported Female Genitourinary: No symptoms reported Musculoskeletal: No symptoms reported Skin: No symptoms reported Hematologic/Lymphatic: No symptoms reported Neurological/Psychological: No symptoms reported -: Yes All other systems reviewed and negative Physical Exam - Vital signs Interpretation: Normal - General General appearance: Appears well, Alert - HEENT Head: Normocephalic, Atraumatic Eyes: Normal Pupils: PERRL Ears: Normal External canal: Normal Tympanic membrane: Normal Sinus: Normal Nasal: Purulent discharge, Swelling Mouth/Lips: Normal Mucous membranes: Normal Pharynx: Post nasal drainage Neck: Normal - Respiratory Respiratory status: No respiratory distress Chest status: Nontender Breath sounds: Normal, Nonproductive cough Chest palpation: Normal - Cardiovascular Rhythm: Regular Heart sounds: Normal auscultation Murmur: No - Abdominal Inspection: Normal Distension: No distension Bowel sounds: Normal Tenderness: Nontender Organomegaly: No organomegaly - Back Back: Normal, Nontender - Extremities General upper extremity: Normal inspection, Nontender, Normal color, Normal ROM, Normal temperature General lower extremity: Normal inspection, Nontender, Normal color, Normal ROM, Normal temperature, Normal weight bearing. No: Hussain's sign - Neurological Neuro grossly intact: Yes Cognition: Normal Orientation: AAOx4 Tiki Coma Scale Eye Opening: Spontaneous Tiki Coma Scale Verbal: Oriented Tiki Coma Scale Motor: Obeys Commands Tiki Coma Scale Total: 15 Speech: Normal Motor strength normal: LUE, RUE, LLE, RLE Sensory: Normal - Psychological Associated symptoms: Normal affect, Normal mood - Skin Skin Temperature: Warm Skin Moisture: Dry Skin Color: Normal Discharge - Discharge Clinical Impression: URI (upper respiratory infection) Qualifiers: URI type: unspecified viral URI Qualified Code(s): J06.9 - Acute upper respiratory infection, unspecified Condition: Stable Disposition: HOME, SELF-CARE Additional Instructions: UPPER RESPIRATORY ILLNESS: You have a viral infection of the respiratory passages -- a "cold." This common infection causes nasal congestion, drainage, and often sore throat and cough. It is highly contagious. The disease usually lasts about 10 to 14 days. There is no "cure" for the viral infection -- it must run its course. If there is a complication, such as bacterial infection in the nose, sinuses, middle ear, or bronchial tubes, antibiotics may be required. The antibiotics won't affect the virus. Drink plenty of fluids. A humidifier may help. An expectorant medication or decongestant may make you more comfortable. Use acetaminophen or ibuprofen for fever or aches. See the doctor if fever persists over two days, if there is any significant worsening of your symptoms, or if you simply fail to improve as expected. You were treated with Claritin 10 mg Sudafed 30 mg and you have been taken Mucinex 600 mg. These are all bvyh-xur-voreago medications for cough cold congestion. You do need to call the go to the pharmacist to get the Sudafed from behind the counter please get a little red pills they are more effective. He could also use Flonase which is [id number] 1 spray each nostril twice a day. He could also use salt soda solution gargles. These will help to remove the drainage from the back your throat. Chloraseptic spray was [id number] that will also help with your sore throat. Salt and soda solution gargle 1 quart of water 1 tablespoon of salt 1 teaspoon of baking soda Mixed 3 ingredients together and boil for 1 minute Placed in a covered quart jar Use 1/2 ounce of cold solution to gargle 3 times a day COUGH-SUPPRESSANT & EXPECTORANT MEDICATION: You are to use a cough medication as needed for relief of symptoms. This medicine is a combination of an expectorant (to make the mucous thinner and more easily "coughed up") and a cough suppressant (to reduce the frequency of coughing). The cough-suppressant medicine is related to narcotics. You may experience mild nausea and sleepiness. Some patients who are very sensitive to narcotics may have stomach pain from this medicine. Taking the medicine with food reduces these side effects. Do not drive or work with machinery until you know how this medicine affects you. The expectorant should have no side effects. Iodine-containing expectorants (such as organidin) should not be taken by persons with active thyroid disease unless approved by your doctor. Call the doctor if you develop shortness of breath, hives, rash, itching, lightheadedness, or severe nausea and vomiting. USE OF ACETAMINOPHEN (Tylenol): Acetaminophen may be taken for pain relief or fever control. It's much safer than aspirin, offering a wider range of "safe" dosages. It is safe during . Some brand names are Tylenol, Panadol, Datril, Anacin 3, Tempra, and Liquiprin. Acetaminophen can be repeated every four hours. The following are maximum recommended dosages: >89 pounds or adults 650 mg to 900 mg Acetaminophen can be repeated every four hours. Maximum dose not to exceed 4000 mg a day. FOLLOW-UP CARE: If you have been referred to a physician for follow-up care, call the physicians office for an appointment as you were instructed or within the next two days. If you experience worsening or a significant change in your symptoms, notify the physician immediately or return to the Emergency Department at any time for re-evaluation. Forms: Elevated Blood Pressure Referrals: MARIA ESTHER MARCUS PA-C [Primary Care Provider] - Follow up in 3-5 days
== END 2019-11-25 17:49 | disposition home or self-care (01) ==
LOC: ER 16:45
DX: J06.9 Acute upper respiratory infection, unspecified (principal); B97.89 Other viral agents as the cause of diseases classified elsewhere; R05 Cough; R53.83 Other fatigue; R09.82 Postnasal drip; R09.89 Other specified symptoms and signs involving the circulatory and respiratory systems; J34.89 Other specified disorders of nose and nasal sinuses; R07.0 Pain in throat; J45.909 Unspecified asthma, uncomplicated
CPT/HCPCS: 99283

== ENCOUNTER 2020-02-20 10:46 | Emergency (ER) | payer OTHER, MEDICAID ==
[2020-02-20 10:56] VITALS: BP 127/79
[2020-02-20] MEDS ORDERED: ONDANSETRON 4 MG TAB.RAPDIS PO ONE (11:01)
--- NOTE | 2020-02-20 11:01 | ER Document Report ---
ED Medical Screen (RME) - General Chief Complaint: Pelvic Pain Stated Complaint: PELVIC PAIN Time Seen by Provider: 02/20/20 10:57 Primary Care Provider: MARIA ESTHER MARCUS PA-C [Primary Care Provider] - Follow up as needed Mode of Arrival: Ambulatory Information source: Patient Notes: Patient presents complaining of lower pelvic pain for the past 4 days has been intermittent. Patient states she will occasionally have sharp pains to the left lower quadrant. Patient states she is had nausea. Patient denies any urinary symptoms, vaginal bleeding or discharge. Patient denies any fever. Patient states that she has noticed blood when wiping after having a bowel movement. I have greeted and performed a rapid initial assessment of this patient. A comprehensive ED assessment and evaluation of the patient, analysis of test results and completion of the medical decision making process will be conducted by additional ED providers. TRAVEL OUTSIDE OF THE [place] IN LAST 30 DAYS: No - Related Data Allergies/Adverse Reactions: No Known Allergies Allergy (Verified 02/20/20 10:55) Past Medical History Pulmonary Medical History: Reports: Hx Asthma Renal/ Medical History: Reports: Hx Ovarian Cysts. Denies: Hx Peritoneal Dialysis Past Surgical History: Reports: Hx Tonsillectomy - Immunizations Immunizations up to date: Yes Hx Diphtheria, Pertussis, Tetanus Vaccination: Yes Physical Exam - Vital signs Vitals: Temp Pulse Resp BP Pulse Ox 98.1 F 82 16 127/79 H 100 02/20/20 10:51 02/20/20 10:51 02/20/20 10:51 02/20/20 10:51 02/20/20 10:51 - Abdominal Inspection: Normal Tenderness: Tender - lower pelvic Course - Vital Signs Vital signs: Temp Pulse Resp BP Pulse Ox 98.1 F 82 16 127/79 H 100 02/20/20 10:51 02/20/20 10:51 02/20/20 10:51 02/20/20 10:51 02/20/20 10:51 Doctor's Discharge - Discharge Referrals: MARIA ESTHER MARCUS PA-C [Primary Care Provider] - Follow up as needed
[2020-02-20 11:23] LABS: ABSOLUTE LYMPHOCYTES (AUTO) 1.1 10^3/uL (0.5-4.7); ABSOLUTE MONOCYTES (AUTO) 0.3 10^3/uL (0.1-1.4); ABSOLUTE NEUT (AUTO) 1.9 10^3/uL (1.7-8.2); BASOPHILS % (AUTO) 0.8 % (0-2); EOSINOPHILS % (AUTO) 0.1 % (0-6); HEMOGLOBIN 12.5 g/dL (12.0-15.5); LYMPHOCYTES % (AUTO) 33.2 % (13-45); MEAN CORPUSCULAR HEMOGLOBIN 27.3 pg (27.0-33.4); MEAN CORPUSCULAR HGB CONC 32.9 g/dL (32.0-36.0); MEAN CORPUSCULAR VOLUME 83 fl (80-97); MONOCYTES % (AUTO) 7.9 % (3-13); PLATELET COUNT 230 10^3/uL (150-450); RED BLOOD COUNT 4.58 10^6/uL (3.72-5.28); RED CELL DISTRIBUTION WIDTH 13.5 % (11.5-14.0); TOTAL CELLS COUNTED % (AUTO) 100 %; WHITE BLOOD COUNT 3.4 10^3/uL (4.0-10.5)
[2020-02-20 11:44] LABS: APPEARANCE,URINE SLIGHTLY-CLOUDY; BILIRUBIN,URINE NEGATIVE (NEGATIVE); COLOR,URINE YELLOW; GLUCOSE, URINE NEGATIVE (NEGATIVE); KETONES,URINE NEGATIVE (NEGATIVE); LEUKOCYTE ESTERASE,URINE NEGATIVE (NEGATIVE); NITRITE,URINE NEGATIVE (NEGATIVE); PROTEIN,URINE NEGATIVE (NEGATIVE); URINE SPECIFIC GRAVITY 1.026; UROBILINOGEN,URINE NEGATIVE mg/dL (<2.0)
[2020-02-20 11:50] LABS: ALBUMIN 4.3 g/dL (3.5-5.0); ALKALINE PHOSPHATASE 64 U/L (38-126); ANION GAP 8 (5-19); ASPARTATE AMINO TRANSFERASE 21 U/L (14-36); BILIRUBIN,TOTAL 0.4 mg/dL (0.2-1.3); BLOOD UREA NITROGEN 9 mg/dL (7-20); CALCIUM 9.1 mg/dL (8.4-10.2); CARBON DIOXIDE 26 mmol/L (22-30); CHLORIDE 104 mmol/L (98-107); GLUCOSE 85 mg/dL (75-110); POTASSIUM 3.9 mmol/L (3.6-5.0); TOTAL PROTEIN 7.8 g/dL (6.3-8.2)
--- NOTE | 2020-02-20 12:25 | RADIOLOGY REPORT (SQ) ---
EXAM DESCRIPTION: U/S NON OB PEL TV W/DOPPLER COMPLETED DATE/TIME: 02/20/2020 12:01 pm REASON FOR STUDY: pelvic pain COMPARISON: None. TECHNIQUE: Dynamic and static grayscale images acquired of the pelvis via transvaginal approach and recorded on PACS. Additional selected color Doppler and spectral images recorded. LIMITATIONS: None. FINDINGS: UTERUS: The uterus measures 8.9 x 5.6 x 4.7 cm. The echotexture of the myometrium is homo geneous ENDOMETRIAL STRIPE: The endometrium measures 11.2 mm in thickness. CERVIX: The cervix measures 3 cm in length. RIGHT OVARY AND DOPPLER: The right ovary measures 4.3 x 3.4 x 2.2 cm and on Doppler there is intact a rterial inflow and venous outflow within the ovarian stroma. There is no adnexal mass. LEFT OVARY AND DOPPLER: The left ovary measures 2.5 x 1.2 x 1.6 cm and on Doppler there is intact art erial inflow and venous outflow within the ovarian stroma. There is a hypoechoic structure within th e left ovary that measures 1.3 x 0.8 x 0.9 cm that could represent a dominant follicle. FREE FLUID: None noted. OTHER: No other finding. IMPRESSION: 1. Normal appearance of the uterus, endometrium and cervix. 2. No evidence of ovarian torsion on Doppler. 3. 1.3 x 0.8 x 0.9 cm hypoechoic structure within the left ovary that could represent a dominant fol licle. TECHNICAL DOCUMENTATION: JOB ID: [id number] 2010 [employer]- All Rights Reserved Rev-04/16 Reading location - IP/workstation name: [email or web address]
--- NOTE | 2020-02-20 13:04 | ER Document Report ---
ED General - General Chief Complaint: Pelvic Pain Stated Complaint: PELVIC PAIN Time Seen by Provider: 02/20/20 10:57 Primary Care Provider: MARIA ESTHER MARCUS PA-C [Primary Care Provider] - Follow up in 3-5 days Mode of Arrival: Ambulatory Information source: Patient Notes: 29-year-old female presents to the emergency department with complaints of pelvic pain occasional left lower quad pain for the past 4 days. Reports history of ovarian cyst and ulcers. She also noted some blood in her stool when she wiped. She reports she did have a last bowel movement was yesterday was soft, formed it was brown. She denies fever vomiting diarrhea. Denies vaginal discharge. Denies pain with void. TRAVEL OUTSIDE OF THE [place] IN LAST 30 DAYS: No - HPI Onset: Other Onset/Duration: Waxing and waning Associated symptoms: None. denies: Diarrhea, Nausea, Vomiting Exacerbated by: Denies Relieved by: Denies Similar symptoms previously: No Recently seen / treated by doctor: No - Related Data Allergies/Adverse Reactions: No Known Allergies Allergy (Verified 02/20/20 10:55) Past Medical History - General Information source: Patient Last Menstrual Period: February 03- - Social History Smoking Status: Never Smoker Cigarette use (# per day): No Frequency of alcohol use: None Drug Abuse: None Occupation: [employer] Lives with: Family Family History: Reviewed & Not Pertinent, Arthritis, CAD, DM, Hyperlipidemia, Hypertension, Malignancy - breast Patient has suicidal ideation: No Patient has homicidal ideation: No Pulmonary Medical History: Reports: Hx Asthma Renal/ Medical History: Reports: Hx Ovarian Cysts. Denies: Hx Peritoneal Dialysis Past Surgical History: Reports: Hx Tonsillectomy - Immunizations Immunizations up to date: Yes Hx Diphtheria, Pertussis, Tetanus Vaccination: Yes Review of Systems - Review of Systems Notes: Review HPI for review of systems., All other systems negative Physical Exam - Vital signs Vitals: Temp Pulse Resp BP Pulse Ox 98.1 F 82 16 127/79 H 100 02/20/20 10:51 02/20/20 10:51 02/20/20 10:51 02/20/20 10:51 02/20/20 10:51 - Notes Notes: PHYSICAL EXAMINATION: GENERAL: Well-appearing and in no acute distress HEAD: Atraumatic, normocephalic. EYES: Pupils equal round and reactive to light, extraocular movements intact, sclera anicteric, conjunctiva are normal. ENT: nares patent, oropharynx clear without exudates. Moist mucous membranes. NECK: Normal range of motion, supple without lymphadenopathy LUNGS: CTAB and equal. No wheezes rales or rhonchi. HEART: Regular rate and rhythm without murmurs ABDOMEN: Soft, no tenderness. No guarding, no rebound EXTREMITIES: Normal range of motion, no pitting edema. No cyanosis. NEUROLOGICAL: Cranial nerves grossly intact. Normal sensory/motor exams. PSYCH: Normal mood, normal affect. SKIN: Warm, Dry, normal turgor, no rashes or lesions noted - Rectal Tenderness: No Stool: Heme negative Hemorrhoids: None Course - Re-evaluation Re-evalutation: 02/20/20 14:05 29-year-old female presents with some lower abdominal pain sometimes left lower quadrant abdominal pain for the past 4 days, and going. She reports she also noted some rectal bleeding. Patient reports she has a history of ovarian cyst and ulcers. She reports she did have colonoscopy done a couple years ago but never went back for the follow-up because she did not have insurance and she could not afford to pay for it. She denies fever vomiting diarrhea. Denies pain with void denies vaginal discharge. Reports last time she was sexually active was December 31 without protection. She reports she has had no symptoms o f an STD and does not think she has one. She declines the pelvic exam at this time. We discussed all results in the ultrasound. Rectal was completed no blood noted. Labs are unremarkable. With no evidence of ovarian torsion. Patient was instructed on all results. She was instructed she will be noted fight should she need treatment for STD. She verbalized understanding. She denies pain at this time. She was discharged home instructed to return for any concerns. She verbalized understanding to all instructions. Transvaginal US 02/20/20 11:00 IMPRESSION: 1. Normal appearance of the uterus, endometrium and cervix. 2. No evidence of ovarian torsion on Doppler. 3. 1.3 x 0.8 x 0.9 cm hypoechoic structure within the left ovary that could represent a dominant follicle. Laboratory 02/20/20 02/20/20 02/20/20 11:12 11:12 11:12 WBC 3.4 L RBC 4.58 Hgb 12.5 Hct 38.0 MCV 83 MCH 27.3 MCHC 32.9 RDW 13.5 Plt Count 230 Lymph % (Auto) 33.2 [place] % (Auto) 7.9 Eos % (Auto) 0.1 Baso % (Auto) 0.8 Absolute Neuts (auto) 1.9 Absolute Lymphs (auto) 1.1 Absolute Monos (auto) 0.3 Absolute Eos (auto) 0.0 Absolute Basos (auto) 0.0 Seg Neutrophils % 58.0 Sodium 137.7 Potassium 3.9 Chloride 104 Carbon Dioxide 26 Anion Gap 8 BUN 9 Creatinine 0.75 Est GFR ( Amer) > 60 Est GFR (MDRD) Non-Af > 60 Glucose 85 Calcium 9.1 Total Bilirubin 0.4 Direct Bilirubin 0.0 Neonat Total Bilirubin Not Reportable Neonat Direct Bilirubin Not Reportable Neonat Indirect Bili Not Reportable AST 21 ALT 12 Alkaline Phosphatase 64 Total Protein 7.8 Albumin 4.3 Serum HCG, Qual NEGATIVE Urine Color Urine Appearance Urine pH Ur Specific [place] Urine Protein Urine Glucose (UA) Urine Ketones Urine Blood Urine Nitrite Urine Bilirubin Urine Urobilinogen Ur Leukocyte Esterase Urine WBC (Auto) Urine RBC (Auto) Urine Bacteria (Auto) Squamous Epi Cells Auto Urine Mucus (Auto) Urine Ascorbic Acid POC Stool Occult Blood 02/20/20 02/20/20 11:12 12:58 WBC RBC Hgb Hct MCV MCH MCHC RDW Plt Count Lymph % (Auto) [place] % (Auto) Eos % (Auto) Baso % (Auto) Absolute Neuts (auto) Absolute Lymphs (auto) Absolute Monos (auto) Absolute Eos (auto) Absolute Basos (auto) Seg Neutrophils % Sodium Potassium Chloride Carbon Dioxide Anion Gap BUN Creatinine Est GFR ( Amer) Est GFR (MDRD) Non-Af Glucose Calcium Total Bilirubin Direct Bilirubin Neonat Total Bilirubin Neonat Direct Bilirubin Neonat Indirect Bili AST ALT Alkaline Phosphatase Total Protein Albumin Serum HCG, Qual Urine Color YELLOW Urine Appearance SLIGHTLY-CLOUDY Urine pH 5.0 Ur Specific [place] 1.026 Urine Protein NEGATIVE Urine Glucose (UA) NEGATIVE Urine Ketones NEGATIVE Urine Blood NEGATIVE Urine Nitrite NEGATIVE Urine Bilirubin NEGATIVE Urine Urobilinogen NEGATIVE Ur Leukocyte Esterase NEGATIVE Urine WBC (Auto) 8 Urine RBC (Auto) 2 Urine Bacteria (Auto) TRACE Squamous Epi Cells Auto 3 Urine Mucus (Auto) MANY Urine Ascorbic Acid NEGATIVE POC Stool Occult Blood NEGATIVE 03/23/20 15:23 Patient is positive for chlamydia. I did attempt to contact patient without success so I left her message. I also sent a prescription for Zithromax to her pharmacy [email or web address] on [address] 02/20/20 15:55 Patient called back. I instructed her on her STD results and prescription to [email or web address]. She verbalized understanding. - Vital Signs Vital signs: Temp Pulse Resp BP Pulse Ox 98.1 F 82 16 127/79 H 100 02/20/20 10:51 02/20/20 10:51 02/20/20 10:51 02/20/20 10:51 02/20/20 10:51 - Laboratory Result Diagrams: 02/20/20 11:12 02/20/20 11:12 Laboratory results interpreted by me: 02/20/20 02/20/20 11:12 11:12 WBC 3.4 L Chlamydia DNA (PCR) DETECTED H Discharge - Discharge Clinical Impression: Lower abdominal pain, Rectal bleed Condition: Stable Disposition: HOME, SELF-CARE Instructions: Abdominal Pain ([facility]), Gastroenterology, Rectal Bleeding, Unclear Cause ([facility]) Additional Instructions: *You have been evaluated for abdominal pain, rectal bleeding *Your STD cultures are still pending. You may be contacted should you need antibiotics. *monitor your stools for worsening bleeding *Follow up with a primary care provider within one week *Follow-up with GI within 1 week *Return to ED for worsening condition, changes, needs *Return to ED if not better in 24 hours Prescriptions: Azithromycin 1,000 mg PO ONCE PRN #2 tablet PRN Reason: Forms: Return to Work Referrals: MARIA ESTHER MARCUS PA-C [Primary Care Provider] - Follow up in 3-5 days
[2020-02-20 14:32] LABS: CHLAM PCR DETECTED (NOT DETECT)
== END 2020-02-20 13:10 | disposition home or self-care (01) ==
LOC: ER 10:46
DX: R10.2 Pelvic and perineal pain (principal); K62.5 Hemorrhage of anus and rectum; R10.30 Lower abdominal pain, unspecified
CPT/HCPCS: 99284; 36415; 84703; 85025; 82270; 80053; 81001; 87491; 87591; 76830; 93976; S0119

== ENCOUNTER → 2020-03-02 | Outpatient (CLI) | payer OTHER, MEDICAID ==
[2020-03-02 15:03] VITALS: BP 121/75
--- NOTE | 2020-03-02 15:03 | ER RDC ASSESSMENT REPORT ---
Intake - In the Last 14 days Have you traveled outside [place]?: No Have you been in close contact with someone CONFIRMED: Yes Worked in Healthcare?: No - Symptoms Subjective Fever([place] feverish): Yes Chills: No Muscule Aches: No Runny Nose: Yes Sore Throat: No Cough (New or worsening chronic cough): Yes Shortness of breath: No Nausea or Vomiting: Yes Headache: No Abdominal Pain: Yes Diarrhea(3 or more loose stools in last 24 hours): No - Do you have any of the following Chronic lung disease: Asthma or emphysema or COPD: Yes Chronic Lung Disease Comment: Asthma Cystic Fibrosis: No Diabetes: No High Blood Pressure: No Cardiovascular Disease: No Chronic Kidney Disease: No Chronic Liver Disease: No Chronic blood disorder like Sickle Cell Disease: No Weak immune system due to disease or medication: No Neurologic condition that limits movement: No Developmental delay - Moderate to Severe: No Recent (within past 2 weeks) or current : No - Objective Temperature: 96.9 F Pulse Rate: 70 Respiratory Rate: 18 Blood Pressure: 121/75 O2 Sat by Pulse Oximetry: 97 Objective: Patient presents for COVID-19 screening. General - General Stated Complaint: Patient reports upper respiratory symptoms for 2 weeks. Mode of Arrival: Ambulatory Information source: Patient - HPI Patient complains to provider of: Upper respiratory symptoms Onset: Last week Severity: Mild Pain Level: 1 Context: Generalized body aches. Similar symptoms previously: No Recently seen / treated by doctor: No Notes: The patient was evaluated during the global COVID-19 pandemic, and that diagnosis was suspected/considered upon their initial presentation. Their evaluation, treatment, and testing was consistent with current guidelines for patients who present with complaints or symptoms that may be related to COVID 19. - Related Data Allergies/Adverse Reactions: No Known Allergies Allergy (Verified 02/20/20 10:55) Past Medical History - General Information source: Patient - Social History Smoking Status: Former Smoker - Patient reports she quit smoking in 2019. 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 Denies: Hx Peritoneal Dialysis Past Surgical History: Reports: Hx Tonsillectomy Physical Exam - General General appearance: Appears well In distress: None Notes: PHYSICAL EXAMINATION: GENERAL: Well-appearing and in no acute distress. HEAD: Atraumatic, normocephalic. EYES: sclera anicteric, conjunctiva are normal. ENT: nares patent. Moist mucous membranes. NECK: Normal range of motion, supple without lymphadenopathy LUNGS: CTAB and equal. No wheezes rales or rhonchi. HEART: Regular rate and rhythm without murmurs EXTREMITIES: Normal range of motion, no pitting edema. No cyanosis. BACK: No midline tenderness or CVA tenderness NEUROLOGICAL: Cranial nerves grossly intact. Normal speech. Normal gait. PSYCH: Normal mood, normal affect. SKIN: Warm, Dry, normal turgor, no obvious rashes or lesions noted Diagnostic Results Laboratory Results: Patient notified of NEGATIVE results on Rapid Flu (A & B) and Rapid Strep. Advised Throat Culture and COVID testing are PENDING, and they will be notified of any POSITIVE results at a later date/time. Patient Education/Counseling Counseling/Education: Patient presents with upper respiratory symptoms worrisome for possible Covid 19. Patient does not have emergency worring symptoms such as difficulty breathing, shortness of breath, chest pain, pressure, confusion or cyanosis. Patient appears suitable for discharge. Patient's vital signs are stable and patient is nontoxic in appearance. Good return precautions have been discussed with patient, patient verbalized understanding and is agreeable with discharge plan of care at this time. Patient provided COVID 19 discharge instructions to include: As a person under investigation for Covid 19, the [place] department of Health and Human Services, division of public health advises you to adhere to the following guidance until your test results are reported to you. If your test result is positive, you will receive additional information from your provider and your local health department at that time. Remain at home until you are cleared by the health provider or public health authorities. Keep a log of visitors to your home, notify any visitors to your home of your isolation status. If you plan to move to a new address or leave the [facility], notify the local [facility] department in your County. Call your doctor or seek care if you have an urgent medical need. Before seeking medical care, call ahead to get instructions from the provider before arriving at the medical office clinic or hospital. Notify them that you are being tested for the virus that causes Covid 19 so that arrangements can be made, as necessary, to prevent transmission to others in the healthcare setting. Next, notify the local health department in your county. If a medical emergency arises and you need to call 911, inform dispatch and the first responders that you are being tested for the virus that causes Covid 19. Next, notify the local health department in your county. Patient provided education on the continued health benefit of smoking cessation. Guidance for worsening S/SX: For worsening symptoms, patient has been advised to contact their Primary Care Provider. RDC Discharge - Discharge Clinical Impression: COVID-19 Screening URI (upper respiratory infection) Qualifiers: URI type: unspecified URI Qualified Code(s): J06.9 - Acute upper respiratory infection, unspecified Condition: Stable Disposition: Home; Selfcare
[2020-03-02 16:20] LABS: A TYPE INFLUENZA AG NEGATIVE (NEGATIVE); B INFLUENZA AG NEGATIVE (NEGATIVE)
== END ==
LOC: RDC 14:19
PROVIDERS: ATTEND Nurse Practitioner Family
DX: Z20.828 Contact with and (suspected) exposure to other viral communicable diseases (principal); J06.9 Acute upper respiratory infection, unspecified; R50.9 Fever, unspecified; R05 Cough; R09.89 Other specified symptoms and signs involving the circulatory and respiratory systems; R11.2 Nausea with vomiting, unspecified; R10.9 Unspecified abdominal pain; J45.909 Unspecified asthma, uncomplicated; Z87.891 Personal history of nicotine dependence
CPT/HCPCS: 87070; 87635; 87804; 87880

== ENCOUNTER 2020-05-04 13:48 | Emergency (ER) | payer OTHER, MEDICAID ==
[2020-05-04 14:11] VITALS: BP 136/76
[2020-05-04 15:33] LABS: APPEARANCE,URINE CLEAR; BILIRUBIN,URINE NEGATIVE (NEGATIVE); COLOR,URINE YELLOW; GLUCOSE, URINE NEGATIVE (NEGATIVE); KETONES,URINE NEGATIVE (NEGATIVE); LEUKOCYTE ESTERASE,URINE NEGATIVE (NEGATIVE); NITRITE,URINE NEGATIVE (NEGATIVE); PROTEIN,URINE NEGATIVE (NEGATIVE); URINE SPECIFIC GRAVITY 1.027
[2020-05-04 15:47] LABS: ABSOLUTE LYMPHOCYTES (AUTO) 1.6 10^3/uL (0.5-4.7); ABSOLUTE MONOCYTES (AUTO) 0.2 10^3/uL (0.1-1.4); ABSOLUTE NEUT (AUTO) 2.5 10^3/uL (1.7-8.2); BASOPHILS % (AUTO) 0.6 % (0-2); EOSINOPHILS % (AUTO) 0.3 % (0-6); HEMATOCRIT 42.4 % (36.0-47.0); LYMPHOCYTES % (AUTO) 36.6 % (13-45); MEAN CORPUSCULAR HEMOGLOBIN 27.3 pg (27.0-33.4); MEAN CORPUSCULAR HGB CONC 33.1 g/dL (32.0-36.0); MEAN CORPUSCULAR VOLUME 83 fl (80-97); MONOCYTES % (AUTO) 5.5 % (3-13); PLATELET COUNT 260 10^3/uL (150-450); RED BLOOD COUNT 5.13 10^6/uL (3.72-5.28); RED CELL DISTRIBUTION WIDTH 13.1 % (11.5-14.0); TOTAL CELLS COUNTED % (AUTO) 100 %; WHITE BLOOD COUNT 4.4 10^3/uL (4.0-10.5)
--- NOTE | 2020-05-04 15:52 | ER Document Report ---
ED GI/ - General Chief Complaint: Abdominal Pain Stated Complaint: ABDOMINAL PAIN Time Seen by Provider: 05/04/20 15:31 Primary Care Provider: MARIA ESTHER MARCUS PA-C [Primary Care Provider] - Follow up as needed Notes: CHIEF COMPLAINT: Pelvic cramping, positive test HPI: 29-year-old female presenting to the emergency department complaining of pelvic cramping over the last week positive test approximately 2 to 3 weeks ago. Patient believes she is approximately a month but is on control. Patient also took a Plan B last week. She has had intermittent pelvic cramping, no vaginal bleeding. Did not follow with [facility] instead preferring to come to the emergency department for evaluation ROS: See HPI - all other systems were reviewed and are otherwise negative Constitutional: no fever or recent illness Eyes: no drainage, no blurred vision ENT: no runny nose, no sore throat Cardiovascular: no chest pain Resp: no SOB, no cough GI: no vomiting, no diarrhea, positive pelvic cramping : no dysuria, no vaginal discharge Integumentary: no rash Allergy: no hives Musculoskeletal: no extremity pain or swelling Neurological: no numbness/tingling, no weakness MEDICATIONS: I agree with the patient medications as charted by the RN. ALLERGIES: I agree with the allergies as charted by the RN. PAST MEDICAL HISTORY/PAST SURGICAL HISTORY: Reviewed and agree as charted by RN. SOCIAL HISTORY: Reviewed and agree as charted by RN. FAMILY HISTORY: No significant familial comorbid conditions directly related to patient complaint EXAM: Reviewed vital signs as charted by RN. CONSTITUTIONAL: Alert and oriented and responds appropriately to questions. Well-appearing; well-nourished HEAD: Normocephalic; atraumatic EYES: PERRL; Conjunctivae clear, sclerae non-icteric ENT: normal nose; no rhinorrhea; moist mucous membranes; pharynx without lesions noted NECK: Supple without meningismus; non-tender; no cervical lymphadenopathy, no masses CARD: RRR; no murmurs, no clicks, no rubs, no gallops; symmetric distal pulses RESP: Normal chest excursion without splinting or tachypnea; breath sounds clear and equal bilaterally; no wheezes, no rhonchi, no rales, ABD/GI: Normal bowel sounds; non-distended; soft, non-tender, no rebound, no guarding; no palpable organomegaly or masses : 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 External genitalia normal. No skin lesions noted. Pelvic Exam: No active bleeding. No purulent discharge. Cervix appears normal. No CMT. No lesions or masses. Uterus enlarged consistent with 3-4 week gestation and non tender. Right/Left adnexa normal size and non tender. BACK: The back appears normal and is non-tender to palpation, there is no CVA tenderness EXT: Normal ROM in all joints; non-tender to palpation; no cyanosis, no effusions, no edema SKIN: Normal color for age and race; warm; dry; good turgor; no acute lesions noted NEURO: Moves all extremities equally; Motor and sensory function intact PSYCH: The patient's mood and manner are appropriate. Grooming and personal hygiene are appropriate. MDM: 29-year-old female with positive test presenting for pelvic cramping. Will obtain ultrasound to evaluate for ectopic. No vaginal bleeding TRAVEL OUTSIDE OF THE [place] IN LAST 30 DAYS: No - Related Data Allergies/Adverse Reactions: No Known Allergies Allergy (Verified 02/20/20 10:55) Past Medical History - Social History Smoking Status: Never Smoker Chew tobacco use (# tins/day): No Frequency of alcohol use: None Drug Abuse: None Family History: Reviewed & Not Pertinent, Arthritis, CAD, DM, Hyperlipidemia, Hypertension, Malignancy - breast Patient has homicidal ideation: No Pulmonary Medical History: Reports: Hx Asthma Renal/ Medical History: Reports: Hx Ovarian Cysts. Denies: Hx Peritoneal Dialysis Past Surgical History: Reports: Hx Tonsillectomy - Immunizations Immunizations up to date: Yes Hx Diphtheria, Pertussis, Tetanus Vaccination: Yes Physical Exam - Vital signs Vitals: Temp Pulse Resp BP Pulse Ox 98.6 F 82 16 136/76 H 100 05/04/20 14:00 05/04/20 14:00 05/04/20 14:00 05/04/20 14:00 05/04/20 14:00 Course - Re-evaluation Re-evalutation: 05/04/20 17:58 Patient ultrasound does not show intrauterine her beta-hCG was only 330. Does not completely rule out an ectopic she does have vaginitis. Spoke with the patient about this, she will need close follow-up with [facility] for repeat beta hCG in 3 to 4 days, return for worsening abdominal pain - Vital Signs Vital signs: Temp Pulse Resp BP Pulse Ox 98.6 F 82 16 136/76 H 100 05/04/20 15:05 05/04/20 14:00 05/04/20 14:00 05/04/20 14:00 05/04/20 14:00 - Laboratory Result Diagrams: 05/04/20 15:09 05/04/20 15:09 Laboratory results interpreted by me: 05/04/20 05/04/20 15:09 15:09 ALT 49 H Beta HCG, Quant 330.55 H Urine Urobilinogen 2.0 H Urine HCG, Qual POSITIVE H Discharge - Discharge Clinical Impression: Pelvic pain during , Bacterial vaginitis Condition: Stable Disposition: HOME, SELF-CARE Additional Instructions: It was noted during her exam today that you do have bacterial vaginitis which can cause pelvic cramping, do take the Flagyl to treat this. You are very early along in your , your ultrasound did not show an intrauterine , this does not rule out an ectopic or tubal . You will need close follow-up with [facility] for repeat beta hCG testing in the next 3 to 4 days. If you have significantly worsened pain please return to the emergency department for reevaluation Prescriptions: Metronidazole [Flagyl 500 mg Tablet] 500 mg PO BID #14 tablet Referrals: MARIA ESTHER MARCUS PA-C [Primary Care Provider] - Follow up as needed ANDERSON ANNE MD [ACTIVE PROVISIONAL STAFF] - Follow up as needed
[2020-05-04 15:56] LABS: ALBUMIN 4.4 g/dL (3.5-5.0); ALKALINE PHOSPHATASE 66 U/L (38-126); ANION GAP 6 (5-19); ASPARTATE AMINO TRANSFERASE 28 U/L (14-36); BILIRUBIN,TOTAL 0.3 mg/dL (0.2-1.3); BLOOD UREA NITROGEN 9 mg/dL (7-20); CALCIUM 9.2 mg/dL (8.4-10.2); CARBON DIOXIDE 27 mmol/L (22-30); CHLORIDE 104 mmol/L (98-107); GLUCOSE 89 mg/dL (75-110); POTASSIUM 4.2 mmol/L (3.6-5.0); TOTAL PROTEIN 8.2 g/dL (6.3-8.2)
[2020-05-04 16:32] LABS: BACTERIA (WET MOUNT) 4+ BACTERIA SEEN; EPITHELIALS (WET MOUNT) 3+ EPITHELIALS SEEN; RBCS (WET MOUNT) FEW RBCS SEEN; T.VAGINALIS (WET MOUNT) NO TRICHOMONAS SEEN; WBCS (WET MOUNT) 4+ WBCS SEEN; YEAST (WET MOUNT) NO YEAST SEEN
--- NOTE | 2020-05-04 17:44 | RADIOLOGY REPORT (SQ) ---
EXAM DESCRIPTION: U/S OB TRANSVAG W/DOPPLER IMAGES COMPLETED DATE/TIME: 05/04/2020 5:22 pm REASON FOR STUDY: pelvic pain COMPARISON: None. TECHNIQUE: Transvaginal static and realtime grayscale images acquired of the pelvis. Additional donna cted spectral and color Doppler images recorded. All images stored on PACs. C.55 CLINICAL DATES: LUIS ENRIQUE: 01/08/2021 EGA: 4 weeks 3 days LIMITATIONS: None. FINDINGS: FETUS: No Living intrauterine . GESTATIONAL SAC: Not visualized. CRL: Not visualized. UTERUS: The uterus measures 8.4 x 4.8 x 4.8 cm. No masses. No anomalies. CERVICAL LENGTH: 3.0 cm. Closed. RIGHT ADNEXA: The right ovary measures 2.8 x 2.3 x 2.7 cm. Normal ovary with normal vascular flow. No adnexal free fluid. No adnexal masses. LEFT ADNEXA: Not visualized due to overlying bowel gas. FREE FLUID: None. OTHER: The endometrial stripe measures 2.2 cm. IMPRESSION: 1. No LIVING INTRAUTERINE . Clinical correlation, correlation with lab values and follow-up examination suggested. 2. The left ovary is not visualized due to overlying bowel gas. TECHNICAL DOCUMENTATION: JOB ID: [id number] 2010 [email or web address]- All Rights Reserved Reading location - IP/workstation name: [email or web address]
[2020-05-04 17:56] LABS: CHLAM PCR NOT DETECTED (NOT DETECT)
[2020-05-04] MEDS ORDERED: METRONIDAZOLE 500 MG TABLET PO ONE (17:58)
== END 2020-05-04 18:20 | disposition home or self-care (01) ==
LOC: ER 13:48
DX: O23.599 Infection of other part of genital tract in pregnancy, unspecified trimester (principal); B96.89 Other specified bacterial agents as the cause of diseases classified elsewhere; O26.899 Other specified pregnancy related conditions, unspecified trimester; R10.2 Pelvic and perineal pain; O99.519 Diseases of the respiratory system complicating pregnancy, unspecified trimester; J45.909 Unspecified asthma, uncomplicated; Z3A.00 Weeks of gestation of pregnancy not specified; Z79.3 Long term (current) use of hormonal contraceptives
CPT/HCPCS: 36415; 76817; 80053; 81001; 81025; 84702; 85025; 86900; 86901; 87210; 87491; 87591; 93976; 99284

== ENCOUNTER 2020-06-24 11:32 | Emergency (ER) | payer OTHER, MEDICAID ==
[2020-06-24 11:40] VITALS: BP 135/79
== END 2020-06-24 13:15 | disposition left against medical advice (07) ==
LOC: ER 11:32
DX: Z53.21 Procedure and treatment not carried out due to patient leaving prior to being seen by health care provider (principal)

== ENCOUNTER 2020-11-05 14:48 | Outpatient (CLI) | payer OTHER, MEDICAID | END 2020-11-05 16:02 | disposition home or self-care (01) | LOC: LC 14:48 | PROVIDERS: ATTEND Obstetrics & Gynecology | DX: O26.893 Other specified pregnancy related conditions, third trimester (principal); R10.9 Unspecified abdominal pain; Z3A.30 30 weeks gestation of pregnancy ==

== ENCOUNTER 2020-11-27 19:51 | Outpatient (CLI) | payer OTHER, MEDICAID ==
[2020-11-27 21:27] LABS: APPEARANCE,URINE CLEAR; BILIRUBIN,URINE NEGATIVE (NEGATIVE); COLOR,URINE YELLOW; GLUCOSE, URINE NEGATIVE (NEGATIVE); KETONES,URINE NEGATIVE (NEGATIVE); LEUKOCYTE ESTERASE,URINE NEGATIVE (NEGATIVE); NITRITE,URINE NEGATIVE (NEGATIVE); PROTEIN,URINE NEGATIVE (NEGATIVE); URINE SPECIFIC GRAVITY 1.018; UROBILINOGEN,URINE NEGATIVE mg/dL (<2.0)
[2020-11-27 21:40] LABS: URINE AMPHETAMINES SCREEN NEGATIVE; URINE BARBITURATES SCREEN NEGATIVE; URINE BENZODIAZEPINES SCREEN NEGATIVE; URINE COCAINE SCREEN NEGATIVE; URINE MARIJUANA (THC) SCREEN NEGATIVE; URINE METHADONE SCREEN NEGATIVE; URINE PHENCYCLIDINE SCREEN NEGATIVE
== END 2020-11-27 22:11 | disposition home or self-care (01) ==
LOC: LC 19:51
PROVIDERS: ATTEND Obstetrics & Gynecology
DX: O47.03 False labor before 37 completed weeks of gestation, third trimester (principal); Z3A.33 33 weeks gestation of pregnancy
CPT/HCPCS: 59025; 80307; 81001; 84112; 94760

== ENCOUNTER 2020-12-24 19:29 | Outpatient (CLI) | payer OTHER, MEDICAID ==
[2020-12-24 21:20] LABS: APPEARANCE,URINE SLIGHTLY-CLOUDY; BILIRUBIN,URINE NEGATIVE (NEGATIVE); COLOR,URINE YELLOW; GLUCOSE, URINE NEGATIVE (NEGATIVE); KETONES,URINE NEGATIVE (NEGATIVE); LEUKOCYTE ESTERASE,URINE TRACE (NEGATIVE); NITRITE,URINE NEGATIVE (NEGATIVE); PROTEIN,URINE 30 mg/dL (NEGATIVE)
[2020-12-24 21:37] LABS: URINE AMPHETAMINES SCREEN NEGATIVE; URINE BARBITURATES SCREEN NEGATIVE; URINE BENZODIAZEPINES SCREEN NEGATIVE; URINE COCAINE SCREEN NEGATIVE; URINE MARIJUANA (THC) SCREEN NEGATIVE; URINE METHADONE SCREEN NEGATIVE; URINE PHENCYCLIDINE SCREEN NEGATIVE
--- NOTE | 2020-12-24 21:50 | Non Stress Test Report ---
Non Stress Test Datetime Report Generated by CPN: 12/24/2020 21:49 DEMOGRAPHIC Test Number: 1 EGA NST: 37.6 EGA NST: 34.0 INDICATION Indication for Study (NST) Other: nausea and cramping Indication for Study (NST) Other: lc VITAL SIGNS Temperature - NST: 98.6 RESP - NST: 16 MONITORING Monitor Explained: Monitor Explained; Test Explained; Patient Verbalized Understanding Monitor Explained: Monitor Explained; Test Explained; Patient Verbalized Understanding Time on Monitor: 12/24/2020 21:10 Time on Monitor: 11/27/2020 21:30 Time off Monitor: 12/24/2020 21:48 Time off Monitor: 11/27/2020 21:51 NST Duration: 38 NST Duration: 21 NST INTERVENTIONS NST Interventions: PO Hydration; Reposition Patient NST Interventions: PO Hydration; Reposition Patient Physician Notified NST: Dr Clemens Physician Notified NST: Dr Araya BABY A: [id number] BABY A Movement : Present Movement : Present Movement : Present Contraction Frequency : irreg Contraction Frequency : irr FHR Baseline : 145 FHR Baseline : 150 Accelerations : 15X15 Accelerations : 15X15 Decelerations : None Decelerations : None Variability : Moderate 6-25bpm Variability : Moderate 6-25bpm NST Review: Meets Criteria for Reactive NST NST Review: Meets Criteria for Reactive NST NST Review: Meets Criteria for Reactive NST NST Review and Verified By : Melissa Cox RN NST Review and Verified By : TAIWO Barnes NST Results: Reactive NST Results: Reactive NST Results: Reactive NST REPORT Report Trigger: Send Report
== END 2020-12-24 21:54 | disposition home or self-care (01) ==
LOC: LC 19:29
PROVIDERS: ATTEND Obstetrics & Gynecology
DX: O47.1 False labor at or after 37 completed weeks of gestation (principal); O26.893 Other specified pregnancy related conditions, third trimester; R11.0 Nausea; Z3A.37 37 weeks gestation of pregnancy
CPT/HCPCS: 59025; 80307; 81005